=== PATIENT | female | born 1985 ===

== ENCOUNTER 2020-12-31 11:00 | Outpatient (REF) | payer OTHER, SELFPAY ==
[2020-12-31 12:08] LABS: MANUAL DIFF FLAG NO
[2020-12-31 12:11] LABS: Basophils Percent Auto 0.2 % (0-2); Eosinophils Absolute Auto 0.1 X10*3/uL (0.0-0.4); Eosinophils Percent Auto 1.1 % (0-4); Hematocrit 38.5 % (37-47); Hemoglobin 12.4 g/dl (12.0-16.0); Imm Gran Abs Auto 0.03 X10*3/uL (0.00-0.03); Imm Gran Pct Auto 0.6 % (0.0-0.4); Lymphocytes Absolute Auto 1.2 X10*3/uL (1.2-4.9); Lymphocytes Percent Auto 21.7 % (20-40); Mean Corpuscular HGB Conc 32.2 g/dl (31.0-35.0); Mean Corpuscular Hemoglobin 27.9 pg (27.0-33.0); Mean Corpuscular Volume 86.7 fL (80-98); Mean Platelet Volume 10.7 fL (9.4-12.3); Monocytes Absolute Auto 0.3 X10*3/uL (0.1-1.2); Monocytes Percent Auto 6.3 % (2-11); Neutrophils Absolute Auto 3.8 X10*3/uL (2.0-8.3); Neutrophils Percent Auto 70.1 % (45-73); Platelet Count 192 X10*3/uL (160-400); Red Blood Count 4.44 X10*6/uL (4.20-5.50); Red Cell Distribution Width 13.2 % (11.0-16.0); White Blood Count 5.4 X10*3/uL (4.8-10.8)
[2020-12-31 12:29] LABS: Appearance Urine CLEAR; Color Urine YELLOW; Glucose Urine UA NEG (NEG); Leukocyte Esterase Urine NEG (NEG); Nitrite Urine NEG (NEG); PH 6.5 (5.0-8.0); Specific Gravity - Urine 1.015 (1.005-1.025); Urine Blood 1+ (NEG); Urine Ketones NEG (NEG); Urine Protein NEG (NEG-TRACE)
[2020-12-31 12:36] LABS: Alanine Aminotransferase 20 U/L (0-31); Albumin Level 4.1 g/dL (3.5-5.0); Alkaline Phosphatase 70 U/L (39-117); Anion Gap 10 (12-20); Aspartate Amino Transferase 13 U/L (5-31); Bilirubin Total < 0.2 mg/dL (0.0-1.0); Blood Urea Nitrogen 10 mg/dL (9-16); C Reactive Protein 1.12 mg/dL (< or = 0.50); Calcium 8.9 mg/dL (8.4-10.2); Carbon Dioxide 29 mmol/L (22-29); Chloride 104 mmol/L (96-108); Estimated Glomerular Filt Rate > 60; Glucose Random 123 mg/dL (60-115); Potassium 4.3 mmol/L (3.3-5.1); Rheumatoid Factor < 15.0 IU/mL (<15.0); Sodium 139 mmol/L (135-145)
[2020-12-31 12:47] LABS: RBC Urine 0-2 /HPF (0); Squamous Epithelial Cell Urine TRACE /LPF; WBC Urine 0 /HPF (0-4)
[2020-12-31 12:54] LABS: Thyroid Stimulating Hormone 0.91 uIU/mL (0.32-4.0)
[2020-12-31 13:23] LABS: Erythrocyte Sedimentation Rate 19 MM/HR (0-20)
[2021-01-01 05:32] LABS: Thyroglobulin Antibodies <1 IU/mL (< or = 1); Thyroid Peroxidase Antibodies <1 IU/mL (<9)
[2021-01-01 11:07] LABS: Cyclic Citrullinated Peptide <16 UNITS
[2021-01-01 13:06] LABS: Anti DNA DS Antibody <1 IU/mL; Antibody to SS-A Antigen <1.0 NEG AI (<1.0 NEG); Antibody to SS-B Antigen <1.0 NEG AI (<1.0 NEG); SM/Ribonucleoprotein Ab <1.0 NEG AI (<1.0 NEG); Smith Protein <1.0 NEG AI (<1.0 NEG)
[2021-01-03 12:21] LABS: Complement C3 134 mg/dL (83-193)
[2021-01-03 15:37] LABS: Anti Nuclear Antibody Screen POSITIVE (NEGATIVE)
== END 2020-12-31 11:01 | disposition home or self-care (01) ==
LOC: HO.LAB 11:00
PROVIDERS: PCP Internal Medicine Geriatric Medicine; Visit Provider Student in an Organized Health Care Education/Training Program
DX: R76.8 Other specified abnormal immunological findings in serum (principal)
CPT/HCPCS: 36415; 80053; 81001; 84443; 85025; 85652; 86038; 86039; 86140; 86160; 86200; 86225; 86235; 86376; 86431; 86800; 99202

== ENCOUNTER 2021-02-03 13:37 | Outpatient (REF) | payer OTHER, SELFPAY ==
--- NOTE | ~2021-02-03 | US_ITS ---
EXAMINATION: US OB PELVIC AND TRANSVAGINAL CLINICAL INFORMATION: Abdominal cramping x 4-5 days. COMPARISON: None TECHNIQUE: Routine transabdominal imaging of pelvis is performed. FINDINGS: The uterus is anteverted with a solitary intrauterine gestational sac and yolk sac. pole is not visualized. There is no motion or heart rate. The mean gestational sac measures 0.68 cm corresponding to 5 weeks 2 days. There are 2 hypoechoic lesions seen in the uterus consistent with small fibroids. The mid segment lesion measures 1.2 x 1.1 x 1.2 cm. The anterior lesion measures 0.6 x 0.4 x 0.6 cm. The myometrium is heterogeneous. There are multiple small anechoic nabothian cysts in the cervix. The right ovary measures 3.4 x 2.4 x 2.9 cm. There is a small corpus luteal cyst measuring 2.1 x 2.3 x 2.4 cm. The left ovary measures 2.9 x 1.8 x 2.3 cm. There is a small corpus luteal cyst measuring 1.9 x 1.3 x 2.1 cm. There is no free fluid in the cul-de-sac. US/US OB pelvic and transvaginal IMPRESSION: Single intrauterine gestational sac with a mean sac diameter corresponding to 5 weeks 2 days. pole, heart rate is not visualized. There are 2 uterine fibroids visualized. There are small nabothian cysts in the cervix. There is a corpus luteal cyst in each ovary. There is no free fluid in the cul-de-sac.
== END 2021-02-03 13:38 | disposition home or self-care (01) ==
LOC: HO.HMGCX 13:37
PROVIDERS: PCP Internal Medicine Geriatric Medicine; Visit Provider Nurse Practitioner Family
DX: O26.891 Other specified pregnancy related conditions, first trimester (principal); Z3A.01 Less than 8 weeks gestation of pregnancy; R10.9 Unspecified abdominal pain
CPT/HCPCS: 76801; 76817

== ENCOUNTER 2022-09-27 13:27 | Outpatient (REF) | payer MEDICAID, SELFPAY ==
[2022-09-28 09:19] LABS: BV Int Neg Control Negative (Negative); BV Int Pos Control Positive (Positive)
== END 2022-09-27 13:28 | disposition home or self-care (01) ==
LOC: HO.LNP 13:27
PROVIDERS: PCP Internal Medicine Geriatric Medicine; Visit Provider Advanced Practice Midwife
DX: N93.9 Abnormal uterine and vaginal bleeding, unspecified (principal); N92.0 Excessive and frequent menstruation with regular cycle; Z97.5 Presence of (intrauterine) contraceptive device
CPT/HCPCS: 84443; 85027; 87480; 87491; 87510; 87591; 87660; 99202

== ENCOUNTER 2022-09-27 14:45 | Outpatient (REF) | payer MEDICAID, SELFPAY ==
[2022-09-27 16:01] LABS: Hematocrit 39.1 % (37.0-47.0); Hemoglobin 12.6 g/dl (12.0-16.0); Mean Corpuscular HGB Conc 32.2 g/dl (31.0-35.0); Mean Corpuscular Hemoglobin 27.3 pg (27.0-33.0); Mean Corpuscular Volume 84.6 fL (80.0-98.0); Mean Platelet Volume 11.4 fL (9.4-12.3); Platelet Count 222 X10*3/uL (160-400); Red Blood Count 4.62 X10*6/uL (4.20-5.50); Red Cell Distribution Width 13.6 % (11.0-16.0); White Blood Count 7.7 X10*3/uL (4.8-10.8)
[2022-09-27 17:02] LABS: Thyroid Stimulating Hormone 0.78 uIU/mL (0.32-4.0)
[2022-09-28 02:11] LABS: CT PCR NOT DETECTED (Not Detect.); NG PCR NOT DETECTED (Not Detect.)
== END 2022-09-27 14:46 | disposition home or self-care (01) ==
LOC: HO.LAB 14:45
PROVIDERS: PCP Internal Medicine Geriatric Medicine; Visit Provider Advanced Practice Midwife
DX: N92.1 Excessive and frequent menstruation with irregular cycle (principal); N93.9 Abnormal uterine and vaginal bleeding, unspecified
CPT/HCPCS: 84443; 85027; 87491; 87591

== ENCOUNTER 2022-11-09 15:19 | Outpatient (REF) | payer MEDICAID, SELFPAY ==
--- NOTE | ~2022-11-09 | US_ITS ---
EXAMINATION: US PELVIS CLINICAL INFORMATION: Excessive and frequent menses with regular cycle; the last menstrual period was on 11/15/2022. COMPARISON: Obstetrical ultrasound dated 02/03/2021. TECHNIQUE: Ultrasound of the pelvis is performed using both transabdominal and transvaginal transducers along with Doppler. Transvaginal imaging is performed due to inadequate visualization transabdominally. FINDINGS: Uterus: The uterus is anteverted and anteflexed. The uterus measures 11.1 x 2.8 x 4.7 cm. Nabothian cysts are seen within the cervix. There is a minimal amount endocervical anechoic fluid. The double wall endometrial thickness is 0.5 mm. FIBROIDS: There is 1 fibroid seen. 1. Location: Anterior body, myometrial. Size: 0.9 x 0.7 x 0.7 cm. Prior: 1.2 x 1.1 x 1.2 cm. Fibroid characteristics: Heterogeneously hypoechoic. The uterus is smooth in contour and has normal myometrial echogenicity. No visible fibroid. Adnexa: Both ovaries are visualized. There is normal color flow to the adnexa. There is no ovarian torsion. There is no pelvic ascites or fluid collection. Right ovary measures 1.6 x 1.5 x 1.5 cm, volume 1.9 mL. Left ovary measures 4.6 x 4.2 x 3.8 cm, volume 38.3 mL. The left ovary contains a 3.8 x 3.3 x 3.2 cm mildly complex cyst with 2.0 x 2.2 x 2.3 cm daughter cyst. This shows no mural nodularity or associated color Doppler flow. US/US pelvic and transvaginal IMPRESSION: 1. A 3.8 cm in maximal diameter mildly complex left ovarian cyst is seen, with daughter cyst. As a precaution, a repeat pelvic ultrasound examination is recommended in 6-12 weeks to ensure stability/regression. 2. A small uterine fibroid is noted. 3. Nabothian cysts are seen within the cervix. 4. This is a small amount of nonspecific endocervical free fluid.
== END 2022-11-09 15:20 | disposition home or self-care (01) ==
LOC: HO.US 15:19
PROVIDERS: PCP Internal Medicine Geriatric Medicine; Visit Provider Advanced Practice Midwife
DX: N92.0 Excessive and frequent menstruation with regular cycle (principal)
CPT/HCPCS: 76830; 76856

== ENCOUNTER → 2022-11-16 10:11 | Outpatient (BNVA) | payer MEDICAID, SELFPAY | PROVIDERS: PCP Internal Medicine Geriatric Medicine; Visit Provider Advanced Practice Midwife | DX: Z71.2 Person consulting for explanation of examination or test findings (principal); D25.9 Leiomyoma of uterus, unspecified; N88.8 Other specified noninflammatory disorders of cervix uteri | CPT/HCPCS: 99212 ==

== ENCOUNTER 2023-01-01 11:02 | Outpatient (REF) | payer MEDICAID, SELFPAY ==
--- NOTE | ~2023-01-01 | US_ITS ---
EXAMINATION: US PELVIS CLINICAL INFORMATION: Ovarian cyst. COMPARISON: Pelvic ultrasound 11/09/2022 - A 3.8 cm in maximal diameter mildly complex left ovarian cyst is seen, with daughter cyst. As a precaution, a repeat pelvic ultrasound examination is recommended in 6-12 weeks to ensure stability/regression. TECHNIQUE: Ultrasound of the pelvis is performed using both transabdominal and transvaginal transducers along with Doppler. Transvaginal imaging is performed due to inadequate visualization transabdominally. FINDINGS: UTERUS: The uterus is anteverted and measures 11.8 x 3.1 x 3.8 cm. The double wall endometrial thickness is 0.3 mm. The uterus is smooth in contour and has normal myometrial echogenicity. A small 1.1 x 0.7 x 0.7 cm fibroid is seen near the fundus which is without significant change. At the time of the prior study, 2 fibroids were measured. ADNEXA: Both ovaries are visualized. There is normal color flow to the adnexa. There is no ovarian torsion. There is no pelvic ascites or fluid collection. Right ovary measures 3.3 x 3.6 x 3.7 cm for a volume of 23 mL which includes a 3.2 x 2.9 x 3.6 cm cyst, new since the prior study. Left ovary measures 2.4 x 1.4 x 2.0 cm for a volume of 3.5 mL which includes a small elongated simple cyst measuring 1.6 x 0.6 x 0.9 cm. The previously seen complex cyst has either resolved or is now significantly smaller. US/US pelvic and transvaginal IMPRESSION: 1. Small uterine fibroid. 2. Bilateral ovarian cysts. No follow up is needed. 3. Previously seen complex 3.8 cm left ovarian cyst has either resolved or is significantly smaller measuring 1.6 cm.
== END 2023-01-01 11:03 | disposition home or self-care (01) ==
LOC: HO.US 11:02
PROVIDERS: PCP Internal Medicine Geriatric Medicine; Visit Provider Advanced Practice Midwife
DX: N83.292 Other ovarian cyst, left side (principal)
CPT/HCPCS: 76830; 76856

== ENCOUNTER 2023-01-17 10:06 | Outpatient (REF) | payer MEDICAID, SELFPAY ==
[2023-01-17 13:10] LABS: CT PCR NOT DETECTED (Not Detect.); NG PCR NOT DETECTED (Not Detect.)
[2023-01-18 11:06] LABS: BV Int Neg Control Negative (Negative); BV Int Pos Control Positive (Positive)
== END 2023-01-17 10:07 | disposition home or self-care (01) ==
LOC: HO.LAB 10:06
PROVIDERS: PCP Internal Medicine Geriatric Medicine; Visit Provider Advanced Practice Midwife
DX: R10.2 Pelvic and perineal pain (principal); N92.1 Excessive and frequent menstruation with irregular cycle; Z20.2 Contact with and (suspected) exposure to infections with a predominantly sexual mode of transmission; Z97.5 Presence of (intrauterine) contraceptive device
CPT/HCPCS: 0353U; 87480; 87510; 87660; 99212

== ENCOUNTER 2023-01-17 11:01 | Outpatient (REF) | payer MEDICAID, SELFPAY ==
[2023-01-20 03:09] LABS: HPV mRNA E6/E7 rflx Not Detected (Not Detected)
== END 2023-01-17 11:02 | disposition home or self-care (01) ==
LOC: HO.LNP 11:01
PROVIDERS: Visit Provider Advanced Practice Midwife
DX: Z01.411 Encounter for gynecological examination (general) (routine) with abnormal findings (principal); Z11.51 Encounter for screening for human papillomavirus (HPV); R10.2 Pelvic and perineal pain; N92.1 Excessive and frequent menstruation with irregular cycle; Z97.5 Presence of (intrauterine) contraceptive device
CPT/HCPCS: 87624; 88142

== ENCOUNTER → 2023-02-21 08:21 | Outpatient (BNVA) | payer MEDICAID, SELFPAY | PROVIDERS: PCP Internal Medicine Geriatric Medicine; Visit Provider Advanced Practice Midwife | DX: Z71.2 Person consulting for explanation of examination or test findings (principal); N92.1 Excessive and frequent menstruation with irregular cycle; Z30.09 Encounter for other general counseling and advice on contraception; G43.109 Migraine with aura, not intractable, without status migrainosus; D21.9 Benign neoplasm of connective and other soft tissue, unspecified | CPT/HCPCS: 99212 ==

== ENCOUNTER → 2023-03-16 13:49 | Outpatient (BNVA) | payer MEDICAID, SELFPAY | PROVIDERS: PCP Internal Medicine Geriatric Medicine; Visit Provider Advanced Practice Midwife | DX: Z30.430 Encounter for insertion of intrauterine contraceptive device (principal); N92.6 Irregular menstruation, unspecified | CPT/HCPCS: 11982; 58300; 81025; J7298 ==

== ENCOUNTER 2023-03-22 16:13 | Outpatient (REF) | payer MEDICAID, SELFPAY ==
--- NOTE | ~2023-03-22 | US_ITS ---
EXAMINATION: US PELVIS CLINICAL INFORMATION: Pain after insertion of IUD on 03/16/2023. LMP 02/09/2023. COMPARISON: Pelvic ultrasound 01/01/2023. TECHNIQUE: Ultrasound of the pelvis is performed using both transabdominal and transvaginal transducers along with Doppler. Transvaginal imaging is performed due to inadequate visualization transabdominally. FINDINGS: The uterus is anteverted and measures 8 x 4.4 x 6 cm. There is redemonstration of a 1 x 0.7 x 1.3 cm intramural lesion near the fundus, favoring to represent a fibroid. The endometrium measures 0.4 cm in thickness, IUD is in satisfactory positioning within the endometrial cavity. Nabothian cysts are noted in the cervix. The right ovary measures 3.9 x 4.3 x 4.4 cm, 39 mL. The left ovary measures 2.9 x 1.6 x 2.8 cm, 7 mL. There is preserved flow to both ovaries at the moment of this examination. Differences in size are likely explained by the presence of a 3.7 x 3.4 x 3.2 cm complicated cyst in the right ovary with internal avascular septations and layering debris. No adnexal mass. No free fluid. US/US pelvic and transvaginal IMPRESSION: 1. IUD in satisfactory positioning within the endometrial cavity. 2. There is a 3.7 cm complicated cyst in the right ovary with lacelike avascular septations and layering avascular debris, favoring to represent hemorrhagic cyst. Recommend a follow-up examination in 6-12 weeks to ensure resolution. 3. Redemonstration of a 1.3 cm intramural lesion near the fundus of the uterus, statistically favored to represent represent a fibroid. 4. Nabothian cysts in the cervix.
== END 2023-03-22 16:14 | disposition home or self-care (01) ==
LOC: HO.US 16:13
PROVIDERS: PCP Internal Medicine Geriatric Medicine; Visit Provider Advanced Practice Midwife
DX: Z30.431 Encounter for routine checking of intrauterine contraceptive device (principal); R10.2 Pelvic and perineal pain
CPT/HCPCS: 76830; 76856

== ENCOUNTER → 2023-03-23 07:47 | Outpatient (BNVA) | payer MEDICAID, SELFPAY | PROVIDERS: PCP Internal Medicine Geriatric Medicine; Visit Provider Advanced Practice Midwife | DX: Z71.2 Person consulting for explanation of examination or test findings (principal); N83.291 Other ovarian cyst, right side | CPT/HCPCS: 99212 ==

== ENCOUNTER 2023-04-20 08:08 | Outpatient (AMB) | payer MEDICAID, SELFPAY ==
[2023-04-20 08:29] VITALS: BP 126/78; PULSE 83; TEMP 36.5; O2SAT 97; BMI 46.1
--- NOTE | 2023-04-20 08:29 | MHC.OFFVIS ---
Intake Vital Signs 04/20/23 08:29 Height 5 ft 3 in Weight 260 lb 2.327 oz BMI 46.1 BP 126/78 Blood Pressure Location Rt brachial Position Sitting Pulse 83 Pulse Source Pulse Oximeter Temp 97.7 F Temp Source Skin Pulse Oximetry (%) 97 Intake Visit Reasons: +EDDIE Intake Note: New pt presents today for +EDDIE consult. C/o pain in back, knees, and wrists. Anesthesiology Faculty Required: Yes Anesthesiology Faculty Language: Medical Record Librarians Teacher Name: Blanca [id number] Accompanied by: Self / Same As Patient Allergies seasonal allergies Allergy (Unknown, Uncoded 04/20/23 08:36) hives Medication List - Last Reconciled 04/20/23 by Guy Krause MD albuterol sulfate 90 mcg/actuation (Proventil HFA) 1 - 2 puffs inhalation Q4-6H PRN amlodipine 5 mg PO DAILY cetirizine (Zyrtec) 10 mg PO DAILY PRN cyclobenzaprine 10 mg PO TID epinephrine IM DIRECTED fluticasone propionate 50 mcg/actuation 1 spray intranasal DAILY levonorgestrel (Mirena) intrauterine lisinopril 20 mg PO DAILY losartan 50 mg PO QAM metformin 500 mg PO DAILY metformin ER 1,000 mg PO QAM sertraline (Zoloft) 100 mg PO DAILY tirzepatide (Mounjaro) 5 mg subcut QWEEK HPI HPI Comments History of Present Illness Details This is a 37-year-old female who presents for evaluation of a positive EDDIE. For a few years patient has been having diffuse pain in her back, wrists, knees. Feels that she has no strength in her knees. She has tried physical therapy and Flexeril for her back without much relief. Denies any skin rashes. Denies any blood or frothy urine. She had 4 pregnancies and 1 miscarriage. Her mother has fibromyalgia and she believes her mother also has rheumatoid arthritis but is not sure. [facility] Medical History (Updated 04/20/23 @ 09:07 by Guy Krause MD) Abnormal Pap smear of cervix Complex cyst of right ovary Diabetes Fibroid HTN (hypertension) Migraine with aura Prolonged menstrual cycle Surgical History Gastric bypass status for obesity Hx of section Family History Mother HTN (hypertension) Prediabetes Rheumatoid arthritis Maternal Grandmother Uterus cancer Son Down syndrome Social History Household Members: Children Housing: House Alcohol intake: current Patient Tobacco Use Status: Never used Tobacco service: No Current occupational status: unemployed Sexual orientation: Straight/Heterosexual Gender identity: Female Female Reproductive History Menstrual Total pregnancies: 4 Number of Living Children: 3 Ab spontaneous: 1 Review of Systems [facility] [place] Reports back pain and Reports arthralgias Skin/Breast Denies rash Physical Exam Vital Signs: Last Vital Signs Temp 97.7 F 04/20/23 08:29 Pulse 83 04/20/23 08:29 BP 126/78 04/20/23 08:29 Pulse Ox 97 04/20/23 08:29 BMI result Body Mass Index 46.1 Const General: cooperative, healthy appearing and comfortable Nutritional Appearance: obese morbidly obese Orientation/consciousness: patient oriented x3 Limitations: no limitations HEENT Head: Yes normocephalic and Yes atraumatic Mouth: moist mucous membranes Resp Effort & Inspection: normal respiratory effort and able to speak in complete sentences Auscultation: clear to auscultation bilaterally Cardio Rate: regular rate Rhythm: regular rhythm GI Inspection: No distended Palpation (GI): Soft to palpation and nontender Neuro General: patient oriented x3 Extrem Other: Right 4th MCP tenderness with MCP squeeze test An area of depigmentation where patient received steroid injection for de Quervain tenosynovitis left hand. No swollen joints Normal nailfold capillaroscopy Rare fibromyalgia tender points Results Reviewed Results Reviewed: Labs 2022 EDDIE 1-320 dfs Assessment & Plan Assessment & Plan (1) EDDIE positive: Code(s): R76.8 - Other specified abnormal immunological findings in serum Plan: This is a 37-year-old female who presents for evaluation of a positive EDDIE in the setting of diffuse joint pain. Will order comprehensive serology to screen for underlying autoimmune rheumatic disease. Follow-up after labs are completed. Plan I spent 32 minutes reviewing patient's chart, evaluating patient, ordering diagnostic workup, counseling patient and documenting in the chart Orders: Orders Comprehensive Met. Panel Today M32.9 - Systemic lupus erythematosus, unspecified C Reactive Protein Today M32.9 - Systemic lupus erythematosus, unspecified Protein Creatinine Ratio, Ur Today M32.9 - Systemic lupus erythematosus, unspecified Complete Blood Count Auto Diff Today M32.9 - Systemic lupus erythematosus, unspecified Erythrocyte Sedimentation Rate Today M32.9 - Systemic lupus erythematosus, unspecified Complement C3 Today M32.9 - Systemic lupus erythematosus, unspecified Complement C4 Today M32.9 - Systemic lupus erythematosus, unspecified Anti DNA DS Antibody Today M32.9 - Systemic lupus erythematosus, unspecified Anti Extractable Nuclear Ag Today M32.9 - Systemic lupus erythematosus, unspecified Sjogren's Antibodies Today M32.9 - Systemic lupus erythematosus, unspecified UA w Microscopic Today M32.9 - Systemic lupus erythematosus, unspecified Cyclic Citrullinated Peptide Today M25.541 - Pain in joints of right hand Rheumatoid Factor Today M25.541 - Pain in joints of right hand Coding Level of Care Code Est Pt Level 4 (48838) Diagnoses EDDIE positive R76.8
== END 2023-04-20 09:03 | disposition home or self-care (01) ==
PROVIDERS: PCP Internal Medicine Geriatric Medicine; Visit Provider Student in an Organized Health Care Education/Training Program
DX: R76.8 Other specified abnormal immunological findings in serum (principal)
CPT/HCPCS: 99214

== ENCOUNTER 2023-04-20 08:08 | Outpatient (REF) | payer MEDICAID, SELFPAY ==
[2023-04-21 11:47] LABS: BV Int Neg Control Negative (Negative); BV Int Pos Control Positive (Positive)
== END 2023-04-20 08:09 | disposition home or self-care (01) ==
LOC: HO.LNP 08:08
PROVIDERS: Advanced Practice Midwife; PCP Internal Medicine Geriatric Medicine; Visit Provider Student in an Organized Health Care Education/Training Program
DX: N92.1 Excessive and frequent menstruation with irregular cycle (principal); R76.8 Other specified abnormal immunological findings in serum; Z97.5 Presence of (intrauterine) contraceptive device
CPT/HCPCS: 81025; 87480; 87510; 87660; 99212; 99214

== ENCOUNTER 2023-04-20 09:12 | Outpatient (AMB) | payer MEDICAID, SELFPAY ==
--- NOTE | 2023-04-20 09:21 | A.OFFVIS_ITS ---
Intake Vital Signs 04/20/23 09:30 Height 5 ft 3 in Weight 260 lb 2.327 oz BMI 46.1 BP 116/72 Intake Visit Reasons: Heavy Bleeding with IUD Intake Note: The patient agreed to use of a medical records auditor during this encounter. Scribed for SHERRI Rojas by Vanna Esqueda medical records auditor, on 04/20/2023 at 9:34 am EST. Recovery Rn Required: Yes Recovery Rn Language: Director Of Preclinical Research Name: Estelle CROWLEY Information Interpreted: non-clinical & clinical Process Validation Engineer: Process Validation Engineer Present (Estelle Siva CROWLEY) Accompanied by: Self / Same As Patient Allergies seasonal allergies Allergy (Unknown, Uncoded 04/20/23 09:31) hives HPI HPI Comments History of Present Illness Details She is here today due to heavy menstrual bleeding with IUD; light pink spotting today. Mirena inserted 03/16/23. Reports VB every day since insertion with pelvic cramping. She reports changing pad hourly on some days. Denies vaginal odor and discharge. [facility] Medical History Abnormal Pap smear of cervix Breakthrough bleeding associated with intrauterine device (IUD) Complex cyst of right ovary Diabetes Fibroid HTN (hypertension) IUD strings lost IUD strings lost Migraine with aura Prolonged menstrual cycle Surgical History Gastric bypass status for obesity Hx of section Family History Mother HTN (hypertension) Prediabetes Rheumatoid arthritis Maternal Grandmother Uterus cancer Son Down syndrome Social History Household Members: Children Housing: House Alcohol intake: current Patient Tobacco Use Status: Never used Tobacco service: No Current occupational status: unemployed Sexual orientation: Straight/Heterosexual Gender identity: Female Female Reproductive History Menstrual control method: progestin IUCD Physical Exam Vital Signs: Last Vital Signs BP 116/72 04/20/23 09:30 BMI result Body Mass Index 46.1 Const General: cooperative, healthy appearing, comfortable, no acute distress, well developed, alert and awake Other: General: Yes bladder normal to palpation External Female Exam: normal external appearance and normal appearance of the urethra Speculum Exam - Vagina: normal appearance of the vagina, normal palpation and normal vaginal discharge Speculum Exam - Cervix: normal appearance of the cervix, normal palpation and Other cervical findings present (IUD strings not visible or palpable.) Bimanual exam- vagina & uterus: normal bimanual exam, normal palpation, bladder normal to palpation and normal palpation Bimanual Exam- Adnexa, other: normal adnexae and no masses Results AMB Test Urine AMB Test Urine Negative Last Edit by Estelle Paniagua CMA on 09:59 Results Reviewed Results Reviewed: Laboratory Last Values Tst Clinic Negative 04/20/23 09:59 EXAMINATION:? US PELVIS CLINICAL INFORMATION:? Excessive and frequent menstruation with irregular cycle COMPARISON: Previous pelvic ultrasound most recent March 2023 TECHNIQUE: Ultrasound of the pelvis is performed using both transabdominal and transvaginal transducers along with Doppler. Transvaginal imaging is performed due to inadequate visualization transabdominally. FINDINGS: The uterus is anteverted and measures 12 x 3 x 5.5 cm in dimension. There is an IUD in the uterus in satisfactory position. The endometrium does not appear thickened. There is a 8 x 9 mm hypoechoic area anterior uterine body questionable for a fibroid. No other focal uterine lesion. Nabothian cysts in the cervix. The right ovary is normal-appearing and measures 2.3 x 2.4 x 2.2 cm. The previously identified slightly complex right ovarian cyst measuring 3.7 x 3.4 x 3.2 cm March 2023 exam is no longer seen. The left ovary measures 2.4 x 1.3 x 2.1 cm. There is a new nonspecific 1.3 x 0.5 x 0.7 cm irregularly-shaped echogenic area in the left ovary. This may represent an involuting cyst. There is no fluid in the pelvis. US/US pelvic and transvaginal IMPRESSION: IUD in the uterus in satisfactory position. Endometrium does not appear thickened. Resolved complex cyst in the right ovary from March 2023. Assessment & Plan Assessment & Plan (1) Heavy menstrual bleeding: Code(s): N92.0 - Excessive and frequent menstruation with regular cycle Plan: Discussed: BV testing and GV/CT panel done today. Await results and treat accordingly. Workup labs: already on order by PCP, CBC-and patient is agreeable to have work up done. Pt. returned from US: reviewed w/pt. Cancel future US for complex ovarian cyst that has resolved. Call if increased bleeding for sooner evaluation. All of her questions and concerns were addressed to the best of my ability and shared decision making. She is agreeable to plan of care. RTO PRN and AG. (2) Breakthrough bleeding associated with intrauterine device (IUD): Code(s): N92.1 - Excessive and frequent menstruation with irregular cycle; Z97.5 - Presence of (intrauterine) contraceptive device (3) IUD surveillance: Code(s): Z30.431 - Encounter for routine checking of intrauterine contraceptive device (4) IUD strings lost: Code(s): T83.32XA - Displacement of intrauterine contraceptive device, initial encounter Orders: Orders Bacterial Vaginosis Panel Today N92.1 - Excessive and frequent menstruation with irregular cycle, Z97.5 - Presence of (intrauterine) contraceptive device CT NG by PCR Today N92.1 - Excessive and frequent menstruation with irregular cycle, Z97.5 - Presence of (intrauterine) contraceptive device AMB HCG Urine Test Today T83.32XA - Displacement of intrauterine contraceptive device, initial encounter Coding Level of Care Code Est Pt Level 4 (80713) Diagnoses Heavy menstrual bleeding N92.0 Breakthrough bleeding associated with intrauterine device (IUD) N92.1; Z97.5 IUD surveillance Z30.431 IUD strings lost T83.32XA
[2023-04-20 09:30] VITALS: BP 116/72; BMI 46.1
== END 2023-04-20 09:52 | disposition home or self-care (01) ==
LOC: HO.HWS 09:12
PROVIDERS: PCP Internal Medicine Geriatric Medicine; Visit Provider Advanced Practice Midwife
DX: N92.0 Excessive and frequent menstruation with regular cycle (principal); N92.1 Excessive and frequent menstruation with irregular cycle; Z30.431 Encounter for routine checking of intrauterine contraceptive device; T83.32XA Displacement of intrauterine contraceptive device, initial encounter
CPT/HCPCS: 99214

== ENCOUNTER 2023-04-20 10:46 | Outpatient (REF) | payer MEDICAID, SELFPAY ==
[2023-04-20 14:19] LABS: Anion Gap 13 (12-20); Blood Urea Nitrogen 8 mg/dL (9-16); Calcium 9.2 mg/dL (8.4-10.2); Carbon Dioxide 25 mmol/L (22-29); Chloride 106 mmol/L (96-108); Estimated Average Glucose 123 mg/dL; Estimated Glomerular Filt Rate > 60; Glucose Random 82 mg/dL (60-115); Hemoglobin A1c % 5.9 %; Potassium 3.8 mmol/L (3.3-5.1); Sodium 140 mmol/L (135-145)
[2023-04-20 14:49] LABS: Vitamin B12 538 pg/mL (200-900)
== END 2023-04-20 10:47 | disposition home or self-care (01) ==
LOC: HO.HHCL 10:46
PROVIDERS: Visit Provider Internal Medicine Geriatric Medicine
DX: E11.69 Type 2 diabetes mellitus with other specified complication (principal); E66.9 Obesity, unspecified
CPT/HCPCS: 36415; 80048; 82607; 83036; 83735

== ENCOUNTER 2023-04-20 11:10 | Outpatient (REF) | payer MEDICAID, SELFPAY ==
--- NOTE | ~2023-04-20 | US_ITS ---
EXAMINATION: US PELVIS CLINICAL INFORMATION: Excessive and frequent menstruation with irregular cycle COMPARISON: Previous pelvic ultrasound most recent March 2023 TECHNIQUE: Ultrasound of the pelvis is performed using both transabdominal and transvaginal transducers along with Doppler. Transvaginal imaging is performed due to inadequate visualization transabdominally. FINDINGS: The uterus is anteverted and measures 12 x 3 x 5.5 cm in dimension. There is an IUD in the uterus in satisfactory position. The endometrium does not appear thickened. There is a 8 x 9 mm hypoechoic area anterior uterine body questionable for a fibroid. No other focal uterine lesion. Nabothian cysts in the cervix. The right ovary is normal-appearing and measures 2.3 x 2.4 x 2.2 cm. The previously identified slightly complex right ovarian cyst measuring 3.7 x 3.4 x 3.2 cm March 2023 exam is no longer seen. The left ovary measures 2.4 x 1.3 x 2.1 cm. There is a new nonspecific 1.3 x 0.5 x 0.7 cm irregularly-shaped echogenic area in the left ovary. This may represent an involuting cyst. There is no fluid in the pelvis. US/US pelvic and transvaginal IMPRESSION: IUD in the uterus in satisfactory position. Endometrium does not appear thickened. Resolved complex cyst in the right ovary from March 2023.
[2023-04-20 13:55] LABS: MANUAL DIFF FLAG NO
[2023-04-20 14:23] LABS: Basophils Percent Auto 0.2 % (0-2); Eosinophils Percent Auto 0.6 % (0-4); Imm Gran Abs Auto 0.02 X10*3/uL (0.00-0.03); Imm Gran Pct Auto 0.3 % (0.0-0.4); Lymphocytes Absolute Auto 1.5 X10*3/uL (1.2-4.9); Lymphocytes Percent Auto 24.9 % (20-40); Mean Corpuscular HGB Conc 31.7 g/dl (31.0-35.0); Mean Corpuscular Hemoglobin 27.1 pg (27.0-33.0); Mean Corpuscular Volume 85.6 fL (80.0-98.0); Mean Platelet Volume 11.4 fL (9.4-12.3); Monocytes Absolute Auto 0.4 X10*3/uL (0.1-1.2); Monocytes Percent Auto 6.5 % (2-11); Neutrophils Absolute Auto 4.2 x10*3/uL (2.0-8.3); Neutrophils Percent Auto 67.5 % (45-73); Platelet Count 229 X10*3/uL (160-400); Red Blood Count 4.79 X10*6/uL (4.20-5.50); Red Cell Distribution Width 13.6 % (11.0-16.0); White Blood Count 6.2 X10*3/uL (4.8-10.8)
[2023-04-20 15:08] LABS: Erythrocyte Sedimentation Rate 8 MM/HR (0-20)
[2023-04-20 15:30] LABS: Appearance Urine Clear; Color Urine Yellow; Glucose Urine UA Negative (Negative); Leukocyte Esterase Urine Negative (Negative); Nitrite Urine Negative (Negative); PH 6.5 (5.0-9.0); Specific Gravity - Urine 1.015 (1.005-1.025); UMIC TRIGGER UA YES; Urine Blood Trace (Negative); Urine Ketones Negative (Negative); Urine Protein Negative (Neg-Trace)
[2023-04-20 15:36] LABS: Bacteria Urine None Seen (None Seen); Hyaline Casts Urine 0-2 /LPF (0-2); RBC Urine 0-2 /HPF (0-2); WBC Urine 0-5 /HPF (0-5)
[2023-04-20 15:37] LABS: Alanine Aminotransferase 29 U/L (0-31); Albumin Level 4.3 g/dL (3.5-5.0); Alkaline Phosphatase 73 U/L (39-117); Anion Gap 12 (12-20); Aspartate Amino Transferase 17 U/L (5-31); Bilirubin Total 0.4 mg/dL (0.0-1.0); Blood Urea Nitrogen 8 mg/dL (9-16); C Reactive Protein 0.84 mg/dL (< or = 0.50); Calcium 9.2 mg/dL (8.4-10.2); Carbon Dioxide 27 mmol/L (22-29); Chloride 103 mmol/L (96-108); Estimated Glomerular Filt Rate > 60; Glucose Random 77 mg/dL (60-115); Potassium 3.7 mmol/L (3.3-5.1); Sodium 138 mmol/L (135-145); Total Protein 7.2 g/dL (6.5-8.0)
[2023-04-20 15:44] LABS: Rheumatoid Factor < 13.0 IU/mL (<15.0)
[2023-04-20 16:00] LABS: Creatinine Urine 112.84 mg/dL; Total Protein Urine Random 11 mg/dL (<12)
[2023-04-20 17:57] LABS: CT PCR NOT DETECTED (Not Detect.); NG PCR NOT DETECTED (Not Detect.)
[2023-04-23 12:29] LABS: Complement C3 140 mg/dL (83-193)
[2023-04-23 19:17] LABS: Anti DNA DS Antibody <1 IU/mL; Antibody to SS-A Antigen <1.0 NEG AI (<1.0 NEG); Antibody to SS-B Antigen <1.0 NEG AI (<1.0 NEG); SM/Ribonucleoprotein Ab <1.0 NEG AI (<1.0 NEG); Smith Protein <1.0 NEG AI (<1.0 NEG)
[2023-04-25 13:58] LABS: Cyclic Citrullinated Peptide <16 UNITS
== END 2023-04-20 11:11 | disposition home or self-care (01) ==
LOC: HO.US 11:10
PROVIDERS: Absent Provider Student in an Organized Health Care Education/Training Program; PCP Internal Medicine Geriatric Medicine; Visit Provider Advanced Practice Midwife
DX: N92.1 Excessive and frequent menstruation with irregular cycle (principal); M32.9 Systemic lupus erythematosus, unspecified; M25.541 Pain in joints of right hand; N83.291 Other ovarian cyst, right side; Z97.5 Presence of (intrauterine) contraceptive device
CPT/HCPCS: 0353U; 36415; 76830; 76856; 80053; 81001; 84156; 85025; 85652; 86140; 86160; 86200; 86225; 86235; 86431

== ENCOUNTER 2023-06-26 09:02 | Outpatient (AMB) | payer MEDICAID, SELFPAY ==
--- NOTE | 2023-06-26 09:06 | MHC.OFFVIS ---
Intake Vital Signs 06/26/23 09:07 Height 5 ft 3 in Weight 253 lb 4.978 oz BMI 44.9 BP 140/92 H Blood Pressure Location Rt brachial Position Sitting Pulse 72 Pulse Source Pulse Oximeter Temp 97.3 F Temp Source Skin Pulse Oximetry (%) 100 Oxygen Delivery Method Room Air Intake Visit Reasons: EDDIE +ve Intake Note: Patient here to follow up on +EDDIE. Photogravure Press Operator Required: Yes Photogravure Press Operator Language: Data Management Consultant Name: Fabian [id number] Information Interpreted: clinical only Allergies seasonal allergies Allergy (Unknown, Uncoded 06/26/23 09:06) hives Medication List - Last Reconciled 06/26/23 by Guy Krause MD albuterol sulfate 90 mcg/actuation (Proventil HFA) 1 - 2 puffs inhalation Q4-6H PRN amlodipine 5 mg PO DAILY cetirizine (Zyrtec) 10 mg PO DAILY PRN cyclobenzaprine 10 mg PO TID epinephrine IM DIRECTED fluticasone propionate 50 mcg/actuation 1 spray intranasal DAILY levonorgestrel (Mirena) intrauterine losartan 50 mg PO QAM metformin ER 1,000 mg PO QAM metronidazole 500 mg PO BID 7 days sertraline (Zoloft) 100 mg PO DAILY tirzepatide (Mounjaro) 7.5 mg subcut QWEEK HPI HPI Comments History of Present Illness Details Patient returns for follow-up after completion of her blood work. Doing about the same Initial history: This is a 37-year-old female who presents for evaluation of a positive EDDIE. For a few years patient has been having diffuse pain in her back, wrists, knees. Feels that she has no strength in her knees. She has tried physical therapy and Flexeril for her back without much relief. Denies any skin rashes. Denies any blood or frothy urine. She had 4 pregnancies and 1 miscarriage. Her mother has fibromyalgia and she believes her mother also has rheumatoid arthritis but is not sure. [facility] Medical History EDDIE positive IUD strings lost IUD strings lost Breakthrough bleeding associated with intrauterine device (IUD) Complex cyst of right ovary Migraine with aura Prolonged menstrual cycle Fibroid Abnormal Pap smear of cervix Diabetes HTN (hypertension) Surgical History Gastric bypass status for obesity Hx of section Family History Mother HTN (hypertension) Prediabetes Rheumatoid arthritis Maternal Grandmother Uterus cancer Son Down syndrome Social History Household Members: Children Housing: House Alcohol intake: current Patient Tobacco Use Status: Never used Tobacco service: No Current occupational status: unemployed Sexual orientation: Straight/Heterosexual Gender identity: Female Review of Systems Musc Reports back pain, Reports arthralgias, Reports numbness and Reports tingling Neuro Reports numbness and Reports tingling Physical Exam Vital Signs: Last Vital Signs Temp 97.3 F 06/26/23 09:07 Pulse 72 06/26/23 09:07 BP 140/92 H 06/26/23 09:07 Pulse Ox 100 06/26/23 09:07 Oxygen Delivery Method Room Air 06/26/23 09:07 BMI result Body Mass Index 44.9 Const General: cooperative, healthy appearing and comfortable Nutritional Appearance: obese morbidly obese Orientation/consciousness: patient oriented x3 Limitations: no limitations HEENT Head: Yes normocephalic and Yes atraumatic Mouth: moist mucous membranes Resp Effort & Inspection: normal respiratory effort and able to speak in complete sentences Neuro General: patient oriented x3 Extrem Other: An area of depigmentation where patient received steroid injection for de Quervain tenosynovitis left hand. No swollen or tender joints today Normal nailfold capillaroscopy Rare fibromyalgia tender points Positive straight leg raise test on the right Right hand tingling going into her right 5th finger with Tinel test Left hand: Left forearm numbness and tingling with Tinel test Results Reviewed Results Reviewed: Labs 2022 EDDIE 1-320 dfs Assessment & Plan Assessment & Plan (1) EDDIE positive: Code(s): R76.8 - Other specified abnormal immunological findings in serum Plan: This is a 37-year-old female who presents for evaluation of a positive EDDIE in the setting of diffuse joint pain. I do not see any evidence of autoimmune rheumatic disease upon my evaluation and comprehensive serology is unrevealing (2) Bilateral carpal tunnel syndrome: Code(s): G56.03 - Carpal tunnel syndrome, bilateral upper limbs Plan: Versus cubital tunnel syndrome. Referred for EMG (3) Low back pain, unspecified: Code(s): M54.50 - Low back pain, unspecified Qualifiers: Chronicity: chronic Sciatica presence: with sciatica Sciatica laterality: sciatica of right side Back pain laterality: midline Qualified Code(s): M54.41 - Lumbago with sciatica, right side; G89.29 - Other chronic pain Plan: I suggested physical therapy. Patient declined today Plan I spent 28 minutes reviewing patient's chart, evaluating patient, ordering diagnostic workup, counseling patient and documenting in the chart Orders: Orders NE electromyogram (EMG) Today G56.03 - Carpal tunnel syndrome, bilateral upper limbs Coding Level of Care Code Est Pt Level 4 (61072) Diagnoses EDDIE positive R76.8 Bilateral carpal tunnel syndrome G56.03 Chronic midline low back pain with right-sided sciatica M54.41; G89.29 Chronicity: chronic Sciatica presence: with sciatica Sciatica laterality: sciatica of right side Back pain laterality: midline
[2023-06-26 09:07] VITALS: BP 140/92; PULSE 72; TEMP 36.3; O2SAT 100; BMI 44.9
== END 2023-06-26 09:28 | disposition home or self-care (01) ==
PROVIDERS: PCP Internal Medicine Geriatric Medicine; Visit Provider Student in an Organized Health Care Education/Training Program
DX: R76.8 Other specified abnormal immunological findings in serum (principal); G56.03 Carpal tunnel syndrome, bilateral upper limbs; M54.41 Lumbago with sciatica, right side; G89.29 Other chronic pain
CPT/HCPCS: 99214

== ENCOUNTER → 2023-06-26 09:02 | Outpatient (BNVA) | payer MEDICAID, SELFPAY | PROVIDERS: PCP Internal Medicine Geriatric Medicine; Visit Provider Student in an Organized Health Care Education/Training Program | DX: R76.8 Other specified abnormal immunological findings in serum (principal); G56.03 Carpal tunnel syndrome, bilateral upper limbs; M54.41 Lumbago with sciatica, right side; G89.29 Other chronic pain | CPT/HCPCS: 99212 ==

== ENCOUNTER 2023-07-03 10:34 | Outpatient (AMB) | payer MEDICAID, SELFPAY ==
--- NOTE | 2023-07-03 10:37 | MHC.OFFVIS ---
Intake Vital Signs 07/03/23 10:49 Height 5 ft 3 in Weight 254 lb BMI 45.0 BP 126/74 Intake Visit Reasons: Annual/[place] islander Intake Note: The patient agreed to use of a medical transcription radiology during this encounter. Scribed for SHERRI Rojas by Vanna Esqueda medical transcription radiology, on 07/08/2023 at 11:04 am EST. Amusement Centre Manager Required: Yes Amusement Centre Manager Language: Product Distribution Specialist Name: Estelle Information Interpreted: non-clinical & clinical Talent Acquisition Project Manager: Talent Acquisition Project Manager Present (Estelle) Allergies seasonal allergies Allergy (Unknown, Uncoded 07/03/23 10:40) hives HPI HPI Comments History of Present Illness Details She is a premenopausal woman presenting for annual exam. She admits to eating healthy and tries to stay active with exercise. Currently sexually active; occasional pain with intercourse. Uses Mirena for cycle control; reports VB has stopped Is interested in knowing if her BV in the past went away. Hx of BV 04/20/23; treated. Denies pelvic pain, vaginal itching and irritation. Admits slight vaginal odor. STD screening and blood work offered; she accepts. Denies family hx of breast, colon and ovarian cancer. Last pap smear 01/18/23. [facility] Medical History EDDIE positive IUD strings lost IUD strings lost Breakthrough bleeding associated with intrauterine device (IUD) Complex cyst of right ovary Migraine with aura Prolonged menstrual cycle Fibroid Abnormal Pap smear of cervix Diabetes HTN (hypertension) Surgical History Gastric bypass status for obesity Hx of section Family History Mother HTN (hypertension) Prediabetes Rheumatoid arthritis Maternal Grandmother Uterus cancer Son Down syndrome Social History (Updated 07/03/23 @ 10:55 by KEO Henriquez) Household Members: Children Housing: House Alcohol intake: current Patient Tobacco Use Status: Never used Tobacco service: No Current occupational status: unemployed Sexual orientation: Straight/Heterosexual Gender identity: Female Female Reproductive History Menstrual control method: progestin IUCD (Mirena 03/16/23, IUD strings visible 07/03/23) Total pregnancies: 4 Full term: 3 Premature: 1 (delivered at 6 months) Number of Living Children: 3 Date of last pap smear: 01/18/23 ([place]) History of abnormal pap smear: Yes Physical Exam Vital Signs: Last Vital Signs BP 126/74 07/03/23 10:49 BMI result Body Mass Index 45.0 Const General: cooperative, healthy appearing, no acute distress, well developed and alert Orientation/consciousness: patient oriented x3 HEENT Head: Yes normal to inspection Eyes General: appearance normal, both eyes and all related structures Neck Neck: Yes normal visual inspection Thyroid: Thyroid normal Chest Chest palpation & inspection: normal inspection of the chest Breast/axilla inspection: normal inspection of the breasts (no puckering, dimpling, peau de orange, retraction, discharge, masses) Breast/axilla palpation: normal palpation of the breasts Resp Effort & Inspection: normal respiratory effort GI Inspection: Yes normal to inspection and Yes obesity Palpation (GI): Soft to palpation (to palpation) Rectal Exam - Female: deferred General: Yes bladder normal to inspection External Female Exam: normal external appearance and normal appearance of the urethra Speculum Exam - Vagina: normal appearance of the vagina, normal palpation and normal vaginal discharge Speculum Exam - Cervix: normal appearance of the cervix, normal palpation and Other cervical findings present (IUD strings visible) Bimanual exam- vagina & uterus: normal palpation and normal palpation Bimanual Exam- Adnexa, other: normal adnexae and no masses Skin General skin exam: no rashes or lesions noted Neuro General: patient oriented x3 Cognition (Neuro): normal cognition Extrem General: Yes normal to inspection Psych Attitude: cooperative Thought process: Normal thought process present Results Reviewed Results Reviewed: Laboratory Tests 04/20/23 09:12 Gardnerella DNA Probe Positive A Assessment & Plan Assessment & Plan (1) Encounter for well woman exam: Code(s): Z01.419 - Encounter for gynecological examination (general) (routine) without abnormal findings Plan: Discussed: Current recommendations for pap smears per ASCCP guidelines. Breast awareness and periodic self breast exams. Maintaining a healthy lifestyle including a well balanced diet and routine exercise. Encouraged patient to sign up for patient portal. All of her questions and concerns were addressed to the best of my ability. RTO in one year for AG. (2) Vaginal odor: Code(s): N89.8 - Other specified noninflammatory disorders of vagina Plan: BV testing done today. STD blood work ordered. Await results and treat accordingly. Boric acid protocol given. Orders: Orders Hepatitis C Antibody Today Z20.2 - Contact with and (suspected) exposure to infections with a predominantly sexual mode of transmission Syphilis Screen Today Z20.2 - Contact with and (suspected) exposure to infections with a predominantly sexual mode of transmission Bacterial Vaginosis Panel Today N89.8 - Other specified noninflammatory disorders of vagina CT NG by PCR Today N89.8 - Other specified noninflammatory disorders of vagina Hepatitis B Core Antibody Today Z20.2 - Contact with and (suspected) exposure to infections with a predominantly sexual mode of transmission HIV Ab/Ag Today Z20.2 - Contact with and (suspected) exposure to infections with a predominantly sexual mode of transmission Coding Level of Care Code Est Pt Prev Care 18-39y(15079) Diagnoses Encounter for well woman exam Z01.419 Vaginal odor N89.8
[2023-07-03 10:49] VITALS: BP 126/74; BMI 45.0
== END 2023-07-03 11:17 | disposition home or self-care (01) ==
PROVIDERS: PCP Internal Medicine Geriatric Medicine; Visit Provider Advanced Practice Midwife
DX: Z01.419 Encounter for gynecological examination (general) (routine) without abnormal findings (principal); N89.8 Other specified noninflammatory disorders of vagina
CPT/HCPCS: 99395

== ENCOUNTER 2023-07-03 10:34 | Outpatient (REF) | payer MEDICAID, SELFPAY ==
[2023-07-03 13:40] LABS: Syphilis Screen Nonreactive (Nonreactive)
[2023-07-03 17:17] LABS: CT PCR NOT DETECTED (Not Detect.); NG PCR NOT DETECTED (Not Detect.)
[2023-07-04 09:46] LABS: HBc Num1 0.09 S/CO (0.00-0.79); HIV AB/AG Nonreactive (Nonreactive); HIV Num 1 0.07 S/CO (0.00-0.99); Hepatitis B Core Antibody Nonreactive (Nonreactive); ~HepC Num1 0.04 S/CO (0.00-0.79); ~Hepatitis C Antibody Nonreactive (Nonreactive)
[2023-07-04 13:34] LABS: BV Int Neg Control Negative (Negative); BV Int Pos Control Positive (Positive)
== END 2023-07-03 10:35 | disposition home or self-care (01) ==
LOC: HO.LAB 10:34
PROVIDERS: PCP Internal Medicine Geriatric Medicine; Visit Provider Advanced Practice Midwife
DX: Z01.419 Encounter for gynecological examination (general) (routine) without abnormal findings (principal); N89.8 Other specified noninflammatory disorders of vagina; Z20.2 Contact with and (suspected) exposure to infections with a predominantly sexual mode of transmission
CPT/HCPCS: 0353U; 86704; 86780; 86803; 87389; 87480; 87510; 87660; 99395

== ENCOUNTER 2023-07-03 11:38 | Outpatient (REF) | payer MEDICAID, SELFPAY | END 2023-07-03 11:39 | disposition home or self-care (01) | LOC: HO.LNP 11:38 | PROVIDERS: Visit Provider Advanced Practice Midwife | DX: Z13.89 Encounter for screening for other disorder (principal) ==

== ENCOUNTER 2023-07-12 09:41 | Outpatient (REF) | payer MEDICAID, SELFPAY ==
--- NOTE | 2023-07-12 09:44 | EMG_ITS ---
Bilateral median and ulnar motor and sensory studies were performed. Bilateral radial sensory studies were performed and paraspinal muscles were tested with a needle. IMPRESSION: 1. Mild left median neuropathy across carpal tunnel. 2. Mild left ulnar neuropathy across cubital tunnel. MD RENATE Harris/PARRISH / [phone]
== END 2023-07-12 09:42 | disposition home or self-care (01) ==
LOC: HO.NEURO 09:41
PROVIDERS: PCP Internal Medicine Geriatric Medicine; Visit Provider Student in an Organized Health Care Education/Training Program
DX: G56.03 Carpal tunnel syndrome, bilateral upper limbs (principal)
CPT/HCPCS: 95886; 95911

== ENCOUNTER 2023-08-29 09:22 | Outpatient (AMB) | payer MEDICAID, SELFPAY ==
[2023-08-29 09:41] VITALS: BP 128/72; PULSE 94; TEMP 36.1; O2SAT 99; BMI 44.3
--- NOTE | 2023-08-29 09:41 | MHC.OFFVIS ---
Intake Vital Signs 08/29/23 09:41 Height 5 ft 3 in Weight 250 lb 3.594 oz BMI 44.3 BP 128/72 Blood Pressure Location Lt radial Position Sitting Pulse 94 Pulse Source Pulse Oximeter Temp 97.0 F Temp Source Skin Pulse Oximetry (%) 99 Intake Visit Reasons: EDDIE +ve Intake Note: Pt last seen 06/26/23, presents today for follow up and EMG test results. Belt Loop Machine Operator Required: Yes Belt Loop Machine Operator Name: Pat [id number] Accompanied by: Self / Same As Patient Allergies seasonal allergies Allergy (Unknown, Uncoded 08/29/23 09:43) hives Medication List - Last Reconciled 08/29/23 by Guy Krause MD albuterol sulfate 90 mcg/actuation (Proventil HFA) 1 - 2 puffs inhalation Q4-6H PRN amlodipine 5 mg PO DAILY cetirizine (Zyrtec) 10 mg PO DAILY PRN cyclobenzaprine 10 mg PO TID epinephrine IM DIRECTED fluticasone propionate 50 mcg/actuation 1 spray intranasal DAILY hydroxyzine HCl 10 mg PO Q8H PRN levonorgestrel (Mirena) intrauterine losartan 50 mg PO QAM metformin ER 1,000 mg PO QAM metronidazole 500 mg PO BID 7 days metronidazole 500 mg PO BID 7 days sertraline (Zoloft) 100 mg PO DAILY terconazole 0.8% 1 appful vaginal BEDTIME 3 days tirzepatide (Mounjaro) 7.5 mg subcut QWEEK HPI HPI Comments History of Present Illness Details Patient returns for follow-up after completion of her EMG. Continues to feel about the same Initial history: This is a 37-year-old female who presents for evaluation of a positive EDDIE. For a few years patient has been having diffuse pain in her back, wrists, knees. Feels that she has no strength in her knees. She has tried physical therapy and Flexeril for her back without much relief. Denies any skin rashes. Denies any blood or frothy urine. She had 4 pregnancies and 1 miscarriage. Her mother has fibromyalgia and she believes her mother also has rheumatoid arthritis but is not sure. [facility] Medical History EDDIE positive IUD strings lost IUD strings lost Breakthrough bleeding associated with intrauterine device (IUD) Complex cyst of right ovary Migraine with aura Prolonged menstrual cycle Fibroid Abnormal Pap smear of cervix Diabetes HTN (hypertension) Surgical History Gastric bypass status for obesity Hx of section Family History Mother HTN (hypertension) Prediabetes Rheumatoid arthritis Maternal Grandmother Uterus cancer Son Down syndrome Social History Household Members: Children Housing: House Alcohol intake: current Patient Tobacco Use Status: Never used Tobacco service: No Current occupational status: unemployed Sexual orientation: Straight/Heterosexual Gender identity: Female Review of Systems Musc Reports back pain, Reports numbness and Reports tingling Neuro Reports numbness and Reports tingling Physical Exam Vital Signs: Last Vital Signs Temp 97.0 F 08/29/23 09:41 Pulse 94 08/29/23 09:41 BP 128/72 08/29/23 09:41 Pulse Ox 99 08/29/23 09:41 BMI result Body Mass Index 44.3 Const General: cooperative, healthy appearing and comfortable Nutritional Appearance: obese morbidly obese Orientation/consciousness: patient oriented x3 Limitations: no limitations HEENT Head: Yes normocephalic and Yes atraumatic Resp Effort & Inspection: normal respiratory effort and able to speak in complete sentences Neuro General: patient oriented x3 Extrem Other: An area of depigmentation where patient received steroid injection for de Quervain tenosynovitis left hand. No swollen or tender joints today Normal nailfold capillaroscopy Rare fibromyalgia tender points Results Reviewed Results Reviewed: Labs 2022 EDDIE 1-320 dfs Assessment & Plan Assessment & Plan (1) EDDIE positive: Code(s): R76.8 - Other specified abnormal immunological findings in serum Plan: This is a 37-year-old female who presents for evaluation of a positive EDDIE in the setting of diffuse joint pain. I do not see any evidence of autoimmune rheumatic disease upon my evaluation and comprehensive serology is unrevealing (2) Bilateral carpal tunnel syndrome: Code(s): G56.03 - Carpal tunnel syndrome, bilateral upper limbs Plan: EMG shows mild left cubital tunnel and mild left carpal tunnel syndrome. Patient states that she will be using the hand splints at home. She is not interested in hand surgery referral at this point. Follow-up as needed Plan I spent 18 minutes reviewing patient's chart, evaluating patient, counseling patient and documenting in the chart Coding Level of Care Code Est Pt Level 3 (82239) Diagnoses EDDIE positive R76.8 Bilateral carpal tunnel syndrome G56.03
== END 2023-08-29 10:03 | disposition home or self-care (01) ==
PROVIDERS: PCP Internal Medicine Geriatric Medicine; Referring Provider Internal Medicine Geriatric Medicine; Visit Provider Student in an Organized Health Care Education/Training Program
DX: R76.8 Other specified abnormal immunological findings in serum (principal); G56.03 Carpal tunnel syndrome, bilateral upper limbs
CPT/HCPCS: 99213

== ENCOUNTER → 2023-08-29 09:22 | Outpatient (BNVA) | payer MEDICAID, SELFPAY | PROVIDERS: PCP Internal Medicine Geriatric Medicine; Visit Provider Student in an Organized Health Care Education/Training Program | DX: G56.03 Carpal tunnel syndrome, bilateral upper limbs (principal); R76.8 Other specified abnormal immunological findings in serum | CPT/HCPCS: 99212 ==

== ENCOUNTER 2023-10-05 11:29 | Outpatient (REF) | payer MEDICAID, SELFPAY | END 2023-10-05 11:30 | disposition home or self-care (01) | LOC: HO.HHCL 11:29 | PROVIDERS: Visit Provider Internal Medicine Geriatric Medicine | DX: E11.69 Type 2 diabetes mellitus with other specified complication (principal); E66.9 Obesity, unspecified; I10 Essential (primary) hypertension | CPT/HCPCS: 36415; 80048; 83036 ==

== ENCOUNTER 2024-01-17 15:20 | Outpatient (REF) | payer MEDICAID, SELFPAY ==
[2024-01-18 12:39] LABS: CT PCR NOT DETECTED (Not Detect.); NG PCR NOT DETECTED (Not Detect.)
[2024-01-19 13:07] LABS: BV Int Neg Control Negative (Negative); BV Int Pos Control Positive (Positive)
== END 2024-01-17 15:21 | disposition home or self-care (01) ==
LOC: HO.LAB 15:20
PROVIDERS: PCP Internal Medicine Geriatric Medicine; Visit Provider Advanced Practice Midwife
DX: N89.8 Other specified noninflammatory disorders of vagina (principal); N92.1 Excessive and frequent menstruation with irregular cycle; R10.2 Pelvic and perineal pain
CPT/HCPCS: 0353U; 81025; 87480; 87510; 87660; 99212

== ENCOUNTER 2024-01-17 15:20 | Outpatient (AMB) | payer MEDICAID, SELFPAY ==
--- NOTE | 2024-01-17 16:04 | A.OFFVIS_ITS ---
Vital Signs 01/17/24 16:08 Height 5 ft 3 in Weight 250 lb BMI 44.3 BP 144/70 H Intake Visit Reasons: vaginal discharge Intake Note: pt c/o vag irritation, discharge, chronic yeast inf School Library Media Program Director: School Library Media Program Director Present (Jocelyn) Allergies seasonal allergies Allergy (Unknown, Uncoded 01/17/24 16:06) hives HPI Comments Details: Patient is here today with concerns that she has some vaginal irritation episodically monthly treated for yeast due to dry, itchy irritated external area. She also reports 2 episodes of sharp intense pain in the pelvic region felt like something was broke . Intermittent breakthrough bleeding with the IUD. She denies any urinary symptoms. Last dose of [id number] yeast treatment was applied last night. [facility] Medical History (Updated 01/17/24 @ 16:26 by Madeleine Silveira CNM) EDDIE positive Complex cyst of right ovary Migraine with aura Prolonged menstrual cycle Fibroid Abnormal Pap smear of cervix Diabetes HTN (hypertension) Surgical History Gastric bypass status for obesity Hx of section Family History Mother HTN (hypertension) Prediabetes Rheumatoid arthritis Maternal Grandmother Uterus cancer Son Down syndrome Social History Household Members: Children Housing: House Alcohol intake: current Patient Tobacco Use Status: Never used Tobacco service: No Current occupational status: unemployed Sexual orientation: Straight/Heterosexual Gender identity: Female Female Reproductive History Menstrual control method: progestin IUCD (Mirena 03/16/23) Review of Systems Const All systems reviewed & are unremarkable except as noted in HPI and below Physical Exam Vital Signs: Last Vital Signs BP 144/70 H 01/17/24 16:08 BMI result Body Mass Index 44.3 Const General: cooperative, healthy appearing and no acute distress Orientation/consciousness: patient oriented x3 GI Inspection: Yes normal to inspection Palpation (GI): Soft to palpation and Other GI palpation findings present (Nontender) Rectal Exam - Female: visual inspection normal General: Yes bladder normal to palpation External Female Exam: normal appearance of the urethra Speculum Exam - Vagina: normal appearance of the vagina, normal palpation, normal vaginal discharge and vaginal bleeding Speculum Exam - Cervix: normal appearance of the cervix, normal palpation and Other cervical findings present (IUD strings are present) Bimanual exam- vagina & uterus: normal bimanual exam, normal palpation, uterine size normal, bladder normal to palpation, normal palpation, uterine shape normal and non-tender Bimanual Exam- Adnexa, other: normal adnexae OB/external & speculum: vaginal bleeding Neuro General: patient oriented x3 Results AMB Test Urine AMB Test Urine Negative Last Edit by KEO Henriquez on 01/17/24 16:32 Results Reviewed Results Reviewed: Laboratory Last Values [facility]st Clinic Negative 01/17/24 16:22 Assessment & Plan Assessment & Plan (1) Breakthrough bleeding associated with intrauterine device (IUD): Code(s): N92.1 - Excessive and frequent menstruation with irregular cycle; Z97.5 - Presence of (intrauterine) contraceptive device Category: Medical (2) Vulvar irritation: Code(s): N90.89 - Other specified noninflammatory disorders of vulva and perineum (3) Pelvic pain: Code(s): R10.2 - Pelvic and perineal pain Plan Discussed plan workup for pelvic ultrasound, cultures for BV and GC chlamydia today. Await results for plan of care. Return to the office for ultrasound findings in person. All of her questions and concerns were addressed to the best of my ability and shared decision making. She is agreeable to the plan of care. This note is constructed using voice recognition software. While every effort has been made to ensure accuracy, health care aide errors may have been included. Orders: Orders Bacterial Vaginosis Panel Today N89.8 - Other specified noninflammatory disorders of vagina CT NG by PCR Today N89.8 - Other specified noninflammatory disorders of vagina US pelvic and transvaginal Today N92.1 - Excessive and frequent menstruation wi th irregular cycle, R10.2 - Pelvic and perineal pain, Z97.5 - Presence of (intrauterine) contraceptive device AMB HCG Urine Test Today N92.1 - Excessive and frequent menstruation with irregular cycle, Z97.5 - Presence of (intrauterine) contraceptive device
[2024-01-17 16:08] VITALS: BP 144/70; BMI 44.3
== END 2024-01-17 16:26 | disposition home or self-care (01) ==
LOC: HO.HWS 15:20
PROVIDERS: PCP Internal Medicine Geriatric Medicine; Visit Provider Advanced Practice Midwife
DX: N92.1 Excessive and frequent menstruation with irregular cycle (principal); Z97.5 Presence of (intrauterine) contraceptive device; N90.89 Other specified noninflammatory disorders of vulva and perineum; R10.2 Pelvic and perineal pain
CPT/HCPCS: 99214

== ENCOUNTER 2024-01-17 16:22 | Outpatient (REF) | payer MEDICAID, SELFPAY | END 2024-01-17 16:23 | disposition home or self-care (01) | LOC: HO.LNP 16:22 | PROVIDERS: Visit Provider Advanced Practice Midwife | DX: Z13.89 Encounter for screening for other disorder (principal) ==

== ENCOUNTER 2024-01-28 12:53 | Outpatient (REF) | payer MEDICAID, SELFPAY ==
--- NOTE | ~2024-01-28 | US_ITS ---
EXAMINATION: US PELVIS CLINICAL INFORMATION: Pelvic and perineal pain. COMPARISON: Multiple prior pelvic ultrasounds most recently on 04/20/2023. TECHNIQUE: Ultrasound of the pelvis is performed using both transabdominal and transvaginal transducers along with Doppler. Transvaginal imaging is performed due to inadequate visualization transabdominally. FINDINGS: Uterus: The uterus is anteverted and measures 7.7 x 4.2 x 5.3 cm. The double wall endometrial thickness is 3 mm. The uterus is smooth in contour and has normal myometrial echogenicity. There is a 1.3 x 1.2 x 1.4 cm intramural fibroid present. An IUD is present in good position within the endometrial canal. Adnexa: Both ovaries are visualized. There is normal color flow to the adnexa. There is no ovarian torsion. There is no pelvic ascites or fluid collection. Right ovary measures 3.5 x 3.0 x 2.8 cm for a volume of 15.1 mL. Left ovary measures 3.9 x 2.3 x 3.0 cm for a volume of 14.1 mL. US/US pelvic and transvaginal IMPRESSION: 1. IUD in good position. 2. Small intramural fibroid.
== END 2024-01-28 12:54 | disposition home or self-care (01) ==
LOC: HO.US 12:53
PROVIDERS: PCP Internal Medicine Geriatric Medicine; Visit Provider Advanced Practice Midwife
DX: R10.2 Pelvic and perineal pain (principal); N92.1 Excessive and frequent menstruation with irregular cycle; Z97.5 Presence of (intrauterine) contraceptive device
CPT/HCPCS: 76830; 76856

== ENCOUNTER 2024-02-06 08:55 | Outpatient (REF) | payer MEDICAID, SELFPAY ==
[2024-02-06 11:47] LABS: Estimated Average Glucose 120 mg/dL; Hemoglobin A1c % 5.8 % (<6.0)
[2024-02-06 12:04] LABS: Anion Gap 13 (12-20); Blood Urea Nitrogen 9 mg/dL (9-16); Calcium 9.1 mg/dL (8.4-10.2); Carbon Dioxide 25 mmol/L (22-29); Chloride 107 mmol/L (96-108); Estimated Glomerular Filt Rate > 60; Glucose Random 106 mg/dL (60-115); Potassium 4.1 mmol/L (3.3-5.1); Sodium 141 mmol/L (135-145)
== END 2024-02-06 08:56 | disposition home or self-care (01) ==
LOC: HO.HHCL 08:55
PROVIDERS: Visit Provider Internal Medicine Geriatric Medicine
DX: E11.69 Type 2 diabetes mellitus with other specified complication (principal); E66.9 Obesity, unspecified; I10 Essential (primary) hypertension
CPT/HCPCS: 36415; 80048; 83036

== ENCOUNTER 2024-03-26 11:45 | Outpatient (AMB) | payer MEDICAID, SELFPAY ==
--- NOTE | 2024-03-26 12:33 | A.OFFVIS_ITS ---
Vital Signs 03/26/24 12:34 Height 5 ft 3 in Weight 252 lb 6 oz BMI 44.7 BP 112/72 Blood Pressure Location Lt radial Position Sitting Intake Visit Reasons: ultra sound follow up Straightedge Worker: Straightedge Worker Present Allergies seasonal allergies Allergy (Unknown, Uncoded 01/17/24 16:06) hives Is last menstrual period known: No Post menopausal: No Patient : No HPI Comments Details: Patient is here today for a follow up pelvic ultrasound. She would previous breakthrough bleeding with her IUD, she reports that has resolved. She has a known history of a small fibroid. [facility] Medical History (Updated 03/26/24 @ 12:57 by Madeleine Silveira CNM) EDDIE positive Migraine with aura Prolonged menstrual cycle Fibroid Abnormal Pap smear of cervix Diabetes HTN (hypertension) Surgical History Gastric bypass status for obesity Hx of section Family History Mother HTN (hypertension) Prediabetes Rheumatoid arthritis Maternal Grandmother Uterus cancer Son Down syndrome Social History Household Members: Children Housing: House Alcohol intake: current Patient Tobacco Use Status: Never used Tobacco Patient : No service: No Current occupational status: unemployed Sexual orientation: Straight/Heterosexual Gender identity: Female Review of Systems Const All systems reviewed & are unremarkable except as noted in HPI and below Endo Reports no additional complaints Physical Exam Vital Signs: Last Vital Signs BP 112/72 03/26/24 12:34 BMI result Body Mass Index 44.7 Const General: cooperative, healthy appearing and no acute distress Psych Appearance: well kempt Attitude: cooperative Thought process: Normal thought process present Results Reviewed Results Reviewed: [address] [address] Ultrasound Report Signed Patient: Yakelin Chaney MR#: [id number] : 1985 Acct:[id number] Age/Sex: 38 / F ADM Date: 01/28/24 Loc: HO.US Attending Dr: Madeleine Silveira CNM Ordering Physician: Madeleine Silveira CNM Date of Service: 01/28/24 Procedure(s): US pelvic and transvaginal Accession Number(s): [id number] cc: Madeleine Silveira CNM; Name,Cuong RODRIGUEZ~ EXAMINATION: US PELVIS CLINICAL INFORMATION: Pelvic and perineal pain. COMPARISON: Multiple prior pelvic ultrasounds most recently on 04/20/2023. TECHNIQUE: Ultrasound of the pelvis is performed using both transabdominal and transvaginal transducers along with Doppler. Transvaginal imaging is performed due to inadequate visualization transabdominally. FINDINGS: Uterus: The uterus is anteverted and measures 7.7 x 4.2 x 5.3 cm. The double wall endometrial thickness is 3 mm. The uterus is smooth in contour and has normal myometrial echogenicity. There is a 1.3 x 1.2 x 1.4 cm intramural fibroid present. An IUD is present in good position within the endometrial canal. Adnexa: Both ovaries are visualized. There is normal color flow to the adnexa. There is no ovarian torsion. There is no pelvic ascites or fluid collection. Right ovary measures 3.5 x 3.0 x 2.8 cm for a volume of 15.1 mL. Left ovary measures 3.9 x 2.3 x 3.0 cm for a volume of 14.1 mL. US/US pelvic and transvaginal IMPRESSION: 1. IUD in good position. 2. Small intramural fibroid. Dictated By: Sergio Wells MD Signed By: <Electronically signed by Sergio Wells MD in OV> 01/31/24 2301 DD/ 1312 TD/TT: Pond Worker: Assessment & Plan Assessment & Plan (1) Fibroid: Code(s): D21.9 - Benign neoplasm of connective and other soft tissue, unspecified Category: Medical (2) Encounter to discuss test results: Code(s): Z71.2 - Person consulting for explanation of examination or test findings Plan Discussed: Ultrasound findings stable fibroid, and IUD is properly positioned. Counseled re: Leiomyoma: common pelvic neoplasm. Differential diagnosis-may include leiomyosarcoma which is a rare uterine sarcoma 3-7/100,000, difficult to distinguish from fibroids on ultrasound from uterine sarcoma's. Unlikely any single test will have a highly positive predictive value. Hysterectomy is not recommended for sole purpose of excluding malignant neoplasm. Report any AUB. Pelvic pressure, bloating, or pain. Consult for surgical exploration verses expectant management offered. Patient prefers yearly for stability. Referral to MD if indicated for level of care. Annual exam scheduled 07/20/2024. All of her questions and concerns were addressed to the best of my ability and shared decision making. She is agreeable to the plan of care. This note is constructed using voice recognition software. While every effort has been made to ensure accuracy, prepared foods production team member errors may have been included. Coding Level of Care Code Est Pt Level 3 (96126) Diagnoses Fibroid D21.9 Encounter to discuss test results Z71.2
[2024-03-26 12:34] VITALS: BP 112/72; BMI 44.7
== END 2024-03-26 12:55 | disposition home or self-care (01) ==
PROVIDERS: PCP Internal Medicine Geriatric Medicine; Visit Provider Advanced Practice Midwife
DX: D21.9 Benign neoplasm of connective and other soft tissue, unspecified (principal); Z71.2 Person consulting for explanation of examination or test findings
CPT/HCPCS: 99213

== ENCOUNTER → 2024-03-26 11:45 | Outpatient (BNVA) | payer MEDICAID, SELFPAY | PROVIDERS: PCP Internal Medicine Geriatric Medicine; Visit Provider Advanced Practice Midwife | DX: D21.9 Benign neoplasm of connective and other soft tissue, unspecified (principal); Z71.2 Person consulting for explanation of examination or test findings | CPT/HCPCS: 99212 ==

== ENCOUNTER 2024-05-05 09:50 | Outpatient (REF) | payer MEDICAID, SELFPAY ==
[2024-05-08 00:09] LABS: TS Negative Control Passed; TS Panel A 0; TS Panel B 0; TS Positive Control Passed; TSpotTB Negative (Negative)
== END 2024-05-05 09:51 | disposition home or self-care (01) ==
LOC: HO.HHCL 09:50
PROVIDERS: Visit Provider Internal Medicine Geriatric Medicine
DX: Z13.89 Encounter for screening for other disorder (principal)
CPT/HCPCS: 36415; 86481

== ENCOUNTER 2024-05-14 15:35 | Outpatient (REF) | payer MEDICAID, SELFPAY ==
[2024-05-14 16:21] LABS: MANUAL DIFF FLAG NO
[2024-05-14 16:29] LABS: Basophils Percent Auto 0.1 % (0-2); Eosinophils Percent Auto 0.5 % (0-4); Hematocrit 41.3 % (37.0-47.0); Hemoglobin 13.4 g/dl (12.0-16.0); Imm Gran Abs Auto 0.04 X10*3/uL (0.00-0.03); Imm Gran Pct Auto 0.5 % (0.0-0.4); Lymphocytes Absolute Auto 1.7 X10*3/uL (1.2-4.9); Mean Corpuscular HGB Conc 32.4 g/dl (31.0-35.0); Mean Corpuscular Hemoglobin 27.5 pg (27.0-33.0); Mean Corpuscular Volume 84.8 fL (80.0-98.0); Mean Platelet Volume 10.7 fL (9.4-12.3); Monocytes Absolute Auto 0.5 X10*3/uL (0.1-1.2); Monocytes Percent Auto 6.6 % (2-11); Neutrophils Absolute Auto 5.5 x10*3/uL (2.0-8.3); Neutrophils Percent Auto 70.3 % (45-73); Platelet Count 219 X10*3/uL (160-400); Red Blood Count 4.87 X10*6/uL (4.20-5.50); Red Cell Distribution Width 13.2 % (11.0-16.0); White Blood Count 7.9 X10*3/uL (4.8-10.8)
[2024-05-14 17:03] LABS: Alanine Aminotransferase 17 U/L (0-31); Albumin Level 4.3 g/dL (3.5-5.0); Alkaline Phosphatase 69 U/L (39-117); Anion Gap 11 (12-20); Aspartate Amino Transferase 15 U/L (5-31); Bilirubin Total 0.3 mg/dL (0.0-1.0); Blood Urea Nitrogen 10 mg/dL (9-16); Calcium 9.3 mg/dL (8.4-10.2); Carbon Dioxide 26 mmol/L (22-29); Chloride 107 mmol/L (96-108); Estimated Glomerular Filt Rate > 60; Glucose Random 103 mg/dL (60-115); Potassium 4.1 mmol/L (3.3-5.1); Sodium 140 mmol/L (135-145); Total Protein 7.4 g/dL (6.5-8.0)
[2024-05-14 17:04] LABS: B Type Natriuretic Peptide 10 pg/mL (<100)
[2024-05-14 17:05] LABS: Creatinine Urine 79.05 mg/dL; Microalbumin Urine < 5.0 mg/L
== END 2024-05-14 15:36 | disposition home or self-care (01) ==
LOC: HO.HHCL 15:35
PROVIDERS: Visit Provider Internal Medicine Geriatric Medicine
DX: M79.89 Other specified soft tissue disorders (principal); E11.69 Type 2 diabetes mellitus with other specified complication; E66.9 Obesity, unspecified; R25.2 Cramp and spasm
CPT/HCPCS: 36415; 80053; 82043; 82570; 83880; 85025

== ENCOUNTER 2024-06-12 10:04 | Outpatient (REF) | payer MEDICAID, SELFPAY ==
--- NOTE | ~2024-06-12 | XR_ITS ---
EXAMINATION: XR WRIST, LEFT CLINICAL INFORMATION: Left wrist pain and swelling COMPARISON: None available. TECHNIQUE: PA, lateral, and oblique views of the left wrist. FINDINGS: The lunate is diffuse increased density suggesting Kienbock's disease (AVN). No surface depression or fragmentation. There is ulnar negative variance. No significant joint space narrowing. XR/XR wrist LT min 3V IMPRESSION: Lunate sclerosis suggesting Kienbock's disease. Consider further evaluation with MRI. Electronically signed by: Ridge Hogue MD 06/18/2024 11:39 AM EDT
== END 2024-06-12 10:05 | disposition home or self-care (01) ==
LOC: HO.HHCX 10:04
PROVIDERS: Visit Provider Family Medicine
DX: M25.532 Pain in left wrist (principal); G89.29 Other chronic pain
CPT/HCPCS: 73110

== ENCOUNTER 2024-07-10 12:27 | Outpatient (AMB) | payer MEDICAID, SELFPAY ==
--- NOTE | 2024-07-10 12:35 | A.OFFVIS_ITS ---
Vital Signs 07/10/24 12:39 Height 5 ft 3 in Weight 256 lb 6.362 oz BMI 45.4 BP 116/70 Blood Pressure Location Lt brachial Position Sitting Pulse 103 H Pulse Source Pulse Oximeter Pulse Oximetry (%) 98 Oxygen Delivery Method Room Air Intake Visit Reasons: EDDIE +ve Intake Note: Patient presents for EDDIE + ve. Pc Network Technician Required: Yes Pc Network Technician Language: Division Chair Services: Pc Network Technician Offered & Declined (Provider spoke with patient in her [place] language) Information Interpreted: non-clinical & clinical Allergies seasonal allergies Allergy (Unknown, Uncoded 01/17/24 16:06) hives Medication List - Last Reconciled 07/10/24 by Priya Duarte MD albuterol sulfate 90 mcg/actuation (Proventil HFA) 1 - 2 puffs inhalation Q4-6H PRN amlodipine 5 mg PO DAILY cetirizine (Zyrtec) 10 mg PO DAILY PRN cyclobenzaprine 10 mg PO TID epinephrine IM DIRECTED fluticasone propionate 50 mcg/actuation 1 spray intranasal DAILY hydroxyzine HCl 10 mg PO Q8H PRN levonorgestrel (Mirena) intrauterine losartan 50 mg PO QAM metformin ER 1,000 mg PO QAM sertraline (Zoloft) 100 mg PO DAILY tirzepatide (Mounjaro) 7.5 mg subcut QWEEK HPI Comments Details: Patient is a 39-year-old female with asthma, hypertension and diabetes. Presents today for follow up of carpal tunnel syndrome a positive EDDIE Interval History: Patient last seen 08/29/2023 with Guy Krause. At that time there was low suspicion for any underlying connective tissue disease. Patient is here today because she noted about 3 months ago she woke up with swelling and pain to her left wrist. She does recall abnormal loading to the wrists a couple days prior to this occurring. 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 She used warm compresses and [id number] analgesics and there was mild improvement in the pain and swelling. However some of this persists today. Denies the other risks involved. Still complains of bilateral knee pain and intermittent hand pain. Denies rashes, photosensitivity, alopecia, oral/nasal ulcers, sicca symptoms, lymphadenopathy, chest pain/shortness of breath, inflammatory type joint pain, foamy urine, lower extremity edema, muscle weakness, Raynaud's Also denies history of seizure, CVA, psychosis, history of kidney problems, history of cytopenias, history of VTE Rheumatologic History: Patient initially seen 12/31/2020 with Americo Mariasteffany. She was referred for bilateral hand pain. Had an EMG which confirmed carpal tunnel syndrome and was status post cortisone injections which helped. Immunology markers were sent by her primary and so she was referred to us for positive EDDIE. There was no evidence on history or examination concerning for lupus or any other autoimmune connective tissue disease. Labs were sent. EDDIE returned 1:320 with a dense fine speckled pattern. Trish panel negative. Given low suspicion of autoimmune disease she was discharged from clinic. She was re-referred to us in 2022 by her primary. No obvious symptoms but routine labs came back with EDDIE positive once again. She was evaluated at that time and repeat workup was done. Repeat tests again showed positive EDDIE without any TRISH and normal complement and antiphospholipid antibodies. She did have an EMG which showed mild left cubital tunnel and mild left carpal tunnel syndrome. She has a history of receiving injections for this but she did not want to pursue surgery at that time. No further interventions were medically appropriate at that time. 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 Migraine with aura Prolonged menstrual cycle Fibroid Abnormal Pap smear of cervix Diabetes HTN (hypertension) Surgical History Gastric bypass status for obesity Hx of section Family History Mother HTN (hypertension) Prediabetes Rheumatoid arthritis Maternal Grandmother Uterus cancer Son Down syndrome Social History Household Members: Children Housing: House Alcohol intake: current Patient Tobacco Use Status: Never used Tobacco service: No Current occupational status: unemployed Sexual orientation: Straight/Heterosexual Gender identity: Female Review of Systems Const Details: Review of Systems Constitutional: Denies fever, chills, weight loss ENT: Denies vision changes, eye pain or eye redness, dental caries, dry mouth GI: Denies nausea, vomiting, diarrhea, abdominal pain, change in BM Pulm: Denies SOB, DINH, hemoptysis, wheezing Cards: Denies chest pain, palpitations Skin: Denies Raynaud's, rash, nail changes, photosensitivity, JUDICIAL ADMINISTRATIVE ASSISTANT: Denies headaches, weakness, paresthesias, recurrent falls MSK: as per HPI All other systems reviewed and are unremarkable except noted above Physical Exam Vital Signs: Last Vital Signs Pulse 103 H 07/10/24 12:39 BP 116/70 07/10/24 12:39 Pulse Ox 98 07/10/24 12:39 Oxygen Delivery Method Room Air 07/10/24 12:39 BMI result Body Mass Index 45.4 Const Other: Physical Examination Patient well appearing and in no apparent painful distress Able to rise from chair without support. ?Gait normal. Constitutional Mucous membranes pink and moist patient alert and cooperative HEENT Conjunctiva and sclera clear. ?Pupils equal round and reactive to light. ?No lymphadenopathy. ?Normal dentition. Respiratory System Normal respiratory effort and able to speak in complete sentences. ?Clear to auscultation bilaterally. ?No crackles, rales, rhonchi, wheezes heard. Cardiac System Regular rate and rhythm. ?S1 and S2 heard no murmurs. ?Radial pulses intact bilaterally MSK Mild swelling noted to the left wrist with mild warmth compared to the right wrist. No active synovitis to the wrist joint proper but there is some tenderness to palpation. Positive Vikram's test on the left. No tenderness to palpation of the MCP, PIP or DIPs joints. All other joints with normal range of motion without tenderness to palpation. Bilateral crepitus noted to knees. Results Reviewed Results Reviewed: Laboratory Tests 12/31/20 04/20/23 04/20/23 11:40 11:32 11:33 Sodium Potassium Chloride Carbon Dioxide BUN Creatinine Estimated GFR AST ALT Alkaline Phosphatase Protein/Creatinin Ratio 0.10 Rheumatoid Factor < 15.0 < 13.0 Cycl Citrul Peptide IgG <16 <16 EDDIE Screen POSITIVE A EDDIE Titer 1:320 H SS-A/Ro Antibody <1.0 NEG <1.0 NEG SS-B/La Antibody <1.0 NEG <1.0 NEG Sm (Pineda) Antibody <1.0 NEG <1.0 NEG SM/ACCOUNTING TUTOR IgG Antibody <1.0 NEG <1.0 NEG Double Strand DNA Ab <1 <1 Complement C3 134 140 Complement C4 41 40 02/06/24 05/14/24 08:58 15:38 Sodium 141 140 Potassium 4.1 4.1 Chloride 107 107 Carbon Dioxide 25 26 BUN 9 10 Creatinine 0.62 0.81 Estimated GFR > 60 > 60 AST 15 ALT 17 Alkaline Phosphatase 69 Protein/Creatinin Ratio Rheumatoid Factor Cycl Citrul Peptide IgG EDDIE Screen EDDIE Titer SS-A/Ro Antibody SS-B/La Antibody Sm (Pineda) Antibody SM/ACCOUNTING TUTOR IgG Antibody Double Strand DNA Ab Complement C3 Complement C4 X-ray left wrist 06/12/2024 IMPRESSION: Lunate sclerosis suggesting Kienbock's disease. 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 We will send for an MRI of the wrist. In the meantime recommended ice. And topical diclofenac for pain. (2) Bilateral carpal tunnel syndrome: Code(s): G56.03 - Carpal tunnel syndrome, bilateral upper limbs Category: Medical Plan: #Bilateral CTS Recommended patient continues use a splint. Can consider repeat injection in the future. (3) De Quervain's tenosynovitis, left: Code(s): M65.4 - Radial styloid tenosynovitis [de Quervain] Category: Medical Plan: #Left De Quervains tenosynovitis Exam consistent with de Quervain's tenosynovitis of the left wrist. Recommended ice topical diclofenac and splinting. 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
[2024-07-10 12:39] VITALS: BP 116/70; PULSE 103; O2SAT 98; BMI 45.4
== END 2024-07-10 13:14 | disposition home or self-care (01) ==
PROVIDERS: PCP Internal Medicine Geriatric Medicine; Visit Provider Student in an Organized Health Care Education/Training Program
DX: M92.212 Osteochondrosis (juvenile) of carpal lunate [Kienbock], left hand (principal); G56.03 Carpal tunnel syndrome, bilateral upper limbs; M65.4 Radial styloid tenosynovitis [de Quervain]
CPT/HCPCS: 99213

== ENCOUNTER → 2024-07-10 12:27 | Outpatient (BNVA) | payer MEDICAID, SELFPAY | PROVIDERS: PCP Internal Medicine Geriatric Medicine; Visit Provider Student in an Organized Health Care Education/Training Program | DX: M92.212 Osteochondrosis (juvenile) of carpal lunate [Kienbock], left hand (principal); G56.03 Carpal tunnel syndrome, bilateral upper limbs; M65.4 Radial styloid tenosynovitis [de Quervain] | CPT/HCPCS: 99212 ==

== ENCOUNTER 2024-07-29 10:02 | Outpatient (REF) | payer MEDICAID, SELFPAY ==
--- NOTE | 2024-07-29 10:06 | EMG_ITS ---
Left median and ulnar motor and sensory studies were performed. Left radial and median and lateral antecubital brachial sensory studies were performed and paraspinal muscles were tested with a needle. IMPRESSION: No significant abnormality noted on this study to suggest entrapment neuropathy or radiculopathy. MD RENATE Harris/PARRISH / [phone]
== END 2024-07-29 10:03 | disposition home or self-care (01) ==
LOC: HO.NEURO 10:02
PROVIDERS: PCP Internal Medicine Geriatric Medicine; Visit Provider Family Medicine
DX: M25.532 Pain in left wrist (principal); G89.29 Other chronic pain
CPT/HCPCS: 95886; 95910

== ENCOUNTER 2024-08-06 11:09 | Outpatient (REF) | payer MEDICAID, SELFPAY ==
--- NOTE | ~2024-08-06 | MR_ITS ---
EXAMINATION: MRI WRIST WITHOUT AND WITH CONTRAST, LEFT CLINICAL INFORMATION: Kienbock disease. COMPARISON: Radiographs 06/12/2024. TECHNIQUE: MRI without and with intravenous administration of 10 mL Gadavist is performed on the left wrist. FINDINGS: Heterogeneous edema and T1 signal hypointensity throughout the lunate compatible with osteonecrosis/Kienbock's disease. No flattening or fragmentation of the lunate. No focal articular cartilage defect. There is a small radiocarpal joint effusion. Small degenerative cyst of the distal scaphoid. There is a 10 x 5 x 4 mm ganglion dorsal to the proximal capitate. The scapholunate and lunotriquetral ligaments appear intact. The triangular fibrocartilage complex appears intact. Slight ulnar negative variance. The carpal tunnel, flexor and extensor tendons are unremarkable. MR/MR wrist LT wo/w con IMPRESSION: 1. Osteonecrosis/Kienbock's disease of the lunate. No secondary flattening or fragmentation. 2. Small radiocarpal joint effusion. 3. There is a 10 x 5 x 4 mm ganglion dorsal to the proximal capitate. Electronically signed by: Ridge Hogue MD 08/23/2024 11:58 AM TISHA
== END 2024-08-06 11:10 | disposition home or self-care (01) ==
LOC: HO.MRI 11:09
PROVIDERS: PCP Internal Medicine Geriatric Medicine; Visit Provider Student in an Organized Health Care Education/Training Program
DX: M92.212 Osteochondrosis (juvenile) of carpal lunate [Kienbock], left hand (principal); G56.03 Carpal tunnel syndrome, bilateral upper limbs
CPT/HCPCS: 73223

== ENCOUNTER 2024-08-21 11:27 | Outpatient (REF) | payer MEDICAID, SELFPAY | END 2024-08-21 11:28 | disposition home or self-care (01) | LOC: HO.LAB 11:27 | PROVIDERS: PCP Internal Medicine Geriatric Medicine; Visit Provider Advanced Practice Midwife | DX: Z00.00 Encounter for general adult medical examination without abnormal findings (principal); R87.619 Unspecified abnormal cytological findings in specimens from cervix uteri; N92.0 Excessive and frequent menstruation with regular cycle; Z97.5 Presence of (intrauterine) contraceptive device; E11.9 Type 2 diabetes mellitus without complications; E66.01 Morbid (severe) obesity due to excess calories; N81.89 Other female genital prolapse; Z12.39 Encounter for other screening for malignant neoplasm of breast | CPT/HCPCS: 99396 ==

== ENCOUNTER 2024-08-21 11:27 | Outpatient (AMB) | payer MEDICAID, SELFPAY ==
[2024-08-21 11:28] VITALS: BP 116/68; BMI 45.5
--- NOTE | 2024-08-21 11:28 | A.OFFVIS_ITS ---
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 Services: Package Worker Present Information Interpreted: clinical only Allergies seasonal allergies Allergy (Unknown, Uncoded 08/21/24 11:32) hives Medication List - Last Reconciled 08/21/24 by Bessie Snyder CNM albuterol sulfate 90 mcg/actuation (Proventil HFA) 1 - 2 puffs inhalation Q4-6H PRN amlodipine 5 mg PO DAILY cetirizine (Zyrtec) 10 mg PO DAILY PRN diclofenac sodium 1% 4 grams topical QID epinephrine IM DIRECTED fluticasone propionate 50 mcg/actuation 1 spray intranasal DAILY gabapentin 100 mg PO BEDTIME 90 days hydroxyzine HCl 10 mg PO Q8H PRN levonorgestrel (Mirena) intrauterine losartan 50 mg PO QAM metformin ER 1,000 mg PO QAM sertraline (Zoloft) 100 mg PO DAILY tirzepatide (Mounjaro) 7.5 mg subcut QWEEK Is last menstrual period known: No (IUD) HPI HPI PARKING INSPECTOR 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 She sees Dr. Casas at the [facility],. She says her blood pressure is under control and her pre diabetes is under control . she is taking Mounjaro but the pharmacy has been out of it a lot so she is just restarting on it again and she notices it decreases her appetite. 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 EDDIE positive Migraine with aura Prolonged menstrual cycle Fibroid Abnormal Pap smear of cervix Diabetes HTN (hypertension) Surgical History Gastric bypass status for obesity Hx of section Family History Mother HTN (hypertension) Prediabetes Rheumatoid arthritis Maternal Grandmother Uterus cancer Son Down syndrome Social History Household Members: Children Housing: House Alcohol intake: current Patient Tobacco Use Status: Never used Tobacco service: No Current occupational status: unemployed Sexual orientation: Straight/Heterosexual Gender identity: Female Female Reproductive History Menstrual Age of Menarche: 9 Duration of menses: <3 days control method: progestin IUCD Total pregnancies: 4 Full term: 4 Date of last pap smear: 01/18/23 (ASCUS,with neg HPV) History of abnormal pap smear: Yes Physical Exam Vital Signs: Last Vital Signs BP 116/68 08/21/24 11:28 BMI result Body Mass Index 45.5 Const General: healthy appearing, comfortable, no acute distress, well developed and alert Nutritional Appearance: average body habitus Orientation/consciousness: patient oriented x3 Limitations: no limitations HEENT Head: Yes normocephalic Neck Neck: Yes normal visual inspection Chest Chest palpation & inspection: normal inspection of the chest Breast/axilla inspection: normal inspection of the breasts and normal inspection of the axillae Breast/axilla palpation: normal palpation of the breasts and normal palpation of the axillae Resp Effort & Inspection: normal respiratory effort GI Inspection: Yes normal to inspection, No Abdominal wall edema and No distended Palpation (GI): Soft to palpation and nontender Other: External exam within normal limits vagina is pink and moist cervix multiparous pink smooth slightly friable with Pap Mirena strings visible extending about 1 cm through cervix. The cervix seemed low in the vagina with a speculum exam though it did not feel as low as it appeared when double check with the bimanual. cervix long mobile nontender, uterus midposition mobile nontender, fair to medium tone with Kegel which I had her practice a couple of times and she could increase the strength of the contractions each time. I recommend frequent Kegel so long with her efforts at weight loss to help ameliorate prevent any future problems with incontinence. General: Yes bladder normal to palpation External Female Exam: normal external appearance and normal appearance of the urethra Speculum Exam - Vagina: normal appearance of the vagina, normal palpation and normal vaginal discharge Speculum Exam - Cervix: normal appearance of the cervix, normal palpation and nontender Bimanual exam- vagina & uterus: normal bimanual exam, normal palpation, uterine size normal, bladder normal to palpation, consistency normal, normal palpation, uterine mobility normal, uterine shape normal, No Cervical tenderness present, non-tender and no cervical motion tenderness Bimanual Exam- Adnexa, other: normal adnexae, no masses, normal and No adnexal tenderness Neuro General: patient oriented x3 Assessment & Plan Assessment & Plan (1) Abnormal Pap smear of cervix: Comment: PAP: 2019-HPV+, 2022-ASCUS, repeat 2023... Code(s): R87.619 - Unspecified abnormal cytological findings in specimens from cervix uteri Category: Medical (2) Heavy menstrual bleeding: Comment: Much improved with the Mirena, Code(s): N92.0 - Excessive and frequent menstruation with regular cycle Category: Medical (3) Presence of 52 mg levonorgestrel-releasing intrauterine device (IUD): Comment: Inserted 03/16/2023 for menorrhagia. Code(s): Z97.5 - Presence of (intrauterine) contraceptive device Category: Social Hx (4) Diabetes: Comment: Patient states her hemoglobin A1c is 5.2. Code(s): E11.9 - Type 2 diabetes mellitus without complications Category: Medical (5) Obesity, morbid, BMI 40.0-49.9: Comment: She is on Mounjaro but has just restarted it, pharmacy supply issues... Code(s): E66.01 - Morbid (severe) obesity due to excess calories Category: Medical (6) Breast cancer screening: Comment: Start yearly mammograms, Code(s): Z12.39 - Encounter for other screening for malignant neoplasm of breast Category: Medical (7) Pelvic floor weakness: Comment: Reviewed how to do Kegel recommend doing them several times a day with increasing strength additionally addressed weight loss. Code(s): N81.89 - Other female genital prolapse Category: Medical Plan -----Discussed in this visit the following: healthy balanced diet, regular and consistent exercise, getting recommended health screens, doing the best she can for her particular health concerns, kegel exercises, pap smear screening and followup recommendations, mammography screening and SBE, normal changes in cycles in her life stage--- . I had her practice 2 or 3 Kegel's with increasing strength and recommend she do them several times throughout day and also I wished her much luck with her efforts at weight loss now that she has restarted the Mounjaro.. Discussed the will of obesity placing attacks in will on once musculoskeletal structure and discussed the cyst help prevent problems with incontinence. She then shared that sometimes she does have a problem with it even now.. Pap smear was done as well as testing for infection. There was some friability of the cervix. Discussed that might explain the spotting that she experiences but she does agree that the spotting is way better than the bleeding she had before.. I am ordering her screening mammogram and she will now get them every year. I wished her luck with her weight loss efforts. Orders: Orders CT NG by PCR Today N89.8 - Other specified noninflammatory disorders of vagina, Z20.2 - Contact with and (suspected) exposure to infections with a predominantly sexual mode of transmission Bacterial Vaginosis Panel Today N89.8 - Other specified noninflammatory disorders of vagina MM tomosynthesis screening BI Today Z12.31 - Encounter for screening mammogram for malignant neoplasm of breast Pap Smear Today Z00.00 - Encounter for general adult medical examination without abnormal findings Coding Level of Care Code Est Pt Prev Care 40-64y(54610) Diagnoses Abnormal Pap smear of cervix R87.619 Heavy menstrual bleeding N92.0 Presence of 52 mg levonorgestrel-releasing intrauterine device (IUD) Z97.5 Diabetes E11.9 Obesity, morbid, BMI 40.0-49.9 E66.01 Breast cancer screening Z12.39 Pelvic floor weakness N81.89
== END 2024-08-21 11:59 | disposition home or self-care (01) ==
PROVIDERS: PCP Internal Medicine Geriatric Medicine; Visit Provider Advanced Practice Midwife
DX: R87.619 Unspecified abnormal cytological findings in specimens from cervix uteri (principal); N92.0 Excessive and frequent menstruation with regular cycle; Z97.5 Presence of (intrauterine) contraceptive device; E11.9 Type 2 diabetes mellitus without complications; E66.01 Morbid (severe) obesity due to excess calories; Z12.39 Encounter for other screening for malignant neoplasm of breast; N81.89 Other female genital prolapse
CPT/HCPCS: 99396

== ENCOUNTER 2024-08-21 12:57 | Outpatient (REF) | payer MEDICAID, SELFPAY ==
[2024-08-22 11:10] LABS: HPV 16,18/45 See PAP report
[2024-08-22 12:00] LABS: Bacterial Vaginosis PCR NEGATIVE (Negative); Candida Group PCR NOT DETECTED (Not Detect); Candida glab krusei PCR NOT DETECTED (Not Detect); Trichomonas vaginalis PCR NOT DETECTED (Not Detect)
[2024-08-22 14:33] LABS: CT PCR NOT DETECTED (Not Detect.); NG PCR NOT DETECTED (Not Detect.)
== END 2024-08-21 12:58 | disposition home or self-care (01) ==
LOC: HO.LNP 12:57
PROVIDERS: Visit Provider Advanced Practice Midwife
DX: Z00.00 Encounter for general adult medical examination without abnormal findings (principal); N89.8 Other specified noninflammatory disorders of vagina; Z20.2 Contact with and (suspected) exposure to infections with a predominantly sexual mode of transmission; Z97.5 Presence of (intrauterine) contraceptive device; Z87.42 Personal history of other diseases of the female genital tract
CPT/HCPCS: 0352U; 87491; 87591; 87624; 88175

== ENCOUNTER 2024-10-09 11:40 | Outpatient (REF) | payer MEDICAID, SELFPAY | END 2024-10-09 11:41 | disposition home or self-care (01) | LOC: HO.MAMMO 11:40 | PROVIDERS: PCP Internal Medicine Geriatric Medicine; Visit Provider Advanced Practice Midwife | DX: Z12.31 Encounter for screening mammogram for malignant neoplasm of breast (principal) | CPT/HCPCS: 77063; 77067 ==

== ENCOUNTER → 2024-10-09 11:45 | Outpatient (BNV) | payer MEDICAID, SELFPAY | PROVIDERS: PCP Internal Medicine Geriatric Medicine; Visit Provider Internal Medicine | DX: Z12.31 Encounter for screening mammogram for malignant neoplasm of breast (principal) | CPT/HCPCS: 77063; 77067 ==

== ENCOUNTER 2025-02-18 09:22 | Outpatient (REF) | payer MEDICAID, SELFPAY ==
--- OUTSIDE RECORDS SUMMARY | 2025-02-18 10:42 | XMS_ITS | Encounter Summary ---
Author Organization [employer] Address [address] [place] [address] 7t [place] [address] Care Team Providers Care Management Internship Name Role Phone Name, Cuong RODRIGUEZ Primary Care Provider [phone] Irma Freeman PharmD Unavailable [phone] Reason for Visit * Reason Comments Med Refill Encounter Details Date Type Department Care Team ([facility] Contact Info) Description 03/01/2023 Refill [facility] [address] [place], [place] [phone] Name, MD Cuong [address] [place] [address] Social History Tobacco Use Types Packs/Day Years Used Date Smoking Tobacco: Never Smokeless Tobacco: Never Alcohol Use Standard Drinks/Week Comments Never 0 (1 standard drink = 0.6 oz pur e alcohol) Depression Answer Date Recorded Patient Health Questionnaire-2 Score 2 10/31/2022 Comments Unknown Sex and Gender Information Value Date Recorded Sex Assigned at Female 07/31/2022 10:32 AM EDT Legal Sex Female 10:32 AM EDT Gender Identity Female 07/31/2022 10:32 AM EDT Sexual Orientation Choose not to disclose 2021 10:32 AM EDT COVID-19 Exposure Response Date Recorded In the last 10 days, have yo u been in contact with someone who was confirmed or suspected to have Coronavirus/COVID-19? Unable to assess 02/20/2023 9:18 AM EDT documented as of this encounter Plan of Treatment Upcoming Encounters Date Type Department Care Team ([facility] Contact Info) Description 02/26/2025 2:30 PM EDT Telemedicine [facility] [place] [address] 05/26/2025 11:15 AM EDT Office Visit [facility] [address] [place] [phone] [place] [address] documented as of this encounter Goals Goal Patient Goal Type Associated Problems Recent Progress Patient-Stated? Author Drink less soda, juice, and other sugary beverages Diet No Evette Cruz, RN Eat a balanced, healthy diet Diet No Evette Cruz RN Hemoglobin A1c < 7 Result Component 6(02/11/2025 3:57 PM EDT) No Irma Freeman PharmD Record your blood sugar as directed Result Component No Irma Freeman PharmD Note: SMBG at least once daily, record values for review in follow up documented as of this encounter Visit Diagnoses Not on filedocumented in this encounter Care Teams Management Internship Relationship Specialty Start Date End Date Name, [place] [address] PCP - General Family Medicine 07/19/17 Irma Freeman PharmD [address] [place] [address] Pharmacist Internal Medicine 02/20/23 documented as of this encounter
--- OUTSIDE RECORDS SUMMARY | 2025-02-18 10:42 | XMS_ITS | Clinical Summary ---
Author Organization [facility] Address [address] [place] [address] Phone Care Team Providers Care Flask Pusher Name Role Phone Name, Cuong RODRIGUEZ Primary Care Provider [phone] Allergies No known active allergies Medications amLODIPine (NORVASC) 5 mg tablet Take 1 tablet (5 mg total) by mouth 1 (one) time each day in the morning. 4 Active metFORMIN XR (GLUCOPHAGE-XR) 500 mg 24 hr tablet Take 2 tablets (1,000 mg total) by mouth daily. 4 Active gabapentin (NEURONTIN) 100 mg capsule Take 1 capsule (100 mg total) by mouth. at bedtime 4 Active fluticasone propionate (FLONASE) 50 mcg/actuation nasal spray Administer 1 spray into each nostril 1 (one) time each day. 3 Active EPINEPHrine (EPIPEN) 0.3 mg/0.3 mL injection Inject 0.3 mL into the shoulder, thigh, or buttocks 3 Active cetirizine (ZyrTEC) 10 mg tablet 1 tablet (10 mg total). 4 Active cyclobenzaprine (FLEXERIL) 10 mg tablet Take 1 tablet (10 mg total) by mouth 3 (three) times a day if needed. 4 Active diclofenac (VOLTAREN) 1 % topical gel APPLY 4 GRAM TO AFFECTED AREA(S) OF HANDS AND KNEES TWICE DAILY TO FOUR TIMES DAILY Active losartan (COZAAR) 100 mg tablet Take 1 tablet (100 mg total) by mouth 1 (one) time each day in the morning. 4 Active sertraline (ZOLOFT) 100 mg tablet Take 2 tablets (200 mg total) by mouth. at bedtime Active Mounjaro 7.5 mg/0.5 mL injection 0.5 mL (7.5 mg total). 4 Active traMADoL (ULTRAM) 50 mg tablet 1 tablet (50 mg total) 1 (one) time each day if needed. 4 Active acetaminophen (TYLENOL 8 HOUR) 650 mg 8 hr tablet Take 1 tablet (650 mg total) by mouth every 8 (eight) hours if needed for mild pain. Do not crush, chew, or split. 30 tablet 5 Active oxyCODONE (ROXICODONE) 5 mg immediate release tablet Take 1 tablet (5 mg total) by mouth every 6 (six) hours if needed for severe pain for up to 10 doses. Max Daily Amount: 20 mg 10 tablet 5 Active Active Problems Problem Noted Date Diagnosed Date Osteochondrosis of lunate of left wrist 09/26/20 Ganglion of left wrist 09/23/2024 Carpal tunnel syndrome, left upper limb 09/23/20 24 Radial styloid tenosynovitis (de quervain) 09/23 Ganglion, left wrist 09/23/2024 Anxiety 06/28/2023 Ganglion cyst 09/19/2022 Bilateral carpal tunnel syndrome 09/19/2022 De Quervain's tenosynovitis, left 09/19/2022 Obstructive sleep apnea syndrome 03/08/2018 Essential hypertension 09/03/2017 Chronic low back pain 07/19/2017 Allergic rhinitis 07/19/2017 Migraine 07/19/2017 Type 2 diabetes mellitus wit h obesity ([facility] V24, [facility] V28) 07/19/2017 Urticaria 07/19/2017 Encounters Date Type Department Care Team Description 02/17/2025 10:00 AM EDT Treatment [facility] Occupational Therapy [address] [place] [phone] Janine Martino COTA/Amilcar Post-operative state (Primary Dx); Carpal tunnel syndrome of left wrist 02/10/2025 10:00 AM EDT Treatment [facility] Occupational Therapy [address] [place] [phone] Brit Barcenas, OT Post-operative state (Primary Dx); Carpal tunnel syndrome of left wrist 02/04/2025 1:45 PM EDT Treatment [facility] Occupational [address] [phone] WaynerBrodyna, ARANDA/L Post-operative state (Primary Dx); Carpal tunnel syndrome of left wrist 01/28/2025 10:15 AM EDT Treatment [facility] Occupational [address] [phone] WaynerBrodyna, ARANDA/L Post-operative state (Primary Dx); Carpal tunnel syndrome of left wrist 01/22/2025 1:30 PM EDT Evaluation [address] [phone] Brit Barcenas, OT Carpal tunnel syndrome of left wrist (Primary Dx); Post-operative state 01/20/2025 8:30 AM EDT Office Visit [address] [phone] Brit Jordan PA Post-operative state (Primary Dx) 12/09/2024 8:00 AM EDT Office Visit [address] [phone] Brit Jordan PA Post-operative state (Primary Dx) 11/27/2024 9:30 AM EST - 11/27/2024 12:30 PM EST Surgery [address] [phone] Huma Kat MD LEFT ENDOSCOPIC CARPAL TUNNEL RELEASE, OPEN NEEDED [[id number] (CPT??)] 11/27/2024 9:16 AM EST Anesthesia Event [address] [phone] Liban Barrera MD Swanson, Mona, CRNA 11/27/2024 8:10 AM EST - 11/27/2024 1:51 PM EST Hospital Encounter [facility] Main OR [address] [place] [address] Huma Kat MD Discharge Disposition: Home or Self Care from Last 3 Months Surgical History Surgery Date Site/Laterality Comments SECTION X3 BARIATRIC SURGERY Medical History Medical History Date Comments Depressive disorder DX:Depressiv e disorder Anxiety state DX:Anxiety state Hypertension Diabetes mellitus ([facility] V24, [facility] V28) GERD (gastroesophageal reflux disease) Chronic pain disorder Arthritis Joint pain Sleep apnea Social History Tobacco Use Types Packs/Day Years Used Date Smoking Tobacco: Never Smokeless Tobacco: Never Alcohol Use Standard Drinks/Week Comments Never 0 (1 standard drink = 0.6 oz pur e alcohol) Interpersonal Safety Answer Date Record ed Physical Abuse 11/27/2024 Verbal Abuse 11/27/2024 Comments No Sex and Gender Information Value Date Recorded Sex Assigned at Female 11/27/2024 8:09 AM EST Legal Sex Female 3:59 AM EST Gender Identity Female 11/27/2024 8:09 AM EST Sexual Orientation Straight 11/27/2024 8: 09 AM EST Obstetrics History Last Filed Vital Signs Vital Sign Reading Time Taken Comments Blood Pressure 105/69 11/27/2024 12:24 PM EST Pulse 95 11/27/2024 12:24 PM EST Temperature 36.6 ??C (97.9 ??F) 11/27/2024 12:[address] Respiratory Rate 16 11/27/2024 12:24 PM EST Oxygen Saturation 98% 11/27/2024 12:24 PM EST Inhaled Oxygen Concentration - - Weight 113 kg (250 lb) 01/20/2025 8:31 AM EDT Height 160 cm (5' 2.99 ) 01/20/2025 8:31 AM EDT Body Mass Index 44.3 01/20/2025 8:31 AM EDT Plan of Treatment Upcoming Encounters Date Type Department Care Team (Late st Contact Info) Description 02/24/2025 10:00 AM EDT Treatment [facility] Occupational Therapy [facility] [place] [address] [place] [phone] Janine Martino COTA/L 03/02/2025 9:30 AM EDT Office Visit Orthopedic Surgery - [place] [facility] [address] [place] [address] Huma Kat MD [facility] [address] [place] [address] Health Maintenance Due Date Last Done Comments Diabetes: Annual GFR (Glomerular Filtration Rate) 1984 Diabetes: Annual Foot Exam 1994 Diabetes: Annual Retina Eye Exam 1994 Breast Cancer Screening 12/05/2019 12/04/2017 HIV Screening 09/09/2022 Hepatitis C Screening 09/09/2022 Social Influencers of Health Screening 09/09/2022 COVID-19 Vaccine ( season) 2024 Diabetes: Annual Urine Albumin-Creatinine Ratio (uACR) 09/23/2024 Hypertension/CHF/CAD Annual BMP Blood Test 09/23/2024 Depression Screening 11/16/2024 02/11/2025 Influenza Vaccine (Season Ended) 2025 07/23/2023, 07/06/2022, 09/28/2021, Additional history exists Diabetes: Blood Sugar Control Test (HGBA1C) 08/14/2025 02/11/2025, 02/06/2024 Cervical Cancer Screening: Pap Smear 01/17/2026 01/17/2023 Cholesterol Screening (Lipid Panel) 11/02/2027 11/02/2022 DTaP,Tdap,and Td Vaccines (3 - Td or Tdap) 07/15/2031 07/15/2021, 08/16/2017 MMR Vaccines Aged Out 09/29/2021 No longer eligi ble based on patient's age to complete this topic Pneumococcal Vaccine: Pediatrics (0 to 5 Years) and At-Risk Patients (6 to 64 Years) Completed 02/21/2023 Hepatitis B Vaccines Completed 03/27/2023, 02/22/20 HIB Vaccines Aged Out No longer eligi ble based on patient's age to complete this topic HPV Vaccines Aged Out No longer eligi ble based on patient's age to complete this topic Hepatitis A Vaccines Aged Out No long er eligible based on patient's age to complete this topic IPV Vaccines Aged Out No longer eligi ble based on patient's age to complete this topic Meningococcal ACWY Vaccine Aged Out N o longer eligible based on patient's age to complete this topic Meningococcal B Vaccine Aged Out No l onger eligible based on patient's age to complete this topic RSV Immunization Patients Under 20 months Aged Out No longer eligible based on patient's age to complete this topic Varicella Vaccines Aged Out No longer eligible based on patient's age to complete this topic Goals Goal Patient Goal Type Associated Problems Recent Progress Patient-Stated? Author OT 8 visits General On track( 025 11:50 AM EDT) Brit Pelaez, OT Note: 1> Return demo HEP w/ progressions (splint use/wean, pain manage,scar manage, joint protect, eventual strength and activity progression) 2. L wrist ext AROM at least 55' w/ tolerance for at least partial Wb'ing 3. L 3pt/lat pinch strength increased to at least 10# for ease of opening containers 4. L Algorithm Design Engineer at least 40# (vs 20# init) 5. No signif pain to provocative testing (ie Vikram negative) Procedures Procedure Name Priority Date/Time Associated Diagnosis Comments XR WRIST 3+ VIEWS LEFT Routine 12/09/2024 8:38 AM EDT Post-operative state OXYGEN THERAPY, ADULT Routine 11/27/2024 11:40 AM EST POC PREGANCY, URINE SCREENING Routine 11/27/2024 10:37 AM EST TH AN LMA(NO CHARGE) Routine 11/27/2024 9:41 AM EST ARTHROSCOPY WRIST 11/27/2024 9:1 5 AM EST Carpal tunnel syndrome, left upper limb Radial styloid tenosynovitis (de quervain) Ganglion, left wrist Case Notes PA ASSIST ND INCISION EXTENSOR TENDON SHEATH WRIST 11/27/2024 9:15 AM EST Carpal tunnel syndrome, left upper limb Radial styloid tenosynovitis (de quervain) Ganglion, left wrist Case Notes PA ASSIST ND ENDOSCOPY WRIST SURGICAL WITH RELEASE TRANSVERSE CARPAL LIGAMENT 11/27/2024 9:15 AM EST Carpal tunnel syndrome, left upper limb Radial styloid tenosynovitis (de quervain) Ganglion, left wrist Case Notes PA ASSIST POCT GLUCOSE BLOOD Routine 11/27/2024 8: 28 AM EST from Last 3 Months Results * XR Wrist 3+ Views Left (12/09/2024 8:38 AM EDT) Anatomical Region Laterality Modality Upper Extremities, Wrist Left Compute d Radiography Narrative 12/09/2024 8:47 AM EDT Date of Visit: 12/09/2024 Reason for visit: Left wrist distal radius core decompression Views: AP, lateral, oblique left wrist Comparison: July 24 Findings: Scattered cystic changes at the carpal bones. ??Lucency at the distal radius from core decompression. ??Alignment maintained. Impression: Stable left wrist radiograph and alignment maintained. ?? Postoperative changes noted Brit WEATHERS IMG XR PROCEDURES Final Resul t * POC , urine NO CHARGE screening manually resulted (11/27/2024 10:37 AM EST) HCG, Ur POC Negative Negative POC hCG Int QC Pass? Yes Yes Urine Urine specimen obtained by clean catch procedure / Unknown 11/27/2024 10:37 AM EST Huma Kat MD POINT OF CARE TEST ENTER/EDIT ORDERABLES Final Result * TH AN LMA(NO CHARGE) (11/27/2024 9:41 AM EST) Narrative Alma Rosa Delgado CRNA - 11/27/2024 9:41 AM EST Alma Rosa Delgado CRNA ? 11/27/2024 ??9:43 AM General Information and Staff Patient location during procedure: OR Performed by: Alma Rosa Delgado CRNA Authorized by: Liban Barrera MD ?? Intubation Airway not difficult Urgency: elective Final Airway Details Number of attempts at approach: 1 Ventilation between attempts: none Number of other approaches attempted: 0Final airway type: LMA Indications and Patient Condition Indications for airway management: anesthesia Spontaneous ventilation: present Sedation level: Yes Preoxygenated: yes Soft Tissue Damage: No Dentition Unchanged: Yes Patient position: sniffing MILS not maintained throughout Mask difficulty assessment: 0 - not attempted Start Time: 11/27/2024 12:19 AMStop Time: 11/27/2024 9:21 AM us Liban Barrera MD ANESTHESIA ORDERABLES Final Re sult * (ABNORMAL) POCT Glucose, blood (11/27/2024 8:28 AM EST) Glucose POCT 175(H) 70 - 100 mg/dL 11/27/2024 8:28 AM EST [facility] Blood Capillary blood specimen / Unknown 11/27/2024 8:28 AM EST 11/27/2024 8:30 AM EST Huma Kat MD LAB POINT OF CARE TE ST DOCKED DEVICE UNSOLICITED RESULTS Final Result [facility] [address] [place] [address], [place] [phone] from Last 3 Months Insurance MEDICAID - [place] Advance Directives * Full Code - Default (Latest Code Status on File) Date Activated Date Inactivated Comments 11/27/2024 8:18 AM 11/27/2024 3:57 PM This is orde r is used when code status has not been discussed with the patient, or code status is otherwise unknown/unconfirmed To update the patient's code status, place a code status order. Do not modify or discontinue any currently active code status orders. Care Teams Flask Pusher Relationship Specialty Start Date End Date Name, MD Cuong [address] [place], [place] PCP - General 07/17/24
--- OUTSIDE RECORDS SUMMARY | 2025-02-18 10:42 | XMS_ITS | Encounter Summary ---
Author Organization [employer] Address [address] [facility] 7t [place] [address] Care Team Providers Care Enrobing Machine Corder Name Role Phone Name, Cuong RODRIGUEZ Primary Care Provider [phone] Irma Freeman PharmD Unavailable Reason for Visit * Reason Comments Med Refill Encounter Details Date Type Department Care Team (Late st Contact Info) Description 09/28/2023 Refill [facility] [address] [place], [place] [phone] Name, MD Cuong [address] [place], [place] [phone] Chronic low back pain, unspecified back pain laterality, unspecified whether sciatica present Social History Tobacco Use Types Packs/Day Years Used Date Smoking Tobacco: Never Smokeless Tobacco: Never Alcohol Use Standard Drinks/Week Comments Never 0 (1 standard drink = 0.6 oz pur e alcohol) Housing Stability Answer Date Recorded What is your housing situation today? I have kelsea holley 07/18/[address] you li ve. Do you have problems with any of the following? None of the above 07/18/2023 Food Insecurity Answer Date Recorded Within the past 12 months, y ou worried that your food would run out before you got money to buy more: Never True 07/18/2023 Within the past 12 months,th e food you bought just didn't last and you didn't have enough money to get more: Never True Transportation Answer Date Recorded In the past 12 months, has l ack of transportation kept you from medical appts, meetings, work or from getting things needed for daily living? Yes, it has kept me from medical appointments or getting medications. 07/10/2023 Utilities Answer Date Recorded In the past 12 months, has t he electric, gas, oil or water company threatened to shut off services in your home? No 07/18/2023 Depression Answer Date Recorded Patient Health Questionnaire-2 Score 2 10/31/2022 Comments Unknown Sex and Gender Information Value Date Recorded Sex Assigned at Female 07/31/2022 10:32 AM EDT Legal Sex Female 10:32 AM EDT Gender Identity Female 07/31/2022 10:32 AM EDT Sexual Orientation Choose not to disclose 2021 10:32 AM EDT documented as of this encounter Plan of Treatment Upcoming Encounters Date Type Department Care Team (Late st Contact Info) Description 02/26/2025 2:30 PM EDT Telemedicine [facility] [address] [place] [phone] 05/26/2025 11:15 AM EDT Office Visit [facility] [address] [place] [phone] NameCuong MD [address] [place] [phone] documented as of this encounter Goals Goal Patient Goal Type Associated Problems Recent Progress Patient-Stated? Author Drink less soda, juice, and other sugary beverages Diet No Evette Cruz, RN Eat a balanced, healthy diet Diet No Evette Cruz RN Hemoglobin A1c < 7 Result Component 6(02/11/2025 3:57 PM EDT) No Irma Freeman, PharmD Record your blood sugar as directed Result Component No Irma Freeman, PharmD Note: SMBG at least once daily, record values for review in follow up documented as of this encounter Visit Diagnoses Diagnosis Chronic low back pain, unspecified back pain laterality, unspecified whether sciatica present documented in this encounter Care Teams Enrobing Machine Corder Relationship Specialty Start Date End Date Cuong Casas MD [address] [place] [phone] PCP - General Family Medicine 07/19/17 Irma Freeman, EladiaD [address] [place] [address] Pharmacist Internal Medicine 02/20/23 documented as of this encounter
--- OUTSIDE RECORDS SUMMARY | 2025-02-18 10:42 | XMS_ITS | Encounter Summary ---
Author Organization [employer] Address [address] [facility] 7t [place] [address] Care Team Providers Care Manager Hiv Name Role Phone Name, Cuong RODRIGUEZ Primary Care Provider [phone] Irma Freeman PharmD Unavailable Encounter Details Date Type Department Care Team (Late st Contact Info) Description 08/18/2024 Telephone [facility] [address] [place], [place] [phone] Name, MD Cuong [address] [place] [address] Social History Tobacco Use Types Packs/Day Years Used Date Smoking Tobacco: Never Smokeless Tobacco: Never Alcohol Use Standard Drinks/Week Comments Never 0 (1 standard drink = 0.6 oz pur e alcohol) Alcohol Answer Date Recorded Frequency of Alcohol Consumption Not on file 05/14/2024 Average Number of Drinks Not on file 024 Frequency of Binge Drinking Not on file 05/01 Score 0 05/14/2024 Depression Answer Date Recorded Patient Health Questionnaire-9 Score 0 11/16/2023 Patient Health Questionnaire-9 Score 0 11/16/2023 Last PHQ-9: Questionnaire Data Not on file 0 11/16/2023 Housing Stability Answer Date Recorded What is your housing situation today? I have kelsea holley 11/16/[address] you li ve. Do you have problems with any of the following? None of the above 11/16/2023 Food Insecurity Answer Date Recorded Within the past 12 months, y ou worried that your food would run out before you got money to buy more: Never True 11/16/2023 Within the past 12 months,th e food you bought just didn't last and you didn't have enough money to get more: Never True Transportation Answer Date Recorded In the past 12 months, has l ack of transportation kept you from medical appts, meetings, work or from getting things needed for daily living? No 11/16/2023 Utilities Answer Date Recorded In the past 12 months, has t he electric, gas, oil or water company threatened to shut off services in your home? No 11/16/2023 Depression Answer Date Recorded Patient Health Questionnaire-2 Score 0 11/16/2023 Comments Unknown Sex and Gender Information Value [...] Info) Description 02/26/2025 2:30 PM EDT Telemedicine [facility] [address] [place] [phone] 05/26/2025 11:15 AM EDT Office Visit [facility] [address] [place] [phone] Name, MD Cuong [address] [place] [phone] documented as of this encounter Goals Goal Patient Goal Type Associated Problems Recent Progress Patient-Stated? Author Drink less soda, juice, and other sugary beverages Diet No Evette Cruz, TATYANA Eat a balanced, healthy diet Diet No Evette Cruz RN Hemoglobin A1c < 7 Result Component 6(02/11/2025 3:57 PM EDT) No Irma Freeman PharmD Record your blood sugar as directed Result Component No Irma Freeman PharmD Note: SMBG at least once daily, record values for review in follow up documented as of this encounter Visit Diagnoses Not on filedocumented in this encounter Additional Health Concerns Assessment Noted Time PHQ-9 Depression Total Score: 0 11/16/19 24 10:12 AM EST documented as of this encounter Care Teams Manager Hiv Relationship Specialty Start Date End Date Name, MD Cuong [address] [place], [place] [phone] PCP - General Family Medicine 07/19/17 Irma Freeman PharmD [address] [place] [address] Pharmacist Internal Medicine 02/20/23 documented as of this encounter
--- OUTSIDE RECORDS SUMMARY | 2025-02-18 10:42 | XMS_ITS | Clinical Summary ---
Author Organization [employer] Address [address] [place] [address] [address] [place] [address] Care Team Providers Care Manager Materials Management Name Role Phone Name, Cuong RODRIGUEZ Primary Care Provider [phone] Irma Freeman PharmD Unavailable [phone] Allergies No known active allergies Medications ferrous sulfate 325 (65 Fe) MG tablet Take 1 tablet by mouth at bed time. 05/27/20 20 Active EPINEPHrine (EpiPen 2-Pedro Luis) 0.3 MG/0.3ML injection syringe Inject 0.3 mL into the shoulder, thigh, or buttocks 2 each 1 02/22/20 23 Active albuterol 108 (90 Base) MCG/ACT inhaler Inhale 1 puff every 4 (four) hours if needed for wheezing. 18 g 1 02/22/20 23 Active fluticasone (Flonase) 50 MCG/ACT nasal sprayIndication s:Allergic rhinitis, unspecified seasonality, unspecified trigger SPRAY 1 SPRAY INTO EACH NOSTRIL EVERY DAY 48 mL 1 02/22/20 23 Active metFORMIN XR (Glucophage-XR) 500 MG 24 hr tabletIndicatio ns:Type 2 diabetes mellitus with obesity (CMS/HCC) ([facility]) Take 2 tablets (1,000 mg) by mouth with breakfast. 180 tablet 3 03/31/20 24 Active glucose blood (FREESTYLE LITE) test stripIndication s:Type 2 diabetes mellitus with obesity (CMS/HCC) ([facility]) Use to test blood sugar TWICE daily, as directed 50 each 11 03/31/20 24 Active TRUEplus Lancets 33G miscIndications :Type 2 diabetes mellitus with obesity (CMS/HCC) ([facility]) Use to test blood sugar twice daily, as directed 50 each 11 03/31/20 24 Active Diclofenac Sodium 1 % gel Apply 2 g topically if needed in the morning, at noon, in the evening, and at bedtime (pain). 150 g 1 06/12/20 24 Active acetaminophen (Tylenol 8 Hour) 650 MG ER tablet TAKE 1 TABLET BY MOUTH EVERY 8 HOURS NEEDED FOR MILD PAIN 40 tablet 1 08/15/20 24 Active cetirizine (ZyrTEC) 10 MG tablet TAKE 1 TABLET BY MOUTH EVERY MORNING 90 tablet 1 12/20/19 25 Active sertraline (Zoloft) 100 MG tablet TAKE 2 TABLETS BY MOUTH EVERY DAY AT BEDTIME 60 tablet 5 01/13/20 25 Active hydrOXYzine HCl (Atarax) 25 MG tablet TAKE 1 TABLET BY MOUTH THREE TIMES DAILY IN THE MORNING, AT NOON, AND AT BEDTIME NEEDED (for itching) 90 tablet 3 01/27/20 25 Active losartan-hydroC HLOROthiazide (Hyzaar) 100-25 MG tabletIndicatio ns:Type 2 diabetes mellitus with obesity (CMS/HCC) ([facility]),Essen tial hypertension Take 1 tablet by mouth Once per day. 30 tablet 11 02/12/20 25 026 Active amLODIPine (Norvasc) 5 MG tabletIndicatio ns:Type 2 diabetes mellitus with obesity (CMS/HCC) ([facility]),Essen tial hypertension TAKE 1 TABLET BY MOUTH EVERY MORNING 90 tablet 1 02/12/20 25 Active Tirzepatide (Mounjaro) 10 MG/0.5ML solution auto-injectorIn dications:Type 2 diabetes mellitus with obesity (CMS/HCC) ([facility]),Essen tial hypertension Inject 10 mg under the skin 1 (one) time per week. 2 mL 2 02/12/20 25 025 Active cyclobenzaprine (Flexeril) 10 MG tablet Take 1 tablet (10 mg) by mouth 3 times daily. 90 tablet 02/12/20 25 Active Blood Pressure kitIndications: Essential hypertension Use once a day 1 kit 02/12/20 25 Active Blood Pressure Monitor misc 06/09/20 22 025 Discontinued( erapy completed) Mounjaro 7.5 MG/0.5ML solution pen-injector 04/25/20 24 025 Discontinued(Do se adjustment) cyclobenzaprine (Flexeril) 10 MG tablet TAKE 1 TABLET BY MOUTH THREE TIMES DAILY 90 tablet 05/28/20 24 025 Discontinued(Re order (will not trigger notification to Pharmacy)) losartan (Cozaar) 100 MG tablet TAKE 1 TABLET BY MOUTH EVERY MORNING 90 tablet 3 07/17/20 24 025 Discontinued amLODIPine (Norvasc) 5 MG tabletIndicatio ns:Essential hypertension TAKE 1 TABLET BY MOUTH EVERY MORNING 90 tablet 1 08/19/20 24 025 Discontinued(Re order (will not trigger notification to Pharmacy)) hydrOXYzine HCl (Atarax) 25 MG tablet TAKE 1 TABLET BY MOUTH THREE TIMES DAILY IN THE MORNING, AT NOON, AND AT BEDTIME NEEDED FOR ITCHING 90 tablet 3 09/08/20 24 025 Discontinued Active Problems Problem Noted Date Diagnosed Date History of carpal tunnel release 02/11/2025 Overview (02/11/2025): left hand Anxiety 06/28/2023 Assessment & Plan (06/28/2023 9:20 AM EDT): Reports feeling anxious lately so likely symptoms are associated with anxiety -pt taking sertraline -will start hydroxyzine TID prn for anxiety -has f up apt w PCP next month -offered psychotherapy eval but pt refusing History of bariatric surgery 10/31/2022 IUD (intrauterine device) in place 10/31/2022 Overview (10/31/2022): 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, 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 [employer] Obstructive sleep apnea syndrome 03/08/2018 Essential hypertension 09/03/2017 Assessment & Plan (06/28/2023 9:18 AM EDT): Mild elevated BP pressures noted lately at home -as well noted few elevated BP readings at previous apts EKG today : sinus arrhythmia, HR 78x' QTC 428, no ischemic findings Reports episodes of chest discomfort and mild elevated BP is possible reactive and associated w anxiety -will hold for now on doing changes on her BP meds (continue losartan 50 mg and amlodipine 5 mg daily) -advised pt to bring at next apt w PCP in 4 weeks her home BP readings -if multiple elevated BP readings would increase her BP med. -alarm signs and symptoms discussed with pt Urticaria 07/19/2017 Severe obesity 07/19/2017 Migraine 07/19/2017 Major depressive disorder 07/19/2017 Type 2 diabetes mellitus with obesity ([facility]CC) 07/19/2017 Chronic low back pain 07/19/2017 Allergic rhinitis 07/19/2017 Encounters Date Type Department Care Team Description 02/11/2025 3:45 PM EDT Office Visit [facility] [address] [place] [address] Cuong Casas MD Essential hypertension (Primary Dx); Type 2 diabetes mellitus with obesity ([facility]/HCC) ([facility]); Leg swelling; Chronic low back pain, unspecified back pain laterality, unspecified whether sciatica present; History of carpal tunnel release 02/11/2025 Travel 02/10/2025 Telephone [facility] [address] [place] [address] Cuong Casas MD Chart Prep 02/09/2025 Telephone [facility] [address] [place] [address] Cuong Casas MD Nurse Triage 01/24/2025 Refill [facility] [address] [place] [address] Cuong Casas MD 01/11/2025 Refill [facility] [address] [place] [address] Cuong Casas MD 12/19/2024 Refill [facility] [address] [place] [address] Cuong Casas MD 12/12/2024 Population Health Risk Score [facility] [address] [phone] Provider, Population Health Generic from Last 3 Months Immunizations Immunization Administration Dates Next Due HepB-CpG 03/27/2023,02/21/2023 Influenza injectable quadriv alent IIV4 with preservative 08/19/2018,07/19/2017 Influenza injectable quadriv alent preservative free 07/23/2023,07/06/2022,09/28/2021,2020,09/03/2019 MMR 09/29/2021 Pneumococcal Conjugate PCV 20 02/21/2023 Tdap 07/15/2021,08/16/2017 Social History Tobacco Use Types Packs/Day Years Used Date Smoking Tobacco: Never Smokeless Tobacco: Never Tobacco Cessation:Counseling Given: Not Answered Alcohol Use Standard Drinks/Week Comments Never 0 (1 standard drink = 0.6 oz pur e alcohol) Alcohol Answer Date Recorded Frequency of Alcohol Consumption Not on file 05/14/2024 Average Number of Drinks Not on file 024 Frequency of Binge Drinking Not on file 05/01 Score 0 05/14/2024 Depression Answer Date Recorded Patient Health Questionnaire-9 Score 7 02/11/2025 Patient Health Questionnaire-9 Score 7 02/11/2025 Last PHQ-9: Questionnaire Data Not on file 0 02/11/2025 Housing Stability Answer Date Recorded What is your housing situation today? I have kelsea holley 02/11/[address] you li ve. Do you have problems with any of the following? None of the above 02/11/2025 Food Insecurity Answer Date Recorded Within the past 12 months, y ou worried that your food would run out before you got money to buy more: Never True 02/11/2025 Within the past 12 months,th e food you bought just didn't last and you didn't have enough money to get more: Never True Transportation Answer Date Recorded In the past 12 months, has l ack of transportation kept you from medical appts, meetings, work or from getting things needed for daily living? No 02/11/2025 Utilities Answer Date Recorded In the past 12 months, has t he electric, gas, oil or water company threatened to shut off services in your home? No 02/11/2025 Depression Answer Date Recorded Patient Health Questionnaire-2 Score 2 02/11/2025 Internet Access Answer Date Recorded Internet Access Q1 Yes 02/11/2025 Internet Access Q2 Not on file 02/11/2025 Comments Unknown Sex and Gender Information Value Date Recorded Sex Assigned at Female 07/31/2022 10:32 AM EDT Legal Sex Female 10:32 AM EDT Gender Identity Female 07/31/2022 10:32 AM EDT Sexual Orientation Choose not to disclose 2021 10:32 AM EDT Last Filed Vital Signs Vital Sign Reading Time Taken Comments Blood Pressure 162/99 02/11/2025 3:55 PM EDT Pulse 102 02/11/2025 3:55 PM EDT Temperature 36.7 ??C (98.1 ??F) 02/11/2025 3:55 PM ED T Respiratory Rate 14 02/11/2025 3:55 PM EDT Oxygen Saturation 98% 02/11/2025 3:55 PM EDT Inhaled Oxygen Concentration - - Weight 117 kg (257 lb 9.6 oz) 02/11/2025 3:55 PM EDT Height 160 cm (5' 3 ) 02/11/2025 3:55 PM EDT Body Mass Index 45.63 02/11/2025 3:55 PM EDT Plan of Treatment Upcoming Encounters Date Type Department Care Team (Late st Contact Info) Description 02/26/2025 2:30 PM EDT Telemedicine [facility] [address] [place] [phone] 05/26/2025 11:15 AM EDT Office Visit [facility] [address] [place] [phone] Name, MD Cuong [address] [place] [phone] Health Maintenance Due Date Last Done Comments Family Planning (PISQ) 1999 Lipid Panel 11/02/2023 11/02/2022 Cervical Cancer Screening 01/18/2024 HPV/Cotest 01/18/2024 01/17/2023, 10/01, 09/03/2019 Pap Smear 01/18/2024 01/17/2023, 10/14/2020 COVID-19 Vaccine ( season) 2024 Influenza Vaccine (#1) 2024 , 07/06/2022, 09/28/2021, Additional history exists Eye Exam 01/05/2025 01/05/2023 Alcohol/Substance Use Screening 05/14/2025 05/14/2024 Diabetes: Foot Exam 05/14/2025 05/14/2024, 05/14/2024, 07/23/2023, Additional history exists Diabetes: Urine Protein Screening 05/14/2025 05/14/2024, 04/20/2023, 11/02/2022 Diabetes: Hemoglobin A1C 08/14/2025 025, 02/06/2024, 10/05/2023, Additional history exists Depression Screening 02/11/2026 02/11/2025, 02/12/20 25 Disability Screening 02/11/2026 02/11/2025 SDOH Screening 02/11/2026 02/11/2025 Tobacco Screening 02/11/2026 02/11/2025 Mammogram 10/09/2026 10/09/2024, 12/04/2017 DTaP/Tdap/Td Vaccines (3 - Td or Tdap) 07/15/2031 07/15/2021, 08/16/2017 Zoster Vaccines (1 of 2) 2034 RSV Patients and Patients Aged 60 years or older (1 - 1-dose 75+ series) 2059 Pneumococcal Vaccine: Pediatrics (0 to 5 Years) and At-Risk Patients (6 to 49) Years) Completed 02/21/2023 Hepatitis B Vaccines Completed 03/27/2023, 02/22/20 HIV Screening Completed 07/03/2023 Hepatitis C Screening Completed 07/03/2023 HIB Vaccines Aged Out No longer eligi [...] patient's age to complete this topic Meningococcal Vaccine Aged Out No ajith richard eligible based on patient's age to complete this topic RSV under 20 months Aged Out No longe r eligible based on patient's age to complete this topic Rotavirus Vaccines Aged Out No longer eligible based on patient's age to complete this topic Goals Goal Patient Goal Type Associated Problems Recent Progress Patient-Stated? Author Drink less soda, juice, and other sugary beverages Diet No Evette Cruz RN Eat a balanced, healthy diet Diet No Evette Cruz RN Hemoglobin A1c < 7 Result Component 6(02/11/2025 3:57 PM EDT) No Irma Freeman PharmD Record your blood sugar as directed Result Component No Irma Freeman PharmD Note: SMBG at least once daily, record values for review in follow up Procedures Procedure Name Priority Date/Time Associated Diagnosis Comments POCT GLYCATED HEMOGLOBIN, TOTAL Routine 02/11/2025 3:57 PM EDT Type 2 diabetes mellitus with obesity (CMS/HCC) ([facility]) POCT GLUCOSE Routine 02/11/2025 3:57 PM EDT Type 2 diabetes mellitus with obesity (CMS/HCC) (CMS/HCC) BI MAMMOGRAM SCREENING TOMOSYNTHESIS BILATERAL Routine 10/09/2024 11:45 AM EST ALBUMIN, RANDOM URINE W/CREATININE Routine 05/14/2024 3:38 PM EDT Type 2 diabetes mellitus with obesity (CMS/HCC) ([facility]) Leg swelling Leg cramps HEPATITIS C ANTIBODY Routine 07/03/2023 11:54 AM EDT HIV ANTIBODY/ANTIGEN ([facility]) Routine 07/03/2023 11:54 AM EDT HPV MRNA E6/E7 REFLEX TO HPV 16, 18/45 Routine 01/17/2023 11:01 AM EDT PAP SMEAR Routine 01/17/2023 11:01 AM EDT LIPID PANEL, STANDARD Routine 11/02/2022 10:11 AM EST Diabetes mellitus type 2 in obese (CMS/HCC) from Last 3 Months or Most Recently Relevant to Health Maintenance Results * POCT HGB A1C (02/11/2025 3:57 PM EDT) Pathologist [facility] Hemoglobin A1C 6.0 4.0 - 6.0 % QC Media Lot # [id number] Lot# Expiration Date [id number] Blood 02/11/2025 3:57 PM EDT Cuong Name POINT OF CARE TEST ENTER/EDIT OR DERABLES Final Result * POCT Glucose (02/11/2025 3:57 PM EDT) Pathologist [facility] Glucose Blood, POC 154 60 - 200 mg/dL QC Media Lot # [id number] Lot# Expiration Date [id number] Blood Capillary blood specimen / Unknown 02/11/2025 3:57 PM EDT Cuong Name POINT OF CARE TEST ENTER/EDIT OR DERABLES Final Result * BI Mammogram Screening Tomosynthesis Bilateral (10/09/2024 11:45 AM EST) Anatomical Region Laterality Modality Breast Bilateral Mammography 10/09/2024 11:4 5 AM EST Narrative 10/17/2024 7:48 AM EST ? [facility] ? [address] ?[place] [address] ? Mammography Report ? Signed ? Patient: Chaney,Mileysha ?MR#: [id number] ?? 60 ? : 1985 ?Acct:[id number] ? Age/Sex: 39 / F ?ADM Date: //25 ? Loc: HO.MAMMO ? Attending Dr: Bessie Snyder CNM ? Ordering Physician: Bessie Snyder CNM ?Results: 1Nega ?? tive ? Date of Service: 10/09/24 ?Follow Up: 1 Year From Orig ?? inal Mammogram ? Procedure(s): MM tomosynthesis screening BI ?? Accession Number(s): [id number] ? cc: Yessenia,Cuong RODRIGUEZ; Bessie Snyder CNM ? EXAMINATION: ?? MM SCREENING DIGITAL BREAST TOMOSYNTHESIS, BILATERAL ? CLINICAL INFORMATION: ? Screening. Asymptomatic. ? COMPARISON: ?? Mammography: Comparison is made with available priors ? TECHNIQUE: ?? Digital breast mammography with tomosynthesis is performed in both the ?? craniocaudal and mediolateral oblique views along with computer-aided ?? detection (CAD). ? FINDINGS: ?? There are scattered areas of fibroglandular density (ACR BI-RADS breast ?? composition Category b). ? There are no significant masses, abnormal calcifications, or other ?? abnormalities. ? MM/MM tomosynthesis screening BI ?? IMPRESSION: ?? No mammographic evidence of malignancy. ? ASSESSMENT: ? BI-RADS BI-RADS 1 - Negative ? RECOMMENDATION: ?? Routine annual mammography screening. ? 1 year F/U ? This examination should not preclude the clinical evaluation of a ?? suspicious palpable abnormality. ? This patient's information was entered into a reminder system with a ?? target due date for their next mammogram. ? Electronically signed by: ??Lori Almanzar DO ??10/17/2024 07:45 AM EST ?? RP ? Dictated By: ?Lori Almanzar DO ? Signed By: ?<Electronically signed by Lori Almanzar, DO in OV> ? 10/17/24 0745 ? DD/ 1145 ? TD/TT: 10/09/24 1213 ? Poultry Barn Manager: ? Procedure Note Donotuseinterpreter, Image - 10/17/2024 [facility] [address] [place], [place] [address] Mammography Report Signed Patient: Naga Chaney#: [id number] 60 : 1985Acct:[id number] Age/Sex: 39 / FADM Date: 10/09/24 Loc: HO.MAMMO Attending Dr: Bessie Snyder CNM Ordering Physician: Bessie Snyderesults: 1Nega tive Date of Service: 10/09/24Follow Up: 1 Year From Orig ina Mammogram Procedure(s): MM tomosynthesis screening BI Accession Number(s): [id number] cc: Name,Cuong RODRIGUEZ; Bessie Snyder CNM EXAMINATION: MM SCREENING DIGITAL BREAST TOMOSYNTHESIS, BILATERAL CLINICAL INFORMATION: Screening. Asymptomatic. COMPARISON: Mammography: Comparison is made with available priors TECHNIQUE: Digital breast mammography with tomosynthesis is performed in both the craniocaudal and mediolateral oblique views along with computer-aided detection (CAD). FINDINGS: There are scattered areas of fibroglandular density (ACR BI-RADS breast composition Category b). There are no significant masses, abnormal calcifications, or other abnormalities. MM/MM tomosynthesis screening BI IMPRESSION: No mammographic evidence of malignancy. ASSESSMENT: BI-RADS BI-RADS 1 - Negative RECOMMENDATION: Routine annual mammography screening. 1 year F/U This examination should not preclude the clinical evaluation of a suspicious palpable abnormality. This patient's information was entered into a reminder system with a target due date for their next mammogram. Electronically signed by: Lori Almanzar DO 10/17/2024 07:45 AM EST Dictated By: Lori Almanzar DO Signed By: <Electronically signed by Lori Almanzar DO in OV> 10/17/24 0745 DD/ 1145 TD/TT: 10/09/24 1213 Poultry Barn Manager: [facility] External Provider IMG BI PROCEDURES Edited Result - Final * Albumin, Random Urine W/Creatinine (05/14/2024 3:38 PM EDT) Creatinine, Urine 79.05 mg/dL [facility] Microalbumin Urine <5.0 mg/L [facility] Microalbum Creatinine Ratio Ur TNP <30 ug/mg cr [facility] Comment:Unable to calculate albumin/creatinine ratio due to lowmicroalbumin or creatinine result. Urine (Urine, Random) 05/14/2024 3:38 PM EDT 05/14/2024 4:08 PM EDT us Cuong Casas MD LAB URINE ORDERABLES Final Resul t Performing Organization Address City/[facility]/ZIP Co de Phone Number [facility] [address] [place] [phone] * Hepatitis C Ab (07/03/2023 11:54 AM EDT) Hepatitis C Antibody Nonreactive Nonreactive [facility] Comment:Antibodies to HCV no t detected; does not exclude early acuteHCV infection. 07/03/2023 11:5 4 AM EDT 07/03/2023 11:54 AM EDT us Generic External Data Provider LAB BLOOD ORDERAB LES Final Result Performing Organization Address [facility]/ZIP Co de Phone Number [facility] [address] [place] [phone] * HIV Ab/Ag ([place]) (07/03/2023 11:54 AM EDT) HIV AB/AG Nonreactive Nonreactive [facility] Comment:HIV-1 p24 Ag and/or HIV-1/HIV-2 Ab not detected.A test result that is nonreactive does not exclude thepossibility of exposure to or infection with HIV-1 and/orHIV-2. Nonreactive results in this assay for individualswith prior exposure to HIV-1 and/or HIV-2 may be due toantigen and antibody levels that are below the limit ofdetection of this assay.The [employer] HIV Ag/Ab Combo assay result andsupplemental assay results should be interpreted inconjunction with the patient's clinical presentation,history and other laboratory results. If the results areinconsistent with clinical evidence, additional testing issuggested to confirm the result. 07/03/2023 11:5 4 AM EDT 07/03/2023 11:54 AM EDT Generic External Data Provider LAB BLOOD ORDERAB LES Final Result [facility] [address] [place] [address] [phone] * HPV mRNA E6/E7 w/Reflex to HPV Genotypes 16, 18/45 (01/17/2023 11:01 AM EDT) HPV nRNA E6/E7 Not Detected Not Detected [facility] Comment:Methodology: Transcr iption-Mediated AmplificationThis assay detects E6/E7 viral messenger RNA (mRNA) from 14high-risk HPV types (16,18,31,33,35,39,45,51,52,56,58,59,66,68).Cervical sources are required for HPV testing.If a vaginal source from a patient who has had atotal hysterectomy with removal of cervix wassubmitted, please contact the testing laboratoryfor alternative testing options.For additional information, please refer tohttp://education.Kadenze/faq/JHB916n8(This link if provided for information/educational purposes only.)THIS TEST WAS PERFORMED AT:[facility] [place] [phone] PRADHAN MD HPV mRNA E6/E7 [facility] HPV 16 RNA [facility] HPV 18/45 RNA [facility] 01/17/2023 11:0 1 AM EDT 01/18/2023 8:15 AM EDT [facility] External Provider LAB CYT OLOGY ORDERABLES Final Result [facility] [address] [place] [address] [phone] * Pap Smear (01/17/2023 11:01 AM EDT) 01/17/2023 11:0 1 AM EDT 01/18/2023 8:15 AM EDT Narrative [facility] - 01/25/2023 1:20 PM EDT ----- ------- Name: Yakelin Chaney ? Age/Sex: 37/F ? : 1985 Unit#: [id number] ?? Attend Dr: Madeleine Silveira CNM ?Re01/17/23 ?Status: DEP REF ? Location: HO.LNP ?Disch: ? ----- ------- SPEC : [id number] ? RECD: 01/18/23-814 ? STATUS: ??SOUT ? REQ NUM: [id number] ? LUIS: 01/17/23 ? SUBM DR: Madeleine Silveira CNM ? ENTERED: ??01/18/23 ?SP TYPE: Pap Smr ?OTHR DR: ? ORDERED: ??Pap Smear, PAP path review ? Interpretation ?? General Category: ?? Epithelial cell abnormality. ?? Adequacy: ?Endocervical component present. ?? Interpretation: ?Atypical squamous cells of undetermined significance. ?Abundant blood present. ? HPV mRNA E6/E7: ?NOT DETECTED ? This assay detects E6/E7 viral messenger RNA (mRNA) from 14 high-risk HPV types (16, 18, ?? 31, 33, 35, 39, 45, 51, 52, 56, 58, 59, 66, 68) ? HPV testing performed by [facility], [place], [place]. ??See reference laboratory ?? portion of the EMR for entire report. ?Clinical Information LMP: Nexplanon Previous PAP test: Unknown Date/Findings ? Material Received ?? ThinPrep Cervical ----- ------- Signed (signature on file) Kay Andre 01/25/23 1320 ? ----- ------- ? END OF REPORT ? [facility] External Provider LAB [facility] ORDERABLES Final Result [facility] [address] [place] [phone] * Lipid Panel, Standard (11/02/2022 10:11 AM EST) [facility] Cholesterol, Total 153 <200 mg/dL [facility] [place] [facility] HDL Cholesterol 51 > OR = 50 mg/dL [facility] Triglycerides 77 <150 mg/dL [facility] LDL Cholesterol 85 mg/dL (calc) [facility] Comment: Reference range: <100 Desirable range <100 mg/dL for primary prevention; ?? <70 mg/dL for patients with CHD or diabetic patients with > or = 2 CHD risk factors. LDL-C is now calculated using the Cinthya calculation, which is a validated novel method providing better accuracy than the Friedewald equation in the estimation of LDL-C. Sen CAVANAUGH et al. PABLO. 2013;310(19): 3799-8610 (http://education.Spock/faq/JOF543) Chol/HDLC Ratio 3.0 <5.0 (calc) [facility] Non-HDL Cholesterol 102 <130 mg/dL (calc) [facility] Comment: For patients with diabetes plus 1 major ASCVD risk factor, treating to a non-HDL-C goal of <100 mg/dL (LDL-C of <70 mg/dL) is considered a therapeutic option. Blood Venous blood specimen / Unknown 11/02/2022 10:11 AM EST 11/02/2022 10:11 AM EST Narrative [facility] - 11/03/2022 12:56 AM EST FASTING:YES FASTING: YES us Cuong Casas MD LAB BLOOD ORDERABLES Final Resul t [facility] [address], [place] [phone] [facility] [place] [facility] [address] [facility], (N[address]) [place] [phone] from Last 3 Months or Most Recently Relevant to Health Maintenance Insurance [employer] C3 Care Teams Manager Materials Management Relationship Specialty Start Date End Date Name, MD Cuong [address] [place] [address] PCP - General Family Medicine 07/19/17 Irma Freeman, [facility] [address] [place] [address] Pharmacist Internal Medicine 02/20/23
--- OUTSIDE RECORDS SUMMARY | 2025-02-18 10:42 | XMS_ITS | Encounter Summary ---
Author Organization [facility] [address] Address [address] [place] [address] Care Team Providers Care Cryogenics Repairer Name Role Phone Name, Cuong RODRIGUEZ Primary Care Provider [phone] Reason for Visit * Consultation (Urgent) - Authorized Specialty Diagnoses / Procedures Referred By Contvalentin t Referred To Contact Occupational Therapy Diagnoses Post-operative state Brit Jordan PA [address] [facility] [address] [place] [address] Phone: tel: fax: [facility] Occupational Therapy [address] [facility] [address] [place] [address] Phone: tel: fax: Referral ID Status Reason Start Date Expiration Date Visits Requested Visits Authorized [id number] Authorized Specialty Services Required 01/20/2025 01/20/2026 20 20 Encounter Details Date Type Department Care Team (Late st Contact Info) Description 02/17/2025 10:00 AM EDT Treatment [facility] Occupational Therapy [address] [address] Janine Martino, ARANDA/L Post-operative state (Primary Dx); Carpal tunnel syndrome of left wrist Social History Tobacco Use Types Packs/Day Years [...] Orientation Straight 11/27/2024 8: 09 AM EST documented as of this encounter Progress Notes * PAZ Neal - 02/17/2025 10:00 AM EDT [facility] - Outpatient OCCUPATIONAL THERAPY DAILY TREATMENT NOTE Date: 02/17/2025 Visit Number: [id number] Patient Name: Yakelin Chaney : 1985 Age: 39 y.o. Gender: female Diagnosis: ICD-10-CM ICD-9-CM 1. Post-operative state Z98.890 V45.89 2. Carpal tunnel syndrome of left wrist G56.02 354.0 Date of Onset: 11/27/2024 Referring Provider: Brit Jordan PA Insurance: [place] / Product Type: *No Product type* / Medications: Current Outpatient Medications on File Prior to Visit Medication Sig Dispense Refill acetaminophen (TYLENOL 8 HOUR) 650 mg 8 hr tablet Take 1 tablet (650 mg total) by mouth every 8 (eight) hours if needed for mild pain. Do not crush, chew, or split. 30 tablet 0 amLODIPine (NORVASC) 5 mg tablet Take 1 tablet (5 mg total) by mouth 1 (one) time each day in the morning. cetirizine (ZyrTEC) 10 mg tablet 1 tablet (10 mg total). cyclobenzaprine (FLEXERIL) 10 mg tablet Take 1 tablet (10 mg total) by mouth 3 (three) times a day if needed. diclofenac (VOLTAREN) 1 % topical gel APPLY 4 GRAM TO AFFECTED AREA(S) OF HANDS AND KNEES TWICE DAILY TO FOUR TIMES DAILY EPINEPHrine (EPIPEN) 0.3 mg/0.3 mL injection Inject 0.3 mL into the shoulder, thigh, or buttocks fluticasone propionate (FLONASE) 50 mcg/actuation nasal spray Administer 1 spray into each nostril 1 (one) time each day. gabapentin (NEURONTIN) 100 mg capsule Take 1 capsule (100 mg total) by mouth. at bedtime losartan (COZAAR) 100 mg tablet Take 1 tablet (100 mg total) by mouth 1 (one) time each day in the morning. metFORMIN XR (GLUCOPHAGE-XR) 500 mg 24 hr tablet Take 2 tablets (1,000 mg total) by mouth daily. Mounjaro 7.5 mg/0.5 mL injection 0.5 mL (7.5 mg total). oxyCODONE (ROXICODONE) 5 mg immediate release tablet Take 1 tablet (5 mg total) by mouth every 6 (six) hours if needed for severe pain for up to 10 doses. Max Daily Amount: 20 mg 10 tablet 0 sertraline (ZOLOFT) 100 mg tablet Take 2 tablets (200 mg total) by mouth. at bedtime traMADoL (ULTRAM) 50 mg tablet 1 tablet (50 mg total) 1 (one) time each day if needed. No current facility-administered medications on file prior to visit. Allergies: has No Known Allergies. Precautions: None specified SUBJECTIVE Subjective Report: its getting better. Chart Reviewed: Yes Pain: 3 TREATMENT INTERVENTION Procedures: Wrist A/AROM flex/ext/circumduction, thump opposition to all digits (w/ ease) yellow theraputty , performed gentle grasp, digits ext, lat pinch, educated to conintue for HEP U/S 3mhz 50% pulsed 0.5 to L volar wrist incision for decreased pain. Soft tissue mob to L forearm flex/ext surface; coban wrap to L thumb/wrist Pain Reassessment: 4 Assessment/Response To Treatment: Good Patient noted to have increased ease with thumb opposition and decreased pain throughout her day. Patient Education: Education provided: Yes Education Provided To: Patient utilizing Explanation mode(s) of education Response to Education: Good PLAN POC Development/Review: No Change in the Plan of Care; Participants: Patient Equipment Recommended: none; Equipment Provided: none Total Treatment Time: 30 TOTAL TREATMENT TIME: 30 Minutes Documentation completed by PAZ Neal documented in this encounter Plan of Treatment Upcoming Encounters Date Type Department Care Team (Late st Contact Info) Description 02/24/2025 10:00 AM EDT Treatment [facility] Occupational Therapy [address] [place] [phone] Janine Martino COTA/Amilcar 03/02/2025 9:30 AM EDT Office Visit [facility] [place] 175 [facility] [address] [place] [address] Huma Kat MD 175 [facility] [address] [place] [phone] documented as of this encounter Goals Goal Patient Goal Type Associated Problems Recent Progress Patient-Stated? Author OT 8 visits General On track( 025 11:50 AM EDT) No Brit Barcenas OT Note: 1> Return demo HEP w/ progressions (splint use/wean, pain manage,scar manage, joint protect, eventual strength and activity progression) 2. L wrist ext AROM at least 55' w/ tolerance for at least partial Wb'ing 3. L 3pt/lat pinch strength increased to at least 10# for ease of opening containers 4. L Venetian Blind Maker at least 40# (vs 20# init) 5. No signif pain to provocative testing (ie Vikram negative) documented as of this encounter Visit Diagnoses Diagnosis Post-operative state- Primary Other postprocedural status Carpal tunnel syndrome of left wrist documented in this encounter Care Teams Cryogenics Repairer Relationship Specialty Start Date End Date Name, MD Cuong [address] [place], [place] PCP - General 07/17/24 documented as of this encounter
--- OUTSIDE RECORDS SUMMARY | 2025-02-18 10:42 | XMS_ITS | Encounter Summary ---
Author Organization [employer] Address [address] [facility] [address] [place] [address] Care Team Providers Care Drop Count Associate Name Role Phone Name, Cuong RODRIGUEZ Primary Care Provider [phone] Irma Freeman PharmD Unavailable Reason for Visit * Reason Onset Date Comments Lab Orders 04/25/2024 Encounter Details Date Type Department Care Team (Late st Contact Info) Description 04/25/2024 Telephone [facility] MEDICINE [address] [place], [place] [phone] Name, MD Cuong [address] [place] [address] Lab Orders Social History Tobacco Use Types Packs/Day Years Used Date Smoking Tobacco: Never Smokeless Tobacco: Never Alcohol Use Standard Drinks/Week Comments Never 0 (1 standard drink = 0.6 oz pur e alcohol) Depression Answer Date Recorded Patient Health Questionnaire-9 [...] AM EDT documented as of this encounter Miscellaneous Notes * Telephone Encounter - Karen Aguila RN - 04/25/2024 10:03 AM EDT T/C to pt. Through [employer] id - [id number] to inform that TB test was order for work, pt. Can go to lab as per convenience, pt. Verbally greed and understood. * Telephone Encounter - Jonny Rodriguez - 04/25/2024 9:32 AM EDT Tc from pt requesting TB test for work. If any questions you can contact pt at [phone]. Kazakh Speaker. documented in this encounter Plan of Treatment Upcoming Encounters Date Type Department Care Team (Late st Contact Info) Description 02/26/2025 2:30 PM EDT Telemedicine [facility] MED[facility]INE [address] [place] [phone] 05/26/2025 11:15 AM EDT Office Visit [facility] [address] [place] [phone] Name, MD Cuong [address] [place] [phone] documented as of this encounter Goals Goal [...] documented as of this encounter Care Teams Drop Count Associate Relationship Specialty Start Date End Date Name, MD Cuong [address] [place] [address] PCP - General Family Medicine 07/19/17 Imra Freeman PharmD [address] [place] [address] Pharmacist Internal Medicine 02/20/23 documented as of this encounter
[2025-02-18 11:25] LABS: Basophils Percent Auto 0.5 % (0-2); Eosinophils Absolute Auto 0.1 X10*3/uL (0.0-0.4); Eosinophils Percent Auto 1.1 % (0-4); Hematocrit 41.4 % (37.0-47.0); Hemoglobin 13.7 g/dl (12.0-16.0); Imm Gran Abs Auto 0.02 X10*3/uL (0.00-0.03); Imm Gran Pct Auto 0.3 % (0.0-0.4); Lymphocytes Absolute Auto 1.4 X10*3/uL (1.2-4.9); Lymphocytes Percent Auto 21.4 % (20-40); MANUAL DIFF FLAG SCAN; Mean Corpuscular HGB Conc 33.1 g/dl (31.0-35.0); Mean Corpuscular Hemoglobin 28.2 pg (27.0-33.0); Mean Corpuscular Volume 85.4 fL (80.0-98.0); Monocytes Absolute Auto 0.4 X10*3/uL (0.1-1.2); Monocytes Percent Auto 6.4 % (2-11); Neutrophils Absolute Auto 4.5 x10*3/uL (2.0-8.3); Neutrophils Percent Auto 70.3 % (45-73); PLT CLUMP 1; Red Blood Count 4.85 X10*6/uL (4.20-5.50); Red Cell Distribution Width 13.1 % (11.0-16.0); SCAN SMEAR FLAG 1; White Blood Count 6.4 X10*3/uL (4.8-10.8)
[2025-02-18 11:43] LABS: Alanine Aminotransferase 23 U/L (0-31); Albumin Level 4.4 g/dL (3.5-5.0); Alkaline Phosphatase 78 U/L (39-117); Anion Gap 11 (12-20); Aspartate Amino Transferase 19 U/L (5-31); Bilirubin Direct 0.2 mg/dL (0.0-0.5); Bilirubin Total 0.6 mg/dL (0.0-1.0); Blood Urea Nitrogen 15 mg/dL (9-16); C Reactive Protein 0.67 mg/dL (< or = 0.50); Calcium 8.9 mg/dL (8.4-10.2); Carbon Dioxide 25 mmol/L (22-29); Chloride 106 mmol/L (96-108); Cholesterol 148 mg/dL (<200); Estimated Glomerular Filt Rate > 60; Glucose Random 143 mg/dL (60-115); HDL Cholesterol 41 mg/dL (>40); LDL Cholesterol Calculated 93 mg/dL (<100); Potassium 4.2 mmol/L (3.3-5.1); Sodium 138 mmol/L (135-145); Total Protein 7.3 g/dL (6.5-8.0); Triglycerides 72 mg/dL (<150)
[2025-02-18 12:02] LABS: Erythrocyte Sedimentation Rate 12 MM/HR (0-20)
[2025-02-18 12:30] LABS: Mean Platelet Volume 10.8 fL (9.4-12.3); Platelet Count 213 X10*3/uL (160-400); SLIDE REVIEW VERIFIED
[2025-02-19 04:31] LABS: HBS Num1 171.64 mIU/mL (0-7.99); HBc Num1 0.05 S/CO (0.00-0.79); Hepatitis B Core Antibody Nonreactive (Nonreactive); Hepatitis B Surface Antigen Negative (Negative); ~HepC Num1 0.07 S/CO (0.00-0.79); ~Hepatitis B Surface Antibody REACTIVE (Nonreactive); ~Hepatitis C Antibody Nonreactive (Nonreactive)
[2025-02-19 06:30] LABS: CT PCR NOT DETECTED (Not Detect.); NG PCR NOT DETECTED (Not Detect.)
[2025-02-19 11:46] LABS: Bacterial Vaginosis PCR POSITIVE (Negative); Candida Group PCR NOT DETECTED (Not Detect); Candida glab krusei PCR NOT DETECTED (Not Detect); Trichomonas vaginalis PCR NOT DETECTED (Not Detect)
[2025-02-21 14:49] LABS: TS Negative Control Passed; TS Panel A 0; TS Panel B 0; TS Positive Control Passed; TSpotTB Negative (Negative)
== END 2025-02-18 09:23 | disposition home or self-care (01) ==
LOC: HO.HHCL 09:22
PROVIDERS: Advanced Practice Midwife; Visit Provider Student in an Organized Health Care Education/Training Program
DX: N76.0 Acute vaginitis (principal); B96.89 Other specified bacterial agents as the cause of diseases classified elsewhere; N92.0 Excessive and frequent menstruation with regular cycle; E11.9 Type 2 diabetes mellitus without complications; I10 Essential (primary) hypertension; E66.01 Morbid (severe) obesity due to excess calories; G56.03 Carpal tunnel syndrome, bilateral upper limbs; R87.619 Unspecified abnormal cytological findings in specimens from cervix uteri; Z68.42 Body mass index [BMI] 45.0-49.9, adult; Z97.5 Presence of (intrauterine) contraceptive device; Z98.891 History of uterine scar from previous surgery
CPT/HCPCS: 36415; 80053; 80061; 81515; 82248; 85025; 85652; 86140; 86481; 86704; 86706; 86803; 87340; 87491; 87591; 99212

== ENCOUNTER 2025-02-18 13:08 | Outpatient (AMB) | payer MEDICAID, SELFPAY ==
--- NOTE | 2025-02-18 13:09 | A.OFFVIS_ITS ---
Vital Signs 02/18/25 13:14 Height 5 ft 3 in Weight 255 lb BMI 45.2 BP 124/68 Intake Visit Reasons: vaginitis Refinisher: Refinisher Present (Judith) Accompanied by: Self / Same As Patient Allergies seasonal allergies Allergy (Unknown, Uncoded 08/21/24 11:32) hives Medication List - Last Reconciled 02/18/25 by Bessie Snyder CNM albuterol sulfate 90 mcg/actuation (Proventil HFA) 1 - 2 puffs inhalation Q4-6H PRN cetirizine (Zyrtec) 10 mg PO DAILY PRN diclofenac sodium 1% 4 grams topical QID epinephrine IM DIRECTED fluticasone propionate 50 mcg/actuation 1 spray intranasal DAILY gabapentin 100 mg PO BEDTIME 90 days hydroxyzine HCl 10 mg PO Q8H PRN levonorgestrel (Mirena) intrauterine losartan-hydrochlorothiazide 100-25 mg 1 tab PO QAM metformin ER 1,000 mg PO QAM sertraline (Zoloft) 100 mg PO DAILY tirzepatide (Mounjaro) 7.5 mg subcut QWEEK Is last menstrual period known: No Post menopausal: No Patient : No HPI HPI vaginitis: Details: Patient is here because of a bad smell to the discharge about 3 months ago she had what she thought was a yeast infection so she got Monistat 7 of the pharmacy not help but she still has a discharge and she has been bothered by the smell for a while she has tried boric acid capsules but they just seem to dry her out and she cleans herself and she has even used a little vinegar and water but the smell just keeps returning. She is prediabetic she just saw her primary care provider recently and has a follow-up appointment with him in a month she just had her Mounjaro dose increased because she isn't losing any weight.. She has a Mirena IU S and she likes it it really helped with her bleeding pattern when she had her baby she had a and they had to put in a balloon to stopped the bleeding afterwards sometime after that she got Depo- Provera but she kept bleeding and bleeding and bleeding for a long time and it is only with the Mirena that it got better. She just got fasting lab work this morning and some of the lipids are in and the hemoglobin A1c is 6. She said it was 7 in the past. But she is pretty sure she was just told she was prediabetic. She is also hypertensive a non different medicines now it is getting better. She is trying to eat better but it is very hard when she is running all day with her kids. At the end of the visit she also asked me about itching at her scar. 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 De Quervain's tenosynovitis, left Kienb?ck's disease EDDIE positive Migraine with aura Prolonged menstrual cycle Fibroid Abnormal Pap smear of cervix Diabetes HTN (hypertension) Surgical History Gastric bypass status for obesity Hx of section Family History Mother HTN (hypertension) Prediabetes Rheumatoid arthritis Maternal Grandmother Uterus cancer Son Down syndrome Social History Household Members: Children Housing: House Alcohol intake: current Patient Tobacco Use Status: Never used Tobacco Patient : No service: No Current occupational status: unemployed Sexual orientation: Straight/Heterosexual Gender identity: Female Female Reproductive History Menstrual Age of Menarche: 9 control method: progestin IUCD (Mirena ) Total pregnancies: 4 Full term: 4 Date of last pap smear: 08/21/24 (negative pap smear, negative hpv ) History of abnormal pap smear: Yes (ASCUS 2023) Date of Mammogram: 10/09/24 (bi rad 1) Physical Exam Vital Signs: Last Vital Signs BP 124/68 02/18/25 13:14 BMI result Body Mass Index 45.2 Other: Cervix appears within normal limits with Mirena string thin white fish discharge that maybe consistent with mild BV. No obvious yeast or erythema. No rash under pannus. External Female Exam: normal external appearance and normal appearance of the urethra Speculum Exam - Vagina: normal appearance of the vagina and normal vaginal discharge Speculum Exam - Cervix: normal appearance of the cervix and Cervical os closed Results Reviewed Results Reviewed: darrius: Yakelin Chaney Age/Sex: 39/F Attending: Bessie Snyder CNM : 1985 Submitted by: Bessie Snyder CNM Copies to: MR #: [id number] Status: DEP REF Collected: 08/21/24 Location: [facility] Received: 08/22/24 Interpretation Satisfactory for evaluation. Negative for intraepithelial lesion or malignancy. HPV High Risk: Negative HPV Genotyping 16: Negative HPV Genotyping 18: Negative Clinical Information LMP: No, IUD Previous PAP test: 2022, ASCUS with neg Material Received ThinPrep-Cervical Electronically Signed By: NOLVIA Marte (ASCP) 08/29/24 1456 As of July 23, 2024, the technical services to include automated prescreening performed by the ThinPrep Imaging System, PAP screening and HPV testing will be performed at [facility] (CLIA #[id number]), [address] [place] [address]. Testing for HPV was performed using the Umu JAC 6800 system. The presence of HPV in the female genital tract is associated with a number of diseases, including cervical carcinoma. The HPV DNA high risk pool tests for HPV 31, 33, 35, 39, 45, 51, 52, 56, 58, 59, 66 and 68. The testing for HPV 16 and 18 genotypes has also been performed. A positive result indicates detection of nucleic acid sequences from one or more subtypes, whereas a negative result indicates such sequences were not detected. All professional services are performed by [facility] ([address] [place], [place] [id number]; ; CLIA #[id number]). The PAP Test is a screening procedure with the inherent possibility of both false negative and false positive results. Results should be interpreted in the context of historic and current clinical findings. Reliability of the PAP Test is enhanced by performing the test on a regular repetitive basis. Patient: Yakelin Chaney Age/Sex: 39/F MR#: [id number] Page 1 of 1 Name: Yakelin Chaney Age/Sex: 37/F Attending: Madeleine Silveira CNM : 1985 Submitted by: Madeleine Silveira CNM Copies to: MR #: [id number] Status: DEP REF Collected: 01/17/23 Location: [facility] Received: 01/18/23 Interpretation General Category: Epithelial cell abnormality. Adequacy: Endocervical component present. Interpretation: Atypical squamous cells of undetermined significance. Abundant blood present. HPV mRNA E6/E7: NOT DETECTED This assay detects E6/E7 viral messenger RNA (mRNA) from 14 high-risk HPV types (16, 18, 31, 33, 35, 39, 45, 51, 52, 56, 58, 59, 66, 68) HPV testing performed by [facility], [place], [place]. See reference laboratory portion of the EMR for entire report. Clinical Information LMP: Nexplanon Previous PAP test: Unknown Date/Findings Material Received ThinPrep Cervical Electronically Signed By: Kay Powell 01/25/23 2627 The Pap Test is a screening procedure with the inherent possibility of both false negative and false positive results. Results should be interpreted in the context of historic and current clinical findings. Reliability of the Pap Test is enhanced by performing the test on a regular repetitive basis. Patient: Yakelin Chaney Age/Sex: 37/F MR#: [id number] Page 1 of 1 Assessment & Plan Assessment & Plan (1) Diabetes: Comment: Patient states her hemoglobin A1c is 5.2. Code(s): E11.9 - Type 2 diabetes mellitus without complications Category: Medical (2) Abnormal Pap smear of cervix: Comment: PAP: 2019-HPV+, 2022-ASCUS, repeat 2023...08/21/24 pap is neg w neg HPV. Code(s): R87.619 - Unspecified abnormal cytological findings in specimens from cervix uteri Category: Medical (3) Heavy menstrual bleeding: Comment: Much improved with the Mirena, Code(s): N92.0 - Excessive and frequent menstruation with regular cycle Category: Medical (4) Presence of 52 mg levonorgestrel-releasing intrauterine device (IUD): Comment: Inserted 03/16/2023 for menorrhagia. Code(s): Z97.5 - Presence of (intrauterine) contraceptive device Category: Social Hx (5) HTN (hypertension): Code(s): I10 - Essential (primary) hypertension Category: Medical (6) Obesity, morbid, BMI 40.0-49.9: Comment: She is on Mounjaro but has just restarted it, pharmacy supply issues... Code(s): E66.01 - Morbid (severe) obesity due to excess calories Category: Medical (7) Bacterial vaginosis: Comment: By symptoms testing done we will treat with her choice of metronidazole tablets teaching done. Code(s): N76.0 - Acute vaginitis; B96.89 - Other specified bacterial agents as the cause of diseases classified elsewhere Category: Medical Plan Testing done today for about 2 serial vaginosis yeast as well as gonorrhea chlamydia trichomoniasis. Patient has no concerns about STDs. She says this has been a recurring issue she is reluctant to use condoms because she is with her . Discussed that if it continues to be a problem even after treatment the only solution is to use condoms. She has tried boric acid capsules in the past just make dry she is doing her best otherwise. Also discussed the predilection for yeast if her blood sugars elevated. She asked for something to deal with the itching under her pannus at her scar it does not appear to be red or inflamed but I am prescribing antifungal powder for her. We will treat with the metronidazole tablets for BV. I do recommend condoms while she treats at the very least . Also lots of discussion done about trying to really re double her efforts to lose weight and improve her health. Patient was pretty sure she has a diagnosis of pre diabetes but there is a diagnosis of diabetes in the chart and she reports a previous hemoglobin A1c of 7 it is down to 6 today she is just going to be starting an increased dose of Mounjaro today to see if it helps with weight loss as the lower dose was not really helping too much discussed diet she sometimes reaches for cookies because that is all that is around if she is hungry because she does not have time when she is with the kids. Medications: New metronidazole 500 mg PO Q12H 14 tabs 0RF miconazole nitrate 2% 1 appl topical BID 85 grams 3RF Coding Level of Care Code Est Pt Level 3 (09834) Complex EM visit Add On G2211 Diagnoses Diabetes E11.9 Abnormal Pap smear of cervix R87.619 Heavy menstrual bleeding N92.0 Presence of 52 mg levonorgestrel-releasing intrauterine device (IUD) Z97.5 HTN (hypertension) I10 Obesity, morbid, BMI 40.0-49.9 E66.01 Bacterial vaginosis N76.0; B96.89 Time Spent (min) 35 Comment 100% [id number] discussing all of her health concerns anpossible solutions as well as th
[2025-02-18 13:14] VITALS: BP 124/68; BMI 45.2
--- OUTSIDE RECORDS SUMMARY | 2025-02-18 13:44 | XMS_ITS | Clinical Summary ---
Author Organization [employer] Address [address] [place] [address] 7[address] [place] [address] Care Team Providers Care Educational Audiologist Name Role Phone Name, Cuong RODRIGUEZ Primary Care Provider [phone] Irma Freeman PharmD Unavailable [phone] Allergies No known active allergies Medications [...] ns:Type 2 diabetes mellitus with obesity (CMS/HCC) ([facility]) Take 2 tablets (1,000 mg) by mouth with breakfast. 180 tablet 3 03/31/20 24 Active glucose blood (FREESTYLE LITE) test stripIndication s:Type 2 diabetes mellitus with obesity (CMS/HCC) ([facility]) Use to test blood sugar TWICE daily, as directed 50 each 11 03/31/20 24 Active TRUEplus Lancets 33G miscIndications :Type 2 diabetes mellitus with obesity (CMS/HCC) ([facility]) Use to test blood sugar twice [...] ns:Type 2 diabetes mellitus with obesity (CMS/HCC) ([facility]),Essen tial hypertension Take 1 tablet by mouth Once per day. 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 [facility] Obstructive sleep apnea syndrome 03/08/2018 [...] 07/19/2017 Type 2 diabetes mellitus with obesity (CMS/HCC) 07/19/2017 Chronic low back pain 07/19/2017 Allergic rhinitis 07/19/2017 Encounters Date Type Department Care Team Description 02/18/2025 Orders Only GENERIC EXTERNAL DATA DEPARTMENT Provider, Generic External Data 02/11/2025 3:45 PM EDT Office Visit [facility] [address] [place] [address] NameCuong MD Essential hypertension (Primary Dx); Type 2 diabetes mellitus with obesity (CMS/HCC) ([facility]); Leg swelling; Chronic low back pain, unspecified back pain laterality, unspecified whether sciatica present; History of carpal tunnel release 02/11/2025 Travel 02/10/2025 Telephone [facility] [address] [place] [address] NameCuong MD Chart Prep 02/09/2025 Telephone [facility] [address] [place] [address] Cuong Casas MD Nurse Triage 01/24/2025 Refill [facility] [address] [place] [address] Cuong Casas MD 01/11/2025 Refill [facility] [address] [place] [address] Cuong Casas MD 12/19/2024 Refill [facility] [address] [place] [address] Cuong Casas MD 12/12/2024 Population Health Risk Score Community [facility] ([facility] Department [address] [phone] Provider, Population Health Generic from Last 3 [...] Info) Description 02/26/2025 2:30 PM EDT Telemedicine [facility] [address] [place] [phone] 05/26/2025 11:15 AM EDT Office Visit [facility] [address] [place] [phone] Name, MD Cuong [address] [place] [phone] Health Maintenance Due Date Last Done Comments Family Planning (PISQ) 1999 Cervical Cancer Screening 01/18/2024 HPV/Cotest 01/18/2024 01/17/2023, [...] Screening 02/11/2026 02/11/2025 Tobacco Screening 02/11/2026 02/11/2025 Lipid Panel 02/18/2026 02/18/2025, 11/02/2022 Mammogram 10/09/2026 10/09/2024, 12/04/2017 DTaP/Tdap/Td Vaccines (3 - Td or Tdap) 07/15/2031 07/15/2021, 08/16/2017 Zoster Vaccines (1 of 2) 2034 RSV Patients and Patients Aged 60 years or older (1 - 1-dose 75+ series) 2059 Pneumococcal Vaccine: Pediatrics (0 to 5 Years) and At-Risk Patients (6 to 49) Years) Completed 02/21/2023 Hepatitis B Vaccines Completed 03/27/2023, 02/22/20 23 HIV Screening Completed 07/03/2023 Hepatitis C Screening [...] this topic Meningococcal Vaccine Aged Out No ajiht richard eligible based on patient's age to [...] RN Eat a balanced, healthy diet Diet Evette Garland RN Hemoglobin A1c < 7 Result Component 6(02/11/2025 3:57 PM EDT) No Irma Freeman PharmD Record your blood sugar as directed Result Component No Irma Freeman PharmD Note: SMBG at least once daily, record values for review in follow up Procedures Procedure Name Priority Date/Time Associated Diagnosis Comments SLIDE REVIEW Routine 02/18/2025 9:25 AM EDT CBC WITH AUTO DIFFERENTIAL Routine 02/18/2025 9:25 AM EDT SED RATE BY MODIFIED WESTERGREN Routine 02/18/2025 9:25 AM EDT C-REACTIVE PROTEIN Routine 02/18/2025 9: 25 AM EDT HEPATIC FUNCTION PANEL Routine 02/18/2025 9:25 AM EDT COMPREHENSIVE METABOLIC PANEL Routine 02/18/2025 9:25 AM EDT LIPID PANEL, STANDARD Routine 02/18/2025 9:25 AM EDT Type 2 diabetes mellitus with obesity (CMS/HCC) (CMS/HCC) Essential hypertension POCT GLYCATED HEMOGLOBIN, TOTAL Routine 02/11/2025 3:57 PM EDT Type 2 diabetes mellitus with obesity (CMS/HCC) (CMS/HCC) POCT GLUCOSE Routine 02/11/2025 3:57 PM EDT Type 2 diabetes mellitus with obesity (CMS/HCC) (CMS/HCC) BI MAMMOGRAM SCREENING TOMOSYNTHESIS BILATERAL Routine 10/09/2024 11:45 AM EST ALBUMIN, RANDOM URINE W/CREATININE Routine 05/14/2024 3:38 PM EDT Type 2 diabetes mellitus with obesity (CMS/HCC) (CMS/HCC) Leg swelling Leg cramps HEPATITIS C ANTIBODY Routine 07/03/2023 11:54 AM EDT HIV ANTIBODY/ANTIGEN (DE DP) Routine 07/03/2023 11:54 AM EDT HPV MRNA E6/E7 REFLEX TO HPV 16, 18/45 Routine 01/17/2023 11:01 AM EDT PAP SMEAR Routine 01/17/2023 11:01 AM EDT from Last 3 Months or Most Recently Relevant to Health Maintenance Results * Slide Review (02/18/2025 9:25 AM EDT) Slide Review VERIFIED [facility] 02/18/2025 9:25 AM EDT 02/18/2025 11:04 AM EDT us Generic External Data Provider LAB BLOOD ORDERAB LES Final Result [facility] [address] [place] [phone] * CBC auto differential (02/18/2025 9:25 AM EDT) White Blood Count 6.4 4.8 - 10.8 X10*3/uL [facility] Red Blood Count 4.85 4.20 - 5.50 X10*6/uL [facility] Hemoglobin 13.7 12.0 - 16.0 g/dl [facility] Hematocrit 41.4 37.0 - 47.0 % [facility] Mean Corpuscular Volume 85.4 80.0 - 98.0 fL [facility] Mean Corpuscular Hemoglobin 28.2 27.0 - 33.0 pg [facility] Mean Corpuscular HGB Conc 33.1 31.0 - 35.0 g/dl [facility] Red Cell Distribution Width 13.1 11.0 - 16.0 % [facility] Platelet Count 213 160 - 400 X10*3/uL [facility] Mean Platelet Volume 10.8 9.4 - 12.3 fL [facility] Neutrophils Percent Auto 70.3 45 - 73 % [facility] Imm Gran Pct Auto 0.3 0.0 - 0.4 % [facility] Lymphocytes Percent Auto 21.4 20 - 40 % [facility] Monocytes Percent Auto 6.4 2 - 11 % [facility] Eosinophils Percent Auto 1.1 0 - 4 % [facility] Basophils Percent Auto 0.5 0 - 2 % [facility] NRBC Pct Auto 0.0 0.0 - 0.2 /100WBC [facility] Neutrophils Absolute Auto 4.5 2.0 - 8.3 x10*3/uL [facility] Imm Gran Abs Auto 0.02 0.00 - 0.03 X10*3/uL [facility] Lymphocytes Absolute Auto 1.4 1.2 - 4.9 X10*3/uL [facility] Monocytes Absolute Auto 0.4 0.1 - 1.2 X10*3/uL [facility] Eosinophils Absolute Auto 0.1 0.0 - 0.4 X10*3/uL [facility] Basophils Absolute Auto 0.0 0.0 - 0.2 X10*3/uL [facility] NRBC Abs Auto 0.000 0.0 - 0.012 X10*3/uL [facility] 02/18/2025 9:25 AM EDT 02/18/2025 11:04 AM EDT us Generic External Data Provider LAB BLOOD ORDERAB LES Edited Result - Final [facility] [address] [place] [phone] [phone] * Sed Rate by Modified Kyle (02/18/2025 9:25 AM EDT) Erythrocyte Sedimentation Rate 12 0 - 20 MM/HR [facility] Comment:Patients with polycy themia and many hemoglobin abnormalitiesmay have depressed sed rates whereas patients with anemiamay have elevated sed rates. 02/18/2025 9:25 AM EDT 02/18/2025 11:04 AM EDT us Generic External Data Provider LAB BLOOD ORDERAB LES Final Result Performing Organization Address [facility] Co de Phone Number [facility] [address] [place] [phone] * (ABNORMAL) C-reactive Protein (02/18/2025 9:25 AM EDT) [facility] C Reactive Protein 0.67(H) < or = 0.50 mg/dL [facility] 02/18/2025 9:25 AM EDT 02/18/2025 11:04 AM EDT us Generic External Data Provider LAB BLOOD ORDERAB LES Final Result Performing Organization Address [facility] Phone Number [facility] [address] [place] [phone] * Hepatic Function Panel (02/18/2025 9:25 AM EDT) Pathologist [facility] Bilirubin, Direct 0.2 0.0 - 0.5 mg/dL [facility] 02/18/2025 9:25 AM EDT 02/18/2025 11:04 AM EDT Generic External Data Provider LAB BLOOD ORDERAB LES Final Result Performing Organization Address [facility] de Phone Number [facility] [address] [place] [phone] * Lipid Panel, Standard (02/18/2025 9:25 AM EDT) Pathologist [facility] Triglycerides 72 <150 mg/dL [facility] Comment:Desirable Triglyceri de: less than 150 mg/dLBorderline High Triglyceride 150-199 mg/dLHigh Triglyceride: 200-499 mg/dLVery High Triglyceride: greater than or equal to 5OO mg/dL Cholesterol 148 <200 mg/dL [facility] Comment:Desirable Cholestero l: less than 200 mg/dLBorderline High Cholesterol: 200-239 mg/dLHigh Cholesterol: greater than 239 mg/dL LDL Cholesterol Calculated 93 <100 mg/dL [facility] Comment:Desirable LDL: less than 100 mg/dLNear Optimal/Above Optimal LDL: 110- 129 mg/dLBorderline High LDL: 130-159 mg/dLHigh LDL: 160-189 mg/dLVery High LDL: greater than or equal to 190 mg/dL HDL Cholesterol 41 >40 mg/dL [facility] Comment:Desirable HDL: great er than 40 mg/dL Note: This HDL assay may give artificially low results in patients with liver disease. Blood Venous blood specimen / Unknown 02/18/2025 9:25 AM EDT 02/18/2025 11:04 AM EDT us Cuong Name MD LAB BLOOD ORDERABLES Final Resul t [facility] [address] [place] [phone] * (ABNORMAL) Comprehensive Metabolic Panel (02/18/2025 9:25 AM EDT) Sodium 138 135 - 145 mmol/L [facility] Potassium 4.2 3.3 - 5.1 mmol/L [facility] Chloride 106 96 - 108 mmol/L [facility] Carbon Dioxide 25 22 - 29 mmol/L [facility] Anion Gap 11(L) 12 - 20 [facility] Urea Nitrogen (BUN) 15 9 - 16 mg/dL [facility] Creatinine, Serum 0.67 0.5 - 1.4 mg/dL [facility] Estimated Glomerular Filt Rate >60 [facility] Comment:Chronic Kidney Disea se: Estimated GFR < 60 mL/min/1.22h5Bakirg Kidney Disease: Estimated GFR < 15 mL/min/1.73m2 Glucose 143(H) 60 - 115 mg/dL [facility] Calcium 8.9 8.4 - 10.2 mg/dL [facility] Bilirubin, Total 0.6 0.0 - 1.0 mg/dL [facility] Aspartate Amino Transferase 19 5 - 31 U/L [facility] Alanine Aminotransferase 23 0 - 31 U/L [facility] Total Protein 7.3 6.5 - 8.0 g/dL [facility] Albumin Level 4.4 3.5 - 5.0 g/dL [facility] Alkaline Phosphatase 78 39 - 117 U/L [facility] 02/18/2025 9:25 AM EDT 02/18/2025 11:04 AM EDT Generic External Data Provider LAB BLOOD ORDERAB LES Final Result Performing Organization Address City/State/[facility] Co de Phone Number [facility] [address] [place] [phone] * POCT HGB A1C (02/11/2025 3:57 PM EDT) Hemoglobin A1C 6.0 4.0 - 6.0 % QC Media Lot # [id number] Lot# Expiration Date [id number] Blood 02/11/2025 3:57 PM EDT us Cuong Casas MD POINT OF CARE TEST ENTER/EDIT OR DERABLES Final Result * POCT Glucose (02/11/2025 3:57 PM EDT) Glucose Blood, POC 154 60 - 200 mg/dL QC Media Lot # [id number] Lot# Expiration Date 82,625 Blood Capillary blood specimen / Unknown 02/11/2025 3:57 PM EDT us Cuong Casas MD POINT OF CARE TEST ENTER/EDIT OR DERABLES Final Result * BI Mammogram Screening Tomosynthesis Bilateral (10/09/2024 11:45 AM EST) Anatomical Region Laterality Modality Breast Bilateral Mammography 10/09/2024 11:4 5 AM EST Narrative 10/17/2024 7:48 AM EST ? [facility] ? [address] ?[place], [place] [address] ? Mammography Report ? Signed ? Patient: Chaney,Yakelin ?MR#: [id number] ?? 60 ? : 1985 ?Acct:[id number] ? Age/Sex: 39 / F ?ADM Date: 10/09/24 ? Loc: HO.MAMMO ? Attending Dr: Bessie Snyder CNM ? Ordering Physician: Bessie Snyder CNM ?Results: 1Nega ?? tive ? Date of Service: 10/09/24 ?Follow Up: 1 Year From Orig ?? inal Mammogram ? Procedure(s): MM tomosynthesis screening BI ?? Accession Number(s): [id number] ? cc: Name,Cuong RODRIGUEZ; Jessamine,Bessie Lamar CNM ? EXAMINATION: ?? MM SCREENING DIGITAL [...] ??Lori Almanzar DO ??10/17/2024 07:45 AM EST ? Dictated By: ?Lori Almanzar DO ? Signed By: ?<Electronically signed by Lori Almanzar, DO in OV> ? 10/17/24 0745 ? DD/ 1145 ? TD/TT: 10/09/24 1213 ? Aquarist: ? Procedure Note Sarah, Image - 10/17/2024 [facility] [address] [place] [address] Mammography Report Signed Patient: Naga Chaney#: [id number] 60 : 1985Acct:[id number] Age/Sex: 39 / FADM Date: 10/09/24 Loc: [facility] Attending Dr: Bessie Snyder CNM Ordering Physician: Bessie Snyderesults: 1Nega tive Date of Service: 10/09/24Follow Up: 1 Year From Orig inal Mammogram Procedure(s): MM tomosynthesis screening BI Accession Number(s): [id number] cc: Cuong Casas MD; Bessie Snyder CNM EXAMINATION: MM SCREENING DIGITAL [...] by: Lori Almanzar DO 10/17/2024 07:45 AM [facility] Dictated By: Lori Almanzar DO Signed By: <Electronically signed by Lori Almanzar DO in OV> 10/17/24 0745 DD/ 1145 TD/TT: 10/09/24 1213 Aquarist: [facility] External Provider IMG BI PROCEDURES Edited Result - Final * Albumin, Random Urine W/Creatinine (05/14/2024 3:38 PM EDT) Creatinine, Urine 79.05 mg/dL [facility] Microalbumin Urine <5.0 mg/L [facility] Microalbum Creatinine Ratio Ur TNP <30 ug/mg cr [facility] Comment:Unable to calculate albumin/creatinine ratio due to lowmicroalbumin or creatinine result. Urine (Urine, Random) 05/14/2024 3:38 PM EDT 05/14/2024 4:08 PM EDT Cuong Casas MD LAB URINE ORDERABLES Final Resul t [facility] [address] [place] [phone] * Hepatitis C Ab (07/03/2023 11:54 AM EDT) Pathologist [facility] Hepatitis C Antibody Nonreactive Nonreactive [facility] Comment:Antibodies to HCV no t detected; does not exclude early acuteHCV infection. 07/03/2023 11:5 4 AM EDT 07/03/2023 11:54 AM EDT us Generic External Data Provider LAB BLOOD ORDERAB LES Final Result Performing Organization Address City/[facility]/ZIP Co de Phone Number [facility] [address] [place] [phone] * HIV Ab/Ag ([facility]) (07/03/2023 11:54 AM EDT) [facility] HIV AB/AG Nonreactive Nonreactive [facility] Comment:HIV-1 p24 Ag and/or HIV-1/HIV-2 Ab not detected.A test result that is nonreactive does not exclude thepossibility of exposure to or infection with HIV-1 and/orHIV-2. Nonreactive results in this assay for individualswith prior exposure to HIV-1 and/or HIV-2 may be due toantigen and antibody levels that are below the limit ofdetection of this assay.The [employer] HIV Ag/Ab Combo assay result andsupplemental assay results should be interpreted inconjunction with the patient's clinical presentation,history and other laboratory results. If the results areinconsistent with clinical evidence, additional testing issuggested to confirm the result. 07/03/2023 11:5 4 AM EDT 07/03/2023 11:54 AM EDT us Generic External Data Provider LAB BLOOD ORDERAB LES Final Result Performing Organization Address [facility] Co de Phone Number [facility] [address] [place] [phone] * HPV mRNA E6/E7 w/Reflex to HPV Genotypes 16, 18/45 (01/17/2023 11:01 AM EDT) HPV nRNA E6/E7 Not Detected Not Detected [facility] Comment:Methodology: Transcr iption-Mediated AmplificationThis assay detects E6/E7 viral messenger RNA (mRNA) from 14high-risk HPV types (16,18,31,33,35,39,45,51,52,56,58,59,66,68).Cervical sources are required for HPV testing.If a vaginal source from a patient who has had atotal hysterectomy with removal of cervix wassubmitted, please contact the testing laboratoryfor alternative testing options.For additional information, please refer [email or web address]/faq/[email or web address](This link if provided for information/educational purposes only.)THIS TEST WAS PERFORMED AT:[employer])[address] [place] [phone] PRADHAN MD HPV mRNA E6/E7 TNP [facility] HPV 16 RNA TNP [facility] HPV 18/45 RNA [facility] 01/17/2023 11:0 1 AM EDT 01/18/2023 8:15 AM EDT [facility] External Provider LAB CYT OLOGY ORDERABLES Final Result [facility] [address] [place] [phone] * Pap Smear (01/17/2023 11:01 AM EDT) 01/17/2023 11:0 1 AM EDT 01/18/2023 8:15 AM EDT Narrative [facility] - 01/25/2023 1:20 PM EDT ----- ------- Name: Yakelin Chaney ? Age/Sex: 37/F ? : 1985 Unit#: [id number] ?? Attend Dr: Madeleine Silveira CNM ?Re01/17/23 ?Status: DEP REF ? Location: HO.LNP ?Disch: ? ----- ------- SPEC : [id number] ? RECD: 01/18/23 ? STATUS: ??SOUT ? REQ NUM: [id number] ? LUIS: 01/17/23-110 ? SUBM DR: Madeleine Silveira CNM ? [...] 66, 68) ? HPV testing performed by [facility], [place], [place]. ??See reference laboratory ?? portion of the EMR for entire report. ?Clinical Information LMP: Nexplanon Previous PAP test: Unknown Date/Findings ? Material Received ?? ThinPrep Cervical ----- ------- Signed (signature on file) Kay Andre 01/25/23 1320 ? ----- ------- ? END OF REPORT ? [facility] External Provider LAB CYT OLOGY ORDERABLES Final Result [facility] [address] [place] [phone] from Last 3 Months or Most Recently Relevant to Health Maintenance Insurance [employer] C3 Care Teams Educational Audiologist Relationship Specialty Start Date End Date Name, MD Cuong [address] [place] [address] PCP - General Family Medicine 07/19/17 Irma Freeman PharmD [address] [place] [address] Pharmacist Internal Medicine 02/20/23
--- OUTSIDE RECORDS SUMMARY | 2025-02-18 13:44 | XMS_ITS | Encounter Summary ---
Author Organization [employer] Address [address] [facility] [address] [place] [address] Care Team Providers Care Field Health Officer Name Role Phone Name, Cuong RODRIGUEZ Primary Care Provider [phone] Irma Freeman PharmD Unavailable [phone] Encounter Details Date Type Department Care Team (Late st Contact Info) Description 08/18/2024 Telephone [facility] [address] [place], [place] [phone] Name, MD Cuong [address] [place] [address] Social History Tobacco Use Types Packs/Day Years [...] Description 02/26/2025 2:30 PM EDT Telemedicine [facility] [address] [place] [address] 05/26/2025 11:15 AM EDT Office Visit [facility] [address] [place] [phone] Name, MD Cuong [address] [place] [phone] documented as of this encounter Goals Goal [...] documented as of this encounter Care Teams Field Health Officer Relationship Specialty Start Date End Date Name, MD Cuong [address] [place], [place] [phone] PCP - General Family Medicine 07/19/17 Irma Freeman PharmD [address] [place] [address] Pharmacist Internal Medicine 02/20/23 documented as of this encounter
--- OUTSIDE RECORDS SUMMARY | 2025-02-18 13:44 | XMS_ITS | Encounter Summary ---
Author Organization [facility] Address [address] [place] [address] Care Team Providers Care Senior Sharepoint Developer Name Role Phone Name, Cuong RODRIGUEZ Primary Care Provider [phone] Reason for Visit * Consultation (Urgent) - Authorized Specialty Diagnoses / Procedures Referred By Contvalentin t Referred To Contact Occupational Therapy Diagnoses Post-operative state Brit Jordan PA [address] [facility] [address] [place] [address] Phone: tel: fax: [facility] Occupational Therapy [address] [facility] [address] [place] [address] Phone: tel: fax: Referral ID Status Reason Start Date Expiration Date Visits Requested Visits Authorized [id number] Authorized Specialty Services Required 01/20/2025 01/20/2026 20 20 Encounter Details Date Type Department Care Team (Late st Contact Info) Description 02/17/2025 10:00 AM EDT Treatment [facility] Occupational Therapy [address] [phone] Janine Martino, ARANDA/L Post-operative state [...] PAZ Neal - 02/17/2025 10:00 AM EDT [facility] - Outpatient OCCUPATIONAL THERAPY DAILY TREATMENT NOTE Date: 02/17/2025 Visit Number: 5 Patient Name: Yakelin Chaney : 1985 Age: 39 y.o. Gender: female Diagnosis: ICD-10-CM ICD-9-CM 1. Post-operative state Z98.890 V45.89 2. Carpal tunnel syndrome of left wrist G56.02 354.0 Date of Onset: 11/27/2024 Referring Provider: Brit Jordan PA Insurance: [place] / [place] / Product Type: *No Product type* / [...] Info) Description 02/24/2025 10:00 AM EDT Treatment [facility] Occupational Therapy [address] [place] [phone] Janine Martino COTA/Amilcar 03/02/2025 9:30 AM EDT Office Visit Orth[facility] - [place] [address] [facility] [address] [place] [address] Huma Kat MD [address] [facility] [address] [place] [phone] documented as of this encounter Goals Goal [...] for ease of opening containers 4. L [place] Hardware Installer at least 40# (vs 20# init) 5. No signif pain to provocative testing (ie Vikram negative) documented as of this encounter Visit Diagnoses Diagnosis Post-operative state- Primary Other postprocedural status Carpal tunnel syndrome of left wrist documented in this encounter Care Teams Senior Sharepoint Developer Relationship Specialty Start Date End Date Name, MD Cuong [address] [place], [place] PCP - General 07/17/24 documented as of this encounter
--- OUTSIDE RECORDS SUMMARY | 2025-02-18 13:44 | XMS_ITS | Clinical Summary ---
Author Organization [facility] Address [address] [place] [address] Phone Care Team Providers Care Associate Brand Manager Name Role Phone Name, Cuong RODRIGUEZ Primary Care Provider [phone] Allergies No known active allergies Medications amLODIPine [...] Type 2 diabetes mellitus wit h obesity ([facility] V24, [facility] V28) 07/19/2017 Urticaria 07/19/2017 Encounters Date Type Department Care Team Description 02/17/2025 10:00 AM EDT Treatment [facility] Occupational Therapy [address] [place] [phone] Janine Martino COTA/Amilcar Post-operative state (Primary Dx); Carpal tunnel syndrome of left wrist 02/10/2025 10:00 AM EDT Treatment [facility] Occupational Therapy [address] [place] [phone] Brit Barcenas, OT Post-operative state (Primary Dx); Carpal tunnel syndrome of left wrist 02/04/2025 1:45 PM EDT Treatment [facility] Occupational [address] [phone] WaynerBrodyna, ARANDA/L Post-operative state (Primary Dx); Carpal tunnel syndrome of left wrist 01/28/2025 10:15 AM EDT Treatment [facility] Occupational [address] [address] WaynerBrodyna, ARANDA/L Post-operative state (Primary Dx); Carpal tunnel syndrome of left wrist 01/22/2025 1:30 PM EDT Evaluation [address] [phone] Brit Barcenas, OT Carpal tunnel syndrome of left wrist (Primary Dx); Post-operative state 01/20/2025 8:30 AM EDT Office Visit [address] [phone] Brit Jordan PA Post-operative state (Primary Dx) 12/09/2024 8:00 AM EDT Office Visit [address] [phone] Brit Jordan PA Post-operative state (Primary Dx) 11/27/2024 9:30 AM EST - 11/27/2024 12:30 PM EST Surgery [address] [phone] Huma Kat MD LEFT ENDOSCOPIC CARPAL TUNNEL RELEASE, OPEN NEEDED [[id number] (CPT??)] 11/27/2024 9:16 AM EST Anesthesia Event [address] [phone] Liban Barrera MD Swanson, Mona, CRNA 11/27/2024 8:10 AM EST - 11/27/2024 1:51 PM EST Hospital Encounter [facility] Main OR [address] [place] [address] Huma Kat MD Discharge Disposition: Home or Self Care from Last 3 Months Surgical History Surgery Date Site/Laterality Comments SECTION X3 BARIATRIC SURGERY Medical History Medical History Date Comments Depressive disorder DX:Depressiv e disorder Anxiety state DX:Anxiety state Hypertension Diabetes mellitus ([facility] V24, [facility] V28) GERD (gastroesophageal reflux disease) Chronic [...] Info) Description 02/24/2025 10:00 AM EDT Treatment [facility] Occupational Therapy 175 [facility] [place] [address] [place] [phone] Janine Martino COTA/L 03/02/2025 9:30 AM EDT Office Visit Orthopedic [facility] - [place] [facility] [address] [place] [address] Huma Kat MD 175 [facility] [address] [place] [address] Health Maintenance Due Date Last [...] for ease of opening containers 4. L Wireless Field Technician at least 40# (vs 20# init) 5. [...] Ganglion, left wrist Case Notes PA ASSIST [facility] INCISION EXTENSOR TENDON SHEATH WRIST 11/27/2024 9:15 AM EST Carpal tunnel syndrome, left upper limb Radial styloid tenosynovitis (de quervain) Ganglion, left wrist Case Notes PA ASSIST [facility] ENDOSCOPY WRIST SURGICAL WITH RELEASE TRANSVERSE CARPAL [...] - 100 mg/dL 11/27/2024 8:28 AM EST [facility] Blood Capillary blood specimen / Unknown 11/27/2024 8:28 AM EST 11/27/2024 8:30 AM EST Huma Kat MD LAB POINT OF CARE TE ST DOCKED DEVICE UNSOLICITED RESULTS Final Result [facility] [address] [place] [address], [place] [phone] from Last 3 Months Insurance MEDICAID - [...] currently active code status orders. Care Teams Associate Brand Manager Relationship Specialty Start Date End Date Name, MD Cuong [address] [place], [place] PCP - General 07/17/24
--- OUTSIDE RECORDS SUMMARY | 2025-02-18 13:44 | XMS_ITS | Encounter Summary ---
Author Organization [employer] Address [address] [facility] 7t [place] [address] Care Team Providers Care International Accountant Name Role Phone Name, Cuong RODRIGUEZ Primary Care Provider [phone] Irma Freeman PharmD Unavailable [phone] Reason for Visit * Reason Onset Date Comments Lab Orders 04/25/2024 Encounter Details Date Type Department Care Team (Late st Contact Info) Description 04/25/2024 Telephone [facility] [address] [place], [place] [phone] Name, MD Cuong [address] [place] [address] Lab Orders Social History Tobacco Use Types [...] 10:03 AM EDT T/C [place] pt. Through [employer] [place] - [id number] to inform that TB test was order for work, pt. Can go to lab as per convenience, pt. Verbally greed and understood. * Telephone Encounter - Jonny Rodriguez - 04/25/2024 9:32 AM EDT Tc from pt requesting TB test for work. If any questions you can contact pt at [phone]. Divehi Speaker. documented in this encounter Plan of Treatment Upcoming Encounters Date Type Department Care Team (Late st Contact Info) Description 02/26/2025 2:30 PM EDT Telemedicine [facility] [address] [place] [address] 05/26/2025 11:15 AM EDT Office Visit [facility] [address] [place] [phone] Name, MD Cuong [address] [place] [phone] documented as of this encounter Goals Goal [...] documented as of this encounter Care Teams International Accountant Relationship Specialty Start Date End Date Name, MD Cuong [address] [place] [address] PCP - General Family Medicine 07/19/17 Irma Freeman PharmD [address] [place] [address] Pharmacist Internal Medicine 02/20/23 documented as of this encounter
--- OUTSIDE RECORDS SUMMARY | 2025-02-18 13:44 | XMS_ITS | Encounter Summary ---
Author Organization [employer] Address [address] [place] [address] 7[address] [place] [address] Care Team Providers Care Secondary Connector Armature Name Role Phone Name, Cuong RODRIGUEZ Primary Care Provider [phone] Irma Freeman PharmD Unavailable Reason for Visit * Reason Comments Med Refill Encounter Details Date Type Department Care Team ([facility] Contact Info) Description 03/01/2023 Refill [facility] [address] [place], [place] [phone] Name, MD Cuong [address] [place] [address] Social History Tobacco Use Types Packs/Day Years [...] Upcoming Encounters Date Type Department Care Team ([facility] Contact Info) Description 02/26/2025 2:30 PM EDT Telemedicine [facility] [place] [address] 05/26/2025 11:15 AM EDT Office Visit [facility] [address] [place] [phone] [place] [address] documented as of this encounter Goals Goal [...] on filedocumented in this encounter Care Teams Secondary Connector Armature Relationship Specialty Start Date End Date Name, [place] [address] PCP - General Family Medicine 07/19/17 Irma Freeman PharmD [address] [place] [phone] Pharmacist Internal Medicine 02/20/23 documented as of this encounter
--- OUTSIDE RECORDS SUMMARY | 2025-02-18 13:44 | XMS_ITS | Encounter Summary ---
Author Organization [employer] Address [address] [facility] 7t [place] [address] Care Team Providers Care Import Specialist Name Role Phone Name, Cuong RODRIGUEZ Primary Care Provider [phone] Irma Freeman PharmD Unavailable Reason for Visit * Reason Comments Med Refill Encounter Details Date Type Department Care Team (Late st Contact Info) Description 09/28/2023 Refill [facility] [address] [place], [place] [phone] Name, MD Cuong [address] [place], [place] [phone] Chronic low back pain, unspecified back pain [...] Info) Description 02/26/2025 2:30 PM EDT Telemedicine [facility] [address] [place] [phone] 05/26/2025 11:15 AM EDT Office Visit [facility] [address] [place] [phone] NameCuong MD [address] [address] documented as of this encounter Goals Goal [...] present documented in this encounter Care Teams Import Specialist Relationship Specialty Start Date End Date Cuong Casas MD [address] [place] [phone] PCP - General Family Medicine 07/19/17 Irma Freeman, EladiaD [address] [place] [address] Pharmacist Internal Medicine 02/20/23 documented as of this encounter
--- OUTSIDE RECORDS SUMMARY | 2025-02-18 13:44 | XMS_ITS | Encounter Summary ---
Author Organization [employer] Address 75 [facility] 7[address] [place] [address] Care Team Providers Care Manager Nuclear Name Role Phone Name, Cuong RODRIGUEZ Primary Care Provider [phone] Irma Freeman PharmD Unavailable [phone] Encounter Details Date Type Department Care Team (Late st Contact Info) Description 02/18/2025 Orders Only GENERIC EXTERNAL DATA DEPARTMENT Provider, Generic External Data Social History Tobacco Use Types Packs/Day Years [...] Info) Description 02/26/2025 2:30 PM EDT Telemedicine [facility]INE [address] [place] [phone] 05/26/2025 11:15 AM EDT Office Visit [address] [address] Name, MD Cuong [address] [place] [address] documented as of this encounter Goals Goal [...] follow up documented as of this encounter Procedures Procedure Name Priority Date/Time Associated Diagnosis Comments SLIDE REVIEW Routine 02/18/2025 9:25 AM EDT CBC WITH AUTO DIFFERENTIAL Routine 02/18/2025 9:25 AM EDT SED RATE BY MODIFIED WESTERGREN Routine 02/18/2025 9:25 AM EDT C-REACTIVE PROTEIN Routine 02/18/2025 9: 25 AM EDT HEPATIC FUNCTION PANEL Routine 9:25 AM EDT COMPREHENSIVE METABOLIC PANEL Routine 02/18/2025 9:25 AM EDT documented in this encounter Results * Slide Review (02/18/2025 9:25 AM EDT) Slide Review VERIFIED [facility] 02/18/2025 9:25 AM EDT 02/18/2025 11:04 AM EDT us Generic External Data Provider LAB BLOOD ORDERAB LES Final Result [facility] [address] [place] [phone] * CBC auto differential (02/18/2025 9:25 AM EDT) White Blood Count 6.4 4.8 - 10.8 X10*3/uL [facility] Red Blood Count 4.85 4.20 - 5.50 X10*6/uL [facility] Hemoglobin 13.7 12.0 - 16.0 g/dl [facility] Hematocrit 41.4 37.0 - 47.0 % [facility] Mean Corpuscular Volume 85.4 80.0 - 98.0 fL [facility] Mean Corpuscular Hemoglobin 28.2 27.0 - 33.0 pg [facility] Mean Corpuscular HGB Conc 33.1 31.0 - 35.0 g/dl [facility] Red Cell Distribution Width 13.1 11.0 - 16.0 % [facility] Platelet Count 213 160 - 400 X10*3/uL [facility] Mean Platelet Volume 10.8 9.4 - 12.3 fL [facility] Neutrophils Percent Auto 70.3 45 - 73 % [facility] Imm Gran Pct Auto 0.3 0.0 - 0.4 % [facility] Lymphocytes Percent Auto 21.4 20 - 40 % [facility] Monocytes Percent Auto 6.4 2 - 11 % [facility] Eosinophils Percent Auto 1.1 0 - 4 % [facility] Basophils Percent Auto 0.5 0 - 2 % [facility] NRBC Pct Auto 0.0 0.0 - 0.2 /100WBC [facility] Neutrophils Absolute Auto 4.5 2.0 - 8.3 x10*3/uL [facility] Imm Gran Abs Auto 0.02 0.00 - 0.03 X10*3/uL [facility] Lymphocytes Absolute Auto 1.4 1.2 - 4.9 X10*3/uL [facility] Monocytes Absolute Auto 0.4 0.1 - 1.2 X10*3/uL [facility] Eosinophils Absolute Auto 0.1 0.0 - 0.4 X10*3/uL [facility] Basophils Absolute Auto 0.0 0.0 - 0.2 X10*3/uL [facility] NRBC Abs Auto 0.000 0.0 - 0.012 X10*3/uL [facility] 02/18/2025 9:25 AM EDT 02/18/2025 11:04 AM EDT us Generic External Data Provider LAB BLOOD ORDERAB LES Edited Result - Final [facility] [address] [place] [phone] * Sed Rate by Francia Wright (02/18/2025 9:25 AM EDT) Erythrocyte Sedimentation Rate 12 0 - 20 MM/HR [facility] Comment:Patients with polycy themia and many hemoglobin abnormalitiesmay have depressed sed rates whereas patients with anemiamay have elevated sed rates. 02/18/2025 9:25 AM EDT 02/18/2025 11:04 AM EDT Generic External Data Provider LAB BLOOD ORDERAB LES Final Result Performing Organization Address [facility] Co de Phone Number [facility] [address] [place] [phone] * (ABNORMAL) C-reactive Protein (02/18/2025 9:25 AM EDT) C Reactive Protein 0.67(H) < or = 0.50 mg/dL [facility] 02/18/2025 9:25 AM EDT 02/18/2025 11:04 AM EDT Generic External Data Provider LAB BLOOD ORDERAB LES Final Result Performing Organization Address [facility] Co de Phone Number [facility] [address] [place] [phone] * Hepatic Function Panel (02/18/2025 9:25 AM EDT) Bilirubin, Direct 0.2 0.0 - 0.5 mg/dL [facility] 02/18/2025 9:25 AM EDT 02/18/2025 11:04 AM EDT Generic External Data Provider LAB BLOOD ORDERAB LES Final Result Performing Organization Address [facility] de Phone Number [facility] [address] [place] [phone] * (ABNORMAL) Comprehensive Metabolic Panel (02/18/2025 9:25 AM EDT) Sodium 138 135 - 145 mmol/L [facility] Potassium 4.2 3.3 - 5.1 mmol/L [facility] Chloride 106 96 - 108 mmol/L [facility] Carbon Dioxide 25 22 - 29 mmol/L [facility] Anion Gap 11(L) 12 - 20 [facility] Urea Nitrogen (BUN) 15 9 - 16 mg/dL [facility] Creatinine, Serum 0.67 0.5 - 1.4 mg/dL [facility] Estimated Glomerular Filt Rate >60 [facility] Comment:Chronic Kidney Disea se: Estimated GFR < 60 mL/min/1.76l5Zmvikz Kidney Disease: Estimated GFR < 15 mL/min/1.73m2 Glucose 143(H) 60 - 115 mg/dL [facility] Calcium 8.9 8.4 - 10.2 mg/dL [facility] Bilirubin, Total 0.6 0.0 - 1.0 mg/dL [facility] Aspartate Amino Transferase 19 5 - 31 U/L [facility] Alanine Aminotransferase 23 0 - 31 U/L [facility] Total Protein 7.3 6.5 - 8.0 g/dL [facility] Albumin Level 4.4 3.5 - 5.0 g/dL [facility] Alkaline Phosphatase 78 39 - 117 U/L [facility] 02/18/2025 9:25 AM EDT 02/18/2025 11:04 AM EDT us Generic External Data Provider LAB BLOOD ORDERAB LES Final Result Performing Organization Address City/State/[facility] Co de Phone Number [facility] [address] [place] [phone] documented in this encounter Visit Diagnoses Not on filedocumented in this encounter Additional Health Concerns Assessment Noted Time PHQ-9 Depression Total Score: 7 02/12/20 25 4:22 PM EDT documented as of this encounter Care Teams Manager Nuclear Relationship Specialty Start Date End Date Name, MD Cuong [address] [place] [address] PCP - General Family Medicine 07/19/17 Irma Freeman PharmD [address] [place] [address] Pharmacist Internal Medicine 02/20/23 documented as of this encounter
== END 2025-02-18 14:53 | disposition home or self-care (01) ==
LOC: HO.HWSM 13:08
PROVIDERS: PCP Internal Medicine Geriatric Medicine; Visit Provider Advanced Practice Midwife
DX: E11.9 Type 2 diabetes mellitus without complications (principal); R87.619 Unspecified abnormal cytological findings in specimens from cervix uteri; N92.0 Excessive and frequent menstruation with regular cycle; Z97.5 Presence of (intrauterine) contraceptive device; I10 Essential (primary) hypertension; E66.01 Morbid (severe) obesity due to excess calories; N76.0 Acute vaginitis; B96.89 Other specified bacterial agents as the cause of diseases classified elsewhere
CPT/HCPCS: 99213

== ENCOUNTER 2025-02-18 15:08 | Outpatient (REF) | payer MEDICAID, SELFPAY ==
--- OUTSIDE RECORDS SUMMARY | 2025-02-18 15:11 | XMS_ITS | Clinical Summary ---
Author Organization [employer] Address [address] [place] [address] 7[address] [place] [address] Care Team Providers Care Sales Agent Financial Report Service Name Role Phone Name, Cuong RODRIGUEZ Primary Care Provider [phone] Irma Freeman PharmD Unavailable [phone] Allergies No known active allergies Medications [...] ns:Type 2 diabetes mellitus with obesity (CMS/HCC) ([facility]) Take 2 tablets (1,000 mg) by mouth with breakfast. 180 tablet 3 03/31/20 24 Active glucose blood (FREESTYLE LITE) test stripIndication s:Type 2 diabetes mellitus with obesity (CMS/HCC) ([facility]) Use to test blood sugar TWICE daily, as directed 50 each 11 03/31/20 24 Active TRUEplus Lancets 33G miscIndications :Type 2 diabetes mellitus with obesity (CMS/HCC) ([facility]) Use to test blood sugar twice daily, [...] ns:Type 2 diabetes mellitus with obesity (CMS/HCC) ([facility]),Essen tial hypertension Take 1 tablet by mouth Once per day. 30 tablet 11 02/12/20 25 026 Active amLODIPine (Norvasc) 5 MG tabletIndicatio ns:Type 2 diabetes mellitus with obesity (CMS/HCC) ([facility]),Essen tial hypertension TAKE 1 TABLET BY MOUTH EVERY MORNING 90 tablet 1 02/12/20 25 Active Tirzepatide (Mounjaro) 10 MG/0.5ML solution auto-injectorIn dications:Type 2 diabetes mellitus with obesity (CMS/HCC) ([facility]),Essen tial hypertension Inject 10 mg under the [...] device) in place 10/31/2022 Overview (10/31/2022): 2021, [facility] at [facility] Obstructive sleep apnea syndrome 03/08/2018 [...] Data 02/11/2025 3:45 PM EDT Office Visit [facility] [address] [place] [address] NameCuong MD Essential hypertension (Primary Dx); Type 2 diabetes mellitus with obesity (CMS/HCC) ([facility]); Leg swelling; Chronic low back pain, unspecified back pain laterality, unspecified whether sciatica present; History of carpal tunnel release 02/11/2025 Travel 02/10/2025 Telephone [facility] [address] [place] [address] NameCuong MD Chart Prep 02/09/2025 Telephone [facility] [address] [place] [address] Cuong Casas MD Nurse Triage 01/24/2025 Refill [facility] [address] [place] [address] Cuong Casas MD 01/11/2025 Refill [facility] [address] [place] [address] Cuong Casas MD 12/19/2024 Refill [facility] [address] [place] [address] Cuong Casas MD 12/12/2024 Population Health Risk Score [facility] (C[facility]) Department [address] [phone] Provider, Population Health Generic from Last 3 [...] Info) Description 02/26/2025 2:30 PM EDT Telemedicine [facility] [address] [place] [phone] 05/26/2025 11:15 AM EDT Office Visit [facility] [address] [place] [phone] Name, MD Cuong [address] [place] [phone] Health Maintenance Due Date Last Done Comments [...] Routine 07/03/2023 11:54 AM EDT HIV ANTIBODY/ANTIGEN (IN DP) Routine 07/03/2023 11:54 AM EDT HPV MRNA E6/E7 REFLEX TO HPV 16, 18/45 Routine 01/17/2023 11:01 AM EDT PAP SMEAR Routine 01/17/2023 11:01 AM EDT from Last 3 Months or Most Recently Relevant to Health Maintenance Results * Slide Review (02/18/2025 9:25 AM EDT) Slide Review VERIFIED [facility] 02/18/2025 9:25 AM EDT 02/18/2025 11:04 AM EDT us Generic External Data Provider LAB BLOOD ORDERAB LES Final Result [facility] [address] [place] [phone] * CBC auto differential (02/18/2025 9:25 AM EDT) White Blood Count 6.4 4.8 - 10.8 X10*3/uL [facility] Red Blood Count 4.85 4.20 - 5.50 X10*6/uL [facility] Hemoglobin 13.7 12.0 - 16.0 g/dl [facility] Hematocrit 41.4 37.0 - 47.0 % [facility] Mean Corpuscular Volume 85.4 80.0 - 98.0 fL [facility] Mean Corpuscular Hemoglobin 28.2 27.0 - 33.0 pg [facility] Mean Corpuscular HGB Conc 33.1 31.0 - 35.0 g/dl [facility] Red Cell Distribution Width 13.1 11.0 - 16.0 % [facility] Platelet Count 213 160 - 400 X10*3/uL [facility] Mean Platelet Volume 10.8 9.4 - 12.3 fL [facility] Neutrophils Percent Auto 70.3 45 - 73 % [facility] Imm Gran Pct Auto 0.3 0.0 - 0.4 % [facility] Lymphocytes Percent Auto 21.4 20 - 40 % [facility] Monocytes Percent Auto 6.4 2 - 11 % [facility] Eosinophils Percent Auto 1.1 0 - 4 % [facility] Basophils Percent Auto 0.5 0 - 2 % [facility] NRBC Pct Auto 0.0 0.0 - 0.2 /100WBC [facility] Neutrophils Absolute Auto 4.5 2.0 - 8.3 x10*3/uL [facility] Imm Gran Abs Auto 0.02 0.00 - 0.03 X10*3/uL [facility] Lymphocytes Absolute Auto 1.4 1.2 - 4.9 X10*3/uL [facility] Monocytes Absolute Auto 0.4 0.1 - 1.2 X10*3/uL [facility] Eosinophils Absolute Auto 0.1 0.0 - 0.4 X10*3/uL [facility] Basophils Absolute Auto 0.0 0.0 - 0.2 X10*3/uL [facility] NRBC Abs Auto 0.000 0.0 - 0.012 X10*3/uL [facility] 02/18/2025 9:25 AM EDT 02/18/2025 11:04 AM EDT us Generic External Data Provider LAB BLOOD ORDERAB LES Edited Result - Final [facility] [address] [place] [phone] * Sed Rate by Modified Kyle (02/18/2025 9:25 AM EDT) Erythrocyte Sedimentation Rate 12 0 - 20 MM/HR [facility] Comment:Patients with polycy themia and many hemoglobin abnormalitiesmay have depressed sed rates whereas patients with anemiamay have elevated sed rates. 02/18/2025 9:25 AM EDT 02/18/2025 11:04 AM EDT us Generic External Data Provider LAB BLOOD ORDERAB LES Final Result Performing Organization Address [facility] Co de Phone Number [facility] [address] [place] [phone] * (ABNORMAL) C-reactive Protein (02/18/2025 9:25 AM EDT) [facility] C Reactive Protein 0.67(H) < or = 0.50 mg/dL [facility] 02/18/2025 9:25 AM EDT 02/18/2025 11:04 AM EDT us Generic External Data Provider LAB BLOOD ORDERAB LES Final Result Performing Organization Address [facility] Phone Number [facility] [address] [place] [phone] * Hepatic Function Panel (02/18/2025 9:25 AM EDT) Pathologist [facility] Bilirubin, Direct 0.2 0.0 - 0.5 mg/dL [facility] 02/18/2025 9:25 AM EDT 02/18/2025 11:04 AM EDT Generic External Data Provider LAB BLOOD ORDERAB LES Final Result Performing Organization Address [facility] de Phone Number [facility] [address] [place] [phone] * Lipid Panel, Standard (02/18/2025 9:25 AM EDT) Pathologist [facility] Triglycerides 72 <150 mg/dL [facility] Comment:Desirable Triglyceri de: less than 150 mg/dLBorderline High Triglyceride 150-199 mg/dLHigh Triglyceride: 200-499 mg/dLVery High Triglyceride: greater than or equal to 5OO mg/dL Cholesterol 148 <200 mg/dL [facility] Comment:Desirable Cholestero l: less than 200 mg/dLBorderline High Cholesterol: 200-239 mg/dLHigh Cholesterol: greater than 239 mg/dL LDL Cholesterol Calculated 93 <100 mg/dL [facility] Comment:Desirable LDL: less than 100 mg/dLNear Optimal/Above Optimal LDL: 110- 129 mg/dLBorderline High LDL: 130-159 mg/dLHigh LDL: 160-189 mg/dLVery High LDL: greater than or equal to 190 mg/dL HDL Cholesterol 41 >40 mg/dL [facility] Comment:Desirable HDL: great er than 40 mg/dL Note: This HDL assay may give artificially low results in patients with liver disease. Blood Venous blood specimen / Unknown 02/18/2025 9:25 AM EDT 02/18/2025 11:04 AM EDT us Cuong Name MD LAB BLOOD ORDERABLES Final Resul t [facility] [address] [place] [phone] * (ABNORMAL) Comprehensive Metabolic Panel (02/18/2025 9:25 AM EDT) Sodium 138 135 - 145 mmol/L [facility] Potassium 4.2 3.3 - 5.1 mmol/L [facility] Chloride 106 96 - 108 mmol/L [facility] Carbon Dioxide 25 22 - 29 mmol/L [facility] Anion Gap 11(L) 12 - 20 [facility] Urea Nitrogen (BUN) 15 9 - 16 mg/dL [facility] Creatinine, Serum 0.67 0.5 - 1.4 mg/dL [facility] Estimated Glomerular Filt Rate >60 [facility] Comment:Chronic Kidney Disea se: Estimated GFR < 60 mL/min/1.22m6Ljcczm Kidney Disease: Estimated GFR < 15 mL/min/1.73m2 Glucose 143(H) 60 - 115 mg/dL [facility] Calcium 8.9 8.4 - 10.2 mg/dL [facility] Bilirubin, Total 0.6 0.0 - 1.0 mg/dL [facility] Aspartate Amino Transferase 19 5 - 31 U/L [facility] Alanine Aminotransferase 23 0 - 31 U/L [facility] Total Protein 7.3 6.5 - 8.0 g/dL [facility] Albumin Level 4.4 3.5 - 5.0 g/dL [facility] Alkaline Phosphatase 78 39 - 117 U/L [facility] 02/18/2025 9:25 AM EDT 02/18/2025 11:04 AM EDT Generic External Data Provider LAB BLOOD ORDERAB LES Final Result Performing Organization Address City/State/[facility] Co de Phone Number [facility] [address] [place] [phone] * POCT HGB A1C (02/11/2025 3:57 [...] EST Narrative 10/17/2024 7:48 AM EST ? [facility] ? [address] ?[place], [place] [address] ? Mammography Report ? Signed ? Patient: Chaney,Yakelin ?MR#: [id number] ?? 60 ? : 1985 ?Acct:[id number] ? Age/Sex: 39 / F ?ADM Date: 10/09/24 ? Loc: HO.MAMMO ? Attending Dr: Bessie Snyder CNM ? Ordering Physician: Bessie Snyder CNM ?Results: 1Nega ?? tive ? Date of Service: 10/09/24 ?Follow Up: 1 Year From Orig ?? inal Mammogram ? Procedure(s): MM tomosynthesis screening BI ?? Accession Number(s): [id number] ? cc: Name,Cuong RODRIGUEZ; Campbell,Bessie Lamar CNM ? EXAMINATION: ?? MM SCREENING [...] DD/ 1145 ? TD/TT: 10/09/24 1213 ? [employer]: ? Procedure Note Sarah, Image - 10/17/2024 [facility] [address] [place] [address] Mammography Report Signed Patient: Naga Chaney#: [id number] 60 : 1985Acct:[id number] Age/Sex: 39 / FADM Date: 10/09/24 Loc: [facility] Attending Dr: Bessie Snyder CNM Ordering Physician: Bessie Snyderesults: 1Nega tive Date of Service: 10/09/24Follow Up: 1 Year From Orig inal Mammogram Procedure(s): MM tomosynthesis screening BI Accession Number(s): [id number] cc: Cuong Casas MD; Bessie Snyder CNM [...] by: Lori Almanzar DO 10/17/2024 07:45 AM [facility] Dictated By: Lori Almanzar DO Signed By: <Electronically signed by Lori Almanzar DO in OV> 10/17/24 0745 DD/ 1145 TD/TT: 10/09/24 1213 [employer]: [facility] External Provider IMG BI PROCEDURES Edited Result - Final * Albumin, Random Urine W/Creatinine (05/14/2024 3:38 PM EDT) Creatinine, Urine 79.05 mg/dL [facility] Microalbumin Urine <5.0 mg/L [facility] Microalbum Creatinine Ratio Ur TNP <30 ug/mg cr [facility] Comment:Unable to calculate albumin/creatinine ratio due to lowmicroalbumin or creatinine result. Urine (Urine, Random) 05/14/2024 3:38 PM EDT 05/14/2024 4:08 PM EDT Cuong Casas MD LAB URINE ORDERABLES Final Resul t [facility] [address] [place] [phone] * Hepatitis C Ab (07/03/2023 11:54 AM EDT) Pathologist [facility] Hepatitis C Antibody Nonreactive Nonreactive [facility] Comment:Antibodies to HCV no t detected; does not exclude early acuteHCV infection. 07/03/2023 11:5 4 AM EDT 07/03/2023 11:54 AM EDT us Generic External Data Provider LAB BLOOD ORDERAB LES Final Result Performing Organization Address City/[facility]/ZIP Co de Phone Number [facility] [address] [place] [phone] * HIV Ab/Ag ([facility]) (07/03/2023 11:54 AM EDT) [facility] HIV AB/AG Nonreactive Nonreactive [facility] Comment:HIV-1 p24 Ag and/or HIV-1/HIV-2 Ab not detected.A test result that is nonreactive does not exclude thepossibility of exposure to or infection with HIV-1 and/orHIV-2. Nonreactive results in this assay for individualswith prior exposure to HIV-1 and/or HIV-2 may be due toantigen and antibody levels that are below the limit ofdetection of this assay.The [employer] HIV Ag/Ab Combo assay result andsupplemental assay results should be interpreted inconjunction with the patient's clinical presentation,history and other laboratory results. If the results areinconsistent with clinical evidence, additional testing issuggested to confirm the result. 07/03/2023 11:5 4 AM EDT 07/03/2023 11:54 AM EDT us Generic External Data Provider LAB BLOOD ORDERAB LES Final Result Performing Organization Address [facility] Co de Phone Number [facility] [address] [place] [phone] * HPV mRNA E6/E7 w/Reflex to HPV Genotypes 16, 18/45 (01/17/2023 11:01 AM EDT) HPV nRNA E6/E7 Not Detected Not Detected [facility] Comment:Methodology: Transcr iption-Mediated AmplificationThis assay detects E6/E7 viral messenger RNA (mRNA) from 14high-risk HPV types (16,18,31,33,35,39,45,51,52,56,58,59,66,68).Cervical sources are required for HPV testing.If a vaginal source from a patient who has had atotal hysterectomy with removal of cervix wassubmitted, please contact the testing laboratoryfor alternative testing options.For additional information, please refer tohttp://education.[employer]/faq/GCU512u9(This link if provided for information/educational purposes only.)THIS TEST WAS PERFORMED AT:[facility] [place] [phone] PRADHAN MD HPV mRNA E6/E7 TNP [facility] HPV 16 RNA TNP [facility] HPV 18/45 RNA [facility] 01/17/2023 11:0 1 AM EDT 01/18/2023 8:15 AM EDT [facility] External Provider LAB CYT OLOGY ORDERABLES Final Result [facility] [address] [place] [phone] * Pap Smear (01/17/2023 11:01 AM EDT) 01/17/2023 11:0 1 AM EDT 01/18/2023 8:15 AM EDT Narrative [facility] - 01/25/2023 1:20 PM EDT ----- ------- Name: Yakelin Chaney ? Age/Sex: 37/F ? : 1985 Unit#: [id number] ?? Attend Dr: Madeleine Silveira CNM ?Re01/17/23 ?Status: DEP REF ? Location: HO.LNP ?Disch: ? ----- ------- SPEC : [id number] ? RECD: 01/18/23 ? STATUS: ??SOUT ? REQ NUM: [id number] ? LUIS: 01/17/23-110 ? SUBM DR: Madeleine [...] 66, 68) ? HPV testing performed by [facility], [place], [place]. ??See reference laboratory ?? portion of the EMR for entire report. ?Clinical Information LMP: Nexplanon Previous PAP test: Unknown Date/Findings ? Material Received ?? ThinPrep Cervical ----- ------- Signed (signature on file) Kay Andre 01/25/23 1320 ? ----- ------- ? END OF REPORT ? [facility] External Provider LAB CYT OLOGY ORDERABLES Final Result [facility] [address] [place] [phone] from Last 3 Months or Most Recently Relevant to Health Maintenance Insurance [employer] Care Teams Sales Agent Financial Report Service Relationship Specialty Start Date End Date Name, MD Cuong [address] [place] [address] PCP - General Family Medicine 07/19/17 Irma Freeman PharmD [address] [place] [address] Pharmacist Internal Medicine 02/20/23
--- OUTSIDE RECORDS SUMMARY | 2025-02-18 15:11 | XMS_ITS | Clinical Summary ---
Author Organization [address] [facility] Address [address] [place] [address] Phone Care Team Providers Care Chef Teacher Name Role Phone Name, Cuong RODRIGUEZ Primary Care Provider Allergies No known active allergies Medications amLODIPine [...] Type 2 diabetes mellitus wit h obesity ([facility] V24, [facility] V28) 07/19/2017 Urticaria 07/19/2017 Encounters Date Type Department Care Team Description 02/17/2025 10:00 AM EDT Treatment [facility] Occupational Therapy [address] [place] [phone] Janine Martino COTA/Amilcar Post-operative state (Primary Dx); Carpal tunnel syndrome of left wrist 02/10/2025 10:00 AM EDT Treatment [facility] Occupational Therapy [address] [place] [phone] Brit Barcenas, OT Post-operative state (Primary Dx); Carpal tunnel syndrome of left wrist 02/04/2025 1:45 PM EDT Treatment [facility] Occupational [address] [phone] WaynerBrodyna, ARANDA/L Post-operative state (Primary Dx); Carpal tunnel syndrome of left wrist 01/28/2025 10:15 AM EDT Treatment [facility] Occupational [address] [phone] WaynerBrodyna, ARANDA/L Post-operative state (Primary Dx); Carpal tunnel syndrome of left wrist 01/22/2025 1:30 PM EDT Evaluation [address] [phone] Brit Barcenas, OT Carpal tunnel syndrome of left wrist (Primary Dx); Post-operative state 01/20/2025 8:30 AM EDT Office Visit [address] [phone] Brit Jordan PA Post-operative state (Primary Dx) 12/09/2024 8:00 AM EDT Office Visit [address] [phone] Brit Jordan PA Post-operative state (Primary Dx) 11/27/2024 9:30 AM EST - 11/27/2024 12:30 PM EST Surgery [address] [phone] Huma Kat MD LEFT ENDOSCOPIC CARPAL TUNNEL RELEASE, OPEN NEEDED [80209 (CPT??)] 11/27/2024 9:16 AM EST Anesthesia Event [address] [phone] Liban Barrera MD Swanson, Mona, CRNA 11/27/2024 8:10 AM EST - 11/27/2024 1:51 PM EST Hospital Encounter [facility] Main OR [address] [place] [address] Huma Kat MD Discharge Disposition: Home or Self Care from Last 3 Months Surgical History Surgery Date Site/Laterality Comments SECTION X3 BARIATRIC SURGERY Medical History Medical History Date Comments Depressive disorder DX:Depressiv e disorder Anxiety state DX:Anxiety state Hypertension Diabetes mellitus ([facility] V24, [facility] V28) GERD (gastroesophageal reflux disease) Chronic pain [...] Info) Description 02/24/2025 10:00 AM EDT Treatment [facility] Occupational Therapy [facility] [address] [place] [phone] Janine Martino COTA/L 03/02/2025 9:30 AM EDT Office Visit [facility] [place] [facility] [address] [place] [phone] Huma Kat MD 175 [facility] [address] [place] [phone] Health Maintenance Due Date Last Done Comments Diabetes: Annual GFR (Glomerular Filtration Rate) 1984 Diabetes: Annual Foot Exam 1994 Diabetes: Annual Retina Eye Exam 1994 Breast Cancer Screening 12/05/2019 12/04/2017 HIV Screening 09/09/2022 Hepatitis C Screening 09/09/2022 Social Influencers of Health Screening 09/09/2022 COVID-19 Vaccine ( season) 2024 Diabetes: Annual Urine Albumin-Creatinine Ratio (uACR) 09/23/2024 Hypertension/CHF/CAD Annual BMP Blood Test 09/23/2024 Influenza Vaccine (Season Ended) 2025 07/23/2023, 07/06/2022, 09/28/2021, Additional history exists Diabetes: Blood Sugar Control Test (HGBA1C) 08/14/2025 02/11/2025, 02/06/2024 Cervical Cancer Screening: Pap Smear 01/17/2026 01/17/2023 Depression Screening 02/11/2026 02/11/2025 Cholesterol Screening (Lipid Panel) 11/02/2027 11/02/2022 DTaP,Tdap,and [...] for ease of opening containers 4. L Heel Coverer at least 40# (vs 20# init) 5. [...] Ganglion, left wrist Case Notes PA ASSIST NM INCISION EXTENSOR TENDON SHEATH WRIST 11/27/2024 9:15 AM EST Carpal tunnel syndrome, left upper limb Radial styloid tenosynovitis (de quervain) Ganglion, left wrist Case Notes PA ASSIST NM ENDOSCOPY WRIST SURGICAL WITH RELEASE TRANSVERSE CARPAL [...] - 100 mg/dL 11/27/2024 8:28 AM EST [facility] Blood Capillary blood specimen / Unknown 11/27/2024 8:28 AM EST 11/27/2024 8:30 AM EST Huma Kat MD LAB POINT OF CARE TE ST DOCKED DEVICE UNSOLICITED RESULTS Final Result [facility] [address] [place] [address], [place] [phone] from Last 3 Months Insurance MEDICAID - [...] currently active code status orders. Care Teams Chef Teacher Relationship Specialty Start Date End Date Name, MD Cuong [address] [place], [place] PCP - General 07/17/24
--- OUTSIDE RECORDS SUMMARY | 2025-02-18 15:11 | XMS_ITS | Encounter Summary ---
Author Organization [facility] Address [address] [place] [address] Care Team Providers Care Seed Technician Name Role Phone Name, Cuong RODRIGUEZ Primary Care Provider [phone] Reason for Visit * Consultation (Urgent) - Authorized Specialty Diagnoses / Procedures Referred By Contvalentin t Referred To Contact Occupational Therapy Diagnoses Post-operative state Brit Jordan PA [address] [facility] [address] [place] [address] Phone: tel: fax: [facility] Occupational Therapy 175 [facility] [address] [place] [address] Phone: tel: fax: Referral ID Status Reason Start Date Expiration Date Visits Requested Visits Authorized [id number] Authorized Specialty Services Required 01/20/2025 01/20/2026 20 20 Encounter Details Date Type Department Care Team (Late st Contact Info) Description 02/17/2025 10:00 AM EDT Treatment [facility] Occupational Therapy [address] [address] Janine Martino, ARANDA/L Post-operative state [...] PAZ Neal - 02/17/2025 10:00 AM EDT [facility] - Outpatient OCCUPATIONAL THERAPY DAILY TREATMENT NOTE Date: 02/17/2025 Visit Number: 5 Patient Name: Yakelin Chaney : 1985 Age: 39 y.o. Gender: female Diagnosis: ICD-10-CM ICD-9-CM 1. Post-operative state Z98.890 V45.89 2. Carpal tunnel syndrome of left wrist G56.02 354.0 Date of Onset: 11/27/2024 Referring Provider: Brit Jordan PA Insurance: Pay[place] / [place] / Product Type: *No Product type* / [...] Info) Description 02/24/2025 10:00 AM EDT Treatment [facility] Occupational Therapy [address] [place] [phone] Janine Martino COTA/Amilcar 03/02/2025 9:30 AM EDT Office Visit Orthopedic Surgery - [place] 175 [facility] [address] [place] [address] Huma Kat MD 175 [facility] [address] [place] [phone] documented as of this encounter Goals Goal [...] for ease of opening containers 4. L Obiee Lead Developer at least 40# (vs 20# init) 5. No signif pain to provocative testing (ie Vikram negative) documented as of this encounter Visit Diagnoses Diagnosis Post-operative state- Primary Other postprocedural status Carpal tunnel syndrome of left wrist documented in this encounter Care Teams Seed Technician Relationship Specialty Start Date End Date Name, MD Cuong [address] [place], [place] PCP - General 07/17/24 documented as of this encounter
--- OUTSIDE RECORDS SUMMARY | 2025-02-18 15:11 | XMS_ITS | Encounter Summary ---
Author Organization [employer] Address [address] [facility] 7t [place] [address] Care Team Providers Care Aligner Name Role Phone Name, Cuong RODRIGUEZ Primary Care Provider [phone] Irma Freeman PharmD Unavailable [phone] Encounter Details Date Type Department Care [...] Info) Description 02/26/2025 2:30 PM EDT Telemedicine [facility] [address] [place] [address] 05/26/2025 11:15 AM EDT Office Visit [address] [address] Name, MD Cuong [address] [place] [address] documented as of this encounter Goals Goal [...] (02/18/2025 9:25 AM EDT) Slide Review VERIFIED [facility] 02/18/2025 9:25 AM EDT 02/18/2025 11:04 AM EDT us Generic External Data Provider LAB BLOOD ORDERAB LES Final Result [facility] [address] [place] [phone] * CBC auto differential (02/18/2025 9:25 AM EDT) White Blood Count 6.4 4.8 - 10.8 X10*3/uL [facility] Red Blood Count 4.85 4.20 - 5.50 X10*6/uL [facility] Hemoglobin 13.7 12.0 - 16.0 g/dl [facility] Hematocrit 41.4 37.0 - 47.0 % [facility] Mean Corpuscular Volume 85.4 80.0 - 98.0 fL [facility] Mean Corpuscular Hemoglobin 28.2 27.0 - 33.0 pg [facility] Mean Corpuscular HGB Conc 33.1 31.0 - 35.0 g/dl [facility] Red Cell Distribution Width 13.1 11.0 - 16.0 % [facility] Platelet Count 213 160 - 400 X10*3/uL [facility] Mean Platelet Volume 10.8 9.4 - 12.3 fL [facility] Neutrophils Percent Auto 70.3 45 - 73 % [facility] Imm Gran Pct Auto 0.3 0.0 - 0.4 % [facility] Lymphocytes Percent Auto 21.4 20 - 40 % [facility] Monocytes Percent Auto 6.4 2 - 11 % [facility] Eosinophils Percent Auto 1.1 0 - 4 % [facility] Basophils Percent Auto 0.5 0 - 2 % [facility] NRBC Pct Auto 0.0 0.0 - 0.2 /100WBC [facility] Neutrophils Absolute Auto 4.5 2.0 - 8.3 x10*3/uL [facility] Imm Gran Abs Auto 0.02 0.00 - 0.03 X10*3/uL [facility] Lymphocytes Absolute Auto 1.4 1.2 - 4.9 X10*3/uL [facility] Monocytes Absolute Auto 0.4 0.1 - 1.2 X10*3/uL [facility] Eosinophils Absolute Auto 0.1 0.0 - 0.4 X10*3/uL [facility] Basophils Absolute Auto 0.0 0.0 - 0.2 X10*3/uL [facility] NRBC Abs Auto 0.000 0.0 - 0.012 X10*3/uL [facility] 02/18/2025 9:25 AM EDT 02/18/2025 11:04 AM EDT us Generic External Data Provider LAB BLOOD ORDERAB LES Edited Result - Final [facility] [address] [place] [phone] [phone] * Sed Rate by Francia Wright (02/18/2025 9:25 AM EDT) Erythrocyte Sedimentation Rate 12 0 - 20 MM/HR [facility] Comment:Patients with polycy themia and many hemoglobin abnormalitiesmay have depressed sed rates whereas patients with anemiamay have elevated sed rates. 02/18/2025 9:25 AM EDT 02/18/2025 11:04 AM EDT Generic External Data Provider LAB BLOOD ORDERAB LES Final Result Performing Organization Address [facility] Co de Phone Number [facility] [address] [place] [phone] * (ABNORMAL) C-reactive Protein (02/18/2025 9:25 AM EDT) C Reactive Protein 0.67(H) < or = 0.50 mg/dL [facility] 02/18/2025 9:25 AM EDT 02/18/2025 11:04 AM EDT Generic External Data Provider LAB BLOOD ORDERAB LES Final Result Performing Organization Address [facility] Co de Phone Number [facility] [address] [place] [phone] * Hepatic Function Panel (02/18/2025 9:25 AM EDT) Bilirubin, Direct 0.2 0.0 - 0.5 mg/dL [facility] 02/18/2025 9:25 AM EDT 02/18/2025 11:04 AM EDT Generic External Data Provider LAB BLOOD ORDERAB LES Final Result Performing Organization Address [facility] de Phone Number [facility] [address] [place] [phone] * (ABNORMAL) Comprehensive Metabolic Panel (02/18/2025 9:25 AM EDT) Sodium 138 135 - 145 mmol/L [facility] Potassium 4.2 3.3 - 5.1 mmol/L [facility] Chloride 106 96 - 108 mmol/L [facility] Carbon Dioxide 25 22 - 29 mmol/L [facility] Anion Gap 11(L) 12 - 20 [facility] Urea Nitrogen (BUN) 15 9 - 16 mg/dL [facility] Creatinine, Serum 0.67 0.5 - 1.4 mg/dL [facility] Estimated Glomerular Filt Rate >60 [facility] Comment:Chronic Kidney Disea se: Estimated GFR < 60 mL/min/1.62q2Fbikrk Kidney Disease: Estimated GFR < 15 mL/min/1.73m2 Glucose 143(H) 60 - 115 mg/dL [facility] Calcium 8.9 8.4 - 10.2 mg/dL [facility] Bilirubin, Total 0.6 0.0 - 1.0 mg/dL [facility] Aspartate Amino Transferase 19 5 - 31 U/L [facility] Alanine Aminotransferase 23 0 - 31 U/L [facility] Total Protein 7.3 6.5 - 8.0 g/dL [facility] Albumin Level 4.4 3.5 - 5.0 g/dL [facility] Alkaline Phosphatase 78 39 - 117 U/L [facility] 02/18/2025 9:25 AM EDT 02/18/2025 11:04 AM EDT us Generic External Data Provider LAB BLOOD ORDERAB LES Final Result Performing Organization Address City/State/[facility] Co de Phone Number [facility] [address] [place] [phone] documented in this encounter Visit Diagnoses Not on filedocumented in this encounter Additional Health Concerns Assessment Noted Time PHQ-9 Depression Total Score: 7 02/12/20 25 4:22 PM EDT documented as of this encounter Care Teams Aligner Relationship Specialty Start Date End Date Name, MD Cuong [address] [place] [address] PCP - General Family Medicine 07/19/17 Iram Freeman PharmD [address] [place] [address] Pharmacist Internal Medicine 02/20/23 documented as of this encounter
--- OUTSIDE RECORDS SUMMARY | 2025-02-18 15:11 | XMS_ITS | Encounter Summary ---
Author Organization [employer] Address [address] [place] [address] 7[address] [place] [address] Care Team Providers Care Channeler Insole Name Role Phone Name, Cuong RODRIGUEZ Primary Care Provider [phone] Irma Freeman PharmD Unavailable Reason for Visit * Reason Comments Med Refill Encounter Details Date Type Department Care Team ([facility] Contact Info) Description 03/01/2023 Refill [facility] [address] [place], [place] [phone] Name, MD Cuong [address] [place] [address] Social History Tobacco Use Types Packs/Day Years [...] Upcoming Encounters Date Type Department Care Team ([facility] Contact Info) Description 02/26/2025 2:30 PM EDT Telemedicine [facility] [place] [place] [address] 05/26/2025 11:15 AM EDT Office Visit [facility] [address] [place] [phone] Name[place] [address] documented as of this encounter Goals Goal [...] on filedocumented in this encounter Care Teams Channeler Insole Relationship Specialty Start Date End Date Name, [place] [address] PCP - General Family Medicine 07/19/17 Irma Freeman PharmD [address] [place] [phone] Pharmacist Internal Medicine 02/20/23 documented as of this encounter
--- OUTSIDE RECORDS SUMMARY | 2025-02-18 15:11 | XMS_ITS | Encounter Summary ---
Author Organization [employer] Address [address] [facility] 7t [place] [address] Care Team Providers Care Tail Edger Name Role Phone Name, Cuong RODRIGUEZ Primary Care Provider [phone] Irma Freeman PharmD Unavailable Reason for Visit * Reason Comments Med Refill Encounter Details Date Type Department Care Team (Late st Contact Info) Description 09/28/[address] [facility] [address] [place], [place] [phone] Name, MD Cuong [address] [place], [place] [phone] Chronic low back pain, unspecified back pain [...] Info) Description 02/26/2025 2:[address] [facility] [address] [place] [address] 05/26/2025 11:15 AM EDT Office Visit [facility] [address] [place] [phone] NameCuong MD [address] [place] [address] documented as of this encounter Goals Goal [...] present documented in this encounter Care Teams Tail Edger Relationship Specialty Start Date End Date Cuong Casas MD [address] [place] [address] PCP - General Family Medicine 07/19/17 Irma Freeman, EladiaD [address] [place] [address] Pharmacist Internal Medicine 02/20/23 documented as of this encounter
--- OUTSIDE RECORDS SUMMARY | 2025-02-18 15:11 | XMS_ITS | Encounter Summary ---
Author Organization [email or web address] Address [address] [facility] 7t [place] [address] Care Team Providers Care Armature Winder Repair Helper Name Role Phone Name, Cuong RODRIGUEZ Primary Care Provider [phone] Irma Freeman PharmD Unavailable [phone] Encounter Details Date Type Department Care Team (Late st Contact Info) Description 08/18/2024 Telephone [facility] [address] [place], [place] [phone] Name, MD Cuong [address] [place] [address] Social History Tobacco Use Types Packs/Day Years [...] Info) Description 02/26/2025 2:30 PM EDT Telemedicine [facility] [address] [place] [address] 05/26/2025 11:15 AM EDT Office Visit [facility] [address] [place] [address] Name, MD Cuong [address] [place] [address] documented as of this encounter Goals Goal [...] documented as of this encounter Care Teams Armature Winder Repair Helper Relationship Specialty Start Date End Date Name, MD Cuong [address] [place], [place] [phone] PCP - General Family Medicine 07/19/17 Irma Freeman PharmD [address] [place] [address] Pharmacist Internal Medicine 02/20/23 documented as of this encounter
--- OUTSIDE RECORDS SUMMARY | 2025-02-18 15:11 | XMS_ITS | Encounter Summary ---
Author Organization [employer] Address 75 [facility] 7t [place] [address] Care Team Providers Care Belt Builder Name Role Phone Name, Cuong RODRIGUEZ Primary Care Provider [phone] Irma Freeman PharmD Unavailable Reason for Visit * Reason Onset Date Comments Lab Orders 04/25/2024 Encounter Details Date Type Department Care Team (Late st Contact Info) Description 04/25/2024 Telephone [facility] [address] [place], [place] [phone] Name, MD Cuong [address] [place] [address] Lab Orders Social History Tobacco Use Types [...] 10:03 AM EDT T/C [place] pt. Through [place] id - [id number] to inform that TB test was order for work, pt. Can go to lab as per convenience, pt. Verbally greed and understood. * Telephone Encounter - Jonny Rodriguez - 04/25/2024 9:32 AM EDT Tc from pt requesting TB test for work. If any questions you can contact pt at [phone]. Yi Speaker. documented in this encounter Plan of Treatment Upcoming Encounters Date Type Department Care Team (Late st Contact Info) Description 02/26/2025 2:30 PM EDT Telemedicine [facility] [address] [place] [address] 05/26/2025 11:15 AM EDT Office Visit [facility] [address] [place] [address] Name, MD Cuong [address] [place] [address] documented as of this encounter Goals Goal [...] documented as of this encounter Care Teams Belt Builder Relationship Specialty Start Date End Date Name, MD Cuong [address] [place] [address] PCP - General Family Medicine 07/19/17 Irma Freeman PharmD [address] [place] [address] Pharmacist Internal Medicine 02/20/23 documented as of this encounter
== END 2025-02-18 15:09 | disposition home or self-care (01) ==
LOC: HO.LNP 15:08
PROVIDERS: Visit Provider Advanced Practice Midwife
DX: Z13.89 Encounter for screening for other disorder (principal)

== ENCOUNTER 2025-02-27 10:53 | Emergency (ER) | payer MEDICAID, SELFPAY ==
--- NOTE | ~2025-02-27 | US_ITS ---
EXAMINATION: US ABDOMEN LIMITED CLINICAL INFORMATION: Right upper quadrant pain. Question cholecystitis.. COMPARISON: None available. TECHNIQUE: Real-time Limited imaging of the right upper quadrant abdominal viscera. FINDINGS: GALLBLADDER: There are multiple echogenic mobile gallstones. Gallbladder wall thickness measures 0.2 cm and is normal. No pericholecystic fluid collection. US/US abdomen limited IMPRESSION: Cholelithiasis without wall thickening. Electronically signed by: Ham Acuna MD 02/27/2025 12:52 PM EDT
[2025-02-27 11:20] VITALS: BP 148/72; PULSE 80; RESP 18; TEMP 36.4; O2SAT 100; BMI 44.3
--- NOTE | 2025-02-27 11:24 | ED_ITS ---
HPI - General Adult General Chief complaint: Abdominal Pain Stated complaint: R Side Pain Time Seen by Provider: 02/27/25 13:08 Source: patient Mode of arrival: ambulatory Limitations: no limitations History of Present Illness ED Provider: Regan Rosales HPI narrative: 39 yold female HTn, diabetes, migraine, fibroids presents to the ED for RUQ pain for the past 2 days. Patient was sent by PCP for evaluation. patient states pain raidates to the back. Patient denies any lower abdominal pain, or any genitourinary symptoms. Patient denies any fever or chills. Related Data Home Medications ?Medication ?Instructions ?Recorded ?Confirmed cetirizine 10 mg tablet (Zyrtec) 10 mg PO DAILY PRN 12/31/20 02/18/25 fluticasone propionate 50 1 spray intranasal DAILY 12/31/20 02/18/25 mcg/actuation nasal spray,suspension sertraline 100 mg tablet (Zoloft) 100 mg PO DAILY 12/31/20 02/18/25 albuterol sulfate 90 mcg/actuation 1 - 2 puff inhalation Q4-6H PRN 09/27/22 02/18/25 aerosol inhaler (Proventil HFA) cough levonorgestrel 21 mcg/24 hr (up to intrauterine 03/23/23 02/18/25 8 years) 52 mg intrauterine device (Mirena) epinephrine 0.3 mg/0.3 mL IM DIRECTED 04/20/23 02/18/25 injection, auto-injector metformin 500 mg tablet,extended 1,000 mg PO QAM 04/20/23 02/18/25 release 24 hr tirzepatide 7.5 mg/0.5 mL 7.5 mg subcut QWEEK 06/26/23 02/18/25 subcutaneous pen injector (Nisha) hydroxyzine HCl 10 mg tablet 10 mg PO Q8H PRN itch 07/03/23 02/18/25 losartan 100 1 tab PO QAM 02/18/25 02/18/25 mg-hydrochlorothiazide 25 mg tablet Previous Rx's ?Medication ?Instructions ?Recorded diclofenac sodium 1 % topical gel 4 g topical QID #100 grams 07/10/24 gabapentin 100 mg capsule 100 mg PO BEDTIME 90 days #90 caps 07/10/24 metronidazole 500 mg tablet 500 mg PO Q12H #14 tabs 02/18/25 miconazole nitrate 2 % topical 1 appl topical BID #85 grams 02/18/25 powder naproxen 500 mg tablet 500 mg PO BID PRN pain #14 tabs 02/27/25 oxycodone 5 mg capsule 5 mg PO Q8H PRN pain #9 caps 02/27/25 Allergies Allergy/AdvReac Type Severity Reaction Status Date / Time seasonal allergies Allergy Unknown hives Uncoded 02/27/25 11:23 Review of Systems 2 Review of Systems: RUQ pain Yes all other systems are reviewed and are negative [facility] Past Medical History Medical History 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 De Quervain's tenosynovitis, left Kienb?ck's disease EDDIE positive Migraine with aura Prolonged menstrual cycle Fibroid Abnormal Pap smear of cervix Diabetes HTN (hypertension) Surgical History Gastric bypass status for obesity Hx of section Family History Family History Mother HTN (hypertension) Prediabetes Rheumatoid arthritis Maternal Grandmother Uterus cancer Son Down syndrome Social History Social History Household Members: Children Housing: House Alcohol intake: current Patient Tobacco Use Status: Never used Tobacco Advance Directives: No Advance Directives Information Provided: Yes Do you have a plan to hurt others: No Plan service: No Current occupational status: unemployed Sexual orientation: Straight/Heterosexual Gender identity: Female Physical Exam ED Vital Signs: Vital Signs - 24 hr 02/27/25 11:20 02/27/25 13:24 Temperature 97.5 F 97.5 F Pulse Rate 80 80 Respiratory Rate 18 18 Blood Pressure 148/72 H 148/72 H Pulse Oximetry 100 100 Oxygen Delivery Method Room Air Room Air BMI result Body Mass Index 44.3 Const General: cooperative, healthy appearing, comfortable, no acute distress, well developed, alert, awake and Physically active Orientation/consciousness: patient oriented x3 HENMT Head: Yes normal to inspection, Yes No palpable skull fracture present, Yes normocephalic and Yes atraumatic Eyes General: appearance normal, both eyes and all related structures Neck Neck: Yes normal visual inspection, Yes full ROM, Yes no lymphadenopathy, Yes no meningeal signs, Yes trachea midline, Yes supple, No anterior neck swelling and No tender Chest Chest palpation & inspection: normal inspection of the chest and normal palpation of entire chest wall Resp Effort & Inspection: normal respiratory effort and able to speak in complete sentences Auscultation: clear to auscultation bilaterally Cardio Jugular venous distension: no JVD Heart sounds: S1 normal heart sound present and S2 normal heart sound present GI Inspection: Yes normal to inspection Palpation (GI): Soft to palpation, not firm, Tenderness to palpation present (GI) in the RUQ, no guarding and not rigid General: Yes no CVA tenderness Back/Spine/Pelvis Back: no CVA tenderness and No back tenderness Skin General skin exam: no rashes or lesions noted, elasticity normal and turgor normal Neuro General: patient oriented x3, gait normal, tone normal, moves all extremities, Normal light touch and pain sensation, no meningeal signs, no focal motor deficits, CN's II-XI intact bilaterally and normal sensation to monofilament Extrem General: Yes normal to inspection, Yes full ROM and Yes capillary refill normal Psych Appearance: grossly normal, well kempt and not disheveled Course Course Course Narrative: RME: 39-year-old female presents to ED for right upper quadrant abdominal pain radiating to the back with nausea for the past 2 days. Patient is sent from primary care for evaluation. Patient denies any genitourinary symptoms of lower abdominal pain patient denies any fever or chills. Labs ordered. Medical Decision Making Medical Decision Making [facility] Narrative: 39-year-old female presents to ED for right upper quadrant abdominal pain radiating to the back for the past 3 days. Patient was referred by primary care provider. Labs negative for any elevation of liver enzymes or elevation white blood cell count. Ultrasound shows gallstones without cholecystitis. Patient well-appearing. Presently no indication to consult surgery. Patient will be discharged with pain medication. Patient explained necessary follow-up with surgeon. Patient explained worrisome signs and informed to return to the ED immediately. Differential Diagnosis Differential Diagnoses: The differential diagnosis associated with the presentation includes (Cholecystitis, pancreatitis UTI) Admission/Observation Consideration of admission/observation: Escalation of care including admission/observation considered Lab Data [facility] Lab Attestation statement: I reviewed the patient's lab results. 02/27/25 11:42 02/27/25 11:42 Labs: Lab Results 02/27/25 Range/Units 11:42 WBC 6.3 (4.8-10.8) X10*3/uL RBC 4.90 (4.20-5.50) X10*6/uL Hgb 13.6 (12.0-16.0) g/dl Hct 41.5 (37.0-47.0) % MCV 84.7 (80.0-98.0) fL MCH 27.8 (27.0-33.0) pg MCHC 32.8 (31.0-35.0) g/dl RDW 13.0 (11.0-16.0) % Plt Count 237 (160-400) X10*3/uL MPV 10.4 (9.4-12.3) fL Immature Gran % (Auto) 0.5 H (0.0-0.4) % Neut % (Auto) 67.7 (45-73) % Lymph % (Auto) 24.6 (20-40) % Archer % (Auto) 6.2 (2-11) % Eos % (Auto) 0.5 (0-4) % Baso % (Auto) 0.5 (0-2) % Lymph # (Auto) 1.5 (1.2-4.9) X10*3/uL Archer # (Auto) 0.4 (0.1-1.2) X10*3/uL Eos # (Auto) 0.0 (0.0-0.4) X10*3/uL Baso # (Auto) 0.0 (0.0-0.2) X10*3/uL Abs Immat Gran (auto) 0.03 (0.00-0.03) X10*3/uL Absolute Neuts (auto) 4.3 (2.0-8.3) x10*3/uL Absolute Nucleated RBC 0.000 (0.0-0.012) X10*3/uL Nucleated RBC % (auto) 0.0 (0.0-0.2) /100WBC Sodium 142 (135-145) mmol/L Potassium 3.8 (3.3-5.1) mmol/L Chloride 107 (96-108) mmol/L Carbon Dioxide 27 (22-29) mmol/L Anion Gap 12 (12-20) BUN 10 (9-16) mg/dL Creatinine 0.61 (0.5-1.4) mg/dL Estim Creat Clear Calc 148.7 Estimated GFR > 60 Random Glucose 119 H (60-115) mg/dL Calcium 9.4 (8.4-10.2) mg/dL Total Bilirubin 0.4 (0.0-1.0) mg/dL AST 26 (5-31) U/L ALT 35 H (0-31) U/L Alkaline Phosphatase 76 (39-117) U/L Total Protein 7.4 (6.5-8.0) g/dL Albumin 4.6 (3.5-5.0) g/dL Lipase 32 (8-78) U/L Beta HCG, Quant < 2 mIU/mL Urine Color Yellow Urine Appearance Clear Urine pH 8.0 (5.0-9.0) Ur Specific [place] 1.010 (1.005-1.025) Urine Protein Negative (Neg-Trace) mg/dL Urine Glucose (UA) Negative (Negative) mg/dL Urine Ketones Negative (Negative) mg/dL Urine Blood Negative (Negative) Urine Nitrite Negative (Negative) Ur Leukocyte Esterase Negative (Negative) Urine Test NEGATIVE (NEGATIVE) Independent Interpretation I performed an independent interpretation of an: Ultrasound Radiology Impression Discussion of test interpretation with radiology: I have reviewed the radiologist's reading. Independent Historian Clinical information obtained from an independent historian. History obtained from or confirmed by: Other (Patient) Prescription Management I considered prescription management with: Pain Medication Discharge Plan Discharge Clinical Impression: Cholelithiasis Patient Disposition: Home, Self-Care Instructions: Gallstones (ED) Additional Instructions: You have gallstones without cholecystitis. You presently does not need any surgery, but will need to follow-up with outpatient surgery clinic. Return to the ED immediately for any patient's abdominal pain, green emesis, fever, chills, decrease in appetite, or any other concerning symptoms. Stay away from fried, fatty, or greasy food. EXAMINATION: US ABDOMEN LIMITED CLINICAL INFORMATION: Right upper quadrant pain. Question cholecystitis.. COMPARISON: None available. TECHNIQUE: Real-time Limited imaging of the right upper quadrant abdominal viscera. FINDINGS: GALLBLADDER: There are multiple echogenic mobile gallstones. Gallbladder wall thickness measures 0.2 cm and is normal. No pericholecystic fluid collection. US/US abdomen limited IMPRESSION: Cholelithiasis without wall thickening. Electronically signed by: Ham Acuna MD 02/27/2025 12:52 PM EDT RP Prescriptions: New naproxen 500 mg tablet 500 mg PO BID PRN (Reason: pain) Qty: 14 0RF oxycodone 5 mg capsule 5 mg PO Q8H PRN (Reason: pain) Qty: 9 0RF Rx Instructions: Partial Fill upon patient request. side effect is drowsiness. No Action sertraline [Zoloft] 100 mg tablet 100 mg PO DAILY Rx Instructions: 2 tab daily fluticasone propionate 50 mcg/actuation spray,suspension 1 spray intranasal DAILY Rx Instructions: administer into each nostril cetirizine [Zyrtec] 10 mg tablet 10 mg PO DAILY PRN albuterol sulfate [Proventil HFA] 90 mcg/actuation HFA aerosol inhaler 1 - 2 puff inhalation Q4-6H PRN (Reason: cough) epinephrine 0.3 mg/0.3 mL auto-injector IM DIRECTED metformin 500 mg tablet extended release 24 hr 1,000 mg PO QAM Mounjaro 7.5 mg/0.5 mL pen injector 7.5 mg subcut QWEEK hydroxyzine HCl 10 mg tablet 10 mg PO Q8H PRN (Reason: itch) losartan-hydrochlorothiazide 100-25 mg tablet 1 tab PO QAM metronidazole 500 mg tablet 500 mg PO Q12H Qty: 14 0RF miconazole nitrate 2 % powder 1 appl topical BID Qty: 85 3RF Mirena 21 mcg/24 hours (8 yrs) 52 mg intrauterine device intrauterine gabapentin 100 mg capsule 100 mg PO BEDTIME 90 Days Qty: 90 0RF diclofenac sodium 1 % gel 4 g topical QID Qty: 100 2RF Rx Instructions: apply to hands and knees 2-4 times per day Referrals: [facility] [Provider Group] (Gallstones right upper quadrant pain) Interventions: ED Discharge Assessment Last Done: 02/27/25 13:24 Discharge Date/Time: 02/27/25 13:24 Print Language: Sami
[2025-02-27 11:51] LABS: MANUAL DIFF FLAG NO
[2025-02-27 11:55] LABS: Basophils Percent Auto 0.5 % (0-2); Eosinophils Percent Auto 0.5 % (0-4); Hematocrit 41.5 % (37.0-47.0); Hemoglobin 13.6 g/dl (12.0-16.0); Imm Gran Abs Auto 0.03 X10*3/uL (0.00-0.03); Imm Gran Pct Auto 0.5 % (0.0-0.4); Lymphocytes Absolute Auto 1.5 X10*3/uL (1.2-4.9); Lymphocytes Percent Auto 24.6 % (20-40); Mean Corpuscular HGB Conc 32.8 g/dl (31.0-35.0); Mean Corpuscular Hemoglobin 27.8 pg (27.0-33.0); Mean Corpuscular Volume 84.7 fL (80.0-98.0); Mean Platelet Volume 10.4 fL (9.4-12.3); Monocytes Absolute Auto 0.4 X10*3/uL (0.1-1.2); Monocytes Percent Auto 6.2 % (2-11); Neutrophils Absolute Auto 4.3 x10*3/uL (2.0-8.3); Neutrophils Percent Auto 67.7 % (45-73); Platelet Count 237 X10*3/uL (160-400); White Blood Count 6.3 X10*3/uL (4.8-10.8)
[2025-02-27 11:58] LABS: UPreg QC Valid YES; Urine Pregnancy NEGATIVE (NEGATIVE)
[2025-02-27 12:02] LABS: Appearance Urine Clear; Color Urine Yellow; Glucose Urine UA Negative (Negative); Leukocyte Esterase Urine Negative (Negative); Nitrite Urine Negative (Negative); Urine Blood Negative (Negative); Urine Ketones Negative (Negative); Urine Protein Negative (Neg-Trace)
[2025-02-27 12:16] LABS: Alanine Aminotransferase 35 U/L (0-31); Albumin Level 4.6 g/dL (3.5-5.0); Alkaline Phosphatase 76 U/L (39-117); Anion Gap 12 (12-20); Aspartate Amino Transferase 26 U/L (5-31); Bilirubin Total 0.4 mg/dL (0.0-1.0); Blood Urea Nitrogen 10 mg/dL (9-16); Calcium 9.4 mg/dL (8.4-10.2); Carbon Dioxide 27 mmol/L (22-29); Chloride 107 mmol/L (96-108); Creatinine Clr Calc Pharmacy 148.7; Estimated Glomerular Filt Rate > 60; Glucose Random 119 mg/dL (60-115); Lipase 32 U/L (8-78); Potassium 3.8 mmol/L (3.3-5.1); Sodium 142 mmol/L (135-145); Total Protein 7.4 g/dL (6.5-8.0)
[2025-02-27 12:22] LABS: HCG Quantitative < 2 mIU/mL
--- OUTSIDE RECORDS SUMMARY | 2025-02-27 13:18 | XMS_ITS | Encounter Summary ---
Author Organization [employer] Address [address] [facility] [address] [place] [address] Care Team Providers Care Press Machine Operator Name Role Phone Name, Cuong RODRIGUEZ Primary Care Provider [phone] Irma Freeman PharmD Unavailable Reason for Visit * Reason Comments Med Refill Encounter Details Date Type Department Care Team (Late st Contact Info) Description 09/28/[address] [facility] [address] [place], [place] [phone] Name, MD Cuong [address] [place], [place] [phone] Chronic low back pain, unspecified back pain [...] Care Team (Late st Contact Info) Description 03/30/2025 9:00 AM EDT Medication Management [address] [address] Irma Freeman PharmD [address] [place] [phone] 05/26/2025 11:15 AM EDT Office Visit [address] [address] NameCuong MD [address] [place] [phone] documented as of this encounter Goals Goal [...] present documented in this encounter Care Teams Press Machine Operator Relationship Specialty Start Date End Date NameCuong MD [address] [place] [address] PCP - General Family Medicine 07/19/17 Irma Freeman PharmD [address] [place] [address] Pharmacist Internal Medicine 02/20/23 documented as of this encounter
[2025-02-27 13:24] VITALS: BP 148/72; PULSE 80; RESP 18; TEMP 36.4; O2SAT 100
== END 2025-02-27 13:24 | disposition home or self-care (01) ==
PROVIDERS: Physician Assistant; Emergency Provider Emergency Medicine; PCP Internal Medicine Geriatric Medicine
DX: K80.20 Calculus of gallbladder without cholecystitis without obstruction (principal); R10.11 Right upper quadrant pain; I10 Essential (primary) hypertension; E11.9 Type 2 diabetes mellitus without complications; Z79.899 Other long term (current) drug therapy
CPT/HCPCS: 36415; 76705; 80053; 81003; 81025; 83690; 84702; 85025; 99282; 99283; 99284

== ENCOUNTER → 2025-02-27 12:13 | Outpatient (BNV) | payer MEDICAID, SELFPAY | PROVIDERS: PCP Internal Medicine Geriatric Medicine; Visit Provider Radiology Diagnostic Radiology | DX: K80.20 Calculus of gallbladder without cholecystitis without obstruction (principal) | CPT/HCPCS: 76705 ==

== ENCOUNTER 2025-04-08 08:26 | Outpatient (AMB) | payer MEDICAID, SELFPAY ==
--- OUTSIDE RECORDS SUMMARY | 2025-04-08 08:39 | XMS_ITS | Encounter Summary ---
Author Organization [employer] Address [address] [facility] [address] [place] [address] Care Team Providers Care Director Chemistry Name Role Phone Name, Cuong RODRIGUEZ Primary Care Provider [phone] Irma Freeman PharmD Unavailable Reason for Visit * Reason Comments Med Refill Encounter Details Date Type Department Care Team (Late st Contact Info) Description 09/28/2023 Refill [facility] [address] [place], [place] [phone] Name, MD Cuong [address] [place], [place] [phone] Chronic low back pain, unspecified back pain [...] Care Team (Late st Contact Info) Description 05/18/2025 10:00 AM EDT Medication Management [address] [address] Irma Freeman PharmD [address] [place] [phone] 05/26/2025 11:15 AM EDT Office Visit [address] [address] NameCuong MD [address] [place] [phone] documented as of this encounter Goals Goal [...] present documented in this encounter Care Teams Director Chemistry Relationship Specialty Start Date End Date NameCuong MD [address] [place] [address] PCP - General Family Medicine 07/19/17 Irma Freeman PharmD [address] [place] [address] Pharmacist Internal Medicine 02/20/23 documented as of this encounter
--- OUTSIDE RECORDS SUMMARY | 2025-04-08 08:39 | XMS_ITS | Clinical Summary ---
Author Organization [address] [facility] Address [address] [place] [address] Phone Care Team Providers Care Patient Care Specialist Name Role Phone Name, Cuong RODRIGUEZ Primary Care Provider [phone] Allergies No known active allergies Medications amLODIPine [...] Amount: 20 mg 10 tablet 5 Active losartan-hydroC HLOROthiazide (HYZAAR) 100-25 mg per tablet Take 1 tablet by mouth daily. 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 Ganglion of left wrist 09/23/2024 Carpal tunnel syndrome, left upper limb 09/23/20 Radial styloid tenosynovitis (de quervain) 09/23 Ganglion, left wrist 09/23/2024 Anxiety 06/28/2023 Ganglion cyst 09/19/2022 Bilateral carpal tunnel syndrome 09/19/2022 De Quervain's tenosynovitis, left 09/19/2022 Obstructive sleep apnea syndrome 03/08/2018 Essential hypertension 09/03/2017 Chronic low back pain 07/19/2017 Allergic rhinitis 07/19/2017 Migraine 07/19/2017 Type 2 diabetes mellitus wit h obesity (CMS/[facility] V24, CMS/[facility] V28) 07/19/2017 Urticaria 07/19/2017 Encounters Date Type Department Care Team Description 03/24/2025 10:15 AM EDT Treatment [facility] Occupational Therapy [address] [place] [phone] Brit Barcenas, OT Post-operative state (Primary Dx); Carpal tunnel syndrome of left wrist 03/20/2025 1:15 PM EDT Treatment [facility] Occupational [facility] [address] [phone] Janine Martino, ARANDA/L Post-operative state (Primary Dx); Carpal tunnel syndrome of left wrist 03/04/2025 10:15 AM EDT Treatment [facility] Occupational [address] [phone] Ev Hill OT Post-operative state (Primary Dx); Carpal tunnel syndrome of left wrist 03/02/2025 9:30 AM EDT Office Visit [facility] [address] [phone] Huma Kat MD 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); Post-operative state; De Quervain's tenosynovitis, left; Carpal tunnel syndrome, left upper limb; Radial styloid tenosynovitis (de quervain) 02/24/2025 10:00 AM EDT Treatment [facility] Occupational [address] [phone] Janine Martino ARANDA/L Post-operative state (Primary Dx); Carpal tunnel syndrome of left wrist 02/17/2025 10:00 AM EDT Treatment [facility] Occupational [address] [phone] Janine Martino, ARANDA/L Post-operative state (Primary Dx); Carpal tunnel syndrome of left wrist 02/10/2025 10:00 AM EDT Treatment [facility] Occupational [address] [phone] Brit Barcenas OT Post-operative state (Primary Dx); Carpal tunnel syndrome of left wrist 02/04/2025 1:45 PM EDT Treatment [facility] Occupational Therapy [address] [place] [phone] Janine Martino, ARANDA/L Post-operative state (Primary Dx); Carpal tunnel syndrome of left wrist 01/28/2025 10:15 AM EDT Treatment [facility] Occupational Therapy 175 [facility] [address] [place] [phone] Janine Martino COTA/L Post-operative state (Primary Dx); Carpal tunnel syndrome of left wrist 01/22/2025 1:30 PM EDT Evaluation [facility] Occupational Therapy [address] [facility] [address] [place] [phone] Brit Barcenas OT Carpal tunnel syndrome of left wrist (Primary Dx); Post-operative state 01/20/2025 8:30 AM EDT Office Visit [facility] [place] 175 [facility] [address] [place] [phone] Brit Jordan PA Post-operative state (Primary Dx) from Last 3 Months Surgical History Surgery Date Site/Laterality Comments SECTION X3 BARIATRIC SURGERY WRIST SURGERY 11/27/2024 Left eCTR, 1st dorsal compartment release, radial core decompression and arthroscopy w/ debridement Medical History Medical History Date Comments Depressive disorder DX:Depressiv e disorder Anxiety state DX:Anxiety state Hypertension Diabetes mellitus ([facility] V24, CMS/[facility] V28) GERD (gastroesophageal reflux disease) Chronic [...] 95 11/27/2024 12:24 PM EST Temperature 36.6 C (97.9 F) 11/27/2024 12:24 PM EST Respiratory Rate 16 11/27/2024 12:24 PM EST Oxygen Saturation 98% 11/27/2024 12:24 PM EST Inhaled Oxygen Concentration - - Weight 113 kg (250 lb) 03/02/2025 9:40 AM EDT Height 160 cm (5' 3 ) 03/02/2025 9:40 AM EDT Body Mass Index 44.29 03/02/2025 9:40 AM EDT Plan of Treatment Upcoming Encounters Date Type Department Care Team (Late st Contact Info) Description 04/14/2025 9:45 AM EDT Office Visit [facility] [place] 175 [facility] [address] [place] [phone] Huma Kat MD 175 [facility] [address] [place] [phone] Health Maintenance Due Date Last Done Comments Diabetes: Annual Foot Exam 1994 Diabetes: Annual Retina Eye Exam 1994 Breast Cancer Screening 12/05/2019 12/04/2017 HIV Screening 09/09/2022 Hepatitis C Screening 09/09/2022 Social Influencers of Health Screening 09/09/2022 COVID-19 Vaccine ( season) 2024 Diabetes: Annual Urine Albumin-Creatinine Ratio (uACR) 09/23/2024 Influenza Vaccine (#1) 2025 , 07/06/2022, 09/28/2021, Additional history exists Diabetes: Blood Sugar Control Test (HGBA1C) 08/14/2025 02/11/2025, 02/06/2024 Cervical Cancer Screening: Pap Smear 01/17/2026 01/17/2023 Depression Screening 02/11/2026 02/11/2025 Diabetes: Annual GFR (Glomerular Filtration Rate) 02/27/2026 02/27/2025, 02/18/2025 Hypertension/CHF/CAD Annual BMP Blood Test 02/27/2026 02/27/2025, 02/18/2025 Cholesterol Screening (Lipid Panel) 02/18/2030 02/18/2025, 11/02/2022 DTaP,Tdap,and Td Vaccines (3 - Td or Tdap) 07/15/2031 07/15/2021, 08/16/2017 MMR Vaccines Aged Out 09/29/2021 No longer eligi ble based on patient's age to complete this topic Pneumococcal Vaccine: Pediatrics (0 to 5 Years) and At-Risk Patients (6 to 49 Years) Completed 02/21/2023 Hepatitis B Vaccines Completed 03/27/2023, 02/22/20 23 HIB Vaccines Aged Out No longer eligi [...] OT 8 visits General On track( 025 1:11 PM EDT) No Brit Barcenas, OT Note: 1> Return demo HEP w/ progressions (splint use/wean, pain manage,scar manage, joint protect, eventual strength and activity progression) - 03/24/25 MET 2. L wrist ext AROM at least 55' w/ tolerance for at least partial Wb'ing - 03/24/25 MET 3. L 3pt/lat pinch strength increased to at least 10# for ease of opening containers - 03/24/25: Met for lat pinch at 12.5#; 3pt=9# 4. L Armored Machine Operator at least 40# (vs 20# init) 03/24/25 MET 5. No signif pain to provocative testing (ie Vikram negative - 03/24/25 MET Procedures Procedure Name Priority Date/Time Associated Diagnosis Comments XR WRIST 3+ VIEWS LEFT Routine 03/02/2025 9:38 AM EDT Post-operative state from Last 3 Months Results * XR Wrist 3+ Views Left (03/02/2025 9:38 AM EDT) Anatomical Region Laterality Modality Upper Extremities, Wrist Left Compute d Radiography Narrative 03/02/2025 5:52 PM EDT AP, lateral, oblique of the left wrist was obtained on 03/02/2025. There are no fractures or lytic lesions. The lunate is noted to have some slight increase sclerosis relative to the neighboring bones as noted before. This is best visualized on the lateral view. There is a lucency in the right distal radial metaphysis consistent with the prior core decompression. No significant change. Huma Kat MD IMG XR PROCEDURES Final Resul t from Last 3 Months Insurance MEDICAID - [...] currently active code status orders. Care Teams Patient Care Specialist Relationship Specialty Start Date End Date Name, MD Cuong [address] [place], [place] PCP - General 07/17/24
--- NOTE | 2025-04-08 09:08 | MHC.OFFVIS ---
Vital Signs 04/08/25 09:18 Height 5 ft 3 in Weight 251 lb BMI 44.5 BP 128/80 Blood Pressure Location Rt brachial Position Sitting Pulse 74 Intake Visit Reasons: Gallbladder problems Intake Note: Patient seen at [facility] for Cholelithiasis in February 27, 2025. Patient c/o: on and off RUQ pain, diarrhea. Denies nausea, constipation. Abdomen US: 02-27-2025 Patternmaker All Around Required: Yes Accompanied by: Alexei Allergies seasonal allergies Allergy (Unknown, Uncoded 04/08/25 09:14) hives Medication List - Last Reconciled 04/08/25 by Costa Fisher MD albuterol sulfate 90 mcg/actuation (Proventil HFA) 1 - 2 puffs inhalation Q4-6H PRN cetirizine (Zyrtec) 10 mg PO DAILY PRN diclofenac sodium 1% 4 grams topical QID epinephrine IM DIRECTED fluticasone propionate 50 mcg/actuation 1 spray intranasal DAILY gabapentin 100 mg PO BEDTIME 90 days hydroxyzine HCl 10 mg PO Q8H PRN levonorgestrel (Mirena) intrauterine losartan-hydrochlorothiazide 100-25 mg 1 tab PO QAM metformin ER 1,000 mg PO QAM metronidazole 500 mg PO Q12H miconazole nitrate 2% 1 appl topical BID sertraline (Zoloft) 100 mg PO DAILY tirzepatide (Mounjaro) 7.5 mg subcut QWEEK HPI HPI Gallbladder problems: Details: [age] year old female referred for gallstones. She says that she knows that she has had gallstones for many years. She had undergone bypass with Dr. Zhou in 2018 and she says that she was told at that time that she had gallstones. She has had periodic right upper quadrant pain over the years. She says that she went to the ER last Jan, 2025 because of an episode of right upper quadrant pain. She had an ultrasound showing these gallstones. She was therefore referred to me. She is morbidly obese. She says she had gained most of her weight back after her gastric bypass She has good oral intake. 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 De Quervain's tenosynovitis, left Kienb?ck's disease EDDIE positive Migraine with aura Prolonged menstrual cycle Fibroid Abnormal Pap smear of cervix Diabetes HTN (hypertension) Surgical History (Updated 04/08/25 @ 09:17 by KEO Richmond) H/O left wrist surgery Gastric bypass status for obesity Hx of section Family History Mother HTN (hypertension) Prediabetes Rheumatoid arthritis Maternal Grandmother Uterus cancer Son Down syndrome Social History Household Members: Children Housing: House Alcohol intake: current Patient Tobacco Use Status: Never used Tobacco service: No Current occupational status: unemployed Sexual orientation: Straight/Heterosexual Gender identity: Female Female Reproductive History Menstrual Age of Menarche: 9 Review of Systems Const Denies chills and Denies fever(s) Card Denies chest pain, Denies dyspnea and Denies dyspnea on exertion Resp Denies cough, Denies dyspnea and Denies dyspnea on exertion GI Denies hematochezia and Denies change in bowel habits Denies hematuria Musc Denies back pain and Denies limited range of motion Neuro Denies focal weakness and Denies convulsions Psych Denies depression and Denies mood swings Physical Exam Vital Signs: Last Vital Signs Pulse 74 04/08/25 09:18 BP 128/80 04/08/25 09:18 BMI result Body Mass Index 44.5 Const Other: Morbidly obese General: comfortable and no acute distress Resp Effort & Inspection: normal respiratory effort Cardio Rate: regular rate GI Palpation (GI): Soft to palpation, not firm and nontender Assessment & Plan Assessment & Plan (1) Gallstones: Code(s): K80.20 - Calculus of gallbladder without cholecystitis without obstruction Category: Medical Plan: She has had periodic right upper quadrant pain for years. She was in the ER last Jan, 2025 for another episode she does not have known gallstones and appeared to be symptomatic with this I had a long discussion with her about the technique of laparoscopic cholecystectomy and open cholecystectomy. I reviewed the risks including but not limited to bleeding, infections, bowel injury, injury to other organs including the liver and the bile ducts, bile leak, retained stones, as well as the benefits and alternatives. She understands that she presents with significant perioperative risks has a morbid obesity. I did explain to her that ideally, it would be best for her to be able to lose some weight prior to undergoing surgery. She says that she wants to proceed with surgery sooner. I will also schedule her for a CAT scan of the abdomen and pelvis to rule out any other pathology. She understands the plan. Her was with her during the visit. Orders: Orders Blood Urea Nitrogen 04/08/25 K80.20 - Calculus of gallbladder without cholecystitis without obstruction CT abdomen pelvis w IV con 04/08/25 K80.20 - Calculus of gallbladder without cholecystitis without obstruction Creatinine 04/08/25 K80.20 - Calculus of gallbladder without cholecystitis without obstruction Coding Level of Care Code New Pt Level 4 (68799) Diagnoses Gallstones K80.20
[2025-04-08 09:18] VITALS: BP 128/80; PULSE 74; BMI 44.5
== END 2025-04-08 09:41 | disposition home or self-care (01) ==
LOC: HO.HGS 08:27
PROVIDERS: PCP Internal Medicine Geriatric Medicine; Visit Provider Surgery
DX: K80.20 Calculus of gallbladder without cholecystitis without obstruction (principal)
CPT/HCPCS: 99204

== ENCOUNTER 2025-04-08 08:26 | Outpatient (REF) | payer MEDICAID, SELFPAY ==
[2025-04-08 11:21] LABS: Blood Urea Nitrogen 9 mg/dL (9-16); Estimated Glomerular Filt Rate > 60
== END 2025-04-08 08:27 | disposition home or self-care (01) ==
LOC: HO.LAB 08:26
PROVIDERS: PCP Internal Medicine Geriatric Medicine; Visit Provider Surgery
DX: K80.20 Calculus of gallbladder without cholecystitis without obstruction (principal)
CPT/HCPCS: 36415; 82565; 84520; 99202

== ENCOUNTER 2025-04-30 08:53 | Outpatient (REF) | payer MEDICAID, SELFPAY ==
--- NOTE | ~2025-04-30 | CT_ITS ---
CLINICAL HISTORY: K80.20 - Calculus of gallbladder without cholecystitis without obstruction CT abdomen and pelvis with contrast Comparison: US/SR - US ABDOMEN LIMITED - 02/27/25 12:30 EDT US/SR - US PELVIS TRANSABDOMINAL AND TRANSVAGINAL - 01/28/24 12:56 EDT Findings: The lung bases are clear. The gallbladder and solid organs are within normal limits. No renal stones. No bowel obstruction, pneumoperitoneum, or pneumatosis. Gastric sleeve. Unremarkable aorta. No ascites or lymphadenopathy. IUD. 4.5 cm right ovarian cyst. Normal appendix. No acute fracture. IMPRESSION: No evidence of calcified gallstones in the gallbladder. Right ovarian cyst. This document has been electronically signed by: Ольга Kinney MD on 04/30/2025 14:21:19
--- OUTSIDE RECORDS SUMMARY | 2025-04-30 09:11 | XMS_ITS | Encounter Summary ---
Author Organization [employer] Address [address] [facility] 7[address] [place] [address] Care Team Providers Care Digital Content Coordinator Name Role Phone Name, Cuong RODRIGUEZ Primary Care Provider [phone] Irma Freeman PharmD Unavailable [phone] Reason for Visit * Reason Comments Med Refill Encounter Details Date Type Department Care Team (Late st Contact Info) Description 09/28/2023 Refill [facility] [address] [place], [place] [phone] Name, MD Cuong [address] [place], [place] [phone] Chronic low back pain, unspecified back pain [...] Description 05/18/2025 10:00 AM EDT Medication Management [address] [address] Irma Freeman PharmD [address] [place] [phone] 05/26/2025 11:15 AM EDT Office Visit [address] [address] NameCuong MD [address] [place] [address] documented as of this encounter Goals Goal [...] present documented in this encounter Care Teams Digital Content Coordinator Relationship Specialty Start Date End Date NameCuong MD [address] [place] [address] PCP - General Family Medicine 07/19/17 Irma Freeman PharmD [address] [place] [address] Pharmacist Internal Medicine 02/20/23 documented as of this encounter
--- OUTSIDE RECORDS SUMMARY | 2025-04-30 09:11 | XMS_ITS ---
Author Name [facility] Organization Unknown Care Team Organization Name Specialty Phone Email Start Date End Da ting [facility] ANTONIO VELEZ Primary Care 08/08/2022 05/19/20 24
--- OUTSIDE RECORDS SUMMARY | 2025-04-30 09:12 | XMS_ITS | Clinical Summary ---
Author Organization 175 [facility] Address [address] [place] [address] Phone Care Team Providers Care Retail Parts Professional Name Role Phone Unavailable Primary Care Provider Unavailabl e Allergies No known active allergies Medications amLODIPine [...] Osteochondrosis of lunate of left wrist 09/26/20 24 Ganglion of left wrist 09/23/2024 Carpal tunnel syndrome, left upper limb 09/23/20 24 Radial styloid tenosynovitis (de quervain) 09/23 Ganglion, left wrist 09/23/2024 Anxiety 06/28/2023 Ganglion cyst 09/19/2022 Bilateral carpal tunnel syndrome 09/19/2022 De Quervain's tenosynovitis, left 09/19/2022 Obstructive sleep apnea syndrome 03/08/2018 Essential hypertension 09/03/2017 Chronic low back pain 07/19/2017 Allergic rhinitis 07/19/2017 Migraine 07/19/2017 Type 2 diabetes mellitus wit h obesity (CMS/[facility] V24, CMS/HCC V28) 07/19/2017 Urticaria 07/19/2017 Encounters Date Type Department Care Team Description 04/14/2025 9:45 AM EDT Office Visit Orthopedic Surgery - [address] [place] [address] Huma Kat MD 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); De Quervain's tenosynovitis, left; Carpal tunnel syndrome, left upper limb 03/24/2025 10:15 AM EDT Treatment [facility] Occupational [address] [phone] Brit Barcenas, NITHIN Post-operative state (Primary Dx); Carpal tunnel syndrome of left wrist 03/20/2025 1:15 PM EDT Treatment [facility] Occupational [address] [phone] Janine Martino, ARANDA/L Post-operative state (Primary Dx); Carpal tunnel syndrome of left wrist 03/04/2025 10:15 AM EDT Treatment [address] [phone] Ev Hill OT Post-operative state (Primary Dx); Carpal tunnel syndrome of left wrist 03/02/2025 9:30 AM EDT Office Visit Orthopedic Surgery - [place] [address] [phone] Huma Kat MD 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); Post-operative state; De Quervain's tenosynovitis, left; Carpal tunnel syndrome, left upper limb; Radial styloid tenosynovitis (de quervain) 02/24/2025 10:00 AM EDT Treatment [address] [phone] Janine Martino, ARANDA/L Post-operative state (Primary Dx); Carpal tunnel syndrome of left wrist 02/17/2025 10:00 AM EDT Treatment [address] [phone] Janine Martino ARANDA/L Post-operative state (Primary Dx); Carpal tunnel syndrome of left wrist 02/10/2025 10:00 AM EDT Treatment [address] [phone] [place], Brit G, OT Post-operative state (Primary Dx); Carpal tunnel syndrome of left wrist 02/04/2025 1:45 PM EDT Treatment [facility] [address] [phone] Janine Martino, ARANDA/L Post-operative state (Primary Dx); Carpal tunnel syndrome of left wrist 01/28/2025 10:15 AM EDT Treatment [facility] [address] [phone] Janine Martino, ARANDA/L Post-operative state (Primary Dx); Carpal tunnel syndrome of left wrist from Last 3 Months Surgical History Surgery Date Site/Laterality Comments SECTION X3 BARIATRIC SURGERY WRIST SURGERY 11/27/2024 Left eCTR, 1st dorsal compartment release, radial core decompression and arthroscopy w/ debridement Medical History Medical History Date Comments Depressive disorder DX:Depressiv e disorder Anxiety state DX:Anxiety state Hypertension Diabetes mellitus ([facility] V24, [facility] V28) GERD (gastroesophageal reflux disease) Chronic pain [...] - - Weight 113 kg (250 lb) 04/14/2025 9:55 AM EDT Height 160 cm (5' 3 ) 04/14/2025 9:55 AM EDT Body Mass Index 44.29 04/14/2025 9:55 AM EDT Plan of Treatment Health Maintenance Due Date Last Done Comments Diabetes: Annual Foot Exam 1994 Diabetes: Annual Retina Eye Exam 1994 Breast Cancer Screening 12/05/2019 12/04/2017 HIV Screening 09/09/2022 Hepatitis C Screening 09/09/2022 Social Influencers of Health Screening 09/09/2022 COVID-19 Vaccine ( season) 2024 Diabetes: Annual Urine Albumin-Creatinine Ratio (uACR) 09/23/2024 Depression Screening 10/01/2024 Influenza Vaccine (#1) 2025 , 07/06/2022, 09/28/2021, Additional history exists Diabetes: Blood Sugar Control Test (HGBA1C) 08/14/2025 02/11/2025, 02/06/2024 Cervical Cancer Screening: Pap Smear 01/17/2026 01/17/2023 Diabetes: Annual GFR (Glomerular Filtration Rate) 02/27/2026 [...] lat pinch at 12.5#; 3pt=9# 4. L [employer] at least 40# (vs 20# init) 03/24/25 [...]
[2025-04-30] MEDS: iohexoL 350 MG/ML 100 ML INFUS..BTL IV (09:52)
== END 2025-04-30 08:54 | disposition home or self-care (01) ==
LOC: HO.CT 08:53
PROVIDERS: PCP Internal Medicine Geriatric Medicine; Visit Provider Surgery
DX: K80.20 Calculus of gallbladder without cholecystitis without obstruction (principal)
CPT/HCPCS: 74177; Q9967

== ENCOUNTER → 2025-04-30 08:54 | Outpatient (BNV) | payer MEDICAID, SELFPAY | PROVIDERS: PCP Internal Medicine Geriatric Medicine; Visit Provider Nuclear Medicine | DX: N83.291 Other ovarian cyst, right side (principal) | CPT/HCPCS: 74177 ==

== ENCOUNTER 2025-05-11 13:48 | Outpatient (AMB) | payer MEDICAID, SELFPAY ==
--- NOTE | 2025-05-11 13:59 | A.OFFVIS_ITS ---
Vital Signs 05/11/25 14:03 Height 5 ft 3 in Weight 256 lb 9.889 oz BMI 45.5 BP 139/75 Blood Pressure Location Lt brachial Position Sitting Pulse 86 Intake Visit Reasons: s/p CT 04/30/25 Intake Note: Patient here to discuss abdomen CT 04-30-2025 results. Patient c/o:on and off abdominal pain. Varnish Blender Required: Yes Varnish Blender Name: Liban # [id number] Accompanied by: Self / Same As Patient Allergies seasonal allergies Allergy (Unknown, Uncoded 05/11/25 14:04) hives Medication List - Last Reconciled 05/11/25 by Costa Fisher MD albuterol sulfate 90 mcg/actuation (Proventil HFA) 1 - 2 puffs inhalation Q4-6H PRN cetirizine (Zyrtec) 10 mg PO DAILY PRN diclofenac sodium 1% 4 grams topical QID epinephrine IM DIRECTED fluticasone propionate 50 mcg/actuation 1 spray intranasal DAILY gabapentin 100 mg PO BEDTIME 90 days hydroxyzine HCl 10 mg PO Q8H PRN levonorgestrel (Mirena) intrauterine losartan-hydrochlorothiazide 100-25 mg 1 tab PO QAM metformin ER 1,000 mg PO QAM metronidazole 500 mg PO Q12H miconazole nitrate 2% 1 appl topical BID sertraline (Zoloft) 100 mg PO DAILY tirzepatide (Mounjaro) 7.5 mg subcut QWEEK HPI HPI s/p CT 04/30/25: Details: She here for a follow-up for gallstones. I had seen her last 04/08/2025 because of this. She has had some periodic right upper quadrant pain. She had an ultrasound showing gallstones. She does have a history of sleeve gastrectomy. I had sent her for a CAT scan out any other pathology She does state that she feels that her symptoms have improved significantly. She says she no longer has significant or frequent episodes of pain. She has good oral intake. 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 De Quervain's tenosynovitis, left Kienb?ck's disease EDDIE positive Migraine with aura Prolonged menstrual cycle Fibroid Abnormal Pap smear of cervix Diabetes HTN (hypertension) Surgical History H/O left wrist surgery Gastric bypass status for obesity Hx of section Family History Mother HTN (hypertension) Prediabetes Rheumatoid arthritis Maternal Grandmother Uterus cancer Son Down syndrome Social History Household Members: Children Housing: House Alcohol intake: current Patient Tobacco Use Status: Never used Tobacco service: No Current occupational status: unemployed Sexual orientation: Straight/Heterosexual Gender identity: Female Female Reproductive History Menstrual Age of Menarche: 9 Review of Systems Const Denies chills and Denies fever(s) Resp Denies cough GI Denies diarrhea and Denies vomiting Denies urinary frequency Physical Exam Vital Signs: Last Vital Signs Pulse 86 05/11/25 14:03 BP 139/75 05/11/25 14:03 BMI result Body Mass Index 45.5 Const Other: Morbidly obese General: comfortable and no acute distress Resp Effort & Inspection: normal respiratory effort Cardio Rate: regular rate GI Palpation (GI): Soft to palpation, not firm, nontender and no guarding Assessment & Plan Assessment & Plan (1) Gallstones: Code(s): K80.20 - Calculus of gallbladder without cholecystitis without obstruction Category: Medical Plan: She is known to have gallstones from a previous ultrasound. I have reviewed her CAT scan and this not not reveal any other pathology. The gallstones are not seen on CAT scan She also says that her pain has improved significantly. She says that she no longer has severe episodes. I had reviewed with her the technique of laparoscopic cholecystectomy and open cholecystectomy. I explained the risks including but not limited to bleeding, infections, bowel injury, injury to other organs including the bile duct liver, bile leak, as well as the benefits and alternatives. She does understand that her perioperative risks are a little higher in view of her morbid obesity She says that she would like to hold off on surgery this time. She says she would like to lose some more weight prior to scheduling this. She says she will call the office once she is ready to proceed with cholecystectomy. Coding Level of Care Code Est Pt Level 3 (89510) Diagnoses Gallstones K80.20
[2025-05-11 14:03] VITALS: BP 139/75; PULSE 86; BMI 45.5
--- OUTSIDE RECORDS SUMMARY | 2025-05-11 14:16 | XMS_ITS | Encounter Summary ---
Author Organization [employer] Address [address] [facility] 7t [place] [address] Care Team Providers Care Railway Traction Line Worker Name Role Phone Name, Cuong RODRIGUEZ Primary Care Provider [phone] Irma Freeman PharmD Unavailable Reason for Visit * Reason Comments Med Refill Encounter Details Date Type Department Care Team (Late st Contact Info) Description 09/28/2023 Refill [facility] [address] [place], [place] [phone] Name, MD Cuong [address] [place], [place] [phone] Chronic low back pain, unspecified back pain [...] Description 05/18/2025 10:00 AM EDT Medication Management [address] [address] Irma Freeman PharmD [address] [place] [phone] 05/26/2025 11:15 AM EDT Office Visit [address] [address] NameCuong MD [address] [place] [address] documented as of this encounter Goals Goal [...] present documented in this encounter Care Teams Railway Traction Line Worker Relationship Specialty Start Date End Date NameCuong MD [address] [place] [address] PCP - General Family Medicine 07/19/17 Irma Freeman PharmD [address] [place] [address] Pharmacist Internal Medicine 02/20/23 documented as of this encounter
--- OUTSIDE RECORDS SUMMARY | 2025-05-11 14:16 | XMS_ITS | Clinical Summary ---
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); De Quervain's tenosynovitis, left; Carpal tunnel syndrome, left upper limb 03/24/2025 10:15 AM EDT Treatment [facility] Occupational [address] [phone] Brit Barcenas, NITHIN Post-operative state (Primary Dx); Carpal tunnel syndrome of left wrist 03/20/2025 1:15 PM EDT Treatment [facility] Occupational [address] [phone] Janine Martino, ARANDA/L Post-operative state (Primary Dx); Carpal tunnel syndrome of left wrist 03/04/2025 10:15 AM EDT Treatment [address] [phone] Ev Hill OT Post-operative state (Primary Dx); Carpal tunnel syndrome of left wrist 03/02/2025 9:30 AM EDT Office Visit Orthopedic Surgery - [place] [address] [phone] Huma Kat MD 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); Post-operative state; De Quervain's tenosynovitis, left; Carpal tunnel syndrome, left upper limb; Radial styloid tenosynovitis (de quervain) 02/24/2025 10:00 AM EDT Treatment [address] [phone] Janine Martino, ARANDA/L Post-operative state (Primary Dx); Carpal tunnel syndrome of left wrist 02/17/2025 10:00 AM EDT Treatment [address] [phone] Janine Martino ARANDA/L Post-operative state (Primary Dx); Carpal tunnel syndrome of left wrist 02/10/2025 10:00 AM EDT Treatment [address] [phone] Narinder, Brit G, OT Post-operative state (Primary Dx); Carpal tunnel syndrome of left wrist from Last 3 Months Surgical History Surgery Date Site/Laterality Comments SECTION X3 BARIATRIC SURGERY WRIST SURGERY 11/27/2024 Left eCTR, 1st dorsal compartment release, radial core decompression and arthroscopy w/ debridement Medical History Medical History Date Comments Depressive disorder DX:Depressiv e disorder Anxiety state DX:Anxiety state Hypertension Diabetes mellitus ([facility] V24, [facility] V28) GERD (gastroesophageal reflux disease) Chronic pain [...] 025 1:11 PM EDT) No Brit Barcenas, NITHIN Note: 1> Return demo HEP w/ progressions [...] lat pinch at 12.5#; 3pt=9# 4. L Dust Box Tender at least 40# (vs 20# init) 03/24/25 [...]
== END 2025-05-11 14:17 | disposition home or self-care (01) ==
LOC: HO.HGS 13:49
PROVIDERS: PCP Internal Medicine Geriatric Medicine; Visit Provider Surgery
DX: K80.20 Calculus of gallbladder without cholecystitis without obstruction (principal)
CPT/HCPCS: 99213

== ENCOUNTER → 2025-05-11 13:48 | Outpatient (BNVA) | payer MEDICAID, SELFPAY | PROVIDERS: PCP Internal Medicine Geriatric Medicine; Visit Provider Surgery | DX: K80.20 Calculus of gallbladder without cholecystitis without obstruction (principal); R10.11 Right upper quadrant pain | CPT/HCPCS: 99212 ==

== ENCOUNTER 2025-06-10 08:45 | Outpatient (REF) | payer MEDICAID, SELFPAY ==
[2025-06-10 22:25] LABS: Bacterial Vaginosis PCR POSITIVE (Negative); Candida Group PCR NOT DETECTED (Not Detect); Candida glab krusei PCR NOT DETECTED (Not Detect); Trichomonas vaginalis PCR NOT DETECTED (Not Detect)
== END 2025-06-10 08:46 | disposition home or self-care (01) ==
LOC: HO.LAB 08:45
PROVIDERS: PCP Internal Medicine Geriatric Medicine; Visit Provider Advanced Practice Midwife
DX: N81.2 Incomplete uterovaginal prolapse (principal); N81.89 Other female genital prolapse; N39.41 Urge incontinence; Z97.5 Presence of (intrauterine) contraceptive device
CPT/HCPCS: 81515; 99212

== ENCOUNTER 2025-06-10 08:45 | Outpatient (AMB) | payer MEDICAID, SELFPAY ==
--- NOTE | 2025-06-10 08:46 | MHC.OFFVIS ---
Vital Signs 06/10/25 08:47 Height 5 ft 3 in Weight 256 lb BMI 45.3 Intake Visit Reasons: ? prolapse Optical Laboratory Manager Required: Yes Optical Laboratory Manager Language: Real Estate Recruiter Services: Optical Laboratory Manager Present (Cibiem) Optical Laboratory Manager Name: Estrella #[id number] Information Interpreted: clinical only Retail Banking Manager: Retail Banking Manager Present (Judith) Accompanied by: Self / Same As Patient Allergies seasonal allergies Allergy (Unknown, Uncoded 05/11/25 14:04) hives HPI Comments Details: Patient was seen in [facility] ED 05/29/25, due to feeling a bulge of tissue at the vaginal opening. She reports noting this when urinating. She denies any pelvic pain. IUD in place, no bleeding concerns, vaginal discharge or odors. Admits to leakage of urine when waiting too long to empty. 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 De Quervain's tenosynovitis, left Kienb?ck's disease EDDIE positive Migraine with aura Fibroid Abnormal Pap smear of cervix Diabetes HTN (hypertension) Surgical History H/O left wrist surgery Gastric bypass status for obesity Hx of section Family History Mother HTN (hypertension) Prediabetes Rheumatoid arthritis Maternal Grandmother Uterus cancer Son Down syndrome Social History Household Members: Children Housing: House Alcohol intake: current Patient Tobacco Use Status: Never used Tobacco service: No Current occupational status: unemployed Sexual orientation: Straight/Heterosexual Gender identity: Female Female Reproductive History Menstrual Age of Menarche: 9 Review of Systems Const All systems reviewed & are unremarkable except as noted in HPI and below Reports as per HPI Eyes Reports no additional complaints ENT Reports no additional complaints Card Reports no additional complaints Resp Reports no additional complaints GI Reports as per HPI and Reports no additional complaints Reports as per HPI Musc Reports no additional complaints Skin/Breast Reports as per HPI Neuro Reports no additional complaints Psych Reports no additional complaints Endo Reports no additional complaints Espinoza/Lymph Reports no additional complaints Aller/Immun Reports no additional complaints Physical Exam Vital Signs: BMI result Body Mass Index 45.3 Const General: cooperative, healthy appearing, no acute distress, well developed and alert Orientation/consciousness: patient oriented x3 HEENT Head: Yes normal to inspection Eyes General: appearance normal, both eyes and all related structures Neck Neck: Yes normal visual inspection Thyroid: Thyroid normal Chest Chest palpation & inspection: normal inspection of the chest and other (no puckering, dimpling, peau de orange, retraction, discharge, masses) Breast/axilla inspection: normal inspection of the breasts Breast/axilla palpation: normal palpation of the breasts Resp Effort & Inspection: normal respiratory effort GI Inspection: Yes normal to inspection Palpation (GI): Soft to palpation Rectal Exam - Female: deferred General: Yes bladder normal to palpation External Female Exam: normal external appearance and normal appearance of the urethra Speculum Exam - Vagina: normal appearance of the vagina, normal palpation and normal vaginal discharge Speculum Exam - Cervix: normal appearance of the cervix, normal palpation and Other cervical findings present (IUD strings at the os) Bimanual exam- vagina & uterus: normal bimanual exam, normal palpation, uterine size normal, bladder normal to palpation, normal palpation and non-tender Bimanual Exam- Adnexa, other: no masses and cystocele Skin General skin exam: no rashes or lesions noted Rashes: no rashes Neuro General: patient oriented x3 Cognition (Neuro): normal cognition Extrem General: Yes normal to inspection Psych Attitude: cooperative Thought process: Normal thought process present Assessment & Plan Assessment & Plan (1) Urge incontinence: Code(s): N39.41 - Urge incontinence Plan: Referral to pelvic floor therapy placed. The patient expressed understanding and agreement with the plan of care. All of her questions and concerns were addressed to the best of my ability. (2) Cystocele with incomplete uterovaginal prolapse: Code(s): N81.2 - Incomplete uterovaginal prolapse Plan: Plan referral to pelvic floor therapy, booklet given for review. (3) IUD (intrauterine device) in place: Code(s): Z97.5 - Presence of (intrauterine) contraceptive device (4) Pelvic floor weakness: Code(s): N81.89 - Other female genital prolapse Category: Medical Plan: Referral placed. Plan Advised to call if there are any concerns with bleeding or the IUD. The patient expressed understanding and agreement with the plan of care. All of her questions and concerns were addressed to the best of my ability. This note is constructed using voice recognition software. While every effort has been made to ensure accuracy, investment sales assistant errors may have been included. Orders: Orders Bacterial Vaginosis Panel Today N81.89 - Other female genital prolapse, N89.8 - Other specified noninflammatory disorders of vagina PT Evaluation and Treatment Today N39.41 - Urge incontinence, N81.2 - Incomplete uterovaginal prolapse, N81.89 - Other female genital prolapse Referrals Pelvic Suction Drum Drier Operator Referral N39.41 - Urge incontinence, N81.2 - Incomplete uterovaginal prolapse, N81.89 - Other female genital prolapse Coding Level of Care Code Est Pt Level 3 (24329) Diagnoses Urge incontinence N39.41 Cystocele with incomplete uterovaginal prolapse N81.2 IUD (intrauterine device) in place Z97.5 Pelvic floor weakness N81.89
[2025-06-10 08:47] VITALS: BMI 45.3
--- OUTSIDE RECORDS SUMMARY | 2025-06-10 10:11 | XMS_ITS | Encounter Summary ---
Author Organization [employer] Address [address] [place] [address] Care Team Providers Care Press Brake Operator Name Role Phone Name, Cuong RODRIGUEZ Primary Care Provider [phone] Irma Freeman PharmD Unavailable Reason for Visit * Reason Comments Med Refill Encounter Details Date Type Department Care Team (Late st Contact Info) Description 09/28/2023 Refill [facility] [address], [place] [phone] Name, MD Cuong [address], [place] [phone] Chronic low back pain, unspecified back pain [...] Care Team (Late st Contact Info) Description 06/19/2025 11:30 AM EDT Medication Management [address] [address] Irma Freeman PharmD [address] [place] [id number] 07/21/2025 2:00 PM EDT Office Visit [address] [address] NameCuong MD [address] [place] [id number] documented as of this encounter Goals Goal [...] documented in this encounter Care Teams Press Brake Operator Relationship Specialty Start Date End Date NameCuong MD [address] [place] [address] PCP - General Family Medicine 07/19/17 Irma Freeman PharmD [address] [place] [address] Pharmacist Internal Medicine 02/20/23 documented as of this encounter
--- OUTSIDE RECORDS SUMMARY | 2025-06-10 10:11 | XMS_ITS | Clinical Summary ---
Author Organization [employer] Address [address] [place] [address] 7[address] [place] [address] Care Team Providers Care Kelly Machine Operator Name Role Phone Name, Cuong RODRIGUEZ Primary Care Provider [phone] Irma Freeman PharmD Unavailable [phone] Allergies No known active allergies Medications EPINEPHrine (EpiPen 2-Pedro Luis) 0.3 MG/0.3ML injection syringe Inject 0.3 mL into the shoulder, thigh, or buttocks 2 each 1 023 Active Diclofenac Sodium 1 % gel Apply 2 g topically if needed in the morning, at noon, in the evening, and at bedtime (pain). 150 g 1 024 Active sertraline (Zoloft) 100 MG tablet TAKE 2 TABLETS BY MOUTH EVERY DAY AT BEDTIME 60 tablet 5 025 Active losartan-hydroC HLOROthiazide (Hyzaar) 100-25 MG tabletIndicatio ns:Type 2 diabetes mellitus with obesity (CMS/HCC) (CMS/HCC),Essen tial hypertension Take 1 tablet by mouth Once per day. 30 tablet 11 025 2025 Active amLODIPine (Norvasc) 5 MG tabletIndicatio ns:Type 2 diabetes mellitus with obesity (CMS/HCC) (CMS/HCC),Essen tial hypertension TAKE 1 TABLET BY MOUTH EVERY MORNING 90 tablet 1 025 Active cyclobenzaprine (Flexeril) 10 MG tablet Take 1 tablet (10 mg) by mouth 3 times daily. 90 tablet 025 Active Blood Pressure kitIndications: Essential hypertension Use once a day 1 kit 025 Active aspirin-acetami nophen-caffeine (Excedrin Migraine) 250-250-65 MG tablet Take 2 tablets by mouth if needed each day for headaches. Active metFORMIN XR (Glucophage-XR) 500 MG 24 hr tabletIndicatio ns:Type 2 diabetes mellitus with obesity ([facility]/HCC) ([facility]) Take 2 tablets (1,000 mg) by mouth with breakfast. 180 tablet 3 025 Active glucose blood (FREESTYLE LITE) test stripIndication s:Type 2 diabetes mellitus with obesity (CMS/HCC) ([facility]) Use to test blood sugar TWICE daily, as directed 50 each 11 025 Active hydrOXYzine HCl (Atarax) 25 MG tablet TAKE 1 TABLET BY MOUTH THREE TIMES DAILY IN THE MORNING, AT NOON, AND AT BEDTIME NEEDED FOR ITCHING 90 tablet 3 025 Active TRUEplus Lancets 33G miscIndications :Type 2 diabetes mellitus with obesity ([facility]/HCC) ([facility]) TEST BLOOD SUGAR TWICE DAILY 100 each 11 025 Active Mounjaro 10 MG/0.5ML solution auto-injectorIn dications:Essen tial (primary) hypertension,Ty pe 2 diabetes mellitus with other specified complication ([facility]) INJECT ONE PEN (=10MG) SUBCUTANEOUSLY ONCE A WEEK DIRECTED 2 mL 2 025 Active cetirizine (ZyrTEC) 10 MG tablet TAKE 1 TABLET BY MOUTH EVERY MORNING 90 tablet 1 025 Active TRUEplus Lancets 33G miscIndications :Type 2 diabetes mellitus with obesity ([facility]/HCC) ([facility]) Use to test blood sugar twice daily, as directed 50 each 11 024 2024 Discontinued cetirizine (ZyrTEC) 10 MG tablet TAKE 1 TABLET BY MOUTH EVERY MORNING 90 tablet 1 025 2024 Discontinued Tirzepatide (Mounjaro) 10 MG/0.5ML solution auto-injector Inject 10 mg under the skin 1 (one) time per week. 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[employer] Obstructive sleep apnea syndrome 03/08/2018 [...] 07/19/2017 Type 2 diabetes mellitus with obesity ([facility]/HCC) 07/19/2017 Chronic low back pain 07/19/2017 Allergic rhinitis 07/19/2017 Encounters Date Type Department Care Team Description 06/08/2025 Refill [facility] [address] [place] [address] Name, MD Cuong 06/03/2025 Refill [facility] [address] [facility] [place] [address] Name, MD Cuong Essential (primary) hypertension; Type 2 diabetes mellitus with other specified complication ([facility]) 05/26/2025 11:15 AM EDT Office Visit [facility] [address] [facility] [place] [phone] Cuong Casas MD Type 2 diabetes mellitus with obesity ([facility]/HCC) ([facility]) (Primary Dx); Gallstones; Skin tag 05/26/2025 Travel 05/25/2025 Telephone [facility] [address] [facility] [place] [address] Tawana Begum MA chart prep 05/14/2025 Refill [facility] [address] [place] [address] Cuong Casas MD Type 2 diabetes mellitus with obesity ([facility]/HCC) ([facility]) 05/12/2025 Telephone [facility] [address] [facility] [place] [address] Tawana Begum MA july05/09/2025 Refill [facility] [address] [facility] [place] [address] Cuong Casas MD 04/08/2025 Orders Only GENERIC EXTERNAL DATA DEPARTMENT Provider, Generic External Data 03/30/2025 Telephone [facility] [address] [facility] [place] [address] Irma Freeman, PharmD Prior Authorization (Nisha ) 03/30/2025 Travel from Last 3 Months Immunizations Immunization Administration [...] Sign Reading Time Taken Comments Blood Pressure 134/82 05/26/2025 11:37 AM EDT Pulse 88 05/26/2025 11:37 AM EDT Temperature 36.7 C (98.1 F) 05/26/2025 11:37 AM EDT Respiratory Rate 14 05/26/2025 11:37 AM EDT Oxygen Saturation 99% 05/26/2025 11:37 AM EDT Inhaled Oxygen Concentration - - Weight 115 kg (254 lb 6.4 oz) 05/26/2025 11:37 A M EDT Height 160 cm (5' 3 ) 05/26/2025 11:37 AM EDT Body Mass Index 45.06 05/26/2025 11:37 AM EDT Plan of Treatment Upcoming Encounters Date Type Department Care Team (Late st Contact Info) Description 06/19/2025 11:30 AM EDT Medication Management [facility] [address] [place] [phone] Irma Freeman, PharmD [address] [place], [place] [phone] 07/21/2025 2:00 PM EDT Office Visit [facility] [address] [place] [phone] Name, MD Cuong [address] [place], [place] [phone] Health Maintenance Due Date Last Done Comments Family Planning (PISQ) 1999 HPV Vaccines (1 - 3-dose series) 1999 Cervical Cancer Screening 01/18/2024 HPV/Cotest 01/18/2024 01/17/2023, 10/01, 09/03/2019 Pap Smear 01/18/2024 01/17/2023, 10/14/2020 Eye Exam 01/05/2025 01/05/2023 Diabetes: Foot Exam 05/14/2025 05/14/2024, 05/14/2024, 07/23/2023, Additional history exists Diabetes: Urine Protein Screening 05/14/2025 05/14/2024, 04/20/2023, 11/02/2022 COVID-19 Vaccine ( season) 2025 Influenza Vaccine (#1) 2025 , 07/06/2022, 09/28/2021, Additional history exists Diabetes: Hemoglobin A1C 08/14/2025 025, 02/06/2024, 10/05/2023, Additional history exists Depression Screening 02/11/2026 02/11/2025, 02/12/20 25 Disability Screening 02/11/2026 02/11/2025 SDOH Screening 02/11/2026 02/11/2025 Lipid Panel 02/18/2026 02/18/2025, 11/02/2022 Alcohol/Substance Use Screening 05/26/2026 05/26/2025 Tobacco Screening 05/26/2026 05/26/2025 Mammogram 10/09/2026 10/09/2024, 12/04/2017 DTaP/Tdap/Td Vaccines (3 - Td or Tdap) 07/15/2031 07/15/2021, 08/16/2017 Zoster Vaccines (1 of 2) 2034 RSV Patients and Patients Aged 60 years or older (1 - 1-dose 75+ series) 2059 Pneumococcal Vaccine: Pediatrics (0 to 5 Years) and At-Risk Patients (6 to 49) Years Completed 02/21/2023 Hepatitis B Vaccines Completed 03/27/2023, 02/22/20 23 HIV Screening Completed 07/03/2023 Hepatitis C Screening Completed 02/18/2025, 023 HIB Vaccines Aged Out No longer eligi [...] 6(02/11/2025 3:57 PM EDT) No Irma Freeman, [place] Record your blood sugar as directed Result Component No Irma Freeman PharmD Note: SMBG at least once daily, record values for review in follow up Procedures Procedure Name Priority Date/Time Associated Diagnosis Comments POCT GLUCOSE Routine 05/26/2025 11:59 AM EDT Type 2 diabetes mellitus with obesity (CMS/HCC) (CMS/HCC) CT ABDOMEN PELVIS W CONTRAST Routine 04/30/2025 2:21 PM EDT CREATININE, SERUM Routine 04/08/2025 10: 14 AM EDT UREA NITROGEN (BUN) Routine 04/08/2025 1 0:14 AM EDT HEPATITIS B, C PROFILE Routine 02/18/2025 9:25 AM EDT LIPID PANEL, [...] obesity (CMS/HCC) (CMS/HCC) Leg swelling Leg cramps HIV ANTIBODY/ANTIGEN ([place] [facility]) Routine 07/03/2023 11:54 AM EDT HPV MRNA E6/E7 REFLEX TO HPV 16, 18/45 Routine 01/17/2023 11:01 AM EDT PAP SMEAR Routine 01/17/2023 11:01 AM EDT from Last 3 Months or Most Recently Relevant to Health Maintenance Results * POCT Glucose (05/26/2025 11:59 AM EDT) Glucose Blood, POC 92 60 - 200 mg/dL QC Media Lot # [id number] Lot# Expiration Date Blood Capillary blood specimen / Unknown 05/26/2025 11:59 AM EDT Cuong Casas MD POINT OF CARE TEST ENTER/EDIT OR DERABLES Final Result * CT Abdomen Pelvis w/ Contrast (04/30/2025 2:21 PM EDT) Anatomical Region Laterality Modality Body, Pelvis, Abdomen Computed T omography 04/30/2025 2:21 PM EDT Narrative 04/30/2025 2:22 PM EDT [place] [address] [address] Scan Report Signed Patient: Yakelin Chaney MR#: [id number] 60 : 1985 Acct:[id number] Age/Sex: 39 / F ADM Date: 04/30/25 Loc: HO.CT Attending Dr: Costa Fisher MD Ordering Physician: Costa Fisher MD Date of Service: 04/30/25 Procedure(s): CT abdomen pelvis w IV con Accession Number(s): [id number] cc: Costa Fisher MD; Name,Cuong RODRIGUEZ Report Number: [id number]: Total DLP = 743.00 mGy-cm CLINICAL HISTORY: K80.20 - Calculus of gallbladder without cholecystitis without obstruction CT abdomen and pelvis with contrast Comparison: US/SR - US ABDOMEN LIMITED - 02/27/25 12:30 EDT US/SR - US PELVIS TRANSABDOMINAL AND TRANSVAGINAL - 01/28/24 12:56 EDT Findings: The lung bases are clear. The gallbladder and solid organs are within normal limits. No renal stones. No bowel obstruction, pneumoperitoneum, or pneumatosis. Gastric sleeve. Unremarkable aorta. No ascites or lymphadenopathy. IUD. 4.5 cm right ovarian cyst. Normal appendix. No acute fracture. IMPRESSION: No evidence of calcified gallstones in the gallbladder. Right ovarian cyst. This document has been electronically signed by: Ольга Kinney MD on 04/30/2025 14:21:19 Dictated By: Ольга Kinney MD Signed By: <Electronically signed by Ольга Kinney MD in OV> 04/30/251421 DD/ 20 TD/TT: 04/30/251420 Event Marketing Specialist: Procedure Note Donotuseinterpreter, Image - 04/30/[address] [place] [address] [address] Scan Report Signed Patient: Naga Chaney#: [id number] 60 : 1985Acct:[id number] Age/Sex: 39 / FADM Date: 04/30/25 Loc: HO.CT Attending Dr: Costa Fisher MD Ordering Physician: Costa Fisher MD Date of Service: 04/30/25 Procedure(s): CT abdomen pelvis w IV con Accession Number(s): [id number] cc: Costa Fisher MD; Name,Cuong RODRIGUEZ Report Number: [id number]: Total DLP = 743.00 mGy-cm CLINICAL HISTORY: K80.20 - Calculus of gallbladder without cholecystitiswithout obstruction CT abdomen and pelvis with contrast Comparison: US/SR - US ABDOMEN LIMITED - 02/27/25 12:30 EDT US/SR - US PELVIS TRANSABDOMINAL AND TRANSVAGINAL - 01/28/24 12:56 EDT Findings: The lung bases are clear. The gallbladder and solid organs are within normal limits. No renal stones. No bowel obstruction, pneumoperitoneum, or pneumatosis. Gastric sleeve. Unremarkable aorta. No ascites or lymphadenopathy. IUD. 4.5 cm right ovarian cyst. Normal appendix. No acute fracture. IMPRESSION: No evidence of calcified gallstones in the gallbladder. Right ovarian cyst. This document has been electronically signed by: Ольга Kinney MD on 04/30/2025 14:21:19 Dictated By: Ольга Kinney MD Signed By: <Electronically signed by Ольга Kinney MD in OV> 04/30/251421 DD/ 20 TD/TT: 04/30/251420 Event Marketing Specialist: us [facility] External Provider IMG CT PROCEDURES Final Result * Creatinine, Serum (04/08/2025 10:14 AM EDT) Creatinine, Serum 0.59 0.5 - 1.4 mg/dL [facility] Estimated Glomerular Filt Rate >60 [facility] Comment:Chronic Kidney Disea se: Estimated GFR < 60 mL/min/1.46n3Lvciux Kidney Disease: Estimated GFR < 15 mL/min/1.73m2 04/08/2025 10:1 4 AM EDT 04/08/2025 10:14 AM EDT us Generic External Data Provider LAB BLOOD ORDERAB LES Final Result Performing Organization Address [facility]/ZIP Co de Phone Number [facility] [address] [place] [phone] * BUN (Blood Urea Nitrogen) (04/08/2025 10:14 AM EDT) Pathologist [facility] Urea Nitrogen (BUN) 9 9 - 16 mg/dL [facility] 04/08/2025 10:1 4 AM EDT 04/08/2025 10:14 AM EDT Generic External Data Provider LAB BLOOD ORDERAB LES Final Result Performing Organization Address City/[facility] Co de Phone Number [facility] [address] [place] [phone] * Hepatitis B, C Profile (02/18/2025 9:25 AM EDT) Pathologist [facility] ~Hepatitis B Surface Antibody REACTIVE Nonreactive [facility] Comment:REACTIVE: > 11.99 mI U/mL Hepatitis B Core Antibody Nonreactive Nonreactive [facility] Hepatitis C Antibody Nonreactive Nonreactive [facility] Comment:Antibodies to HCV no t detected; does not exclude early acuteHCV infection. Hepatitis B Surface Ag Negative Negative [facility] 02/18/2025 9:25 AM EDT 02/18/2025 11:04 AM EDT us Generic External Data Provider LAB BLOOD ORDERAB LES Final Result Performing Organization Address [facility] Co de Phone Number [facility] [address] [place] [address] [phone] * Lipid Panel, Standard (02/18/2025 9:25 AM EDT) Triglycerides 72 <150 mg/dL [facility] Comment:Desirable Triglyceri de: less than 150 mg/dLBorderline High Triglyceride 150-199 mg/dLHigh Triglyceride: 200-499 mg/dLVery High Triglyceride: greater than or equal to 5OO mg/dL Cholesterol 148 <200 mg/dL [facility] Comment:Desirable Cholestero l: less than 200 mg/dLBorderline High Cholesterol: 200-239 mg/dLHigh Cholesterol: greater than 239 mg/dL LDL Cholesterol Calculated 93 <100 mg/dL [facility] Comment:Desirable LDL: less than 100 mg/dLNear Optimal/Above Optimal LDL: 110- 129 mg/dLBorderline High LDL: 130-159 mg/dLHigh LDL: 160-189 mg/dLVery High LDL: greater than or equal to 190 mg/dL HDL Cholesterol 41 >40 mg/dL [facility] Comment:Desirable HDL: great er than 40 mg/dL Note: This HDL assay may give artificially low results in patients with liver disease. Blood Venous blood specimen / Unknown 02/18/2025 9:25 AM EDT 02/18/2025 11:04 AM EDT Cuong Casas MD LAB BLOOD ORDERABLES Final Resul t Performing Organization Address City/[facility]/ZIP Co de Phone Number [facility] [address] [place] [address] [phone] * POCT HGB A1C (02/11/2025 3:57 PM EDT) Hemoglobin A1C 6.0 4.0 - 6.0 % QC Media Lot # [id number] Lot# Expiration Date 110,426 Blood 02/11/2025 3:57 PM EDT Cuong Casas MD POINT OF CARE TEST ENTER/EDIT OR DERABLES Final Result * BI Mammogram Screening Tomosynthesis Bilateral (10/09/2024 11:45 AM EST) Anatomical Region Laterality Modality Breast Bilateral Mammography 10/09/2024 11:4 5 AM EST Narrative 10/17/2024 7:48 AM EST [facility] [address] [place] [address] Mammography Report Signed Patient: Yakelin Chaney MR#: [id number] 60 : 1985 Acct:[id number] Age/Sex: 39 / F ADM Date: 10/09/24 Loc: HO.MAMMO Attending Dr: Bessie Snyder CNM Ordering Physician: Bessie Snyder CNM Results: 1Nega tive Date of Service: 10/09/24 Follow Up: 1 Year From Orig inal Mammogram Procedure(s): MM tomosynthesis screening BI Accession Number(s): [id number] cc: Name,Cuong RODRIGUEZ; Bessie Snyder CNM EXAMINATION: [...] 10/17/24 0745 DD/ 1145 TD/TT: 10/09/24 1213 Event Marketing Specialist: Procedure Note Donceceliasarwatter, Image - 10/17/2024 [facility] [address] [place], [place] [address] Mammography Report Signed Patient: Naga Chaney#: [id number] 60 : 1985Acct:[id number] Age/Sex: 39 / FADM Date: 10/09/24 Loc: HO.MAMMO Attending Dr: Bessie Snyder CNM Ordering Physician: Bessie Snyderesults: 1Nega tive Date of Service: 10/09/24Follow Up: 1 Year From Orig inal Mammogram Procedure(s): MM tomosynthesis screening BI Accession Number(s): [id number] cc: Name,Cuong RODRIGUEZ; Bessie Snyder CNM EXAMINATION: [...] 10/17/24 0745 DD/ 1145 TD/TT: 10/09/24 1213 Event Marketing Specialist: [facility] External Provider IMG BI PROCEDURES Edited Result - Final * Albumin, Random Urine W/Creatinine (05/14/2024 3:38 PM EDT) Creatinine, Urine 79.05 mg/dL [facility] Microalbumin Urine <5.0 mg/L H [facility] Microalbum Creatinine Ratio Ur TNP <30 ug/mg cr [facility] Comment:Unable to calculate albumin/creatinine ratio due to lowmicroalbumin or creatinine result. Urine (Urine, Random) 05/14/2024 3:38 PM EDT 05/14/2024 4:08 PM EDT Result [facility] Cuong Casas MD LAB URINE ORDERABLES Final Resul t [facility] [address] [place] [phone] * HIV Ab/Ag ([facility]) (07/03/2023 11:54 AM EDT) HIV AB/AG Nonreactive Nonreactive [facility] Comment:HIV-1 p24 Ag and/or HIV-1/HIV-2 Ab not detected.A test result that is nonreactive does not exclude thepossibility of exposure to or infection with HIV-1 and/orHIV-2. Nonreactive results in this assay for individualswith prior exposure to HIV-1 and/or HIV-2 may be due toantigen and antibody levels that are below the limit ofdetection of this assay.The [employer] HIV Ag/Ab Combo assay result andsupplemental assay results should be interpreted inconjunction with the patient's clinical presentation,history and other laboratory results. If the results areinconsistent with clinical evidence, additional testing issuggested to confirm the result. 07/03/2023 11:5 4 AM EDT 07/03/2023 11:54 AM EDT Generic External Data Provider LAB BLOOD ORDERAB LES Final Result Performing Organization Address [facility]/ZIP Co de Phone Number [facility] [address] [place] [phone] [phone] * HPV mRNA E6/E7 w/Reflex to HPV Genotypes 16, 18/45 (01/17/2023 11:01 AM EDT) HPV nRNA E6/E7 Not Detected Not Detected [facility] Comment:Methodology: Transcr iption-Mediated AmplificationThis assay detects E6/E7 viral messenger RNA (mRNA) from 14high-risk HPV types (16,18,31,33,35,39,45,51,52,56,58,59,66,68).Cervical sources are required for HPV testing.If a vaginal source from a patient who has had atotal hysterectomy with removal of cervix wassubmitted, please contact the testing laboratoryfor alternative testing options.For additional information, please refer [email or web address](This link if provided for information/educational purposes only.)THIS TEST WAS PERFORMED AT:[facility] [place] [phone] PRADHAN MD HPV mRNA E6/E7 [facility] HPV 16 RNA [facility] HPV 18/45 RNA [facility] 01/17/2023 11:0 1 AM EDT 01/18/2023 8:15 AM EDT [facility] External Provider LAB CYT OLOGY ORDERABLES Final Result Performing Organization Address [facility]/ZIP Co de Phone Number [facility] [address] [place] [address] [phone] * Pap Smear (01/17/2023 11:01 AM EDT) 01/17/2023 11:0 1 AM EDT 01/18/2023 8:15 AM EDT Narrative [facility] - 01/25/2023 1:20 PM EDT ----- ------- Name: Yakelin Chaney Age/Sex: 37/F : 1985 Unit#: [id number] Attend Dr: Madeleine Silveira Re01/17/23 Status: DEP REF Location: [facility] Disch: ----- ------- SPEC : [id number] RECD: 01/18/23 STATUS: VERONIKA DOROTEO NUM: [id number] LUIS: 01/17/23-[address] [facility] [address]: Madeleine Silveira CNM ENTERED: 01/18/23 SP TYPE: Pap Smr NOE DR: ORDERED: Pap Smear, PAP path review Interpretation General Category: Epithelial cell abnormality. Adequacy: Endocervical component present. Interpretation: Atypical squamous cells of undetermined significance. Abundant blood present. HPV mRNA E6/E7: NOT DETECTED This assay detects E6/E7 viral messenger RNA (mRNA) from 14 high-risk HPV types (16, 18, 31, 33, 35, 39, 45, 51, 52, 56, 58, 59, 66, 68) HPV testing performed by [employer], [place], [place]. See reference laboratory portion of the EMR for entire report. Clinical Information LMP: Nexplanon Previous PAP test: Unknown Date/Findings Material Received ThinPrep Cervical ----- ------- Signed (signature on file) Kay Andre 01/25/23 1320 ----- ------- END OF REPORT [facility] External Provider LAB CYT [facility] ORDERABLES Final Result [facility] [address] [place] [phone] from Last 3 Months or Most Recently Relevant to Health Maintenance Insurance C3 Care Teams Kelly Machine Operator Relationship Specialty Start Date End Date Name, MD Cuong [address] [place] [address] PCP - General Family Medicine 07/19/17 Irma Freeman, [place] [address] [place] [address] Pharmacist Internal Medicine 02/20/23
--- OUTSIDE RECORDS SUMMARY | 2025-06-10 10:11 | XMS_ITS | Encounter Summary ---
Author Organization [employer] Address [address] [place] [address] [address] [place] [address] Care Team Providers Care Log Chipper Name Role Phone Name, Cuong RODRIGUEZ Primary Care Provider [phone] Irma Freeman PharmD Unavailable [phone] Reason for Visit * Reason Comments Med Refill Encounter Details Date Type Department Care Team (Late st Contact Info) Description 06/08/[address] [facility] [address] [place], [place] [phone] Name, MD Cuong [address] [place] [address] Social History Tobacco Use Types Packs/Day Years [...] the past 12 months, has t he [employer] gas, oil or water company threatened to [...] Description 06/19/2025 11:30 AM EDT Medication Management [facility] [address] [place] [phone] Irma Freeman PharmD [address] [place] [phone] 07/21/2025 2:00 PM EDT Office Visit [facility] [address] [place] [phone] Name, MD Cuong [address] [place] [phone] documented as of this encounter Goals Goal Patient Goal Type Associated Problems Recent Progress Patient-Stated? Author Drink less soda, juice, and other sugary beverages Diet No Evette Cruz, RN Eat a balanced, healthy diet Diet No Evette Cruz, RN Hemoglobin A1c < 7 Result Component 6(02/11/2025 3:57 PM EDT) No Puia, Irma, PharmD Record your blood sugar as directed Result Component No Irma Freeman PharmD Note: SMBG at least once daily, record values for review in follow up documented as of this encounter Visit Diagnoses Not on filedocumented in this encounter Additional Health Concerns Assessment Noted Time PHQ-9 Depression Total Score: 7 02/12/20 25 4:22 PM EDT documented as of this encounter Care Teams Log Chipper Relationship Specialty Start Date End Date Name, MD Cuong [address] [place] [address] PCP - General Family Medicine 07/19/17 Irma Freeman PharmD [address] [place] [address] Pharmacist Internal Medicine 02/20/23 documented as of this encounter
--- OUTSIDE RECORDS SUMMARY | 2025-06-10 10:11 | XMS_ITS | Encounter Summary ---
Author Organization [employer] Address [address] [place] [address] 7t [place] [address] Care Team Providers Care Railroad Accountant Name Role Phone Name, Cuong RODRIGUEZ Primary Care Provider [phone] Irma Freeman PharmD Unavailable Reason for Visit * Reason Comments Med Refill Encounter Details Date Type Department Care Team ([facility] Contact Info) Description 03/01/2023 Refill [facility] MEDICINE [address] [place], [place] [phone] Name, MD Cuong [address] [place] [address] Social History Tobacco Use Types Packs/Day Years [...] Upcoming Encounters Date Type Department Care Team ([facility] Contact Info) Description 06/19/2025 11:30 AM EDT Medication Management [facility] MEDICINE [address] [place] [address] Irma Freeman PharmD [address] [place] [address] 07/21/2025 2:00 PM EDT Office Visit [address] [address] Name, MD Cuong [address] [place] [address] documented as of this encounter Goals Goal [...] on filedocumented in this encounter Care Teams Railroad Accountant Relationship Specialty Start Date End Date NameCuong MD [address] [place] [address] PCP - General Family Medicine 07/19/17 Irma Freeman PharmD [address] [place] [address] Pharmacist Internal Medicine 02/20/23 documented as of this encounter
--- OUTSIDE RECORDS SUMMARY | 2025-06-10 10:12 | XMS_ITS | Clinical Summary ---
Author Organization [facility] Address [address] [place] [address] Phone Care Team Providers Care Safety Technician Name Role Phone Physician, No Pcp Primary Care Provider Unavaila ble Allergies No known active allergies Medications amLODIPine [...] Type 2 diabetes mellitus wit h obesity ([facility] V24, [facility] V28) 07/19/2017 Urticaria 07/19/2017 Encounters Date Type Department Care Team Description 05/29/2025 11:52 PM EDT - 05/30/2025 12:37 AM EDT Emergency [facility] Emergency [address] [place] [address] Acquired female bladder prolapse (Primary Dx) Discharge Disposition: Home or Self Care 04/14/2025 9:45 AM EDT Office Visit Orthopedic Surgery [facility] [address] [facility] [address] [place] [address] Huma Kat MD 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); De Quervain's tenosynovitis, left; Carpal tunnel syndrome, left upper limb 03/24/2025 10:15 AM EDT Treatment [facility] Occupational Therapy [facility] [address] [place] [address] Brit Barcenas OT Post-operative state (Primary Dx); Carpal tunnel syndrome of left wrist 03/20/2025 1:15 PM EDT Treatment [facility] Occupational Therapy [facility] [address] [place] [address] Janine Martino COTA/Amilcar Post-operative state (Primary Dx); Carpal tunnel syndrome of left wrist from Last 3 Months Surgical History Surgery Date Site/Laterality Comments SECTION X3 BARIATRIC SURGERY WRIST SURGERY 11/27/2024 Left eCTR, 1st dorsal compartment release, radial core decompression and arthroscopy w/ debridement Medical History Medical History Date Comments Depressive disorder DX:Depressiv e disorder Anxiety state DX:Anxiety state Hypertension Diabetes mellitus ([facility] V24, [facility] V28) GERD (gastroesophageal reflux disease) [...] Sign Reading Time Taken Comments Blood Pressure 155/97 05/29/2025 9:49 PM EDT Pulse 89 05/29/2025 9:49 PM EDT Temperature 36.7 C (98 F) 05/29/2025 9:49 PM EDT Respiratory Rate 17 05/29/2025 9:49 PM EDT Oxygen Saturation 99% 05/29/2025 9:49 PM EDT Inhaled Oxygen Concentration - - Weight 115 kg (254 lb) 05/29/2025 9:49 PM EDT Height 160 cm (5' 3 ) 05/29/2025 9:49 PM EDT Body Mass Index 44.99 05/29/2025 9:49 PM EDT Plan of Treatment Health Maintenance Due Date Last Done Comments Diabetes: Annual Foot Exam 1994 Diabetes: Annual Retina Eye Exam 1994 Breast Cancer Screening 12/05/2019 12/04/2017 HIV Screening 09/09/2022 Hepatitis C Screening 09/09/2022 Social Influencers of Health Screening 09/09/2022 Diabetes: Annual Urine Albumin-Creatinine Ratio (uACR) 09/23/2024 Depression Screening 10/01/2024 COVID-19 Vaccine ( season) 2025 Influenza Vaccine [...] General On track( 025 1:11 PM EDT) Brit Pelaez OT Note: 1> Return demo HEP w/ [...] lat pinch at 12.5#; 3pt=9# 4. L Porcelain Finish Sprayer at least 40# (vs 20# init) 03/24/25 MET 5. No signif pain to provocative testing (ie Vikram negative - 03/24/25 MET Insurance MEDICAID - [place] Advance Directives * [...] currently active code status orders. Care Teams Safety Technician Relationship Specialty Start Date End Date Physician, No Pcp PCP - General 05/30/25
--- OUTSIDE RECORDS SUMMARY | 2025-06-10 10:12 | XMS_ITS | Encounter Summary ---
Author Organization [employer] Address [address] [facility] 7t [place] [address] Care Team Providers Care Woodworking Shop Laborer Name Role Phone Name, Cuong RODRIGUEZ Primary Care Provider [phone] Irma Freeman PharmD Unavailable Encounter Details Date Type Department Care Team (Late st Contact Info) Description 08/18/2024 Telephone [facility] MEDICINE [address] [place], [place] [phone] Name, MD Cuong [address] [place] [address] Social History Tobacco Use Types Packs/Day Years [...] Description 06/19/2025 11:30 AM EDT Medication Management [facility] MEDICINE [address] [place] [address] Irma Freeman PharmD [address] [place] [address] 07/21/2025 2:00 PM EDT Office Visit [address] [address] Name, MD Cuong [address] [place] [address] documented as of this encounter Goals Goal [...] documented as of this encounter Care Teams Woodworking Shop Laborer Relationship Specialty Start Date End Date Name, MD Cuong [address] [place] [address] PCP - General Family Medicine 07/19/17 Irma Freeman, Heber [address] [place] [address] Pharmacist Internal Medicine 02/20/23 documented as of this encounter
--- OUTSIDE RECORDS SUMMARY | 2025-06-10 10:12 | XMS_ITS | Encounter Summary ---
Author Organization [employer] Address [address] [facility] 7t [place] [address] Care Team Providers Care Network Support Technician Name Role Phone Name, Cuong RODRIGUEZ Primary Care Provider [phone] Irma Freeman PharmD Unavailable [phone] Reason for Visit * Reason Onset Date Comments Lab Orders 04/25/2024 Encounter Details Date Type Department Care Team (Late st Contact Info) Description 04/25/2024 Telephone [facility] MEDICINE [address] [place], [place] [phone] Name, MD Cuong [address] [place] [address] Lab Orders Social History Tobacco Use Types [...] 10:03 AM EDT T/C to pt. Through [place] id - [id number] to inform that TB test was order for work, pt. Can go to lab as per convenience, pt. Verbally greed and understood. * Telephone Encounter - Jonny Rodriguez - 04/25/2024 9:32 AM EDT Tc from pt requesting TB test for work. If any questions you can contact pt at [phone]. [place]mani Speaker. documented in this encounter Plan of Treatment Upcoming Encounters Date Type Department Care Team (Late st Contact Info) Description 06/19/2025 11:30 AM EDT Medication Management [facility] MEDICINE [address] [place] [address] Irma Freeman, PharmD [address] [place] [address] 07/21/2025 2:00 PM EDT Office Visit [facility] MEDICINE [address] [place] [address] Name, MD Cuong [address] [place] [address] documented as of this encounter Goals Goal Patient Goal Type Associated Problems Recent Progress Patient-Stated? Author Drink less soda, juice, and other sugary beverages Diet No Evette Cruz, RN Eat a balanced, healthy diet Diet No Evette Cruz RN Hemoglobin A1c < 7 Result Component 6(02/11/2025 3:57 PM EDT) No Irma Freeman, PharmLaura Record your blood sugar as directed Result Component No Irma Freeman PharmD Note: SMBG at least once daily, record values for review in follow up documented as of this encounter Visit Diagnoses Not on filedocumented in this encounter Additional Health Concerns Assessment Noted Time PHQ-9 Depression Total Score: 0 11/16/19 24 10:12 AM EST documented as of this encounter Care Teams Network Support Technician Relationship Specialty Start Date End Date Name, MD Cuong [address] [place] [address] PCP - General Family Medicine 07/19/17 Irma Freeman, EladiaD [address] [place] [address] Pharmacist Internal Medicine 02/20/23 documented as of this encounter
== END 2025-06-10 09:28 | disposition home or self-care (01) ==
LOC: HO.HWS 08:45
PROVIDERS: PCP Internal Medicine Geriatric Medicine; Visit Provider Advanced Practice Midwife
DX: N39.41 Urge incontinence (principal); N81.2 Incomplete uterovaginal prolapse; Z97.5 Presence of (intrauterine) contraceptive device; N81.89 Other female genital prolapse
CPT/HCPCS: 99213

== ENCOUNTER 2025-07-07 14:10 | Outpatient (AMB) | payer MEDICAID, SELFPAY ==
--- NOTE | 2025-07-07 14:29 | A.OFFVIS_ITS ---
Vital Signs 07/07/25 14:40 Height 5 ft 3 in Weight 252 lb 3.341 oz BMI 44.7 BP 142/90 H Blood Pressure Location Lt brachial Position Sitting Pulse 84 Pulse Source Pulse Oximeter Pulse Oximetry (%) 97 Oxygen Delivery Method Room Air Intake Visit Reasons: EDDIE +ve Intake Note: Patient presents for EDDIE + ve follow up. Staff Nurse Icu Resource Team Required: Yes Staff Nurse Icu Resource Team Language: Continuity Director Services: Staff Nurse Icu Resource Team Offered & Declined Information Interpreted: non-clinical & clinical Allergies seasonal allergies Allergy (Unknown, Uncoded 05/11/25 14:04) hives Medication List - Last Reconciled 07/07/25 by Priya Duarte MD albuterol sulfate 90 mcg/actuation (Proventil HFA) 1 - 2 puffs inhalation Q4-6H PRN cetirizine (Zyrtec) 10 mg PO DAILY PRN diclofenac sodium 1% 4 grams topical QID epinephrine IM DIRECTED fluticasone propionate 50 mcg/actuation 1 spray intranasal DAILY gabapentin 100 mg PO BEDTIME 90 days hydroxyzine HCl 10 mg PO Q8H PRN levonorgestrel (Mirena) intrauterine losartan-hydrochlorothiazide 100-25 mg 1 tab PO QAM metformin ER 1,000 mg PO QAM metronidazole 500 mg PO Q12H metronidazole 0.75%(37.5mg/5gram) 1 appful vaginal BEDTIME 5 days miconazole nitrate 2% 1 appl topical BID sertraline (Zoloft) 100 mg PO DAILY tirzepatide (Mounjaro) 7.5 mg subcut QWEEK HPI Comments Details: Patient is a 40-year-old female with asthma, hypertension and diabetes. Presents today for follow up of carpal tunnel syndrome and a positive EDDIE Interval History: Patient last seen 07/10/24 with me - Not on any rheum medications - 3 months ago she woke up with swelling and pain to her left wrist. She does recall abnormal loading to the wrists a couple days prior to this occurring. 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 She used warm compresses and fagd-lvb-mxlsbgo analgesics and there was mild improvement in the pain and swelling. However some of this persists today. Denies the other risks involved. - Still complains of bilateral knee pain and intermittent hand pain. 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 She was referred for bilateral hand pain. Had an EMG which confirmed carpal tunnel syndrome and was status post cortisone injections which helped. Immunology markers were sent by her primary and so she was referred to us for positive EDDIE. There was no evidence on history or examination concerning for lupus or any other autoimmune connective tissue disease. Labs were sent. EDDIE returned 1:320 with a dense fine speckled pattern. Trish panel negative. Given low suspicion of autoimmune disease she was discharged from clinic. She was re-referred to us in 2022 by her primary. No obvious symptoms but routine labs came back with EDDIE positive once again. She was evaluated at that time and repeat workup was done. Repeat tests again showed positive EDDIE without any TRISH and normal complement and antiphospholipid antibodies. She did have an EMG which showed mild left cubital tunnel and mild left carpal tunnel syndrome. She has a history of receiving injections for this but she did not want to pursue surgery at that time. No further interventions were medically appropriate at that time. 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 De Quervain's tenosynovitis, left Kienb?ck's disease EDDIE positive Migraine with aura Fibroid Abnormal Pap smear of cervix Diabetes HTN (hypertension) Surgical History H/O left wrist surgery Gastric bypass status for obesity Hx of section Family History Mother HTN (hypertension) Prediabetes Rheumatoid arthritis Maternal Grandmother Uterus cancer Son Down syndrome Social History Household Members: Children Housing: House Alcohol intake: current Patient Tobacco Use Status: Never used Tobacco service: No Current occupational status: unemployed Sexual orientation: Straight/Heterosexual Gender identity: Female Female Reproductive History Menstrual Age of Menarche: 9 Review of Systems Const Details: Review of Systems Constitutional: Denies fever, chills, weight loss ENT: Denies vision changes, eye pain or eye redness, dental caries, dry mouth GI: Denies nausea, vomiting, diarrhea, abdominal pain, change in BM Pulm: Denies SOB, DINH, hemoptysis, wheezing Cards: Denies chest pain, palpitations Skin: Denies Raynaud's, rash, nail changes, photosensitivity, NURSE INFORMATICIST: Denies headaches, weakness, paresthesias, recurrent falls MSK: as per HPI All other systems reviewed and are unremarkable except noted above Physical Exam Exam Exam: Vital signs reviewed Physical Examination CONSTITUITIONAL Patient alert and cooperative. Well appearing and in no apparent painful distress HEENT Conjunctiva and sclera clear. No lymphadenopathy. CHEST/RESPIRATORY SYSTEM Normal respiratory effort and able to speak in complete sentences. Clear to auscultation bilaterally. No crackles, rales, rhonchi, wheezes heard. CARDIAC SYSTEM Regular rate and rhythm. S1 and S2 heard no murmurs. Radial pulses intact bilaterally MSK Hands * Right Hand: Able to make a fist. No swelling or tenderness to palpation of the MCPs, PIPs or DIPs. No deformities noted. * Left Hand: Able to make a fist. No swelling or tenderness to palpation of the MCPs, PIPs or DIPs. No deformities noted. Wrists * Right Wrist: Full ROM to flexion and extension. No swelling or TTP * Left Wrist: Surgical scar noted on the dorsum. Full ROM to flexion and extension. No swelling or TTP Elbows * Right Elbow: Full ROM. No swelling or TTP. No TTP of the medial epicondyle. No TTP of the lateral epicondyle * Left Elbow: Full ROM. No swelling or TTP. No TTP of the medial epicondyle. No TTP of the lateral epicondyle Shoulders * Right shoulder: Full ROM. No swelling noted. No TTP of the AC joint. No TTP of the subacromial bursa. No TTP of the posterior shoulder * Left shoulder: Full ROM. No swelling noted. No TTP of the AC joint. No TTP of the subacromial bursa. No TTP of the posterior shoulder Knees * Right knee: Full ROM. No swelling noted. No TTP of the knee joint line. No TTP of pes anserine bursa * Left knee: Full ROM. No swelling noted. No TTP of the knee joint line. No TTP of pes anserine bursa. * Crepitations felt bilaterally Ankles * Right ankle: Good ankle dorsiflexion and plantar flexion. No swelling. No TTP of the ankle joint * Left ankle: Good ankle dorsiflexion and plantar flexion. No swelling. No TTP of the ankle joint Feet * Right foot: Negative squeeze test * Left foot: Negative squeeze test Tender points? * No tenderness to palpation of the bilateral trapezius, supraspinatus, anterior costochondral junctions, bilateral suboccipital muscle insertions SKIN No rashes Vital Signs: Last Vital Signs Pulse 84 07/07/25 14:40 BP 142/90 H 07/07/25 14:40 Pulse Ox 97 07/07/25 14:40 Oxygen Delivery Method Room Air 07/07/25 14:40 BMI result Body Mass Index 44.7 Results Reviewed Results Reviewed: Laboratory Tests 12/31/20 04/20/23 04/20/23 11:40 11:32 11:33 Rheumatoid Factor < 15.0 < 13.0 Cycl Citrul Peptide IgG <16 <16 EDDIE Screen POSITIVE A EDDIE Titer 1:320 H SS-A/Ro Antibody <1.0 NEG <1.0 NEG SS-B/La Antibody <1.0 NEG <1.0 NEG Sm (Pineda) Antibody <1.0 NEG <1.0 NEG SM/UNDERGROUND MINE MACHINERY MECHANIC IgG Antibody <1.0 NEG <1.0 NEG Double Strand DNA Ab <1 <1 Complement C3 134 140 Complement C4 41 40 Laboratory Tests 02/18/25 02/27/25 09:25 11:42 WBC 6.3 RBC 4.90 Hgb 13.6 Hct 41.5 Plt Count 237 ESR 12 Sodium 142 Potassium 3.8 Chloride 107 Carbon Dioxide 27 BUN 10 Creatinine 0.61 AST 26 ALT 35 H C-Reactive Protein 0.67 H X-ray left wrist 06/2024 IMPRESSION: Lunate sclerosis suggesting Kienbock's disease. Consider further evaluation with MRI Assessment & Plan Assessment & Plan (1) Primary osteoarthritis of both knees: Code(s): M17.0 - Bilateral primary osteoarthritis of knee Plan: #Bilateral Knee OA Patient is a 40-year-old female here today for follow up. Complaining of bilateral knee pain left worse than right. Exam consistent with osteoarthritis. We will check x-rays. Recommending topical diclofenac Plan - Topical diclofenac 1% qid - XR Bilateral Knees - RTC 1 year (2) Kienb?ck's disease: Code(s): M92.219 - Osteochondrosis (juvenile) of carpal lunate [Kienbock], unspecified hand Category: Medical Qualifiers: Laterality: left Qualified Code(s): M92.212 - Osteochondrosis (juvenile) of carpal lunate [Kienbock], left hand Plan: #AVN of lunate S/p surgery (3) Bilateral carpal tunnel syndrome: Code(s): G56.03 - Carpal tunnel syndrome, bilateral upper limbs Category: Medical Plan: #Bilateral CTS Recommended patient continues use a splint. Can consider repeat injection in the future. Plan I spent 25 minutes reviewing the record and labs, seeing the patient, discussing the treatment plan and documenting in the medical record Orders: Orders XR knee RT 3V Today M17.0 - Bilateral primary osteoarthritis of knee XR knee LT 3V Today M17.0 - Bilateral primary osteoarthritis of knee Medications: Changed From gabapentin 100 mg PO BEDTIME 90 days 90 caps 1RF M17.0 - Bilateral primary osteoarthritis of knee To gabapentin 300 mg PO BEDTIME 90 caps 1RF 90 days M17.0 - Bilateral primary osteoarthritis of knee Refilled diclofenac sodium 1% apply to hands and knees 2-4 times per day 4 grams topical QID 100 grams 2RF Coding Level of Care Code Est Pt Level 3 (79197) Diagnoses Primary osteoarthritis of both knees M17.0 Osteochondrosis of lunate of left wrist M92.212 Laterality: left Bilateral carpal tunnel syndrome G56.03
[2025-07-07 14:40] VITALS: BP 142/90; PULSE 84; O2SAT 97; BMI 44.7
--- OUTSIDE RECORDS SUMMARY | 2025-07-07 17:23 | XMS_ITS | Encounter Summary ---
Author Organization [employer] Address [address] [facility] 7t [place] [address] Care Team Providers Care Laundry Agent Name Role Phone Name, Cuong RODRIGUEZ Primary Care Provider [phone] Irma Freeman PharmD Unavailable Reason for Visit * Reason Onset Date Comments Lab Orders 04/25/2024 Encounter Details Date Type Department Care Team (Late st Contact Info) Description 04/25/2024 Telephone [facility] MEDICINE [address] [place], [place] [phone] Name, MD Cuong [address] [place] [address] Lab Orders Social History Tobacco Use Types [...] 10:03 AM EDT T/C to pt. Through [employer] id - [id number] to inform that TB test was order for work, pt. Can go to lab as per convenience, pt. Verbally greed and understood. * Telephone Encounter - Jonny Rodriguez - 04/25/2024 9:32 AM EDT Tc from pt requesting TB test for work. If any questions you can contact pt at [phone]. [place]er Speaker. documented in this encounter Plan of Treatment Upcoming Encounters Date Type Department Care Team (Late st Contact Info) Description 07/21/2025 2:00 PM EDT Office Visit [address] [address] Name, MD Cuong [address] [place] [address] 08/14/2025 11:30 AM EST Medication Management [address] [address] Irma Freeman PharmD [address] [place] [address] documented as of this encounter Goals Goal Patient Goal Type Associated Problems Recent Progress Patient-Stated? Author Drink less soda, juice, and other sugary beverages Diet No Evette Cruz, RN Eat a balanced, healthy diet Diet No Evette Cruz RN Hemoglobin A1c < 7 Result Component 5.7( 5 2:26 PM EDT) No Irma Freeman PharmD Record [...] documented as of this encounter Care Teams Laundry Agent Relationship Specialty Start Date End Date Name, MD Cuong [address] [place] [address] PCP - General Family Medicine 07/19/17 Irma Freeman PharmD [address] [place] [address] Pharmacist Internal Medicine 02/20/23 documented as of this encounter
--- OUTSIDE RECORDS SUMMARY | 2025-07-07 17:23 | XMS_ITS | Encounter Summary ---
Author Organization [employer] Address [address] [facility] 7t [place] [address] Care Team Providers Care Sales Engineer Account Manager Name Role Phone Name, Cuong RODRIGUEZ Primary Care Provider [phone] Irma Freeman PharmD Unavailable Encounter Details Date Type Department Care Team (Late st Contact Info) Description 08/18/2024 Telephone [facility] MEDICINE [address] [place], [place] [phone] Name, MD Cuong [address] [place] [address] Social History Tobacco Use Types Packs/Day Years [...] Description 07/21/2025 2:00 PM EDT Office Visit [facility] MEDICINE [address] [place] [address] Name, MD Cuong [address] [place] [address] 08/14/2025 11:30 AM EST Medication Management [address] [address] Irma Freeman PharmD [address] [place] [address] documented as of this encounter Goals Goal Patient Goal Type Associated Problems Recent Progress Patient-Stated? Author Drink less soda, juice, and other sugary beverages Diet No Evette Cruz, TATYANA Eat a balanced, healthy diet Diet No Evette Cruz RN Hemoglobin A1c < 7 Result Component 5.7( 2:26 PM EDT) No Irma Freeman, PharmD Record your blood sugar as directed Result Component No Irma Freeman PharmLaura Note: SMBG at least once daily, record values for review in follow up documented as of this encounter Visit Diagnoses Not on filedocumented in this encounter Additional Health Concerns Assessment Noted Time PHQ-9 Depression Total Score: 0 11/16/19 24 10:12 AM EST documented as of this encounter Care Teams Sales Engineer Account Manager Relationship Specialty Start Date End Date Name, MD Cuong [address] [place] [address] PCP - General Family Medicine 07/19/17 Irma Freeman, Heber [address] [place] [address] Pharmacist Internal Medicine 02/20/23 documented as of this encounter
--- OUTSIDE RECORDS SUMMARY | 2025-07-07 17:23 | XMS_ITS | Clinical Summary ---
Author Organization [facility] Address [address] [place] [address] Phone Care Team Providers Care Truck Rental Clerk Name Role Phone Physician, No Pcp Primary [...] 07/19/2017 Migraine 07/19/2017 Type 2 diabetes mellitus with obesity 07/19/2017 Overview (07/01/2025): 07/01/25 Regulatory IMO Update Urticaria 07/19/2017 Encounters Date Type Department Care Team Description 05/29/2025 11:52 PM EDT - 05/30/2025 12:[address] 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); De Quervain's tenosynovitis, left; Carpal tunnel syndrome, left upper limb from Last 3 Months Surgical History Surgery Date Site/Laterality Comments SECTION X3 BARIATRIC SURGERY WRIST SURGERY 11/27/2024 Left eCTR, 1st dorsal compartment release, radial core decompression and arthroscopy w/ debridement Medical History Medical History Date Comments Depressive disorder DX:Depressiv e disorder Anxiety state DX:Anxiety state Hypertension Diabetes mellitus ([facility] V24, [facility] V28) GERD (gastroesophageal reflux disease) Chronic pain disorder Arthritis Joint pain Sleep apnea Social History Tobacco Use Types Packs/Day Years Used Date Smoking Tobacco: Never Smokeless Tobacco: Never Alcohol Use Standard Drinks/Week Comments Never 0 (1 standard drink = 0.6 oz pur e alcohol) Interpersonal Safety Answer Date Record ed Physical Abuse Unrecognized value 11/27/2024 Verbal Abuse Unrecognized value 11/27/2024 Comments No Sex and Gender Information [...] 1994 Diabetes: Annual Retina Eye Exam 1994 HPV Vaccines (1 - 3-dose SCDM series) 2011 Breast Cancer Screening 12/05/2019 12/04/2017 HIV Screening 09/09/2022 Hepatitis C Screening 09/09/2022 Social Influencers of Health Screening 09/09/2022 Diabetes: Annual Urine Albumin-Creatinine Ratio (uACR) 09/23/2024 Depression Screening 10/01/2024 COVID-19 Vaccine (2023- season) 2025 Influenza Vaccine (#1) 2025 , 07/06/2022, 09/28/2021, Additional history exists Diabetes: Blood Sugar Control Test (HGBA1C) 08/14/2025 02/11/2025, 02/06/2024 Cervical Cancer Screening: Pap Smear 01/17/2026 01/17/2023 Diabetes: Annual GFR (Glomerular Filtration Rate) 02/27/2026 02/27/2025, 02/18/2025 Hypertension/CHF/CAD Annual BMP Blood Test 02/27/2026 02/27/2025, 02/18/2025 Cholesterol Screening (Lipid Panel) 02/18/2030 02/18/2025, 11/02/2022 DTaP,Tdap,and Td Vaccines (3 - Td or Tdap) 07/15/2031 07/15/2021, 08/16/2017 RSV Immunization Adult Patients (1 - 1-dose 75+ series) 2059 MMR Vaccines Aged Out 09/29/2021 No longer [...] lat pinch at 12.5#; 3pt=9# 4. L Detail Drafter at least 40# (vs 20# init) 03/24/25 [...] currently active code status orders. Care Teams Truck Rental Clerk Relationship Specialty Start Date End Date Physician, No Pcp PCP - General 05/30/25
--- OUTSIDE RECORDS SUMMARY | 2025-07-07 17:23 | XMS_ITS | Encounter Summary ---
Author Organization [employer] Address [address] [place] [address] [address] [place] [address] Care Team Providers Care Web Site Manager Name Role Phone Name, Cuong RODRIGUEZ Primary Care Provider [phone] Irma Freeman PharmD Unavailable Reason for Visit * Reason Comments Med Refill Encounter Details Date Type Department Care Team ([facility] Contact Info) Description 03/01/2023 Refill [facility] [address] [place], [place] [phone] Name, MD Cuong [address] [place] [address] Social History Tobacco Use Types Packs/Day Years [...] Upcoming Encounters Date Type Department Care Team ([facility] Contact Info) Description 07/21/2025 2:00 PM EDT Office Visit [facility] [address] [place] [phone] Name, MD Cuong [address] [place] [phone] 08/14/2025 11:30 AM EST Medication Management [facility] [address] [place] [phone] Irma Freeman PharmD [address] [place] [phone] documented as of this encounter Goals Goal Patient Goal Type Associated Problems Recent Progress Patient-Stated? Author Drink less soda, juice, and other sugary beverages Diet No Evette Cruz RN Eat a balanced, healthy diet Diet No Evette Cruz RN Hemoglobin A1c < 7 Result Component 5.7( 2:26 PM EDT) No Irma Freeman PharmD Record your blood sugar as directed Result Component No Irma Freeman PharmD Note: SMBG at least once daily, record values for review in follow up documented as of this encounter Visit Diagnoses Not on filedocumented in this encounter Care Teams Web Site Manager Relationship Specialty Start Date End Date Name, MD Cuong [address] [place] [phone] PCP - General Family Medicine 07/19/17 Irma Freeman PharmD [address] [place] [phone] Pharmacist Internal Medicine 02/20/23 documented as of this encounter
--- OUTSIDE RECORDS SUMMARY | 2025-07-07 17:23 | XMS_ITS | Clinical Summary ---
Author Organization [employer] Address [address] [place] [address] [address] [place] [address] Care Team Providers Care Supervisor [employer] Name Role Phone Name, Cuong RODRIGUEZ Primary Care Provider [phone] Irma Freeman PharmD Unavailable [phone] Allergies No known active allergies Medications [...] AT BEDTIME 60 tablet 5 025 Active amLODIPine (Norvasc) 5 MG tabletIndicatio ns:Type 2 diabetes mellitus with obesity,Essenti al hypertension TAKE 1 TABLET BY MOUTH EVERY MORNING 90 tablet 1 025 Active cyclobenzaprine (Flexeril) 10 MG tablet Take 1 tablet (10 mg) by mouth 3 times daily. 90 tablet 025 Active Additional Information Patient taking differently:10 mg OralDaily PRN, Reported on 06/19/2025 Blood Pressure kitIndications: Essential hypertension Use once a day 1 kit 025 Active aspirin-acetami nophen-caffeine (Excedrin Migraine) 250-250-65 MG tablet Take 2 tablets by mouth if needed each day for headaches. Active glucose blood (FREESTYLE LITE) test stripIndication s:Type 2 diabetes mellitus with obesity Use to test blood sugar TWICE daily, as directed 50 each Active hydrOXYzine HCl (Atarax) 25 MG tablet TAKE 1 TABLET BY MOUTH THREE TIMES DAILY IN THE MORNING, AT NOON, AND AT BEDTIME NEEDED FOR ITCHING 90 tablet 3 Active TRUEplus Lancets 33G miscIndications :Type 2 diabetes mellitus with obesity TEST BLOOD SUGAR TWICE DAILY 100 each Active cetirizine (ZyrTEC) 10 MG tablet TAKE 1 TABLET BY MOUTH EVERY MORNING 90 tablet 1 Active gabapentin (Neurontin) 100 MG capsule Take 100 mg by mouth at bedtime. Active losartan (Cozaar) 100 MG tabletIndicatio ns:Essential hypertension Take 1 tablet (100 mg) by mouth Once per day. 90 tablet 2025 Active hydroCHLOROthia zide (HYDRODiuril) 50 MG tabletIndicatio ns:Essential hypertension Take 1 tablet (50 mg) by mouth Once per day. 90 tablet 2025 Active metFORMIN XR (Glucophage-XR) 500 MG 24 hr tabletIndicatio ns:Type 2 diabetes mellitus with obesity Take 1 tablet (500 mg) by mouth with breakfast. 90 tablet Active Tirzepatide (Mounjaro) 12.5 MG/0.5ML solution auto-injectorIn dications:Type 2 diabetes mellitus with obesity Inject 12.5 mg under the skin 1 (one) time per week. 2 mL Active cetirizine (ZyrTEC) 10 MG tablet TAKE 1 TABLET BY MOUTH EVERY MORNING 90 tablet 1 025 2024 Discontinued losartan-hydroC HLOROthiazide (Hyzaar) 100-25 MG tabletIndicatio ns:Type 2 diabetes mellitus with obesity,Essenti al hypertension Take 1 tablet by mouth Once per day. 30 tablet 025 2024 Discontinued(A lternate therapy) metFORMIN XR (Glucophage-XR) 500 MG 24 hr tabletIndicatio ns:Type 2 diabetes mellitus with obesity Take 2 tablets (1,000 mg) by mouth with breakfast. 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[employer] Obstructive sleep apnea syndrome 03/08/2018 [...] discussed with pt Urticaria 07/19/2017 Severe obesity (CMS/HCC) 07/19/2017 Migraine 07/19/2017 Major depressive disorder 07/19/2017 Type 2 diabetes mellitus with obesity 07/19/2017 Chronic low back pain 07/19/2017 Allergic rhinitis 07/19/2017 Encounters Date Type Department Care Team Description 06/19/2025 Travel 06/10/2025 Orders Only GENERIC EXTERNAL DATA DEPARTMENT Provider, Generic External Data 06/08/2025 Refill [facility] [place] [address] Cuong Casas MD 06/03/2025 Refill [facility] [place] [address] Cuong Casas MD Essential (primary) hypertension; Type 2 diabetes mellitus with other specified complication (CMS/HCC) 05/26/2025 11:15 AM EDT Office Visit [facility] [place] [address] Cuong Casas MD Type 2 diabetes mellitus with obesity (CMS/HCC) ([facility]/HCC) (Primary Dx); Gallstones; Skin tag 05/26/2025 Travel 05/25/2025 Telephone [facility] [place] [address] Tawana Begum MA chart prep 05/14/2025 Refill [facility] [place] [address] Cuong Casas MD Type 2 diabetes mellitus with obesity (CMS/HCC) ([facility]/HCC) 05/12/2025 Telephone [facility] [place] [address] Tawana Begum MA october recall 05/09/2025 Refill [facility] [place] [address] Cuong Casas MD 04/08/2025 Orders Only GENERIC EXTERNAL DATA DEPARTMENT Provider, Generic External Data from Last 3 Months Immunizations Immunization Administration [...] Sign Reading Time Taken Comments Blood Pressure 142/88 06/19/2025 11:51 AM EDT Pulse 88 05/26/2025 11:37 AM [...] Description 07/21/2025 2:00 PM EDT Office Visit [facility] [address] [place] [phone] Name, MD Cuong [address] [place] [address] 08/14/2025 11:30 AM EST Medication Management [facility] [address] [place] [phone] Irma Freeman, PharmD [address] [place] [address] Health Maintenance Due Date Last Done Comments Family Planning (PISQ) 1999 HPV Vaccines (1 - 3-dose series) 1999 Cervical Cancer Screening 01/18/2024 HPV/Cotest 01/18/2024 01/17/2023, 10/01, 09/03/2019 Pap Smear 01/18/2024 01/17/2023, 10/14/2020 Eye Exam 01/05/2025 01/05/2023 Diabetes: Foot Exam 05/14/2025 05/14/2024, 05/14/2024, 07/23/2023, Additional history exists Diabetes: Urine Protein Screening 05/14/2025 05/14/2024, 04/20/2023, 11/02/2022 COVID-19 Vaccine ( season) 2025 Influenza Vaccine (#1) 2025 3, 07/06/2022, 09/28/2021, Additional history exists Diabetes: Hemoglobin A1C 12/17/2025 025, 02/11/2025, 02/06/2024, Additional history exists Depression Screening 02/11/2026 02/11/2025, 02/12/20 25 SDOH Screening 02/11/2026 02/11/2025 Lipid Panel 02/18/2026 02/18/2025, 11/02/2022 Alcohol/Substance Use Screening 05/26/2026 05/26/2025 Tobacco Screening 05/26/2026 05/26/2025 Disability Screening 06/19/2026 06/19/2025 Mammogram 10/09/2026 10/09/2024, 12/04/2017 DTaP/Tdap/Td Vaccines (3 [...] Diagnosis Comments POCT GLYCATED HEMOGLOBIN, TOTAL Routine 06/19/2025 2:26 PM EDT Type 2 diabetes mellitus with obesity (CMS/HCC) ([facility]/HCC) BACTERIAL VAGINOSIS PANEL Routine 06/10/2025 8:45 AM EDT POCT GLUCOSE Routine 05/26/2025 11:59 AM EDT Type 2 diabetes mellitus with obesity (CMS/HCC) ([facility]) CT ABDOMEN PELVIS W CONTRAST Routine 04/30/2025 2:21 PM EDT CREATININE, SERUM Routine 04/08/2025 10: 14 AM EDT UREA NITROGEN (BUN) Routine 04/08/2025 1 0:14 AM EDT HEPATITIS B, C PROFILE Routine 02/18/2025 9:25 AM EDT LIPID PANEL, STANDARD Routine 02/18/2025 9:25 AM EDT Type 2 diabetes mellitus with obesity (CMS/HCC) ([facility]) Essential hypertension BI MAMMOGRAM SCREENING TOMOSYNTHESIS BILATERAL Routine 10/09/2024 11:45 AM EST ALBUMIN, RANDOM URINE W/CREATININE Routine 05/14/2024 3:38 PM EDT Type 2 diabetes mellitus with obesity (CMS/HCC) ([facility]/HCC) Leg swelling Leg cramps HIV ANTIBODY/ANTIGEN ([facility]) Routine 07/03/2023 11:54 AM EDT HPV MRNA E6/E7 REFLEX TO HPV 16, 18/45 Routine 01/17/2023 11:01 AM EDT PAP SMEAR Routine 01/17/2023 11:01 AM EDT from Last 3 Months or Most Recently Relevant to Health Maintenance Results * POCT Hgb A1c (06/19/2025 2:26 PM EDT) Hemoglobin A1C 5.7 4.0 - 5.7 % Blood 06/19/2025 2:26 PM EDT Cuong Casas MD POINT OF CARE TEST ENTER/EDIT OR DERABLES Final Result * (ABNORMAL) Bacterial Vaginosis (06/10/2025 8:45 AM EDT) TRICHOMONAS VAGINALIS DETECTION BY PCR NOT DETECTED Not Detect [facility] BACTERIAL VAGINOSIS DETECTION BY PCR POSITIVE(A) Negative [facility] Comment:The BV organism targ ets of the Xpert Xpress MVP test can becommensal in women; Xpert Xpress MVP positive results forbacterial vaginosis should be considered in conjunction withother clinical and patient information to determine thedisease status. Organisms that are not detected by the XpertXpress MVP test have also been reported to be associatedwith BV and aerobic vaginitis.The Xpert Xpress MVP test performance has not been evaluatedin patients under the age of 14. MILADYS GROUP DETECTION BY PCR NOT DETECTED Not Detect [facility] Miladys glab krusei PCR NOT DETECTED Not Detect [facility] 06/10/2025 8:45 AM EDT 06/10/2025 4:15 PM EDT us Generic External Data Provider LAB MICROBIOLOGY - GENERAL ORDERABLES Final Result [facility] [address] [place] [phone] * POCT Glucose (05/26/2025 11:59 AM EDT) Glucose Blood, POC 92 60 - 200 mg/dL QC Media Lot # [id number] Lot# Expiration Date Blood Capillary blood specimen / Unknown 05/26/2025 11:59 AM EDT us Cuong Casas MD POINT OF CARE TEST ENTER/EDIT OR DERABLES Final Result * CT Abdomen Pelvis w/ Contrast (04/30/2025 2:21 PM EDT) Anatomical Region Laterality Modality Body, Pelvis, Abdomen Computed T omography 04/30/2025 2:21 PM EDT Narrative 04/30/2025 2:22 PM EDT [address] [address] [address] Scan Report Signed Patient: Yakelin Chaney MR#: [id number] 60 : 1985 Acct:[id number] Age/Sex: 39 / F ADM Date: 04/30/25 Loc: HO.CT Attending Dr: Costa Fisher MD Ordering Physician: Costa Fisher MD Date of Service: 04/30/25 Procedure(s): CT abdomen pelvis w IV con Accession Number(s): [id number] cc: Costa Fisher MD; Name,Cuong RODRIGUEZ Report Number: [id number]: Total DLP = 743.00 mGy-cm CLINICAL HISTORY: [...] in OV> 04/30/251421 DD/ 20 TD/TT: 04/30/251420 Note Teller: Procedure Note Donotuseinterpreter, Image - 04/30/[address] [address] [address] Scan Report Signed Patient: Naga Chaney#: [id number] 60 : 1985Acct:[id number] Age/Sex: 39 / FADM Date: 04/30/25 Loc: HO.CT Attending Dr: Costa Fisher MD Ordering Physician: Costa Fisher MD Date of Service: 04/30/25 Procedure(s): CT abdomen pelvis w IV con Accession Number(s): [id number] cc: Costa Fisher MD; Name,Cuong RODRIGUEZ Report Number: [id number]: Total DLP = 743.00 mGy-cm CLINICAL HISTORY: [...] MD in OV> 04/30/251421 DD/ 20 TD/TT: 04/30/25 1421 Note Teller: [facility] External Provider IMG CT PROCEDURES Final Result * Creatinine, Serum (04/08/2025 10:14 AM EDT) Creatinine, Serum 0.59 0.5 - 1.4 mg/dL [facility] Estimated Glomerular Filt Rate >60 [facility] Comment:Chronic Kidney Disea se: Estimated GFR < 60 mL/min/1.43b4Muycqc Kidney Disease: Estimated GFR < 15 mL/min/1.73m2 04/08/2025 10:1 4 AM EDT 04/08/2025 10:14 AM EDT Generic External Data Provider LAB BLOOD ORDERAB LES Final Result Performing Organization Address [facility] Co de Phone Number [facility] [address] [place] [phone] * BUN (Blood Urea Nitrogen) (04/08/2025 10:14 AM EDT) Pathologist [facility] Urea Nitrogen (BUN) 9 9 - 16 mg/dL [facility] 04/08/2025 10:1 4 AM EDT 04/08/2025 10:14 AM EDT Generic External Data Provider LAB BLOOD ORDERAB LES Final Result Performing Organization Address City/[facility] Co de Phone Number [facility] [address] [place] [phone] * Hepatitis B, C Profile (02/18/2025 9:25 AM EDT) Pathologist [facility] ~Hepatitis B Surface Antibody REACTIVE Nonreactive [facility] Comment:REACTIVE: > 11.99 mI U/mL Hepatitis B Core Antibody Nonreactive Nonreactive [facility] Hepatitis C Antibody Nonreactive Nonreactive [facility] Comment:Antibodies to HCV no t detected; does not exclude early acuteHCV infection. Hepatitis B Surface Ag Negative Negative [facility] 02/18/2025 9:25 AM EDT 02/18/2025 11:04 AM EDT us Generic External Data Provider LAB BLOOD ORDERAB LES Final Result Performing Organization Address City/[facility]/ZIP Co de Phone Number [facility] [address] [place] [phone] * Lipid Panel, Standard (02/18/2025 9:25 AM EDT) Triglycerides 72 <150 mg/dL [facility] Comment:Desirable Triglyceri de: less than 150 mg/dLBorderline High Triglyceride 150-199 mg/dLHigh Triglyceride: 200-499 mg/dLVery High Triglyceride: greater than or equal to 5OO mg/dL Cholesterol 148 <200 mg/dL [facility] Comment:Desirable Cholestero l: less than 200 mg/dLBorderline High Cholesterol: 200-239 mg/dLHigh Cholesterol: greater than 239 mg/dL LDL Cholesterol Calculated 93 <100 mg/dL [facility] Comment:Desirable LDL: less than 100 mg/dLNear Optimal/Above Optimal LDL: 110- 129 mg/dLBorderline High LDL: 130-159 mg/dLHigh LDL: 160-189 mg/dLVery High LDL: greater than or equal to 190 mg/dL HDL Cholesterol 41 >40 mg/dL [facility] Comment:Desirable HDL: great er than 40 mg/dL Note: This HDL assay may give artificially low results in patients with liver disease. Blood Venous blood specimen / Unknown 02/18/2025 9:25 AM EDT 02/18/2025 11:04 AM EDT us Cuong Casas MD LAB BLOOD ORDERABLES Final Resul t Performing Organization Address City/[facility]/ZIP Co de Phone Number [facility] [address] [place] [phone] * BI Mammogram Screening Tomosynthesis Bilateral (10/09/2024 11:45 AM EST) Anatomical Region Laterality Modality Breast Bilateral Mammography 10/09/2024 11:4 5 AM EST Narrative 10/17/2024 7:48 AM EST [facility] [address] [place], [place] [address] Mammography Report Signed Patient: Yakelin Chaney MR#: [id number] 60 : 1985 Acct:[id number] Age/Sex: 39 / F ADM Date: 10/09/24 Loc: HO.MAMMO Attending Dr: Bessie Snyder CNM Ordering Physician: Bessie Snyder CNM Results: 1Nega tive Date of Service: 10/09/24 Follow Up: 1 Year From Orig inal Mammogram Procedure(s): MM tomosynthesis screening BI Accession Number(s): [id number] cc: Name,Cuong RODRIGUEZ; Bessie Snyder CNM EXAMINATION: [...] 10/17/24 0745 DD/ 1145 TD/TT: 10/09/24 1213 Note Teller: Procedure Note Donotuseinterpreter, Image - 10/17/20[facility] [address] [place] [address] Mammography Report Signed Patient: Naga Chaney#: [id number] 60 : 1985Acct:[id number] Age/Sex: 39 / FADM Date: 10/09/24 Loc: HO.MAMMO Attending Dr: Bessie Snyder CNM Ordering Physician: Bessie SnyderMResults: 1Nega tive Date of Service: 10/09/24Follow Up: 1 Year From Orig inal Mammogram Procedure(s): MM tomosynthesis screening BI Accession Number(s): [id number] cc: Name,Cuong RODRIGUEZ; Bessie Snyder CNM EXAMINATION: [...] 10/17/24 0745 DD/ 1145 TD/TT: 10/09/24 1213 Note Teller: [facility] External Provider IMG BI PROCEDURES Edited Result - Final * Albumin, Random Urine W/Creatinine (05/14/2024 3:38 PM EDT) Creatinine, Urine 79.05 mg/dL [facility] Microalbumin Urine <5.0 mg/L [facility] Microalbum Creatinine Ratio Ur TNP <30 ug/mg cr [facility] Comment:Unable to calculate albumin/creatinine ratio due to lowmicroalbumin or creatinine result. Urine (Urine, Random) 05/14/2024 3:38 PM EDT 05/14/2024 4:08 PM EDT us Cuong Casas MD LAB URINE ORDERABLES Final Resul t Performing Organization Address [facility] Co de Phone Number [facility] [address] [place] [phone] * HIV Ab/Ag ([facility]) (07/03/2023 11:54 AM EDT) Pathologist [facility] HIV AB/AG Nonreactive Nonreactive [facility] Comment:HIV-1 p24 Ag and/or HIV-1/HIV-2 Ab not detected.A test result that is nonreactive does not exclude thepossibility of exposure to or infection with HIV-1 and/orHIV-2. Nonreactive results in this assay for individualswith prior exposure to HIV-1 and/or HIV-2 may be due toantigen and antibody levels that are below the limit ofdetection of this assay.The Art [employer]ified[employer] HIV Ag/Ab Combo assay result andsupplemental assay results should be interpreted inconjunction with the patient's clinical presentation,history and other laboratory results. If the results areinconsistent with clinical evidence, additional testing issuggested to confirm the result. 07/03/2023 11:5 4 AM EDT 07/03/2023 11:54 AM EDT us Generic External Data Provider LAB BLOOD ORDERAB LES Final Result Performing Organization Address [facility]/ZIP Co de Phone Number [facility] [address] [place] [phone] * HPV mRNA E6/E7 w/Reflex to HPV Genotypes 16, 18/45 (01/17/2023 11:01 AM EDT) HPV nRNA E6/E7 Not Detected Not Detected [facility] Comment:Methodology: Transcr iption-Mediated AmplificationThis assay detects E6/E7 viral messenger RNA (mRNA) from 14high-risk HPV types (16,18,31,33,35,39,45,51,52,56,58,59,66,68).Cervical sources are required for HPV testing.If a vaginal source from a patient who has had atotal hysterectomy with removal of cervix wassubmitted, please contact the testing laboratoryfor alternative testing options.For additional information, please refer [email or web address]/[email or web address](This link if provided for information/educational purposes only.)THIS TEST WAS PERFORMED AT:[facility] [place] [phone] PRADHAN MD HPV mRNA E6/E7 [facility] HPV 16 RNA [facility] HPV 18/45 RNA [facility] 01/17/2023 11:0 1 AM EDT 01/18/2023 8:15 AM EDT [facility] External Provider LAB CYT OLOGY ORDERABLES Final Result [facility] [address] [place] [phone] * Pap Smear (01/17/2023 11:01 AM EDT) 01/17/2023 11:0 1 AM EDT 01/18/2023 8:15 AM EDT Narrative [facility] - 01/25/2023 1:20 PM EDT ----- ------- Name: Yakelin Chaney Age/Sex: 37/F : 1985 [id number]#: [id number] Attend Dr: Madeleine Silveira [facility] Re01/17/23 Status: DEP REF Location: [facility] Disch: ----- ------- SPEC : [id number] RECD: 01/18/23 STATUS: VERONIKA SADLER NUM: [id number] LUIS: 01/17/23-[address]: Madeleine Silveira [facility] ENTERED: 01/18/23 SP TYPE: Pap Smr OTHR DR: ORDERED: Pap Smear, PAP path review Interpretation General Category: Epithelial cell abnormality. Adequacy: Endocervical component present. Interpretation: Atypical squamous cells of undetermined significance. Abundant blood present. HPV mRNA E6/E7: NOT DETECTED This assay detects E6/E7 viral messenger RNA (mRNA) from 14 high-risk HPV types (16, 18, 31, 33, 35, 39, 45, 51, 52, 56, 58, 59, 66, 68) HPV testing performed by [facility], [place], [place]. See reference laboratory portion of the EMR for entire report. Clinical Information LMP: Nexplanon Previous PAP test: Unknown Date/Findings Material Received ThinPrep Cervical ----- ------- Signed (signature on file) Kay [place] 01/25/23 1320 ----- ------- END OF REPORT [facility] External Provider LAB [facility] ORDERABLES Final Result [facility] [address] [place] [phone] from Last 3 Months or Most Recently Relevant to Health Maintenance Insurance C3 Care Teams Supervisor [employer] Relationship Specialty Start Date End Date Name, MD Cuong [address] [place], [place] [phone] PCP - General Family Medicine 07/19/17 Irma Freeman PharmD [address] [place] [address] Pharmacist Internal Medicine 02/20/23
--- OUTSIDE RECORDS SUMMARY | 2025-07-07 17:23 | XMS_ITS | Encounter Summary ---
Author Organization [employer] Address [address] [facility] 7t [place] [address] Care Team Providers Care Construction Technician Name Role Phone Name, Cuong RODRIGUEZ Primary Care Provider [phone] Irma Freeman PharmD Unavailable [phone] Reason for Visit * Reason Comments Med Refill Encounter Details Date Type Department Care Team (Late st Contact Info) Description 09/28/2023 Refill [facility] [address] [place], [place] [phone] Name, MD Cuong [address] [place], [place] [phone] Chronic low back pain, unspecified back pain [...] Description 07/21/2025 2:00 PM EDT Office Visit [facility] [address] [place] [phone] Name, MD Cuong [address] [place] [phone] 08/14/2025 11:30 AM EST Medication Management [address] [address] Irma Freeman PharmD [address] [place] [phone] documented as of this encounter Goals Goal Patient Goal Type Associated Problems Recent Progress Patient-Stated? Author Drink less soda, juice, and other sugary beverages Diet No Evette Cruz RN Eat a balanced, healthy diet Diet No Evette Cruz RN Hemoglobin A1c < 7 Result Component 5.7( 5 2:26 PM EDT) No Irma Freeman, PharmD Record your blood sugar as directed Result Component No Irma Freeman, PharmD Note: SMBG at least once daily, record values for review in follow up documented as of this encounter Visit Diagnoses Diagnosis Chronic low back pain, unspecified back pain laterality, unspecified whether sciatica present documented in this encounter Care Teams Construction Technician Relationship Specialty Start Date End Date NameCuong MD [address] [place] [address] PCP - General Family Medicine 07/19/17 Irma Freeman PharmD [address] [place] [address] Pharmacist Internal Medicine 02/20/23 documented as of this encounter
== END 2025-07-07 15:08 | disposition home or self-care (01) ==
LOC: HO.RHES 14:11
PROVIDERS: PCP Internal Medicine Geriatric Medicine; Referring Provider Internal Medicine Geriatric Medicine; Visit Provider Student in an Organized Health Care Education/Training Program
DX: M17.0 Bilateral primary osteoarthritis of knee (principal); M92.212 Osteochondrosis (juvenile) of carpal lunate [Kienbock], left hand; G56.03 Carpal tunnel syndrome, bilateral upper limbs
CPT/HCPCS: 99213

== ENCOUNTER → 2025-07-07 14:10 | Outpatient (BNVA) | payer MEDICAID, SELFPAY | PROVIDERS: PCP Internal Medicine Geriatric Medicine; Visit Provider Student in an Organized Health Care Education/Training Program | DX: M17.0 Bilateral primary osteoarthritis of knee (principal); M92.212 Osteochondrosis (juvenile) of carpal lunate [Kienbock], left hand; G56.03 Carpal tunnel syndrome, bilateral upper limbs | CPT/HCPCS: 99212 ==

== ENCOUNTER 2025-07-10 09:21 | Outpatient (REF) | payer MEDICAID, SELFPAY ==
--- NOTE | ~2025-07-10 | XR_ITS ---
EXAMINATION: XR KNEE BILATERAL 3 VIEW CLINICAL INFORMATION: M17.0 - Bilateral primary osteoarthritis of knee COMPARISON: None available. TECHNIQUE: AP bilateral standing , lateral and sunrise view of the knees was obtained. FINDINGS: Right: Bone alignment is normal. No fracture or dislocation. Normal joint spaces. No joint effusion. Left: No fracture or dislocation. Small osteophytes at the lateral femoral tibial and patellofemoral joints. Slight lateral tilt of the patella on the sunrise view. No joint effusion. XR/XR Knee Amos 3V IMPRESSION: Left knee: Mild degenerative changes at the patellofemoral and lateral femoral tibial joints and lateral subluxation of the patella. Right knee: Unremarkable exam. Electronically signed by: Caron Rubio MD 07/10/2025 09:49 AM EDT
--- OUTSIDE RECORDS SUMMARY | 2025-07-10 09:57 | XMS_ITS | Encounter Summary ---
Author Organization [employer] Address [address] [facility] [address] [place] [address] Care Team Providers Care Plywood Scarfer Tender Name Role Phone Name, Cuong RODRIGUEZ Primary Care Provider [phone] Irma Freeman PharmD Unavailable Reason for Visit * Reason Comments Med Refill Encounter Details Date Type Department Care Team (Late st Contact Info) Description 09/28/2023 Refill [facility] [address] [place], [place] [phone] Name, MD Cuong [address] [place], [place] [phone] Chronic low back pain, unspecified back pain [...] Description 07/21/2025 2:00 PM EDT Office Visit [facility] [address] [place] [phone] Name, MD Cuogn [address] [place] [phone] 08/14/2025 11:30 AM EST Medication Management [address] [address] Irma Freeman PharmD [address] [place] [phone] documented as of this encounter Goals Goal [...] present documented in this encounter Care Teams Plywood Scarfer Tender Relationship Specialty Start Date End Date NameCuong MD [address] [place] [address] PCP - General Family Medicine 07/19/17 Irma Freeman PharmD [address] [place] [address] Pharmacist Internal Medicine 02/20/23 documented as of this encounter
--- OUTSIDE RECORDS SUMMARY | 2025-07-10 09:57 | XMS_ITS | Encounter Summary ---
Author Organization [employer] Address [address] [facility] 7t [place] [address] Care Team Providers Care Generator Switchboard Operator Name Role Phone Name, Cuong RODRIGUEZ Primary Care Provider [phone] Irma Freeman PharmD Unavailable [phone] Encounter Details Date Type Department Care Team (Late st Contact Info) Description 07/09/2025 Refill [facility] [address] [place], [place] [phone] Name, MD Cuong [address] [place] [address] Social History Tobacco Use Types Packs/Day Years [...] Description 07/21/2025 2:00 PM EDT Office Visit [facility] [address] [place] [address] Name, MD Cuong [address] [place] [address] 08/14/2025 11:30 AM EST Medication Management [facility] [address] [place] [address] Irma Freeman, PharmD [address] [place] [address] documented as of this encounter Goals Goal [...] documented as of this encounter Care Teams Generator Switchboard Operator Relationship Specialty Start Date End Date Name, MD Cuong [address] [place] [address] PCP - General Family Medicine 07/19/17 Irma Freeman PharmD [address] [place] [address] Pharmacist Internal Medicine 02/20/23 documented as of this encounter
--- OUTSIDE RECORDS SUMMARY | 2025-07-10 09:57 | XMS_ITS | Encounter Summary ---
Author Organization [employer] Address [address] [facility] 7t [place] [address] Care Team Providers Care Salvage Cutter Name Role Phone Name, Cuong RODRIGUEZ Primary Care Provider [phone] Irma Freeman PharmD Unavailable [phone] Encounter Details Date Type Department Care Team (Late st Contact Info) Description 08/18/2024 Telephone [facility] [address] [place], [place] [phone] Name, MD Cuong [address] [place] [address] Social History Tobacco Use Types Packs/Day Years [...] Description 07/21/2025 2:00 PM EDT Office Visit [facility] [address] [place] [address] Name, MD Cuong [address] [place] [address] 08/14/2025 11:30 AM EST Medication Management [address] [address] Irma Freeman PharmD [address] [place] [address] documented as of this encounter Goals Goal [...] documented as of this encounter Care Teams Salvage Cutter Relationship Specialty Start Date End Date Name, MD Cuong [address] [place] [address] PCP - General Family Medicine 07/19/17 Irma Freeman, Heber [address] [place] [address] Pharmacist Internal Medicine 02/20/23 documented as of this encounter
--- OUTSIDE RECORDS SUMMARY | 2025-07-10 09:57 | XMS_ITS | Clinical Summary ---
Author Organization [employer] Address [address] [place] [address] 7t [place] [address] Care Team Providers Care Continuous Process Tanner Rotary Drum Name Role Phone Name, Cuong RODRIGUEZ Primary Care Provider [phone] Irma Freeman PharmD Unavailable [phone] Allergies No known active allergies Medications EPINEPHrine (EpiPen 2-Pedro Luis) 0.3 MG/0.3ML injection syringe Inject 0.3 mL into the shoulder, thigh, or buttocks 2 each 1 023 Active Diclofenac Sodium 1 % gel Apply 2 g topically if needed in the morning, at noon, in the evening, and at bedtime (pain). 150 g 1 024 Active amLODIPine (Norvasc) 5 MG tabletIndicatio ns:Type [...] (one) time per week. 2 mL Active sertraline (Zoloft) 100 MG tablet Take 2 tablets (200 mg) by mouth Once per day. 60 tablet 5 Active sertraline (Zoloft) 100 MG tablet TAKE 2 TABLETS BY MOUTH EVERY DAY AT BEDTIME 60 tablet 5 2024 Discontinued(R eorder (will not trigger notification to Pharmacy)) losartan-hydroC HLOROthiazide (Hyzaar) 100-25 MG tabletIndicatio ns:Type 2 diabetes mellitus with obesity,Essenti al hypertension Take 1 tablet by mouth Once per day. 30 tablet 11 2024 Discontinued(A lternate therapy) metFORMIN XR (Glucophage-XR) 500 MG 24 hr tabletIndicatio ns:Type 2 diabetes mellitus with obesity Take 2 tablets (1,000 mg) by mouth with breakfast. 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 [facility] Obstructive sleep apnea syndrome 03/08/2018 [...] Encounters Date Type Department Care Team Description 07/09/2025 Refill [facility] [place] [address] Cuong Casas MD 06/19/2025 Travel 06/10/2025 Orders Only GENERIC EXTERNAL DATA DEPARTMENT Provider, Generic External Data 06/08/2025 Refill [facility] [address] [place] [address] Cuong Casas MD 06/03/2025 Refill [facility] [address] [place] [address] Cuong Casas MD Essential (primary) hypertension; Type 2 diabetes mellitus with other specified complication (CMS/HCC) 05/26/2025 11:15 AM EDT Office Visit [facility] [place] [address] Cuong Casas MD Type 2 diabetes mellitus with obesity (CMS/HCC) (CMS/HCC) (Primary Dx); Gallstones; Skin tag 05/26/2025 Travel 05/25/2025 Telephone [facility] [place] [address] Taawna Begum MA chart prep 05/14/2025 Refill [facility] [place] [address] Cuong Casas MD Type 2 diabetes mellitus with obesity (CMS/HCC) (CMS/HCC) 05/12/2025 Telephone [facility] [place] [address] Tawana Begum MA october recall 05/09/2025 Refill [facility] [place] [address] Cuong Casas MD from Last 3 Months Immunizations Immunization Administration [...] Description 07/21/2025 2:00 PM EDT Office Visit [facility] [address] [place] [address] Name, MD Cuong [address] [place] [address] 08/14/2025 11:30 AM EST Medication Management [address] [address] Irma Freeman, PharmD [address] [place] [address] Health Maintenance Due Date Last Done Comments [...] Name Priority Date/Time Associated Diagnosis Comments XR KNEE 3 VIEWS BILATERAL Routine 07/10/2025 9:33 AM EDT POCT GLYCATED HEMOGLOBIN, TOTAL Routine 06/19/2025 2:26 PM EDT Type 2 diabetes mellitus with obesity (CMS/HCC) (CMS/HCC) BACTERIAL VAGINOSIS PANEL Routine 06/10/2025 8:45 AM EDT POCT GLUCOSE Routine 05/26/2025 11:59 AM EDT Type 2 diabetes mellitus with obesity (CMS/HCC) (CMS/HCC) CT ABDOMEN PELVIS W CONTRAST Routine 04/30/2025 2:21 PM EDT HEPATITIS B, C PROFILE Routine 02/18/2025 9:25 AM EDT LIPID PANEL, STANDARD Routine 02/18/2025 9:25 AM EDT Type 2 diabetes mellitus with obesity (CMS/HCC) (CMS/HCC) Essential hypertension BI MAMMOGRAM SCREENING TOMOSYNTHESIS BILATERAL [...] Recently Relevant to Health Maintenance Results * XR Knee 3 Views Bilateral (07/10/2025 9:33 AM EDT) Anatomical Region Laterality Modality Lower Extremities, Knee Bilateral Radiogra phic Imaging 07/10/2025 9:33 AM EDT Narrative 07/10/2025 9:52 AM EDT [address] [address] XRay Report Signed Patient: Yakelin Chaney MR#: [id number] 60 : 1985 Acct:[id number] Age/Sex: 40 / F ADM Date: 07/10/25 Loc: HO.LESLY Attending Dr: Priya Duarte MD Ordering Physician: Priya Duarte MD Date of Service: 07/10/25 Procedure(s): XR Knee Amos 3V Accession Number(s): [id number] cc: Priya Duarte MD; Name,Cuong RODRIGUEZ Reason for Exam: M17.0 - Bilateral primary osteoarthritis of knee EXAMINATION: XR KNEE BILATERAL 3 VIEW CLINICAL INFORMATION: M17.0 - Bilateral primary osteoarthritis of knee COMPARISON: None available. TECHNIQUE: AP bilateral standing , lateral and sunrise view of the knees was obtained. FINDINGS: Right: Bone alignment is normal. No fracture or dislocation. Normal joint spaces. No joint effusion. Left: No fracture or dislocation. Small osteophytes at the lateral femoral tibial and patellofemoral joints. Slight lateral tilt of the patella on the sunrise view. No joint effusion. XR/XR Knee Amos 3V IMPRESSION: Left knee: Mild degenerative changes at the patellofemoral and lateral femoral tibial joints and lateral subluxation of the patella. Right knee: Unremarkable exam. Electronically signed by: Caron Rubio MD 07/10/2025 09:49 AM EDT RP Dictated By: Caron Rubio MD Signed By: <Electronically signed by Caron Rubio MD in OV> 07/10/25948 DD/ 2 TD/TT: 07/10/25938 Nut Former: SLICK Procedure Note Donotuseinterpreter, Image - 07/10/[address] [address] XRay Report Signed Patient: Naga Chaney#: [id number] 60 : 1985Acct:[id number] Age/Sex: 40 / FADM Date: 07/10/25 Loc: HOОльгаXRAY Attending Dr: Priya Duarte MD Ordering Physician: Priya Duarte MD Date of Service: 07/10/25 Procedure(s): XR Knee Amos 3V Accession Number(s): [id number] cc: Priya Duarte MD; Name,Cuong RODRIGUEZ Reason for Exam: M17.0 - Bilateral primary osteoarthritis of knee EXAMINATION: XR KNEE BILATERAL 3 VIEW CLINICAL INFORMATION: M17.0 - Bilateral primary osteoarthritis of knee COMPARISON: None available. TECHNIQUE: AP bilateral standing , lateral and sunrise view of the knees was obtained. FINDINGS: Right: Bone alignment is normal. No fracture or dislocation. Normal joint spaces. No joint effusion. Left: No fracture or dislocation. Small osteophytes at the lateral femoral tibial and patellofemoral joints. Slight lateral tilt of the patella on the sunrise view. No joint effusion. XR/XR Knee Amos 3V IMPRESSION: Left knee: Mild degenerative changes at the patellofemoral and lateral femoral tibial joints and lateral subluxation of the patella. Right knee: Unremarkable exam. Electronically signed by: Caron Rubio MD 07/10/2025 09:49 AM EDT RP Dictated By: Caron Rubio MD Signed By: <Electronically signed by Caron Rubio MD in OV> 07/10/2549 DD/ 2 TD/TT: 07/10/25938 Nut Former: SLICK [facility] External Provider IMG XR PROCEDURES Final Result * POCT Hgb A1c (06/19/2025 2:26 PM EDT) Pathologist [facility] Hemoglobin A1C 5.7 4.0 - 5.7 % Blood 06/19/2025 2:26 PM EDT Cuong Casas MD POINT OF CARE TEST ENTER/EDIT OR DERABLES Final Result * (ABNORMAL) Bacterial Vaginosis (06/10/2025 8:45 AM EDT) Pathologist [facility] TRICHOMONAS VAGINALIS DETECTION BY PCR NOT DETECTED Not Detect [facility] BACTERIAL VAGINOSIS DETECTION BY PCR POSITIVE(A) Negative [facility] Comment:The BV organism targ ets [...] DETECTION BY PCR NOT DETECTED Not Detect [facility] Miladys glab krusei PCR NOT DETECTED Not Detect [facility] 06/10/2025 8:45 AM EDT 06/10/2025 4:15 PM EDT Generic External Data Provider LAB MICROBIOLOGY - GENERAL ORDERABLES Final Result [facility] [address] [place] [address] [phone] * POCT Glucose (05/26/2025 11:59 AM EDT) Glucose Blood, POC 92 60 - 200 mg/dL QC Media Lot # [id number] Lot# Expiration Date 22,726 Blood Capillary blood specimen / Unknown 05/26/2025 11:59 AM EDT Cuong Casas MD POINT OF CARE TEST ENTER/EDIT OR DERABLES Final Result * CT Abdomen Pelvis w/ Contrast (04/30/2025 2:21 PM EDT) Anatomical Region Laterality Modality Body, Pelvis, Abdomen Computed T omography 04/30/2025 2:21 PM EDT Narrative 04/30/2025 2:22 PM EDT [place] [address] CT Scan Report Signed Patient: Yakelin Chaney MR#: [id number] 60 : 1985 Acct:[id number] Age/Sex: 39 / F ADM Date: 04/30/25 Loc: HO.CT Attending Dr: Costa Fisher MD Ordering Physician: Costa Fisher MD Date of Service: 04/30/25 Procedure(s): CT abdomen pelvis w IV con Accession Number(s): [id number] cc: Costa Fisher MD; Name,Cuong RODRIGUEZ Report Number: [id number]: Total DLP = 743.00 mGy-cm CLINICAL HISTORY: [...] signed by Ольга Kinney MD in OV> 04/30/25 1422 DD/ 20 TD/TT: 04/30/251420 Nut Former: Procedure Note Donotuseinterpreter, Image - 04/30/[address] [place] [address] [address] Scan Report Signed Patient: Naga Chaney#: [id number] 60 : 1985Acct:[id number] Age/Sex: 39 / FADM Date: 04/30/25 Loc: HO.CT Attending Dr: Costa Fisher MD Ordering Physician: Costa Fisher MD Date of Service: 04/30/25 Procedure(s): CT abdomen pelvis w IV con Accession Number(s): [id number] cc: Costa Fisher MD; Name,Cuong RODRIGUEZ Report Number: [id number]: Total DLP = 743.00 mGy-cm CLINICAL HISTORY: [...] in OV> 04/30/251421 DD/ 20 TD/TT: 04/30/251420 Nut Former: [facility] External Provider IMG CT PROCEDURES Final Result * Hepatitis B, C Profile (02/18/2025 9:25 AM EDT) ~Hepatitis B Surface Antibody REACTIVE Nonreactive [facility] Comment:REACTIVE: > 11.99 mI U/mL Hepatitis B Core Antibody Nonreactive Nonreactive [facility] Hepatitis C Antibody Nonreactive Nonreactive [facility] Comment:Antibodies to HCV no t detected; does not exclude early acuteHCV infection. Hepatitis B Surface Ag Negative Negative [facility] 02/18/2025 9:25 AM EDT 02/18/2025 11:04 AM EDT us Generic External Data Provider LAB BLOOD ORDERAB LES Final Result Performing Organization Address City/[facility]/ZIP Co de Phone Number [facility] [address] [place] [address] [phone] * Lipid Panel, Standard (02/18/2025 9:25 AM EDT) Triglycerides 72 <150 mg/dL [facility] Comment:Desirable Triglyceri de: less than 150 mg/dLBorderline High Triglyceride 150-199 mg/dLHigh Triglyceride: 200-499 mg/dLVery High Triglyceride: greater than or equal to 5OO mg/dL Cholesterol 148 <200 mg/dL [facility] Comment:Desirable Cholestero l: less than 200 mg/dLBorderline High Cholesterol: 200-239 mg/dLHigh Cholesterol: greater than 239 mg/dL LDL Cholesterol Calculated 93 <100 mg/dL [facility] Comment:Desirable LDL: less than 100 mg/dLNear Optimal/Above Optimal LDL: 110- 129 mg/dLBorderline High LDL: 130-159 mg/dLHigh LDL: 160-189 mg/dLVery High LDL: greater than or equal to 190 mg/dL HDL Cholesterol 41 >40 mg/dL [facility] Comment:Desirable HDL: great er than 40 mg/dL Note: This HDL assay may give artificially low results in patients with liver disease. Blood Venous blood specimen / Unknown 02/18/2025 9:25 AM EDT 02/18/2025 11:04 AM EDT us Cuong Casas MD LAB BLOOD ORDERABLES Final Resul t [facility] [address] [place] [address] [phone] * BI Mammogram Screening Tomosynthesis Bilateral (10/09/2024 11:45 AM EST) Anatomical Region Laterality Modality Breast Bilateral Mammography 10/09/2024 11:4 5 AM EST Narrative 10/17/2024 7:48 AM EST [facility] [address] [place] [address] Mammography Report Signed Patient: Yakelin Chaney MR#: [id number] 60 : 1985 Acct:[id number] Age/Sex: 39 / F ADM Date: 10/09/24 Loc: HO.MAMMO Attending Dr: Bessie Snyder CNM Ordering Physician: Bessie Snyder CNM Results: 1Nega tive Date of Service: 10/09/24 Follow Up: 1 Year From [facility] ina Mammogram Procedure(s): MM tomosynthesis screening BI Accession Number(s): [id number] cc: Name,Cuong RODRIGUEZ; Bessie Snyder CNM EXAMINATION: [...] 10/17/24 0745 DD/ 1145 TD/TT: 10/09/24 1213 Nut Former: Procedure Note Donceceliainterpreter, Image - 10/17/20[facility] [address] [place] [address] Mammography Report Signed Patient: Naga Chaney#: [id number] 60 : 1985Acct:[id number] Age/Sex: 39 / FADM Date: 10/09/24 Loc: HO.MAMMO Attending Dr: Bessie Snyder CNM Ordering Physician: Bessie Snyderesults: 1Nega tive Date of Service: 10/09/24Follow Up: 1 Year From Orig inal Mammogram Procedure(s): MM tomosynthesis screening BI Accession Number(s): [id number] cc: Name,Cuong RODRIGUEZ; Bessie Snyder CNM EXAMINATION: [...] 10/17/24 0745 DD/ 1145 TD/TT: 10/09/24 1213 Nut Former: [facility] External Provider IMG BI PROCEDURES Edited Result - Final * Albumin, Random Urine W/Creatinine (05/14/2024 3:38 PM EDT) Creatinine, Urine 79.05 mg/dL [facility] Microalbumin Urine <5.0 mg/L H [facility] Microalbum Creatinine Ratio Ur TNP <30 ug/mg cr [facility] Comment:Unable to calculate albumin/creatinine ratio due to lowmicroalbumin or creatinine result. Urine (Urine, Random) 05/14/2024 3:38 PM EDT 05/14/2024 4:08 PM EDT Cuong Casas MD LAB URINE ORDERABLES Final Resul t [facility] [address] [place] [phone] * HIV Ab/Ag ([facility]) (07/03/2023 11:54 AM EDT) HIV AB/AG Nonreactive Nonreactive [facility] Comment:HIV-1 p24 Ag and/or HIV-1/HIV-2 Ab not detected.A test result that is nonreactive does not exclude thepossibility of exposure to or infection with HIV-1 and/orHIV-2. Nonreactive results in this assay for individualswith prior exposure to HIV-1 and/or HIV-2 may be due toantigen and antibody levels that are below the limit ofdetection of this assay.The Tracky HIV Ag/Ab Combo assay result andsupplemental assay results should be interpreted inconjunction with the patient's clinical presentation,history and other laboratory results. If the results areinconsistent with clinical evidence, additional testing issuggested to confirm the result. 07/03/2023 11:5 4 AM EDT 07/03/2023 11:54 AM EDT Generic External Data Provider LAB BLOOD ORDERAB LES Final Result [facility] [address] [place] [address] [phone] * HPV mRNA E6/E7 w/Reflex to HPV Genotypes 16, 18/45 (01/17/2023 11:01 AM EDT) HPV nRNA E6/E7 Not Detected Not Detected [facility] Comment:Methodology: Transcr iption-Mediated AmplificationThis assay detects E6/E7 viral messenger RNA (mRNA) from 14high-risk HPV types (16,18,31,33,35,39,45,51,52,56,58,59,66,68).Cervical sources are required for HPV testing.If a vaginal source from a patient who has had atotal hysterectomy with removal of cervix wassubmitted, please contact the testing laboratoryfor alternative testing options.For additional information, please refer tohttp://education.Tebla/faq/KGK517e3(This link if provided for information/educational purposes only.)THIS TEST WAS PERFORMED AT:[employer] [place] [phone] PRADHAN MD HPV mRNA E6/E7 [facility] HPV 16 RNA [facility] HPV 18/45 RNA [facility] 01/17/2023 11:0 1 AM EDT 01/18/2023 8:15 AM EDT [facility] External Provider LAB CYT OLOGY ORDERABLES Final Result [facility] [address] [place] [address] [phone] * Pap Smear (01/17/2023 11:01 AM EDT) 01/17/2023 11:0 1 AM EDT 01/18/2023 8:15 AM EDT Narrative [facility] - 01/25/2023 1:20 PM EDT ----- ------- Name: Yakelin Chaney Age/Sex: 37/F : 1985 Unit#: [id number] Attend Dr: Madeleine Silveira CNM Re01/17/23 Status: [facility] REF Location: [facility] Disch: ----- ------- SPEC : [id number] RECD: 01/18/23 STATUS: VERONIKA ORTEGAJody NUM: [id number] LUIS: 01/17/23-[address] [facility] [address]: Madeleine Silveira CNM ENTERED: 01/18/23-918 SP TYPE: Pap Smr [facility] DR: ORDERED: Pap Smear, PAP path review Interpretation General Category: Epithelial cell abnormality. Adequacy: Endocervical component present. Interpretation: Atypical squamous cells of undetermined significance. Abundant blood present. HPV mRNA E6/E7: NOT DETECTED This assay detects E6/E7 viral messenger RNA (mRNA) from 14 high-risk HPV types (16, 18, 31, 33, 35, 39, 45, 51, 52, 56, 58, 59, 66, 68) HPV testing performed by [employer], [place], [place]. See reference laboratory portion of the EMR for entire report. Clinical Information LMP: Nexplanon Previous PAP test: Unknown Date/Findings Material Received ThinPrep Cervical ----- ------- Signed (signature on file) Kay Andre 01/25/23 1320 ----- ------- END OF REPORT [facility] External Provider [facility] Final Result [facility] [address] [place] [phone] from Last 3 Months or Most Recently Relevant to Health Maintenance Insurance C3 Care Teams Continuous Process Tanner Rotary Drum Relationship Specialty Start Date End Date Name, MD Cuong [address] [place] [address] PCP - General Family Medicine 07/19/17 Irma Freeman, [place] [address] [place] [address] Pharmacist Internal Medicine 02/20/23
--- OUTSIDE RECORDS SUMMARY | 2025-07-10 09:57 | XMS_ITS | Encounter Summary ---
Author Organization [employer] Address [address] [facility] 7t [place] [address] Care Team Providers Care Shake Loader Name Role Phone Name, Cuong RODRIGUEZ Primary Care Provider [phone] Irma Freeman PharmD Unavailable Reason for Visit * Reason Onset Date Comments Lab Orders 04/25/2024 Encounter Details Date Type Department Care Team (Late st Contact Info) Description 04/25/2024 Telephone [facility] [address] [place], [place] [phone] Name, MD Cuong [address] [place] [address] Lab Orders Social History Tobacco Use Types [...] 10:03 AM EDT T/C to pt. Through [facility] id - [id number] to inform that TB test was order for work, pt. Can go to lab as per convenience, pt. Verbally greed and understood. * Telephone Encounter - Jonny Rodriguez - 04/25/2024 9:32 AM EDT Tc from pt requesting TB test for work. If any questions you can contact pt at [phone]. Luxembourger Speaker. documented in this encounter Plan of Treatment Upcoming Encounters Date Type Department Care Team (Late st Contact Info) Description 07/21/2025 2:00 PM EDT Office Visit [address] [address] Name, MD Cuong [address] [place] [phone] 08/14/2025 11:30 AM EST Medication Management [address] [address] Irma Freeman PharmD [address] [place] [address] documented as of this encounter Goals Goal [...] documented as of this encounter Care Teams Shake Loader Relationship Specialty Start Date End Date Name, MD Cuong [address] [place] [address] PCP - General Family Medicine 07/19/17 Irma Freeman PharmD [address] [place] [address] Pharmacist Internal Medicine 02/20/23 documented as of this encounter
--- OUTSIDE RECORDS SUMMARY | 2025-07-10 09:57 | XMS_ITS | Clinical Summary ---
Author Organization [facility] Address [address] [place] [address] Phone Care Team Providers Care Match Marker Name Role Phone Physician, No Pcp Primary [...] EDT - 05/30/2025 12:37 AM EDT Emergency [facility] Emergency [address] [place] [address] Acquired female bladder prolapse (Primary Dx) Discharge Disposition: Home or Self Care 04/14/2025 9:45 AM EDT Office Visit Orthopedic Surgery - [address] [place] [address] Huma Kat MD Osteochondrosis of [...] Anxiety state DX:Anxiety state Hypertension Diabetes mellitus ([facility] V24, [facility] V28) GERD (gastroesophageal reflux disease) Chronic pain [...] lat pinch at 12.5#; 3pt=9# 4. L Outsole Rounder at least 40# (vs 20# init) 03/24/25 [...] currently active code status orders. Care Teams Match Marker Relationship Specialty Start Date End Date Physician, No Pcp PCP - General 05/30/25
--- OUTSIDE RECORDS SUMMARY | 2025-07-10 09:57 | XMS_ITS | Encounter Summary ---
Author Organization [employer] Address [address] [place] [address] 7t [place] [address] Care Team Providers Care Disc Pad Knockout Worker Name Role Phone Name, Cuong RODRIGUEZ Primary Care Provider [phone] Irma Freeman PharmD Unavailable [phone] Reason for Visit * Reason Comments Med Refill Encounter Details Date Type Department Care Team ([facility] Contact Info) Description 03/01/2023 Refill [facility] MEDICINE 230 [place], [place] [phone] Name, MD Cuong [address] [place] [address] Social History Tobacco Use Types Packs/Day Years [...] Upcoming Encounters Date Type Department Care Team ([facility] Contact Info) Description 07/21/2025 2:00 PM EDT Office Visit [facility] MEDICINE [address] [place] [phone] Name, MD Cuong [address] [place] [address] 08/14/2025 11:30 AM EST Medication Management [facility] MEDICINE [address] [place] [address] Irma Freeman PharmD [address] [place] [address] documented as of this encounter Goals Goal [...] on filedocumented in this encounter Care Teams Disc Pad Knockout Worker Relationship Specialty Start Date End Date Name, MD Cuong [address] [place] [address] PCP - General Family Medicine 07/19/17 Irma Freeman PharmD [address] [place] [address] Pharmacist Internal Medicine 02/20/23 documented as of this encounter
== END 2025-07-10 09:22 | disposition home or self-care (01) ==
LOC: HO.XRAY 09:21
PROVIDERS: PCP Internal Medicine Geriatric Medicine; Visit Provider Student in an Organized Health Care Education/Training Program
DX: M17.0 Bilateral primary osteoarthritis of knee (principal)
CPT/HCPCS: 73562

== ENCOUNTER → 2025-07-10 09:25 | Outpatient (BNV) | payer MEDICAID, SELFPAY | PROVIDERS: PCP Internal Medicine Geriatric Medicine; Visit Provider Radiology Diagnostic Radiology | DX: M17.0 Bilateral primary osteoarthritis of knee (principal) | CPT/HCPCS: 73562 ==

== ENCOUNTER 2025-09-02 08:31 | Outpatient (REF) | payer MEDICAID, SELFPAY ==
--- OUTSIDE RECORDS SUMMARY | 2025-09-02 08:41 | XMS_ITS | Encounter Summary ---
Author Organization [employer] [facility] Address [address] [place] [address] 7t [place] [address] Care Team Providers Care Spinning Lathe Operator Name Role Phone Name, Cuong RODRIGUEZ Primary Care Provider [phone] Irma Freeman PharmD Unavailable Reason for Visit * Reason Comments Med Refill Encounter Details Date Type Department Care Team (Late Contact Info) Description 03/01/2023 Refill [facility] MEDICINE 230 [place], [place] [phone] Name, MD Cuong 230 [place], [place] [phone] Social History Tobacco Use Types Packs/Day Years [...] Encounters Date Type Department Care Team (Late Contact Info) Description 10/05/2025 11:00 AM EST Medication Management [address] [address] Irma Freeman PharmD [address] [place] [address] 10/20/2025 11:30 AM EST Office Visit [address] [address] Name, MD Cuong [address] [place] [address] 10/30/2025 10:15 AM EST Office Visit [address] [address] Dada Angela MD [address] [place] [address] documented as of this encounter Goals Goal Patient Goal Type Associated Problems Recent Progress Patient-Stated? Author Drink less soda, juice, and other sugary beverages Diet No Evette Cruz RN Eat a balanced, healthy diet Diet No Evette Cruz RN Hemoglobin A1c < 7 Result Component 5.7( 5 2:26 PM EDT) No Irma Freeman PharmLaura Record your blood sugar as directed Result Component No Irma Freeman PharmD Note: SMBG at least once daily, record values for review in follow up documented as of this encounter Visit Diagnoses Not on filedocumented in this encounter Care Teams Spinning Lathe Operator Relationship Specialty Start Date End Date Name, MD Cuong [address] [place] [address] PCP - General Family Medicine 07/19/17 Irma Freeman PharmD [address] [place] [address] Pharmacist Internal Medicine 02/20/23 documented as of this encounter
--- OUTSIDE RECORDS SUMMARY | 2025-09-02 08:41 | XMS_ITS | Encounter Summary ---
Author Organization [employer] Address [address] [facility] 7t [place] [address] Care Team Providers Care Maxillofacial Prosthodontist Name Role Phone Name, Cuong RODRIGUEZ Primary Care Provider [phone] Irma Freeman PharmD Unavailable Reason for Visit * Reason Comments Med Refill Encounter Details Date Type Department Care Team (Late st Contact Info) Description 09/28/2023 Refill [facility] MEDICINE 230 [place], [place] [phone] Name, MD Cuong 230 [place], [place] [phone] Chronic low back pain, unspecified back pain laterality, unspecified whether sciatica present Social History Tobacco Use Types Packs/Day Years Used Date Smoking Tobacco: Never Smokeless Tobacco: Never Alcohol Use Standard Drinks/Week Comments Never 0 (1 standard drink = 0.6 oz pur e alcohol) Housing Stability Answer Date Recorded What is your housing situation today? I have kelseajohn holley 07/18/[address] you [...] the past 12 months, has t he [employer], gas, oil or water company threatened to [...] Care Team (Late st Contact Info) Description 10/05/2025 11:00 AM EST Medication Management [address] [address] Irma Freeman PharmD [address] [place] [address] 10/20/2025 11:30 AM EST Office Visit [address] [address] Name, MD Cuong [address] [place] [address] 10/30/2025 10:15 AM EST Office Visit [address] [address] Dada Angela MD [address] [place] [address] documented as of this encounter Goals Goal Patient Goal Type Associated Problems Recent Progress Patient-Stated? Author Drink less soda, juice, and other sugary beverages Diet No Evette Cruz, TATYANA Eat a balanced, healthy diet Diet No Evette Cruz RN Hemoglobin A1c < 7 Result Component 5.7( 2:26 PM EDT) No Irma Freeman PharmLaura Record your blood sugar as directed Result Component No Irma Freeman PharmD Note: SMBG at least once daily, record values for review in follow up documented as of this encounter Visit Diagnoses Diagnosis Chronic low back pain, unspecified back pain laterality, unspecified whether sciatica present documented in this encounter Care Teams Maxillofacial Prosthodontist Relationship Specialty Start Date End Date Name, MD Cuong 230 [place] [address] PCP - General Family Medicine 07/19/17 Irma Freeman PharmD [address] [place] [address] Pharmacist Internal Medicine 02/20/23 documented as of this encounter
--- OUTSIDE RECORDS SUMMARY | 2025-09-02 08:41 | XMS_ITS | Encounter Summary ---
Author Organization [employer] Address [address] [facility] 7t [place] [address] Care Team Providers Care Spinner Operator Name Role Phone Name, Cuong RODRIGUEZ Primary Care Provider [phone] Irma Freeman PharmD Unavailable Reason for Visit * Reason Onset Date Comments ER Follow-up 09/01/2025 Encounter Details Date Type Department Care Team (Late st Contact Info) Description 09/01/[address] [facility] MEDICINE 230 [place], [place] [phone] Name, MD Cuong 230 [place], [place] [phone] ER Follow-up Social History Tobacco Use Types Packs/Day Years [...] encounter Miscellaneous Notes * Telephone Encounter - Jonny Rodriguez - 09/01/2025 12:38 PM EST Patient calling to report ED visit on : Date: 08/31/25 Hospital: [facility] Seen for: headache Symptomatic No Please contact pt at [phone]. (Vietnamese Speaker) documented in this encounter Plan of Treatment Upcoming Encounters Date Type Department Care Team (Late st Contact Info) Description 10/05/2025 11:00 AM EST Medication Management [facility] MEDICINE [address] [place] [address] Irma Freeman, PharmD 230 [place] [address] 10/20/2025 11:30 AM EST Office Visit [facility] MEDICINE [address] [place] [address] [phone] Cuong Casas MD 230 [place] [address] 10/30/2025 10:15 AM EST Office Visit [facility] MEDICINE 230 [place] [address] Dada nAgela MD 230 [place] [address] documented as of this encounter Goals Goal [...] record values for review in follow up Help patients manage their type 2 diabetes Care Plan Help patients manage their type 2 diabetes BodegaCuong Casas MD Weekly blood pressure task Care Plan Weekly blood pressure task BodegaCuong Casas MD Help patients manage their type 2 diabetes Care Plan Help patients manage their type 2 diabetes BodegaCuong Casas MD Patient has chronic kidney disease Care Plan Patient has chronic kidney disease Cuong Pratt MD Weekly blood pressure task Care Plan Weekly blood pressure task BodegaCuong Casas MD Patient has chronic kidney disease Care Plan Patient has chronic kidney disease Cuong Pratt MD Weekly blood pressure task Care Plan Weekly blood pressure task No Jonny Rodriguez Weekly blood pressure task Care Plan Weekly blood pressure task No Jonny Rodriguez Patient has chronic kidney disease Care Plan Patient has chronic kidney disease No Jonny Rodriguez Patient has chronic kidney disease Care Plan Patient has chronic kidney disease No Jonny Rodriguez documented as of this encounter Visit Diagnoses Not on filedocumented in this encounter Additional Health Concerns Active Problems Noted Date Diagnosed Date Help patients manage their type 2 diabetes 08/13 Weekly blood pressure task 08/13/2025 Help patients manage their type 2 diabetes 08/13 Patient has chronic kidney disease 08/13/2025 Weekly blood pressure task 08/13/2025 Patient has chronic kidney disease 08/13/2025 Weekly blood pressure task 09/01/2025 Weekly blood pressure task 09/01/2025 Patient has chronic kidney disease 09/01/2025 Patient has chronic kidney disease 09/01/2025 Assessment Noted Time PHQ-9 Depression Total Score: 7 02/12/20 25 4:22 PM EDT documented as of this encounter Care Teams Spinner Operator Relationship Specialty Start Date End Date Name, MD Cuong [address] [place] [address] PCP - General Family Medicine 07/19/17 Irma Freeman PharmD [address] [place] [address] Pharmacist Internal Medicine 02/20/23 documented as of this encounter
--- OUTSIDE RECORDS SUMMARY | 2025-09-02 08:41 | XMS_ITS | Encounter Summary ---
Author Organization [employer] Address [address] [facility] 7t [place] [address] Care Team Providers Care Direct Care Supervisor Name Role Phone Name, Cuong RODRIGUEZ Primary Care Provider [phone] Irma Freeman PharmD Unavailable Encounter Details Date Type Department Care Team (Late st Contact Info) Description 08/18/2024 Telephone [facility] MEDICINE 230 [place], [place] [phone] Name, MD Cuong 230 [place] [address] Social History Tobacco Use Types Packs/Day Years [...] the past 12 months, has t he [employer], [employer], oil or water [employer] threatened to shut off services in your [...] Description 10/05/2025 11:00 AM EST Medication Management [address] [address] Irma Freeman, PharmD [address] [place] [address] 10/20/2025 11:30 AM EST Office Visit [address] [address] Name, MD Cuong [address] [place] [address] 10/30/2025 10:15 AM EST Office Visit [address] [address] Dada Angela MD [address] [place] [address] documented as of this encounter Goals Goal [...] documented as of this encounter Care Teams Direct Care Supervisor Relationship Specialty Start Date End Date Name, MD Cuong 230 [place] [address] PCP - General Family Medicine 07/19/17 Irma Freeman PharmD [address] [place] [address] Pharmacist Internal Medicine 02/20/23 documented as of this encounter
--- OUTSIDE RECORDS SUMMARY | 2025-09-02 08:41 | XMS_ITS | Clinical Summary ---
Author Organization [address] [facility] Address [address] [place] [address] Phone Care Team Providers Care Mortgage Loan Interviewer Name Role Phone Physician, No Pcp Primary [...] (07/01/2025): 07/01/25 Regulatory IMO Update Urticaria 07/19/2017 Surgical History Surgery Date Site/Laterality Comments SECTION X3 BARIATRIC SURGERY WRIST SURGERY 11/27/2024 Left eCTR, 1st dorsal compartment release, radial core decompression and arthroscopy w/ debridement Medical History Medical History Date Comments Depressive disorder DX:Depressiv e disorder Anxiety state DX:Anxiety state Hypertension Diabetes mellitus ([facility] V24, [facility] V28) GERD (gastroesophageal reflux disease) Chronic [...] 3, 07/06/2022, 09/28/2021, Additional history exists Diabetes: Blood [...] lat pinch at 12.5#; 3pt=9# 4. L Event Executive at least 40# (vs 20# init) 03/24/25 [...] currently active code status orders. Care Teams Mortgage Loan Interviewer Relationship Specialty Start Date End Date Physician, No Pcp PCP - General 05/30/25
--- OUTSIDE RECORDS SUMMARY | 2025-09-02 08:41 | XMS_ITS | Encounter Summary ---
Author Organization [employer] Address [address] [facility] 7t [place] [address] Care Team Providers Care Treating Inspector Name Role Phone Name, Cuong RODRIGUEZ Primary Care Provider [phone] Irma Freeman PharmD Unavailable [phone] Reason for Visit * Reason Comments Med Refill Encounter Details Date Type Department Care Team (Late st Contact Info) Description 08/27/2025 Refill [facility] MEDICINE 230 [place], [place] [phone] Name, MD Cuong 230 [place], [place] [phone] Social History Tobacco Use Types Packs/Day Years [...] Description 10/05/2025 11:00 AM EST Medication Management [address] [address] Irma Freeman, PharmD [address] [place] [address] 10/20/2025 11:30 AM EST Office Visit [address] [address] Name, MD Cuong [address] [place] [address] 10/30/2025 10:15 AM EST Office Visit [address] [address] Dada Angela MD [address] [place] [address] documented as of this encounter Goals Goal [...] Help patients manage their type 2 diabetes PinelandCuong Casas MD Weekly blood pressure task Care Plan Weekly blood pressure task [place] Casas MD Help patients manage their type 2 diabetes Care Plan Help patients manage their type 2 diabetes [place]Cuong Casas MD Patient has chronic kidney disease Care Plan Patient has chronic kidney disease Cuong Pratt MD Weekly blood pressure task Care Plan Weekly blood pressure task [place] Casas MD Patient has chronic kidney disease Care Plan Patient has chronic kidney disease Cuong Pratt MD documented as of this encounter Visit Diagnoses Not on filedocumented in this encounter Additional Health Concerns Active Problems Noted Date Diagnosed Date Help patients manage their type 2 diabetes 08/13 Weekly blood pressure task 08/13/2025 Help patients manage their type 2 diabetes 08/13 Patient has chronic kidney disease 08/13/2025 Weekly blood pressure task 08/13/2025 Patient has chronic kidney disease 08/13/2025 Assessment Noted Time PHQ-9 Depression Total Score: 7 02/12/20 25 4:22 PM EDT documented as of this encounter Care Teams Treating Inspector Relationship Specialty Start Date End Date Cuong Casas MD 230 [place] [address] PCP - General Family Medicine 07/19/17 Irma Freeman PharmD 230 [place] [address] Pharmacist Internal Medicine 02/20/23 documented as of this encounter
--- OUTSIDE RECORDS SUMMARY | 2025-09-02 08:41 | XMS_ITS | Clinical Summary ---
Author Organization [employer] Address [address] [place] [address] [address] [place] [address] Care Team Providers Care Chemical Compounder Helper Name Role Phone Name, Cuong RODRIGUEZ Primary Care Provider [phone] Irma Freeman PharmD Unavailable Allergies No known active allergies Medications EPINEPHrine (EpiPen 2-Pedro Luis) 0.3 MG/0.3ML injection syringe Inject 0.3 mL into the shoulder, thigh, or buttocks 2 each 1 02/22/20 23 Active Diclofenac Sodium 1 % gel Apply 2 g topically if needed in the morning, at noon, in the evening, and at bedtime (pain). 150 g 1 06/12/20 24 Active Blood Pressure kitIndications: Essential hypertension Use once a day 1 kit 02/12/20 25 Active aspirin-acetami nophen-caffeine (Excedrin Migraine) 250-250-65 MG tablet Take 2 tablets by mouth if needed each day for headaches. Active glucose blood (FREESTYLE LITE) test stripIndication s:Type 2 diabetes mellitus with obesity Use to test blood sugar TWICE daily, as directed 50 each 11 03/30/20 25 Active TRUEplus Lancets 33G miscIndications :Type 2 diabetes mellitus with obesity TEST BLOOD SUGAR TWICE DAILY 100 each 11 05/14/20 25 Active cetirizine (ZyrTEC) 10 MG tablet TAKE 1 TABLET BY MOUTH EVERY MORNING 90 tablet 1 06/09/20 25 Active gabapentin (Neurontin) 100 MG capsule Take 100 mg by mouth at bedtime. 04/16/20 25 Active losartan (Cozaar) 100 MG tabletIndicatio ns:Essential hypertension Take 1 tablet (100 mg) by mouth Once per day. 90 tablet 3 06/19/20 25 026 Active hydroCHLOROthia zide (HYDRODiuril) 50 MG tabletIndicatio ns:Essential hypertension Take 1 tablet (50 mg) by mouth Once per day. 90 tablet 3 06/19/20 25 026 Active metFORMIN XR (Glucophage-XR) 500 MG 24 hr tabletIndicatio ns:Type 2 diabetes mellitus with obesity Take 1 tablet (500 mg) by mouth with breakfast. 90 tablet 3 06/19/20 25 Active Tirzepatide (Mounjaro) 12.5 MG/0.5ML solution auto-injectorIn dications:Type 2 diabetes mellitus with obesity Inject 12.5 mg under the skin 1 (one) time per week. 2 mL 06/19/20 25 Active sertraline (Zoloft) 100 MG tablet Take 2 tablets (200 mg) by mouth Once per day. 60 tablet 5 07/09/20 25 Active amLODIPine (Norvasc) 5 MG tabletIndicatio ns:Essential hypertension TAKE 1 TABLET BY MOUTH EVERY MORNING 90 tablet 1 08/04/20 25 Active cyclobenzaprine (Flexeril) 10 MG tablet Take 1 tablet (10 mg) by mouth 3 times daily. 90 tablet 08/07/20 25 Active hydrOXYzine HCl (Atarax) 25 MG tablet TAKE 1 TABLET BY MOUTH THREE TIMES DAILY IN THE MORNING, AT NOON, AND AT BEDTIME NEEDED FOR ITCHING 90 tablet 3 08/31/20 25 Active amLODIPine (Norvasc) 5 MG tabletIndicatio ns:Type 2 diabetes mellitus with obesity,Essenti al hypertension TAKE 1 TABLET BY MOUTH EVERY MORNING 90 tablet 1 02/12/20 25 025 Discontinued(Re order (will not trigger notification to Pharmacy)) cyclobenzaprine (Flexeril) 10 MG tablet Take 1 tablet (10 mg) by mouth 3 times daily. 90 tablet 02/12/20 25 025 Discontinued(Re order (will not trigger notification to Pharmacy)) hydrOXYzine HCl (Atarax) 25 MG tablet TAKE 1 TABLET BY MOUTH THREE TIMES DAILY IN THE MORNING, AT NOON, AND AT BEDTIME NEEDED FOR ITCHING 90 tablet 3 05/11/20 25 025 Discontinued Active Problems Problem Noted Date [...] device) in place 10/31/2022 Overview (10/31/2022): 2021, GUIDE CRUISE at [facility] Obstructive sleep apnea syndrome 03/08/2018 Essential hypertension [...] depressive disorder 07/19/2017 Type 2 diabetes mellitus in patient with obesity 07/19/2017 Chronic low back pain 07/19/2017 Allergic rhinitis 07/19/2017 Encounters Date Type Department Care Team Description 09/01/2025 Telephone [facility] [address] [place] [address] Name, MD Cuong ER Follow-up 08/27/2025 Refill [facility] [address] [place] [address] Name, MD Cuong 08/06/2025 Refill [facility] [address] [place] [address] Cuong Casas MD 08/04/2025 Refill [facility] [address] [place] [address] Cuong Casas MD Essential hypertension 07/21/2025 2:00 PM EDT Office Visit [facility] [address] [place] [address] Cuong Casas MD Physical exam, routine (Primary Dx); Severe obesity (CMS/HCC) (HCC); Type 2 diabetes mellitus in patient with obesity (HCC); Essential hypertension; Encounter for immunization 07/21/2025 Travel 07/14/2025 Patient Outreach [facility] [address] [place], [place] [phone] Cuong Casas MD Pre-visit Planning (SDOH was already completed) 07/09/2025 Refill [facility] [address] [place] [address] Cuong Casas MD 06/19/2025 Travel 06/10/2025 Orders Only GENERIC EXTERNAL DATA DEPARTMENT Provider, Generic External Data 06/08/2025 Refill [facility] [address] [place] [address] Cuong Casas MD 06/03/2025 Refill [facility] [address] [place] [address] Cunog Casas MD Essential (primary) hypertension; Type 2 diabetes mellitus with other specified complication (CMS/HCC) from Last 3 Months Immunizations Immunization Administration Dates Next Due HepB-CpG 03/27/2023,02/21/2023 Influenza injectable quadriv alent IIV4 with preservative 08/19/2018,07/19/2017 Influenza injectable quadriv alent preservative free 07/23/2023,07/06/2022,09/28/2021,2020,09/03/2019 Influenza, seasonal, injecta ble, preservative free 07/21/2025 MMR 09/29/2021 Pneumococcal Conjugate PCV 20 02/21/2023 Tdap 07/15/2021,08/16/2017 Family History Medical History Relation Name Comments No Known Problems Father Fibromyalgia Mother Autism Son Down syndrome Son Relation Name Status Comments Daughter 1 Alive Daughter 2 Alive Father Alive Mother Alive Son Alive Social History Tobacco Use Types Packs/Day Years [...] housing situation today? I have kelseajohn holley 02/11/[address] you [...] Sign Reading Time Taken Comments Blood Pressure 120/62 07/21/2025 2:11 PM EDT Pulse 102 07/21/2025 2:11 PM EDT Temperature 36.5 C (97.7 F) 07/21/2025 2:11 PM EDT Respiratory Rate 14 07/21/2025 2:11 PM EDT Oxygen Saturation 98% 07/21/2025 2:11 PM EDT Inhaled Oxygen Concentration - - Weight 114 kg (252 lb) 07/21/2025 2:11 PM EDT Height 160 cm (5' 3 ) 07/21/2025 2:11 PM EDT Body Mass Index 44.64 07/21/2025 2:11 PM EDT Plan of Treatment Upcoming Encounters Date Type Department Care Team (Late st Contact Info) Description 10/05/2025 11:00 AM EST Medication Management [facility] [address] [place] [phone] Irma Freeman, PharmD [address] [place] [phone] 10/20/2025 11:30 AM EST Office Visit [address] [address] Name, MD Cuong [address] [place] [address] 10/30/2025 10:15 AM EST Office Visit [address] [address] Dada Angela MD [address] [place] [address] Health Maintenance Due Date Last Done Comments Family Planning (PISQ) 1999 HPV Vaccines (1 - 3-dose series) 1999 Cervical Cancer Screening 01/18/2024 HPV/Cotest 01/18/2024 01/17/2023, 10/01, 09/03/2019 Pap Smear 01/18/2024 01/17/2023, 10/14/2020 Diabetes: Urine Protein Screening 05/14/2025 05/14/2024, 04/20/2023, 11/02/2022, Additional history exists COVID-19 Vaccine ( season) 2025 Diabetes: Hemoglobin A1C 12/17/2025 025, 02/11/2025, 02/06/2024, Additional history exists Depression Screening 02/11/2026 02/11/2025, 02/12/20 25 SDOH Screening 02/11/2026 02/11/2025 Lipid Panel 02/18/2026 02/18/2025, 11/02/2022 Alcohol/Substance Use Screening 05/26/2026 05/26/2025 Diabetes: Foot Exam 07/21/2026 07/21/2025, 07/21/2025, 07/21/2025, Additional history exists Disability Screening 07/21/2026 07/21/2025 Tobacco Screening 07/21/2026 07/21/2025 Eye Exam 08/13/2026 01/05/2023 Mammogram 10/09/2026 10/09/2024, 12/04/2017 DTaP/Tdap/Td Vaccines (3 [...] 07/03/2023 Hepatitis C Screening Completed 02/18/2025, 023 Influenza Vaccine Completed 07/21/2025, , 07/06/2022, Additional history exists HIB Vaccines Aged Out No longer eligi [...] Help patients manage their type 2 diabetes AmonateCuong Casas MD Weekly blood pressure task Care Plan Weekly blood pressure task AmonateCuong Casas MD Help patients manage their type 2 diabetes Care Plan Help patients manage their type 2 diabetes AmonateCuong Casas MD Patient has chronic kidney disease Care Plan Patient has chronic kidney disease Cuong Pratt MD Weekly blood pressure task Care Plan Weekly blood pressure task AmonateCuong Casas MD Patient has chronic kidney disease [...] has chronic kidney disease No Jonny Rodriguez Procedures Procedure Name Priority Date/Time Associated Diagnosis Comments POCT GLUCOSE Routine 07/21/2025 2:16 PM EDT Type 2 diabetes mellitus in patient with obesity (HCC) XR KNEE 3 VIEWS BILATERAL Routine 07/10/2025 9:33 AM EDT POCT GLYCATED HEMOGLOBIN, TOTAL Routine 06/19/2025 2:26 PM EDT Type 2 diabetes mellitus with obesity (CMS/HCC) ([facility]) BACTERIAL VAGINOSIS PANEL Routine 06/10/2025 8:45 AM EDT HEPATITIS B, C PROFILE Routine 02/18/2025 9:25 AM EDT LIPID PANEL, STANDARD Routine 02/18/2025 9:25 AM EDT Type 2 diabetes mellitus with obesity (CMS/HCC) ([facility]/HCC) Essential hypertension BI MAMMOGRAM SCREENING TOMOSYNTHESIS BILATERAL Routine 10/09/2024 11:45 AM EST ALBUMIN, RANDOM URINE W/CREATININE Routine 05/14/2024 3:38 PM EDT Type 2 diabetes mellitus with obesity (CMS/HCC) ([facility]/HCC) Leg swelling Leg cramps HIV ANTIBODY/ANTIGEN ([facility]) Routine 07/03/2023 11:54 AM EDT HPV MRNA E6/E7 REFLEX TO HPV 16, 18/45 Routine 01/17/2023 11:01 AM EDT PAP SMEAR Routine 01/17/2023 11:01 AM EDT from Last 3 Months or Most Recently Relevant to Health Maintenance Results * POCT Glucose (07/21/2025 2:16 PM EDT) Pathologist [facility] [place] Glucose Blood, POC 152 60 - 200 mg/dL QC Media Lot # [id number] Lot# Expiration Date Blood Capillary blood specimen / Unknown 07/21/2025 2:16 PM EDT us Cuong Name MD POINT OF CARE TEST ENTER/EDIT OR DERABLES Final Result * XR Knee 3 Views Bilateral (07/10/2025 9:33 AM EDT) Anatomical Region Laterality Modality Lower Extremities, Knee Bilateral Radiogra phic Imaging 07/10/2025 9:33 AM EDT Narrative 07/10/2025 9:52 AM EDT [address] [address] XRay Report Signed Patient: Yakelin Chaney MR#: [id number] 60 : 1985 Acct:[id number] Age/Sex: 40 / F ADM Date: 07/10/25 Loc: [facility] Attending Dr: Priya Duarte MD Ordering Physician: Priya Duarte MD Date of Service: 07/10/25 Procedure(s): XR Knee Amos 3V Accession Number(s): [id number] cc: Priya Duarte MD; Name,Cuong RODRIGUEZ Reason [...] Caron Rubio MD 07/10/2025 09:49 AM EDT Dictated By: Caron Rubio MD Signed By: <Electronically signed by Caron Rubio MD in OV> 07/10/2549 DD/ 2 TD/TT: 07/10/25938 Client Support Coordinator: SLICK Procedure Note Donotuseinterpreter, Image - 07/10/[address] [address] XRay Report Signed Patient: Preston ChaneyR#: [id number] 60 : 1985Acct:[id number] Age/Sex: 40 / FADM Date: 07/10/25 Loc: [facility] Attending Dr: Priya Duarte MD Ordering Physician: Priya Duarte MD Date of Service: 07/10/25 Procedure(s): XR Knee Amos 3V Accession Number(s): [id number] cc: Priya Duarte MD; Name,Cuong RODRIGUEZ Reason [...] Caron Rubio MD 07/10/2025 09:49 AM EDT Dictated By: Caron Rubio MD Signed By: <Electronically signed by Caron Rubio MD in OV> 07/10/2549 DD/ 2 TD/TT: 07/10/25938 Client Support Coordinator: SLICK [facility] External Provider IMG XR PROCEDURES Final Result * POCT Hgb A1c (06/19/2025 2:26 PM EDT) Pathologist [facility] [place] Hemoglobin A1C 5.7 4.0 - 5.7 % Blood 06/19/2025 2:26 PM EDT Cuong Casas MD POINT OF CARE TEST ENTER/EDIT OR DERABLES Final Result * (ABNORMAL) Bacterial Vaginosis (06/10/2025 8:45 AM EDT) Pathologist [facility] [place] TRICHOMONAS VAGINALIS DETECTION BY PCR NOT DETECTED Not Detect [facility] BACTERIAL VAGINOSIS DETECTION BY PCR POSITIVE(A) Negative [facility] Comment:The BV organism targ ets of [...] DETECTION BY PCR NOT DETECTED Not Detect [facility] Miladys glab krusei PCR NOT DETECTED Not Detect [facility] 06/10/2025 8:45 AM EDT 06/10/2025 4:15 PM EDT Generic External Data Provider LAB MICROBIOLOGY - GENERAL ORDERABLES Final Result Performing Organization Address [facility] Co de Phone Number [facility] [address] [place] [phone] * Hepatitis B, C Profile (02/18/2025 9:25 AM EDT) ~Hepatitis B Surface Antibody REACTIVE Nonreactive [facility] Comment:REACTIVE: > 11.99 mI U/mL Hepatitis B Core Antibody Nonreactive Nonreactive [facility] Hepatitis C Antibody Nonreactive Nonreactive [facility] Comment:Antibodies to HCV no t detected; does not exclude early acuteHCV infection. Hepatitis B Surface Ag Negative Negative [facility] 02/18/2025 9:25 AM EDT 02/18/2025 11:04 AM EDT us Generic External Data Provider LAB BLOOD ORDERAB LES Final Result Performing Organization Address [facility]/ZIP Co de Phone Number [facility] [address] [place] [phone] * Lipid Panel, Standard (02/18/2025 9:25 AM EDT) Triglycerides 72 <150 mg/dL [facility] Comment:Desirable Triglyceri de: less than 150 mg/dLBorderline High Triglyceride 150-199 mg/dLHigh Triglyceride: 200-499 mg/dLVery High Triglyceride: greater than or equal to 5OO mg/dL Cholesterol 148 <200 mg/dL [facility] Comment:Desirable Cholestero l: less than 200 mg/dLBorderline High Cholesterol: 200-239 mg/dLHigh Cholesterol: greater than 239 mg/dL LDL Cholesterol Calculated 93 <100 mg/dL [facility] Comment:Desirable LDL: less than 100 mg/dLNear Optimal/Above Optimal LDL: 110- 129 mg/dLBorderline High LDL: 130-159 mg/dLHigh LDL: 160-189 mg/dLVery High LDL: greater than or equal to 190 mg/dL HDL Cholesterol 41 >40 mg/dL [facility] Comment:Desirable HDL: great er than 40 mg/dL Note: This HDL assay may give artificially low results in patients with liver disease. Blood Venous blood specimen / Unknown 02/18/2025 9:25 AM EDT 02/18/2025 11:04 AM EDT us Cuong Name MD LAB BLOOD ORDERABLES Final Resul t [facility] [address] [place] [address] [phone] * BI Mammogram Screening Tomosynthesis Bilateral (10/09/2024 11:45 AM EST) Anatomical Region Laterality Modality Breast Bilateral Mammography 10/09/2024 11:4 5 AM EST Narrative 10/17/2024 7:48 AM EST [facility] [address] [place] [address] Mammography Report Signed Patient: Yakelin Chaney MR#: [id number] 60 : 1985 Acct:[id number] Age/Sex: 39 / F ADM Date: 10/09/24 Loc: [facility] Attending Dr: Bessie Snyder CNM Ordering Physician: Bessie Snyder CNM Results: 1Nega tive Date of Service: 10/09/24 Follow Up: 1 Year From Orig inal Mammogram Procedure(s): MM tomosynthesis screening BI Accession Number(s): [id number] cc: Yessenia,Cuong RODRIGUEZ; Bessie Snyder CNM EXAMINATION: MM SCREENING [...] 10/17/24 0745 DD/ 1145 TD/TT: 10/09/24 1213 Client Support Coordinator: Procedure Note Donotuseinterpreter, Image - 10/17/2024 [facility] [address] [place] [address] Mammography Report Signed Patient: Naga Chaney#: [id number] 60 : 1985Acct:[id number] Age/Sex: 39 / FADM Date: 10/09/24 Loc: [facility] Attending Dr: Bessie Snyder CNM Ordering Physician: Bessie Snyderesults: 1Nega tive Date of Service: 10/09/24Follow Up: 1 Year From Orig inal Mammogram Procedure(s): MM tomosynthesis screening BI Accession Number(s): [id number] cc: Cuong Casas MD; Bessie Snyder CNM [...] by: Lori Almanzar DO 10/17/2024 07:45 AM [facility] Dictated By: Lori Almanzar DO Signed By: <Electronically signed by Lori Almanzar DO in OV> 10/17/24 0745 DD/ 1145 TD/TT: 10/09/24 1213 Client Support Coordinator: [facility] External Provider IMG BI PROCEDURES Edited Result - Final * Albumin, Random Urine W/Creatinine (05/14/2024 3:38 PM EDT) Creatinine, Urine 79.05 mg/dL [facility] Microalbumin Urine <5.0 mg/L [facility] Microalbum Creatinine Ratio Ur TNP <30 ug/mg cr [facility] Comment:Unable to calculate albumin/creatinine ratio due to lowmicroalbumin or creatinine result. Urine (Urine, Random) 05/14/2024 3:38 PM EDT 05/14/2024 4:08 PM EDT Cuong Casas MD LAB URINE ORDERABLES Final Resul t [facility] [address] [place] [address] [phone] * HIV Ab/Ag ([facility]) (07/03/2023 11:54 AM EDT) HIV AB/AG Nonreactive Nonreactive [facility] Comment:HIV-1 p24 Ag and/or HIV-1/HIV-2 Ab not detected.A test result that is nonreactive does not exclude thepossibility of exposure to or infection with HIV-1 and/orHIV-2. Nonreactive results in this assay for individualswith prior exposure to HIV-1 and/or HIV-2 may be due toantigen and antibody levels that are below the limit ofdetection of this assay.The [employer] HIV Ag/Ab Combo assay result andsupplemental assay results should be interpreted inconjunction with the patient's clinical presentation,history and other laboratory results. If the results areinconsistent with clinical evidence, additional testing issuggested to confirm the result. 07/03/2023 11:5 4 AM EDT 07/03/2023 11:54 AM EDT us Generic External Data Provider LAB BLOOD ORDERAB LES Final Result [facility] [address] [place] [phone] [phone] * HPV mRNA E6/E7 w/Reflex to HPV Genotypes 16, 18/45 (01/17/2023 11:01 AM EDT) HPV nRNA E6/E7 Not Detected Not Detected [facility] Comment:Methodology: Transcr iption-Mediated AmplificationThis assay detects E6/E7 viral messenger RNA (mRNA) from 14high-risk HPV types (16,18,31,33,35,39,45,51,52,56,58,59,66,68).Cervical sources are required for HPV testing.If a vaginal source from a patient who has had atotal hysterectomy with removal of cervix wassubmitted, please contact the testing laboratoryfor alternative testing options.For additional information, please refer tohttp://education.[employer]/faq/BBK694f6(This link if provided for information/educational purposes only.)THIS TEST WAS PERFORMED AT:[facility] [place] [phone] PRADHAN MD HPV mRNA E6/E7 TNP [facility] HPV 16 RNA TNP [facility] HPV 18/45 RNA TNP [facility] 01/17/2023 11:0 1 AM EDT 01/18/2023 8:15 AM EDT [facility] External Provider LAB CYT OLOGY ORDERABLES Final Result [facility] [address] [place] [phone] [phone] * Pap Smear (01/17/2023 11:01 AM EDT) 01/17/2023 11:0 1 AM EDT 01/18/2023 8:15 AM EDT Narrative [facility] - 01/25/2023 1:20 PM EDT ----- ------- Name: Yakelin Chaney Age/Sex: 37/F : 1985 Unit#: [id number] Attend Dr: Madeleine Silveira CNM Re01/17/23 Status: DEP REF Location: HO.LNP Disch: ----- ------- SPEC : [id number] RECD: 01/18/23 STATUS: VERONIKA SADLER NUM: [id number] LUIS: 01/17/23-[address] [facility] [address]: Madeleine Silveira ENTERED: 01/18/23 SP TYPE: Pap Smr OTHR [...] 59, 66, 68) HPV testing performed by [employer], [place]. See reference laboratory portion of the EMR for entire report. Clinical Information LMP: Nexplanon Previous PAP test: Unknown Date/Findings Material Received ThinPrep Cervical ----- ------- Signed (signature on file) Kay [employer] 01/25/23 1320 ----- ------- END OF REPORT [facility] External Provider LAB CYT OLOGY ORDERABLES Final Result [facility] [address] [place] [address] [phone] from Last 3 Months or Most Recently Relevant to Health Maintenance Additional Health Concerns Active Problems Noted Date [...] 09/01/2025 Patient has chronic kidney disease 09/01/2025 Insurance [facility] C3 Care Teams Chemical Compounder Helper Relationship Specialty Start Date End Date Name, MD Cuong [address] [place] [address] PCP - General Family Medicine 07/19/17 Irma Freeman, [place] [address] [place] [phone] Pharmacist Internal Medicine 02/20/23
--- OUTSIDE RECORDS SUMMARY | 2025-09-02 08:41 | XMS_ITS | Encounter Summary ---
Author Organization [employer] Address [address] [facility] [address] [place] [address] Care Team Providers Care Engine Lathe Set Up Operator Name Role Phone Name, Cuong RODRIGUEZ Primary Care Provider [phone] Irma Freeman PharmD Unavailable Reason for Visit * Reason Onset Date Comments Lab Orders 04/25/2024 Encounter Details Date Type Department Care Team (Late st Contact Info) Description 04/25/2024 Telephone [facility] [address] [place] [address] Name, MD Cuong [address] [place], [place] [phone] Lab Orders Social History Tobacco Use Types [...] 10:03 AM EDT T/C [place] pt. Through [facility] id - [id number] to inform that TB test was order for work, pt. Can go to lab as per convenience, pt. Verbally greed and understood. * Telephone Encounter - Jonny Rodriguez - 04/25/2024 9:32 AM EDT Tc from pt requesting TB test for work. If any questions you can contact pt at [phone]. Greek Speaker. documented in this encounter Plan of Treatment Upcoming Encounters Date Type Department Care Team (Late st Contact Info) Description 10/05/2025 11:00 AM EST Medication Management [facility] [address] [place], [place] [phone] Irma Freeman, PharmD [address] [place], [place] [phone] 10/20/2025 11:30 AM EST Office Visit [facility] [address] [place] [address] Name, MD Cuong [facility] [place] [address] 10/30/2025 10:15 AM EST Office Visit [facility] [address] [place] [address] Dada Angela MD [address] [place] [address] documented as of this encounter Goals Goal [...] documented as of this encounter Care Teams Engine Lathe Set Up Operator Relationship Specialty Start Date End Date Name, [place] [address] PCP - General Family Medicine 07/19/17 Imra Freeman, PharmD [address] [place] [phone] Pharmacist Internal Medicine 02/20/23 documented as of this encounter
[2025-09-02 11:42] LABS: Alanine Aminotransferase 31 U/L (0-31); Albumin Level 4.5 g/dL (3.5-5.0); Alkaline Phosphatase 71 U/L (39-117); Anion Gap 12 (12-20); Aspartate Amino Transferase 23 U/L (5-31); Blood Urea Nitrogen 10 mg/dL (9-16); Calcium 9.1 mg/dL (8.4-10.2); Carbon Dioxide 26 mmol/L (22-29); Chloride 106 mmol/L (96-108); Estimated Glomerular Filt Rate > 60; Potassium 4.0 mmol/L (3.3-5.1); Sodium 140 mmol/L (135-145); Total Protein 7.2 g/dL (6.5-8.0)
[2025-09-02 12:01] LABS: Microalbum/Creatinine Ratio Ur 23.2 ug/mg cr (<30)
== END 2025-09-02 08:32 | disposition home or self-care (01) ==
LOC: HO.HHCL 08:31
PROVIDERS: PCP Internal Medicine Geriatric Medicine; Visit Provider Internal Medicine Geriatric Medicine
DX: I10 Essential (primary) hypertension (principal); E11.69 Type 2 diabetes mellitus with other specified complication; E66.9 Obesity, unspecified
CPT/HCPCS: 36415; 80053; 82043; 82570